=== PATIENT | female | born 1975 | race Caucasian/White ===

== ENCOUNTER → 2016-10-19 | Outpatient (CLI) | payer OTHER ==
[2016-10-19 13:25] LABS: MEAN CORPUSCULAR HEMOGLOBIN 27.8 pg (27.0-33.0); MEAN CORPUSCULAR HGB CONC 33.4 g/dl (32.0-36.5); MEAN CORPUSCULAR VOLUME 83.2 fl (80.0-96.0); RED CELL DISTRIBUTION WIDTH 13.1 % (11.5-14.5); WHITE BLOOD COUNT 11.4 K/mm3 (4.0-10.0)
[2016-10-19 13:45] LABS: ALBUMIN 3.3 GM/DL (3.2-5.2); ALBUMIN/GLOBULIN RATIO 0.92 (1.00-1.93); ALKALINE PHOSPHATASE 106 U/L (45-117); ALT/SGPT 47 U/L (12-78); ANION GAP 10 MEQ/L (8-16); AST/SGOT 29 U/L (15-37); BILIRUBIN,TOTAL 0.6 MG/DL (0.2-1.0); BLOOD UREA NITROGEN 12 MG/DL (7-18); CALCIUM LEVEL 8.7 MG/DL (8.5-10.1); CARBON DIOXIDE LEVEL 28 MEQ/L (21-32); CHLORIDE LEVEL 109 MEQ/L (98-107); CHOLESTEROL LEVEL 146 MG/DL (<200); CREATININE FOR GFR 0.81 MG/DL (0.55-1.02); GLOMERULAR FILTRATION RATE > 60.0 (>60); GLUCOSE, FASTING 88 MG/DL (70-105); POTASSIUM SERUM 3.1 MEQ/L (3.5-5.1); SODIUM LEVEL 147 MEQ/L (136-145); THYROXINE (T4) 12.5 UG/DL (4.5-12.0); TOTAL IRON BINDING CAPACITY 295 UG/DL (250-450); TOTAL PROTEIN 6.9 GM/DL (6.4-8.2); TRIGLYCERIDES LEVEL 83 MG/DL (<150)
== END ==
LOC: M WUC 11:11
PROVIDERS: ATTEND Family Medicine
DX: E11.9 Type 2 diabetes mellitus without complications (principal); E03.9 Hypothyroidism, unspecified

== ENCOUNTER 2017-01-10 08:18 | Day surgery (SDC) | payer OTHER ==
[~2017-01-10] VITALS: Ht 172.7 cm; Wt 102.0 kg
[2017-01-10] MEDS ORDERED: XANA1TAB2 PO (08:39)
[2017-01-10] MEDS ORDERED: KETOROLAC 30 MG/ML VIAL (J1885) IV ONE (10:00)
[2017-01-10] MEDS ORDERED: ONDANSETRON 4MG/2ML VIAL (J2405) IV ONE (10:00)
[2017-01-10] MEDS ORDERED: NS 1,000 ML IV ONE (10:00)
--- NOTE | 2017-01-10 11:02 | REP ---
An increase in the [facility] CT abdomen pelvis without IV or bowel contrast for left flank pain. Comparisons 09/13/2015. There is a 7 mm calculus in the distal left ureter at the mid sacrum level. It just inferior to this is an 8 mm left ureteral calculus. Interposed between these two calculi and is a 4 mm calculus in the distal left ureter. There is marked left hydronephrosis and hydroureter and left perinephric stranding. All of these findings are changes from the 09/13/2015 study. On the prior study. There were multiple left renal calculi. There are no left renal calculi on the study today. There are no right renal calculi. There is no right hydronephrosis. This is unchanged. There are no bladder calculi. The visualized lung pelaez are unremarkable. The unenhanced hepatic parenchyma, pancreas and spleen are unremarkable. There are surgical clips in the gallbladder fossa. This is unchanged. The adrenals, abdominal aorta, bowel and mesentery are unremarkable and unchanged. Pelvis: The uterus and adnexa are unremarkable. There is no adenopathy or ascites. The bladder is unremarkable. The pelvic bowel loops are unremarkable. Impression: There are three calculi, one above the other, in the distal left ureter at the mid sacral level. There is marked left hydronephrosis and perinephric stranding. Signed by Jeremy Hull MD 01/10/2017 10:53 A
[2017-01-10] MEDS ORDERED: NS 1,000 ML IV SCH (11:30)
[2017-01-10] MEDS ORDERED: LevoFLOXacin IV 750 MG in APPROPRIATE DILUENT 1 EA IV ONE (11:30)
[2017-01-10] MEDS ORDERED: KLOR1CAP PO (11:51)
[2017-01-10] MEDS ORDERED: IBUP80TA PO (11:51)
[2017-01-10] MEDS ORDERED: MORPHINE 4 MG/ML 1ML SYRINGE IV ONE (16:45)
[2017-01-10] MEDS ORDERED: CONRAY-60 60% 50ML VIAL (Q9961) As Ordered ONE (17:46)
[2017-01-10] MEDS ORDERED: GENTAMICIN SULF INJ 80MG/2ML VIAL (J1580) As Ordered ONE (18:38)
[2017-01-10] MEDS ORDERED: fentaNYL 250 MCG/5 ML INJECTION (J3010) As Ordered ONE (18:54)
[2017-01-10] MEDS ORDERED: MIDAZOLAM INJ 2 MG/2 ML VIAL (J2250) As Ordered ONE (18:54)
[2017-01-10] MEDS ORDERED: ONDANSETRON 4MG/2ML VIAL (J2405) As Ordered ONE (18:54)
[2017-01-10] MEDS ORDERED: LIDOCAINE 2% INJ 100 MG/5 ML SDV (FOR ANES.) As Ordered ONE (18:54)
[2017-01-10] MEDS ORDERED: dexameTHASONE 4 MG/ML 1ML VIAL (J1100) As Ordered ONE (18:54)
[2017-01-10] MEDS ORDERED: LR 1,000 ML IV SCH (19:45)
[2017-01-10] MEDS ORDERED: fentaNYL 100 MCG/2 ML INJECTION (J3010) IV PRN (19:45)
[2017-01-10] MEDS ORDERED: ONDANSETRON 4MG/2ML VIAL (J2405) IV PRN ×2 (19:45)
[2017-01-10] MEDS ORDERED: MEPERIDINE INJ 25 MG/ML VIAL (J2175) IV PRN (19:45)
[2017-01-10] MEDS ORDERED: OXYCODONE/APAP 5MG/325MG(BULK FOR ED) 1 TABLET PO PRN (19:45)
[2017-01-10] MEDS ORDERED: METOCLOPRAMIDE INJ 10MG/2ML VIAL (J2765) IV PRN (19:45)
[2017-01-10] MEDS ORDERED: MORPHINE 4 MG/ML 1ML SYRINGE IV PRN (19:45)
[2017-01-10] MEDS ORDERED: PERCOCET 5MG/325MG TAB PO PRN ×2 (19:45→23:30)
[2017-01-10 20:17] VITALS: BP 132/62
[2017-01-10] MEDS: KCL 10MEQ IN D5/0.45NS 1000ML 1,000 ML IV SCH (20:38)
[2017-01-10 20:51] VITALS: BP 129/78
[2017-01-10] MEDS ORDERED: PANTOPRAZOLE 40MG INJ (PROTONIX) (C9113) IV SCH (21:00)
[2017-01-10 21:39] VITALS: BP 122/84
[2017-01-10 22:00] VITALS: BP 126/83
[2017-01-10 23:00] VITALS: BP 123/67
[2017-01-11] VITALS: BP 112/72
[2017-01-11 01:00] VITALS: BP 123/72
[2017-01-11] MEDS: KCL 10MEQ IN D5/0.45NS 1000ML 1,000 ML IV SCH (05:49)
--- NOTE | 2017-01-11 07:22 | RO ---
DATE OF PROCEDURE: 01/10/2017 PREOPERATIVE DIAGNOSES: Left hydronephrosis, plus left distal ureteral stones. POSTOPERATIVE DIAGNOSES: Left hydronephrosis, plus left distal ureteral stones. SURGERY: Cystoscopy, plus left retrograde pyelogram, plus left double J stent placement 6-[place]ian [place] Cook. SURGEON: Marko Brown MD SUBGRADE TESTER: Paresh Carpio, PGY-3 resident. ANESTHESIA: General. COMPLICATIONS: None. ESTIMATED BLOOD LOSS: N/A. HISTORY OF PRESENT ILLNESS: This is a 41-year-old female patient with severe nausea and vomiting and left flank pain. She had a CT scan of the pelvis that shows severe left hydronephrosis with stranding. She has three stones in the distal ureter about a centimeter each. For this reason, she has consented for a cystoscopy, plus left retrograde pyelogram, plus left double J stent placement. PROCEDURE DESCRIPTION: With the patient under general anesthesia in supine modified low lithotomy position after prepping and draping the area of concern, which included the entire genitalia and abdomen, we started by introducing a cystoscope #21-Burundian in diameter with a 30 degree lens. We then proceeded to actively introduce the cystoscope. The urethra and bladder neck were normal. The bladder had no tumors, no stones, no foreign objects. Both ureteral orifices were seen. The left ureteral orifice was not excreting clear urine. The right ureteral orifice was excreting clear urine. We then proceeded to pass a 5-Burundian Pollack catheter into the distal left ureter and did a retrograde pyelogram. We could see left hydronephrosis and obstructing stones in the distal ureter. For this reason, we passed a guidewire up to the kidney and then passed the Pollack catheter. We took the guidewire out. We could actually collect purulent urine from the left kidney. We sent if for urine culture from the left kidney. We then proceeded to pass the guidewire and take the Pollack catheter out. Following the guidewire, we actively placed a 6-[place]ian [place] Cook stent up to the kidney, then took out guidewire out. We could see the curl in the kidney and the curl in the bladder. We then emptied the bladder and took the cystoscope out. PLAN: The patient will stay in the hospital for IV fluids and IV antibiotics. Once she is tolerating a regular diet and she is stable, she will be discharged home with antibiotic and pain medication, and at that moment in time, we will address her stones on the left kidney in elective fashion. We cannot address this at this moment and time because she has purulent material coming out from the left kidney, which is purulent urine. We will address when she is completely treated with specific antibiotics sensitive for the urine culture. There were no complications of surgery. JOCY
[2017-01-11 08:00] VITALS: BP 118/69
--- NOTE | 2017-01-11 09:13 | REP ---
Retrograde pyelogram during left ureteral stent placement: There are three views. The final views demonstrate the proximal and distal pigtails of the left ureteral stent to be in satisfactory locations. Fluoroscopic exposure time is 39 seconds. Intraoperative fluoroscopic views are performed with last image hold technology. These images require no additional radiation. Signed by Jeremy Hull MD 01/11/2017 09:05 A
[2017-01-11] MEDS ORDERED: PERCOCET PO (10:59)
[2017-01-11] MEDS ORDERED: LEVA500T PO (10:59)
[2017-01-11] MEDS ORDERED: LevoFLOXacin IV 500 MG in APPROPRIATE DILUENT 1 EA IV SCH (12:00)
--- NOTE | 2017-01-11 12:23 | DSES ---
DATE OF ADMISSION: 01/10/2017 DATE OF DISCHARGE: ADMISSION DIAGNOSIS: Left hydronephrosis plus left distal ureteral stones. DISCHARGE DIAGNOSIS: Left hydronephrosis plus left distal ureteral stones. SURGERY PERFORMED: Cystoscopy plus left retrograde pyelogram plus left JJ-stent placement #6 Filipino [place] Cook. SURGEON: Dr. Marko Brown ANTHROPOLOGIST: Paresh Carpio, PGY-3 HISTORY OF PRESENT ILLNESS: This is a 41-year-old female patient with severe nausea, vomiting and left flank pain. She had a CT scan of the pelvis that shows severe left hydronephrosis and stranding. She had three stones in the distal ureter about 1 cm each. For this reason, she has consented for cystoscopy plus left retrograde pyelogram plus left JJ-stent placement. This procedure was performed on 01/10/2017. After this she was admitted. HOSPITAL COURSE: The patient did very well. By postoperative day #1, she was tolerating a regular diet and ambulating very well. Her pain was controlled with by mouth pain medications. She was voiding well. She was hemodynamically stable. No fever. No chills. No nausea. No vomiting. For this reason, she requested to go home and we agreed upon this. The patient will go home with the following indications. Levaquin 500 mg one tablet by mouth daily for ten day and Percocet for pain. She may return back to work tomorrow. She will followup at [facility] between 7 and 10 days. She will need to have a urine culture three days after the last dose of antibiotics. After this, if the urine culture is negative, we will schedule her for a definite treatment for her stone via cystoscopy, left ureteroscopy, possible laser stone lithotripsy, possible basket extraction of stones, possible left JJ-stent exchange.
== END 2017-01-11 11:40 | disposition home or self-care (01) ==
LOC: M ED 09:37 → M SDC 15:30 → M PED 20:11 → M SDC 01-11 11:40
PROVIDERS: ATTEND Urology
DX: N13.2 Hydronephrosis with renal and ureteral calculous obstruction (principal); J45.909 Unspecified asthma, uncomplicated; F41.0 Panic disorder [episodic paroxysmal anxiety]
CPT/HCPCS: 36415; 52332; 74176; 74420; 80048; 81001; 81025; 85025; 85027; 87040; 87086; 96375; 99285; C1726; C2617; C9113; J1100; J1580; J1885; J1956; J2250; J2405; J3010; Q9961

== ENCOUNTER → 2017-02-02 | Outpatient (CLI) | payer OTHER ==
[~2017-02-02] MED LIST: IBUP80TA PO; KLOR1CAP PO; LEVA500T PO; PERCOCET PO; XANA1TAB2 PO
[2017-02-02 14:29] LABS: CONTROL LINE HCG INT CTR LINE PRESENT
[2017-02-02 14:35] LABS: ANION GAP 7 MEQ/L (8-16); BLOOD UREA NITROGEN 16 MG/DL (7-18); CALCIUM LEVEL 8.6 MG/DL (8.5-10.1); CARBON DIOXIDE LEVEL 28 MEQ/L (21-32); CHLORIDE LEVEL 106 MEQ/L (98-107); CREATININE FOR GFR 1.02 MG/DL (0.55-1.02); GLOMERULAR FILTRATION RATE > 60.0 (>60); GLUCOSE, FASTING 83 MG/DL (70-105); POTASSIUM SERUM 4.1 MEQ/L (3.5-5.1); SODIUM LEVEL 141 MEQ/L (136-145)
[2017-02-02 14:40] LABS: MEAN CORPUSCULAR HEMOGLOBIN 27.3 pg (27.0-33.0); MEAN CORPUSCULAR HGB CONC 32.1 g/dl (32.0-36.5); RED CELL DISTRIBUTION WIDTH 14.9 % (11.5-14.5); WHITE BLOOD COUNT 8.4 K/mm3 (4.0-10.0)
[2017-02-02 14:44] LABS: INR 1.03
== END ==
LOC: M WUC 12:32
PROVIDERS: ATTEND Nurse Practitioner Women's Health
DX: N13.2 Hydronephrosis with renal and ureteral calculous obstruction (principal); Z01.818 Encounter for other preprocedural examination

== ENCOUNTER → 2017-03-09 | Day surgery (SDC) | payer OTHER ==
[~2017-03-09] VITALS: Ht 167.6 cm; Wt 102.1 kg
[~2017-03-09] MED LIST changes: +ALLE1TAB23 PO; +CIPR500T3 PO; +CIPROFLOXACIN 400 MG in APPROPRIATE DILUENT 1 EA IV ONE; +CIPROFLOXACIN 500 MG TAB PO SCH; +CLAR1TAB2 PO; +CONRAY-60 60% 50ML VIAL (Q9961) As Ordered ONE; +CVS20TAB PO; +GLYCOPYRROLATE INJ 0.2 MG/ML 2 ML VIAL As Ordered ONE; +KETOROLAC 60 MG/2 ML VIAL (J1885) As Ordered ONE; +LIDOCAINE 2% INJ 100 MG/5 ML SDV (FOR ANES.) As Ordered ONE; +LR 1,000 ML IV ONE; +LR 1,000 ML IV SCH; +MEDR1VL IM; +MIDAZOLAM INJ 2 MG/2 ML VIAL (J2250) As Ordered ONE; +ONDANSETRON 4MG/2ML VIAL (J2405) As Ordered ONE; +ONDANSETRON 4MG/2ML VIAL (J2405) IV PRN; +PERCOCET 5MG/325MG TAB PO SCH; +PROPOFOL 200 MG/20 ML VIAL As Ordered ONE; +dexameTHASONE 4 MG/ML 1ML VIAL (J1100) As Ordered ONE; +fentaNYL 100 MCG/2 ML INJECTION (J3010) As Ordered ONE; +fentaNYL 100 MCG/2 ML INJECTION (J3010) IV PRN
[2017-03-09 07:26] LABS: CONTROL LINE UCG INT CTR LINE PRESENT
--- NOTE | 2017-03-09 11:21 | REP ---
C-ARM VIEWS ABDOMEN: C-arm views of the abdomen are performed. There is a left ureteral stent. The proximal end is coiled in the region of the left renal pelvis and the distal end is coiled in the region of the urinary bladder. 8 seconds fluoroscopy time utilized. Signed by Jeremy Flores MD 03/10/2017 07:03 P
[2017-03-09 12:35] VITALS: BP 146/93
--- NOTE | 2017-03-10 08:23 | RO ---
DATE OF PROCEDURE: 03/09/2017 PREPROCEDURE DIAGNOSIS: Left ureteral stones. POSTPROCEDURE DIAGNOSIS: Left ureteral stones. PROCEDURE: Cystoscopy plus left retrograde pyelogram plus left ureteroscopy plus left laser stone lithotripsy plus left basket extraction of stones, plus left double J stent exchange 6.0 [place] Cook. SURGEON: Dr. Marko Brown PRODUCT SUPPORT CONSULTANT: None. ANESTHESIA: General. COMPLICATIONS: None. ESTIMATED BLOOD LOSS: N/A. HISTORY OF PRESENT ILLNESS: This is a 41-year-old female patient with a left double J stent due to three distal ureteral stones about 8 mm in diameter. For this reason, she has consented for cystoscopy plus left retrograde pyelogram plus left ureteroscopy plus left laser stone lithotripsy plus left basket extraction of stones, plus left double J stent exchange. FINDINGS: 8 mm left atrial stones times three. DESCRIPTION OF PROCEDURE: The patient under general anesthesia in the supine modified low lithotomy position after prepping and draping the area of concern, which included the entire genitalia and abdomen. We started by introducing a cystoscope #21-Qatari in diameter with a 30-degree lens under videoscopic guidance. The urethra and bladder neck were totally normal. The bladder had no tumors. No stones. No foreign objects. There was a left double J stent in good position. With endoscopic forceps, we grabbed the double J stent and took it out of the body of the patient. We then proceeded to pass a #5-Qatari Dewey catheter and did a retrograde pyelogram and then loaded a guidewire up to the kidney. We then took the Dewey catheter out. We then proceeded to load a semirigid #7-Qatari ureteroscope following the guidewire up to the ureter. Then in the distal ureter, we found an 8 mm stone. We passed an 200 micron probe holmium laser and laser lithotripsy the stone into small fragments at a power of 0.6 and a rate of 10. We then passed a #1.9-Qatari basket and grabbed the pieces of stones and took it out of the body of the patient. We then proceeded to actually load again the semirigid ureteroscope and netted in the second stone in the distal ureter. With the holmium laser 200 micron probe, we laser lithotripsied the stone into multiple fragments also and the grabbed the stones with the basket also and took it out of the body of the patient. Once the ureter was completely cleared, we took the ureteroscope out and passed the cystoscope and loaded a left double J stent #6-Qatari [place] Cook following the guidewire. Once the stent was in good position, we took the guidewire out and we could see the curl in the kidney and the curl in the bladder. We then emptied the bladder and took the cystoscope out. PLAN: The patient will pass to the recovery room and then go home. She will have antibiotics and pain medication. Followup at [facility] in about 1 to 2 weeks for removal of the left double J stent.
== END | disposition home or self-care (01) ==
LOC: M SDC 06:36
PROVIDERS: ATTEND Urology
DX: N20.1 Calculus of ureter (principal); J45.909 Unspecified asthma, uncomplicated; Z88.0 Allergy status to penicillin; Z79.899 Other long term (current) drug therapy
CPT/HCPCS: 52356; 74420; 82360; 84703; 88300; C1726; C2617; J0744; J1100; J1885; J2250; J2405; J3010; Q9961

== ENCOUNTER → 2017-04-25 | Outpatient (REF) | payer OTHER ==
[~2017-04-25] MED LIST changes: -CIPROFLOXACIN 400 MG in APPROPRIATE DILUENT 1 EA IV ONE; -CIPROFLOXACIN 500 MG TAB PO SCH; -CONRAY-60 60% 50ML VIAL (Q9961) As Ordered ONE; -GLYCOPYRROLATE INJ 0.2 MG/ML 2 ML VIAL As Ordered ONE; -KETOROLAC 60 MG/2 ML VIAL (J1885) As Ordered ONE; +LEVA1TAB2 PO; -LEVA500T PO; -LIDOCAINE 2% INJ 100 MG/5 ML SDV (FOR ANES.) As Ordered ONE; -LR 1,000 ML IV ONE; -LR 1,000 ML IV SCH; -MIDAZOLAM INJ 2 MG/2 ML VIAL (J2250) As Ordered ONE; -ONDANSETRON 4MG/2ML VIAL (J2405) As Ordered ONE; -ONDANSETRON 4MG/2ML VIAL (J2405) IV PRN; -PERCOCET 5MG/325MG TAB PO SCH; -PROPOFOL 200 MG/20 ML VIAL As Ordered ONE; -dexameTHASONE 4 MG/ML 1ML VIAL (J1100) As Ordered ONE; -fentaNYL 100 MCG/2 ML INJECTION (J3010) As Ordered ONE; -fentaNYL 100 MCG/2 ML INJECTION (J3010) IV PRN
== END ==
LOC: M SMT 17:50
PROVIDERS: ATTEND Urology
DX: N13.2 Hydronephrosis with renal and ureteral calculous obstruction (principal)

== ENCOUNTER → 2017-06-20 | Outpatient (REF) | payer OTHER ==
[2017-06-25 00:08] LABS: ALDOSTERONE 3.7 ng/dL (0.0-30.0)
== END ==
LOC: M LAB REF 17:00
PROVIDERS: ATTEND Internal Medicine Nephrology
DX: N20.9 Urinary calculus, unspecified (principal); E87.6 Hypokalemia; I10 Essential (primary) hypertension

== ENCOUNTER 2018-02-07 12:01 | Emergency (ER) | payer OTHER ==
[2018-02-07] MEDS: DERMABOND TOPICAL SKIN ADHESIVE TOP (15:20)
== END 2018-02-07 15:33 | disposition home or self-care (01) ==
LOC: M ED 12:01
DX: S61.213A Laceration without foreign body of left middle finger without damage to nail, initial encounter (principal); W26.0XXA Contact with knife, initial encounter; Y92.89 Other specified places as the place of occurrence of the external cause; J45.909 Unspecified asthma, uncomplicated; K21.9 Gastro-esophageal reflux disease without esophagitis; F41.9 Anxiety disorder, unspecified; Z87.442 Personal history of urinary calculi; Z88.0 Allergy status to penicillin; Z79.899 Other long term (current) drug therapy
CPT/HCPCS: 12001

== ENCOUNTER → 2018-02-16 | Outpatient (CLI) | payer OTHER ==
[2018-02-16 12:15] LABS: BASO # 0.1 10^3/uL (0.0-0.2); BASO % 0.7 % (0.0-1.0); EOS # 0.2 10^3/uL (0.0-0.50); HEMATOCRIT 41.4 % (36.0-47.0); HEMOGLOBIN 13.4 g/dl (12.0-15.5); IMMATURE GRANULOCYTE % 0.4 % (0-3.0); LYMPH # 1.8 10^3/uL (1.5-4.5); LYMPH % 22.1 % (24.0-44.0); MEAN CORPUSCULAR HEMOGLOBIN 27.3 pg (27.0-33.0); MEAN CORPUSCULAR HGB CONC 32.4 g/dl (32.0-36.5); MEAN CORPUSCULAR VOLUME 84.5 fl (80.0-96.0); MONO # 0.7 10^3/uL (0.0-0.8); MONO % 8.6 % (0.0-5.0); NEUTROPHILS # 5.4 10^3/uL (1.8-7.7); NEUTROPHILS % 66.2 % (36.0-66.0); PLATELET COUNT, AUTOMATED 206 10^3/uL (150-450); RED CELL DISTRIBUTION WIDTH 13.4 % (11.5-14.5); WHITE BLOOD COUNT 8.2 10^3/uL (4.0-10.0)
[2018-02-16 12:52] LABS: ALBUMIN 3.7 GM/DL (3.2-5.2); ALBUMIN/GLOBULIN RATIO 1.12 (1.00-1.93); ALKALINE PHOSPHATASE 110 U/L (45-117); ALT/SGPT 61 U/L (12-78); ANION GAP 8 MEQ/L (8-16); AST/SGOT 35 U/L (7-37); BILIRUBIN,TOTAL 0.6 MG/DL (0.2-1.0); BLOOD UREA NITROGEN 10 MG/DL (7-18); CALCIUM LEVEL 8.7 MG/DL (8.5-10.1); CARBON DIOXIDE LEVEL 24 MEQ/L (21-32); CHLORIDE LEVEL 111 MEQ/L (98-107); CHOLESTEROL LEVEL 113 MG/DL (<200); CHOLESTEROL RISK RATIO 3.054 (<5); CREATININE FOR GFR 0.87 MG/DL (0.55-1.30); GLOMERULAR FILTRATION RATE > 60.0 (>58); GLUCOSE, FASTING 79 MG/DL (70-100); HDL CHOLESTEROL 37 MG/DL (>40); LDL CHOLESTEROL 67.4 MG/DL (<100); MAGNESIUM LEVEL 2.1 MG/DL (1.8-2.4); NON-HDL-C 76 MG/DL; POTASSIUM SERUM 4.5 MEQ/L (3.5-5.1); SODIUM LEVEL 143 MEQ/L (136-145); TRIGLYCERIDES LEVEL 43 MG/DL (<150)
== END ==
LOC: M WUC 08:39
DX: Z00.00 Encounter for general adult medical examination without abnormal findings (principal)

== ENCOUNTER 2018-06-25 18:57 | Emergency (ER) | payer OTHER ==
[2018-06-25] MEDS: METHOCARBAMOL 500 MG TAB PO (20:09)
[2018-06-25] MEDS: IBUPROFEN 600 MG TAB PO (20:09)
[2018-06-25 20:11] LABS: KETONE, URINE AUTO RFX NEGATIVE (NEGATIVE); LEUKOCYTE ESTERASE UR AUTO RFX NEGATIVE (NEGATIVE); NITRITE, URINE AUTO RFX NEGATIVE (NEGATIVE); RBC, URINE AUTO RFX 0 /HPF (0-3); SPECIFIC GRAVITY UR AUTO RFX 1.011 (1.002-1.035); SQUAM EPITHELIAL CELL UR AURFX 0 /HPF (0-6); WBC, URINE AUTO RFX 0 /HPF (0-3)
== END 2018-06-25 20:11 | disposition home or self-care (01) ==
LOC: M ED 18:57
DX: M54.41 Lumbago with sciatica, right side (principal); Z87.442 Personal history of urinary calculi; Z79.899 Other long term (current) drug therapy; Z88.0 Allergy status to penicillin
CPT/HCPCS: 81001

== ENCOUNTER → 2018-07-19 | Outpatient (CLI) | payer OTHER ==
[2018-07-19 11:20] LABS: ANION GAP 7 MEQ/L (8-16); BLOOD UREA NITROGEN 15 MG/DL (7-18); CALCIUM LEVEL 8.2 MG/DL (8.5-10.1); CARBON DIOXIDE LEVEL 27 MEQ/L (21-32); CHLORIDE LEVEL 107 MEQ/L (98-107); CREATININE FOR GFR 0.82 MG/DL (0.55-1.30); GLOMERULAR FILTRATION RATE > 60.0 (>58); GLUCOSE, FASTING 73 MG/DL (70-100); POTASSIUM SERUM 4.1 MEQ/L (3.5-5.1); SODIUM LEVEL 141 MEQ/L (136-145)
== END ==
LOC: M LAB 10:09
DX: M54.41 Lumbago with sciatica, right side (principal)
CPT/HCPCS: 80048

== ENCOUNTER → 2018-07-19 | Outpatient (CLI) | payer OTHER | LOC: M RAD 09:34 | DX: Z12.31 Encounter for screening mammogram for malignant neoplasm of breast (principal) ==

== ENCOUNTER 2019-01-30 00:48 | Emergency (ER) | payer OTHER, SELFPAY ==
[~2019-01-30] VITALS: Ht 165.1 cm; Wt 104.5 kg
[~2019-01-30 00:48] MED LIST changes: -CVS20TAB PO; +IBUP-1022 PO; +OMEP20TA9 PO; +ROBA500T PO
[2019-01-30] MEDS ORDERED: FLUO10CA8 PO (00:53)
[2019-01-30 01:22] LABS: BASO # 0.1 10^3/uL (0.0-0.2); BASO % 0.7 % (0.0-1.0); EOS # 0.3 10^3/uL (0.0-0.50); EOS % 2.3 % (0.0-3.0); HEMATOCRIT 41.7 % (36.0-47.0); HEMOGLOBIN 13.6 g/dl (12.0-15.5); LYMPH # 2.8 10^3/uL (1.5-4.5); LYMPH % 25.9 % (24.0-44.0); MEAN CORPUSCULAR HEMOGLOBIN 27.4 pg (27.0-33.0); MEAN CORPUSCULAR HGB CONC 32.6 g/dl (32.0-36.5); MEAN CORPUSCULAR VOLUME 83.9 fl (80.0-96.0); MONO # 1.1 10^3/uL (0.0-0.8); MONO % 10.4 % (0.0-5.0); NEUTROPHILS # 6.6 10^3/uL (1.8-7.7); NEUTROPHILS % 60.3 % (36.0-66.0); PLATELET COUNT, AUTOMATED 239 10^3/uL (150-450); RED BLOOD COUNT 4.97 10^6/uL (4.00-5.40); WHITE BLOOD COUNT 10.9 10^3/uL (4.0-10.0)
[2019-01-30 01:45] LABS: ALBUMIN 3.4 GM/DL (3.2-5.2); ALT/SGPT 64 U/L (12-78); BILIRUBIN,DIRECT < 0.1 MG/DL (0.0-0.2); BILIRUBIN,TOTAL 0.3 MG/DL (0.2-1.0); BLOOD UREA NITROGEN 21 MG/DL (7-18); CALCIUM LEVEL 8.2 MG/DL (8.5-10.1); CARBON DIOXIDE LEVEL 25 MEQ/L (21-32); CHLORIDE LEVEL 107 MEQ/L (98-107); CREATININE FOR GFR 0.84 MG/DL (0.55-1.30); GLOMERULAR FILTRATION RATE > 60.0 (>58); GLUCOSE, FASTING 90 MG/DL (70-100); LIPASE 135 U/L (73-393); POTASSIUM SERUM 4.1 MEQ/L (3.5-5.1); SODIUM LEVEL 140 MEQ/L (136-145); TOTAL PROTEIN 7.1 GM/DL (6.4-8.2)
[2019-01-30] MEDS ORDERED: KETOROLAC 60 MG/2 ML VIAL (J1885) IM ONE (05:30)
[2019-01-30] MEDS ORDERED: IBUP-1022 PO (06:34)
[2019-01-30 06:58] VITALS: BP 112/56
--- NOTE | 2019-01-30 08:07 | REP ---
Right rib series: Five views including PA chest. History: Low anterior rib pain without trauma. Comparison chest x-ray: February 25, 2014. Findings: PA chest radiograph is normal. There is no evidence of pneumothorax or hydrothorax. Mediastinum is not widened. Heart size is normal. Pulmonary vasculature is not increased. Multiple views of the right ribcage show clips in the right upper quadrant of the abdomen consistent with a previous cholecystectomy. No rib fracture or bony destructive lesion is appreciated. Impression: Negative right rib radiographs. No active disease. Electronically Signed by Cade Pyle MD 01/30/2019 08:00 A
== END 2019-01-30 06:58 | disposition home or self-care (01) ==
LOC: M ED 00:48
DX: R07.81 Pleurodynia (principal); M54.5 Low back pain; E66.8 Other obesity; Z87.442 Personal history of urinary calculi; Z79.899 Other long term (current) drug therapy; Z88.0 Allergy status to penicillin
CPT/HCPCS: 36415; 71101; 80048; 80076; 81001; 83690; 85025; 96372; 99283; J1885

== ENCOUNTER 2019-02-19 16:56 | Emergency (ER) | payer SELFPAY ==
[~2019-02-19] VITALS: Ht 175.3 cm; Wt 100.0 kg
[~2019-02-19 16:56] MED LIST changes: +FLUO10CA8 PO
[2019-02-19] MEDS ORDERED: FLUO20CA19 PO (17:06)
[2019-02-19] MEDS ORDERED: HYDR50TA70 (17:06)
[2019-02-19] MEDS ORDERED: NORG1TAB (17:06)
[2019-02-19] MEDS ORDERED: PROAAER10 (17:06)
--- NOTE | 2019-02-19 18:21 | REPVR ---
EXAM: CT Cervical Spine Without Contrast EXAM DATE/TIME: 02/19/2019 6:04 PM CLINICAL HISTORY: 43 years old, female; Other: Left shoulder/neck pain; Additional info: Left cervical radiculopathy TECHNIQUE: Imaging protocol: Axial computed tomography images of the cervical spine without contrast. Coronal and sagittal reformatted images were created and reviewed. Radiation optimization: All CT scans at this facility use at least one of these dose optimization techniques: automated exposure control; mA and/or kV adjustment per patient size (includes targeted exams where dose is matched to clinical indication); or iterative reconstruction. COMPARISON: No relevant prior studies available. FINDINGS: Vertebrae: Reversal of normal cervical lordotic curvature. Discs/Spinal canal/Neural foramina: Mild bilateral foraminal stenosis at C6 secondary to uncinate joint hypertrophic changes. Soft tissues: Unremarkable. Lungs: Lung apices are normal. IMPRESSION: No acute findings. Mild degenerative spondylosis. Electronically signed by: Lamin Louis On 02/19/2019 18:20:58 PM
[2019-02-19] MEDS ORDERED: SKEL800T97 PO (18:28)
[2019-02-19 18:30] VITALS: BP 124/82
--- NOTE | 2019-02-20 07:21 | ECGEPIP ---
Stationary ECG Study [facility] - ED Test Date: 2019-02-19 Pat Name: JUNE KLEIN Department: Room: - Gender: F Supervisor Inspecting: : 1975 Requested By: Ortiz Stiles Order Number: [id number] Reading MD: Silva Mittal Measurements Intervals [place] Rate: 75 P: -15 CO: 142 QRS: 3 QRSD: 70 T: 11 QT: 356 QTc: 399 Interpretive Statements SINUS RHYTHM LOW QRS VOLTAGE IN PRECORDIAL LEADS PRWP NO PRIOR FOR COMPARISON Electronically Signed On 02-20-2019 7:20:32 EDT by Silva Mittal
--- NOTE | 2019-02-20 20:50 | ED PDOC ---
Post-Departure Follow-Up ayde gardiner faxed formal report of ct c spine for fu Fanta Reinoso MD February 20, 2019 20:50
== END 2019-02-19 18:42 | disposition home or self-care (01) ==
LOC: M ED 16:56
DX: M54.12 Radiculopathy, cervical region (principal); R20.2 Paresthesia of skin; E66.8 Other obesity; Z87.442 Personal history of urinary calculi; Z79.899 Other long term (current) drug therapy; Z79.3 Long term (current) use of hormonal contraceptives; Z88.0 Allergy status to penicillin

== ENCOUNTER 2019-10-13 16:37 | Emergency (ER) | payer OTHER ==
[~2019-10-13] VITALS: Ht 167.6 cm; Wt 122.7 kg
[~2019-10-13 16:37] MED LIST changes: +FLUO10CA15 PO; -FLUO10CA8 PO; +FLUO20CA19 PO; +HYDR50TA70; +NORG1TAB4; +PROAAER10; +SKEL800T97 PO
[2019-10-13 17:43] LABS: BASO # 0.1 10^3/uL (0.0-0.2); BASO % 0.6 % (0.0-1.0); EOS # 0.1 10^3/uL (0.0-0.5); EOS % 1.2 % (0.0-3.0); HEMATOCRIT 45.5 % (36.0-47.0); LYMPH # 1.9 10^3/uL (1.5-5.0); MEAN CORPUSCULAR HEMOGLOBIN 26.1 pg (27.0-33.0); MEAN CORPUSCULAR HGB CONC 30.8 g/dl (32.0-36.5); MEAN CORPUSCULAR VOLUME 84.7 fl (80.0-96.0); MONO % 8.6 % (0.0-5.0); NEUTROPHILS # 8.2 10^3/uL (1.5-8.5); NEUTROPHILS % 72.4 % (36.0-66.0); PLATELET COUNT, AUTOMATED 242 10^3/uL (150-450); RED BLOOD COUNT 5.37 10^6/uL (4.00-5.40); WHITE BLOOD COUNT 11.3 10^3/uL (4.0-10.0)
[2019-10-13 17:59] LABS: ALBUMIN 3.6 GM/DL (3.2-5.2); BILIRUBIN,DIRECT 0.2 MG/DL (0.0-0.2); BILIRUBIN,TOTAL 0.6 MG/DL (0.2-1.0)
[2019-10-13] MEDS ORDERED: LACT10SO29 PO (18:16)
[2019-10-13] MEDS ORDERED: COLA100C5 PO (18:16)
[2019-10-13] MEDS ORDERED: MAGNESIUM CITRATE 300 ML BTL PO ONE (18:30)
[2019-10-13] MEDS ORDERED: LACTULOSE 20 GM/30 ML SYRUP UD PO ONE (18:30)
[2019-10-13 18:31] VITALS: BP 136/81
--- NOTE | 2019-10-13 19:16 | REP ---
Acute abdominal series: Three views. History: Constipation times 1 week. Comparison chest x-ray: January 30, 2019. Findings: Upright chest radiograph is normal. There is no evidence of infiltrate or free subdiaphragmatic air. Heart is not enlarged. Supine and erect views of the abdomen demonstrate clips in right upper quadrant consistent with previous cholecystectomy. Psoas margins and flank stripes are intact. No mass, organomegaly, or pathologic calcification is seen. Bowel gas pattern is normal. Impression: Unremarkable acute abdominal series. Electronically Signed by Cade Pyle MD 10/13/2019 07:07 P
== END 2019-10-13 18:37 | disposition home or self-care (01) ==
LOC: M ED 16:37
DX: K59.00 Constipation, unspecified (principal); Z87.442 Personal history of urinary calculi; K21.9 Gastro-esophageal reflux disease without esophagitis; Z87.448 Personal history of other diseases of urinary system; J45.909 Unspecified asthma, uncomplicated; N92.6 Irregular menstruation, unspecified; Z79.3 Long term (current) use of hormonal contraceptives; Z79.899 Other long term (current) drug therapy; Z88.0 Allergy status to penicillin

== ENCOUNTER 2019-12-09 16:35 | Emergency (ER) | payer OTHER ==
[~2019-12-09] VITALS: Ht 160 cm; Wt 131.8 kg
[~2019-12-09 16:35] MED LIST changes: +COLA100C5 PO; -FLUO20CA19 PO; +FLUO20CA22 PO; +LACT10SO29 PO
[2019-12-09 17:59] VITALS: BP 137/89
--- NOTE | 2019-12-09 18:21 | REPVR ---
PROCEDURE INFORMATION: Exam: US Duplex Right Lower Extremity Veins, Limited Exam date and time: 12/09/2019 5:10 PM Age: 44 years old Clinical indication: Pain; Leg, lower; Right; Additional info: Right lower leg swelling/pain; R/O dvt TECHNIQUE: Imaging protocol: Real-time Duplex ultrasound of the Right Lower Extremity with 2-D suarez scale, color Doppler flow and spectral waveform analysis with image documentation. Limited exam was focused on the right lower extremity veins. COMPARISON: No relevant prior studies available. FINDINGS: Right deep veins: Unremarkable. The common femoral, femoral, proximal profunda femoral and popliteal veins are patent without thrombus. Normal Doppler waveforms. Normal compressibility and/or augmentation response. Right superficial veins: Unremarkable. Saphenofemoral junction is patent without thrombus. Soft tissues: Unremarkable. IMPRESSION: No acute findings. No evidence of deep vein thrombosis. Electronically signed by: She Friend On 12/09/2019 18:20:47 PM
== END 2019-12-09 18:02 | disposition home or self-care (01) ==
LOC: M ED 16:35
DX: S86.911A Strain of unspecified muscle(s) and tendon(s) at lower leg level, right leg, initial encounter (principal); X58.XXXA Exposure to other specified factors, initial encounter; Y92.9 Unspecified place or not applicable; Y93.9 Activity, unspecified; Y99.9 Unspecified external cause status; K21.9 Gastro-esophageal reflux disease without esophagitis; F41.9 Anxiety disorder, unspecified; Z87.442 Personal history of urinary calculi; Z96.0 Presence of urogenital implants; Z88.0 Allergy status to penicillin

== ENCOUNTER → 2020-01-22 | Outpatient (REF) | payer OTHER ==
[2020-01-22 13:00] LABS: BASO # 0.1 10^3/uL (0.0-0.2); EOS # 0.3 10^3/uL (0.0-0.5); EOS % 3.1 % (0.0-3.0); HEMOGLOBIN 14.2 g/dl (12.0-15.5); LYMPH # 2.1 10^3/uL (1.5-5.0); LYMPH % 24.7 % (24.0-44.0); MEAN CORPUSCULAR HEMOGLOBIN 26.7 pg (27.0-33.0); MEAN CORPUSCULAR HGB CONC 31.6 g/dl (32.0-36.5); MEAN CORPUSCULAR VOLUME 84.7 fl (80.0-96.0); MONO # 0.8 10^3/uL (0.0-0.8); NEUTROPHILS # 5.3 10^3/uL (1.5-8.5); NEUTROPHILS % 61.9 % (36.0-66.0); PLATELET COUNT, AUTOMATED 225 10^3/uL (150-450); RED BLOOD COUNT 5.31 10^6/uL (4.00-5.40); WHITE BLOOD COUNT 8.6 10^3/uL (4.0-10.0)
[2020-01-22 13:12] LABS: ALBUMIN 3.6 GM/DL (3.2-5.2); ALT/SGPT 52 U/L (12-78); BILIRUBIN,TOTAL 0.5 MG/DL (0.2-1.0); BLOOD UREA NITROGEN 16 MG/DL (7-18); CALCIUM LEVEL 8.8 MG/DL (8.5-10.1); CARBON DIOXIDE LEVEL 29 MEQ/L (21-32); CHLORIDE LEVEL 104 MEQ/L (98-107); CHOLESTEROL LEVEL 185 MG/DL (<200); CHOLESTEROL RISK RATIO 4.512 (<5); CREATININE FOR GFR 0.93 MG/DL (0.55-1.30); FREE T4 0.99 NG/DL (0.76-1.46); GLOMERULAR FILTRATION RATE > 60.0 (>58); GLUCOSE, FASTING 81 MG/DL (70-100); HDL CHOLESTEROL 41 MG/DL (>40); LDL CHOLESTEROL 125 MG/DL (<100); NON-HDL-C 144 MG/DL; SODIUM LEVEL 137 MEQ/L (136-145); TOTAL PROTEIN 7.3 GM/DL (6.4-8.2); TRIGLYCERIDES LEVEL 93 MG/DL (<150)
[2020-01-22 13:13] LABS: TOTAL 25(OH) VITAMIN D 19.5 NG/ML (30.0-100.0)
[2020-01-22 13:47] LABS: HEMOGLOBIN A1c 5.2 %
== END ==
LOC: M LAB REF 12:02
PROVIDERS: ATTEND Physician Assistant
DX: Z00.01 Encounter for general adult medical examination with abnormal findings (principal); Z68.43 Body mass index [BMI] 50.0-59.9, adult; E66.01 Morbid (severe) obesity due to excess calories; J45.21 Mild intermittent asthma with (acute) exacerbation; F41.8 Other specified anxiety disorders

== ENCOUNTER → 2020-03-12 | Outpatient (REF) | payer OTHER ==
[~2020-03-12] MED LIST changes: -LACT10SO29 PO; +LACT20EL PO
== END ==
LOC: M LAB REF 10:18
PROVIDERS: ATTEND Physician Assistant
DX: R30.0 Dysuria (principal)

== ENCOUNTER → 2020-07-17 | Outpatient (REF) | payer OTHER ==
[~2020-07-17] MED LIST changes: -FLUO10CA15 PO; +FLUO10CA16 PO
== END ==
LOC: M LAB REF 15:06
PROVIDERS: ATTEND Physician Assistant
DX: M54.5 Low back pain (principal); Z87.442 Personal history of urinary calculi

== ENCOUNTER → 2020-10-28 | Outpatient (CLI) | payer SELFPAY | LOC: M LABSMTC 13:15 | PROVIDERS: ATTEND Pediatrics | DX: Z20.822 Contact with and (suspected) exposure to COVID-19 (principal) ==

== ENCOUNTER → 2020-12-19 | Outpatient (REF) | payer OTHER ==
[2020-12-19 12:32] LABS: BASO # 0.1 10^3/uL (0.0-0.2); EOS # 0.2 10^3/uL (0.0-0.5); EOS % 2.2 % (0.0-3.0); HEMATOCRIT 45.6 % (36.0-47.0); HEMOGLOBIN 14.6 g/dl (12.0-15.5); LYMPH # 1.8 10^3/uL (1.5-5.0); LYMPH % 18.6 % (24.0-44.0); MEAN CORPUSCULAR VOLUME 84.3 fl (80.0-96.0); MONO # 0.7 10^3/uL (0.0-0.8); MONO % 7.6 % (2.0-8.0); NEUTROPHILS # 6.8 10^3/uL (1.5-8.5); NEUTROPHILS % 70.3 % (36.0-66.0); PLATELET COUNT, AUTOMATED 261 10^3/uL (150-450); RED BLOOD COUNT 5.41 10^6/uL (4.00-5.40); WHITE BLOOD COUNT 9.7 10^3/uL (4.0-10.0)
[2020-12-19 13:12] LABS: ALT/SGPT 53 U/L (12-78); BILIRUBIN,TOTAL 0.4 MG/DL (0.2-1.0); BLOOD UREA NITROGEN 19 MG/DL (7-18); CALCIUM LEVEL 8.8 MG/DL (8.5-10.1); CARBON DIOXIDE LEVEL 28 MEQ/L (21-32); CHLORIDE LEVEL 106 MEQ/L (98-107); CREATININE FOR GFR 0.88 MG/DL (0.55-1.30); FREE T4 1.11 NG/DL (0.76-1.46); GLOMERULAR FILTRATION RATE > 60.0 (>58); GLUCOSE, FASTING 85 MG/DL (70-100); POTASSIUM SERUM 4.2 MEQ/L (3.5-5.1); SODIUM LEVEL 138 MEQ/L (136-145); TOTAL PROTEIN 7.3 GM/DL (6.4-8.2)
[2020-12-19 13:36] LABS: HEMOGLOBIN A1c 4.9 %
== END ==
LOC: M LAB REF 11:52
PROVIDERS: ATTEND Physician Assistant
DX: E66.01 Morbid (severe) obesity due to excess calories (principal)

== ENCOUNTER → 2021-01-23 | Outpatient (REF) | payer OTHER ==
[2021-01-23 16:26] LABS: CHOLESTEROL RISK RATIO 4.571 (<5)
[2021-01-28 01:07] LABS: Alkaline Phosphatase Iso-Bone 38 % (14-68); Alkaline Phosphatase Iso-Intes 5 % (0-18); Alkaline Phosphatase Iso-Liver 57 % (18-85); TOTAL ALK PHOS 110 IU/L (39-117)
== END ==
LOC: M LAB REF 15:33
PROVIDERS: ATTEND Physician Assistant
DX: R74.8 Abnormal levels of other serum enzymes (principal); E78.00 Pure hypercholesterolemia, unspecified

== ENCOUNTER 2021-01-29 09:27 | Emergency (ER) | payer OTHER ==
[~2021-01-29] VITALS: Ht 162.6 cm; Wt 139.3 kg
[~2021-01-29 09:27] MED LIST changes: +OMEP20TA2 PO; -OMEP20TA9 PO
[2021-01-29] MEDS ORDERED: NAPR220C14 PO (09:34)
[2021-01-29] MEDS ORDERED: ZOLO100T (09:34)
[2021-01-29] MEDS ORDERED: ACETAMINOPHEN 325 MG TAB PO ONE (11:20)
[2021-01-29 11:53] LABS: BASO # 0.1 10^3/uL (0.0-0.2); BASO % 0.8 % (0.0-1.0); EOS # 0.2 10^3/uL (0.0-0.5); HEMATOCRIT 45.6 % (36.0-47.0); HEMOGLOBIN 14.2 g/dl (12.0-15.5); LYMPH # 1.8 10^3/uL (1.5-5.0); LYMPH % 17.5 % (24.0-44.0); MEAN CORPUSCULAR HEMOGLOBIN 26.5 pg (27.0-33.0); MEAN CORPUSCULAR HGB CONC 31.1 g/dl (32.0-36.5); MEAN CORPUSCULAR VOLUME 85.1 fl (80.0-96.0); MONO # 0.8 10^3/uL (0.0-0.8); NEUTROPHILS # 7.4 10^3/uL (1.5-8.5); NEUTROPHILS % 71.4 % (36.0-66.0); PLATELET COUNT, AUTOMATED 260 10^3/uL (150-450); RED BLOOD COUNT 5.36 10^6/uL (4.00-5.40); WHITE BLOOD COUNT 10.3 10^3/uL (4.0-10.0)
[2021-01-29 12:00] VITALS: BP 153/75
[2021-01-29 12:05] LABS: INR 0.98; PROTHROMBIN TIME 13.2 SECONDS (12.5-14.3)
[2021-01-29 12:06] LABS: PARTIAL THROMBOPLASTIN TIME 27.2 SECONDS (24.2-38.5)
[2021-01-29 12:17] LABS: ALT/SGPT 47 U/L (12-78); BILIRUBIN,DIRECT 0.1 MG/DL (0.0-0.2); BILIRUBIN,TOTAL 0.5 MG/DL (0.2-1.0); CK-MB VALUE MASS < 1.0 NG/ML (<3.6); CPK CREATINE PHOSPHOKINASE 59 U/L (26-192); MB/CK RELATIVE INDEX 1.69 (< OR =4); TOTAL PROTEIN 7.6 GM/DL (6.4-8.2); TROPONIN I < 0.02 NG/ML (< 0.10)
--- NOTE | 2021-01-29 12:20 | REP ---
INDICATION: l arm numbness, tingling. COMPARISON: None. TECHNIQUE: Axial CT images with multiplanar reformations. FINDINGS: No acute bleed or acute large vessel territorial infarct. Ventricles, cisterns and sulci are within normal limits. No mass effect or midline shift. No abnormal fluid collections. Paranasal sinuses and mastoid air cells are clear. IMPRESSION: No acute findings. <Electronically signed by Herman Doe > 01/29/21 [id number]
--- NOTE | 2021-01-29 12:20 | REP ---
INDICATION: l arm numbness, tingling. COMPARISON: None. TECHNIQUE: Axial CT images with multiplanar reformations. FINDINGS: No fracture or malalignment. Prevertebral soft tissues within normal limits. On the review of axial images, At C2-3 through C5-6 no significant canal or foraminal narrowing. At C6-7 disc-osteophyte ridging with at least moderate canal stenosis and moderate bilateral foraminal narrowing. At C7-T1 no significant canal or foraminal narrowing. IMPRESSION: No acute findings. Degenerative changes. At C6-7 disc-osteophyte ridging with at least moderate canal stenosis and moderate bilateral foraminal narrowing. If clinical symptoms persist, MRI recommended for further evaluation. <Electronically signed by Herman Doe > 01/29/21 [id number]
--- NOTE | 2021-01-29 12:21 | REP ---
INDICATION: chest pain into back COMPARISON: 10/13/2019 TECHNIQUE: PA and lateral. FINDINGS: The mediastinum and cardiac silhouette are normal. The lung pelaez are clear and without acute consolidation, effusion, or pneumothorax. The skeletal structures are intact and normal. IMPRESSION: No acute cardiopulmonary process. <Electronically signed by Juan Miguel Barnett > 01/29/21 [id number]
--- NOTE | 2021-01-29 18:17 | ECGEPIP ---
[facility] - ED Test Date: 2021-01-29 Pat Name: JUNE KLEIN Department: Room: - Gender: Female Windows Administrator: MAURICE : 1975 Requested By: KB Stiles PA-C Order Number: [id number] Reading MD: Silva Mittal Measurements Intervals [place] Rate: 72 P: -20 [place]: 152 QRS: 6 QRSD: 62 T: -3 QT: 398 QTc: 435 Interpretive Statements Normal sinus rhythm NSTTW abnormalities prwp similar 02/19/19 Electronically Signed on 01-29-2021 18:16:54 EDT by Silva Mittal
--- NOTE | 2021-01-31 09:58 | ED PDOC ---
Post-Departure Follow-Up radiology report faxed to fiorella Crawford Sarah MD Jan 31, 2021 09:58
== END 2021-01-29 12:41 | disposition home or self-care (01) ==
LOC: M ED 09:27
DX: M54.12 Radiculopathy, cervical region (principal); R07.89 Other chest pain; M79.602 Pain in left arm; M25.78 Osteophyte, vertebrae; F41.9 Anxiety disorder, unspecified; J45.909 Unspecified asthma, uncomplicated; K21.9 Gastro-esophageal reflux disease without esophagitis; Z88.0 Allergy status to penicillin

== ENCOUNTER → 2021-04-29 | Outpatient (CLI) | payer SELFPAY ==
[~2021-04-29] MED LIST changes: +NAPR220C14 PO; +ZOLO100T
--- NOTE | 2021-04-29 15:25 | REP ---
INDICATION: EPIGASTRIC HERNIA. COMPARISON: None. TECHNIQUE: Real-time sonographic evaluation of the anterior abdominal wall is performed in the midline of the upper abdomen in the region of pain to latter hernia. FINDINGS: The anterior abdominal wall of the upper abdomen is intact with no sonographic evidence of hernia. No cystic or solid nodule is seen. No fluid collection is seen. IMPRESSION: No sonographic evidence of anterior abdominal hernia of the upper abdomen. <Electronically signed by Jeremy Flores > 04/29/21 [id number]
== END ==
LOC: M RAD 14:26
PROVIDERS: ATTEND Physician Assistant
DX: K43.9 Ventral hernia without obstruction or gangrene (principal)

== ENCOUNTER → 2021-07-08 | Outpatient (CLI) | payer SELFPAY ==
--- NOTE | 2021-07-08 09:16 | REP ---
INDICATION: PAIN IN RIGHT HIP COMPARISON: None. TECHNIQUE: AP and frog-lateral views of the right hip FINDINGS: Mildly increased sclerosis along the acetabular roof with minimal joint space narrowing and marginal spurring noted. IMPRESSION: Mild degenerative changes to the right hip. <Electronically signed by Juan Miguel Barnett > 07/08/21 [id number]
== END ==
LOC: M RAD 08:48
PROVIDERS: ATTEND Physician Assistant
DX: M25.551 Pain in right hip (principal); M16.11 Unilateral primary osteoarthritis, right hip

== ENCOUNTER 2021-08-27 08:03 | Emergency (ER) | payer OTHER, SELFPAY ==
[~2021-08-27] VITALS: Ht 167.6 cm; Wt 136.4 kg
--- OUTSIDE RECORDS SUMMARY | 2021-08-27 08:09 | CCD ---
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 Name Role Phone Antonio Crawford Unavailable Unavailable Allergies Code Code System Name Reaction Severity Status Onset Penicillin Active 0 Medications Name Status Start Date Stop Date alprazolam 0.25 mg tablet TAKE ONE TABLET BY MOUTH ONCE A DAY NEEDED MAXIMUM DAILY DOSE 1 TABLET Active Not available bupropion HCl SR 150 mg tablet,12 hr ruby tained-release TAKE ONE TABLET BY MOUTH TWO TIMES A DAY Active Not available cefdinir 300 mg capsule TAKE ONE CAPSULE BY MOUTH TWO TIMES A DAY Completed 12/26/2020 fluticasone propionate 50 mcg/actuation nasal spray,suspension INSTILL 1 2 SPRAYS IN EACH NOSTRIL ONCE DAILY START WITH 2 SPRAYS IN EACH NOSTRIL ONCE DAILY FOR 1 WEEK Active Not availa ble hydroxyzine HCl 25 mg tablet TAKE ONE TABLET BY MOUTH THREE TIMES A DAY Active Not available hydroxyzine HCl 50 mg tablet TAKE ONE TABLET BY MOUTH EVERY DAY AT BEDTIME Completed 12/26/2020 ibuprofen 200 mg tablet Take 3 tablets every 8 hours by oral route. Completed 02/06/2021 lactulose 10 gram/15 mL oral solution TAKE 30ML BY MOUTH TWO TIMES A DAY FOR CONSTIPATION Completed 12/26/2020 loratadine 10 mg capsule Take by oral route. Active Not available methylprednisolone 4 mg tablets in a dose pack Completed 04/28/2021 oseltamivir 75 mg capsule TAKE ONE CAPSULE BY MOUTH TWICE A DAY FOR 5 DAYS Completed 12/26/2020 sertraline 100 mg tablet TAKE 1 1/2 TABLETS BY MOUTH ONCE DAILY Completed 07/31/2021 sertraline 50 mg tablet TAKE ONE TABLET BY MOUTH EVERY DAY FOR THE FIRST WEEK CAN INCREASE TO TWO TABLETS DAILY IF TOLERATED Unknown Not available tizanidine 2 mg tablet Completed Tylenol 325 mg capsule Take 3 capsules every 6 hours by oral route. Active Not available Problems Name Status Onset Date Source Body Mass Index 30+ - Obesity Active 12/07/2019 Hi story Severe Obesity Active 12/07/2019 History Exacerbation of Intermittent Asthma Unknown 12/07/2019 History Emotional State Finding Active 12/07/2019 History Procedure by Method Unknown 12/07/2019 History Elevated Blood-pressure Reading without Diagnosis of Hyperte nsion Active 12/21/2019 History Moderate Recurrent Major Depression Active 12/30/[address] Concept Active 12/30/2019 History Vitamin D Deficiency Active 01/30/2020 History Beni Type IIa Hyperlipoproteinemia Active 2019 History Tingling of Skin Active 01/30/2020 History Restless Legs Active 05/08/2020 History Drowsy Active 05/08/2020 History Snoring Active 05/08/2020 History Eustachian Tube Disorder Active 07/17/2020 History Low Back Pain Active 07/17/2020 History Influenza Vaccine Needed Active 07/17/2020 History Patient Asked to Attend Active 07/17/2020 History Mild Intermittent Asthma Active 06/18/2021 Procedures Date Name Performed by 06/29/2002 Gallbladder Surgery Information not avai lable 06/10/2002 Removal of Gallbladder Information not a vailable Appendectomy Information not avai lable Ear Tube Information not avai lable 04/28/2021 US, Abdomen, Limited [facility] [address] [place] [address] (Work Place) 07/07/2021 XR, Hip, Unilateral [facility] [address] [place] [address] (Work Place) Notes: Appendectomy, gallbladder, stents -kidneys, tubes-bilateral Results Lab Results Date Name Specimen Result Interpretation Description Value Range Status Address 01/29/2021 Istat Chem8+ Panel Normal Istat HCT 46.0 % 38. 0-51.0 % [facility]: [address] [facility] Normal Istat Glucose 84 mg/dL 70-105 mg/dL Final [facility]: [address] [facility] Normal Istat Sodium 138 mEq/L 136-145 mEq/L [facility]: [address] [facility] Normal Istat Potassium 4.2 mEq/L 3.5-5.1 mE q/L [facility]: [address] [facility] Normal Istat Ca++ 4.7 mg/dL 4.5-5.3 mg/dL [facility]: [address] [facility] Normal Istat Chloride 102 mEq/L 98-109 mEq/ L [facility]: [address] [facility] High Istat CO2 30.0 mm/L 23.0-27.0 mm/L [facility]: [address] [facility] Normal Istat BUN 17 mg/dL 8-26 mg/dL [facility]: [address] [facility] Normal Istat Creatinine 1.0 mg/dL 0.6-1.3 m g/dL [facility]: [address] [facility] 01/29/2021 Istat B-HCG Normal Istat B-HCG < 5.0 F [facility]: [address] [facility] 01/23/2021 Lipid Panel, Serum Blood venous No observation recorded. [facility]: [address] [facility] [address], [place] 01/23/2021 Alkaline Phosphatase Isoenzymes, Serum or Plasma Blood ve nous No observation recorded. [facility] Medic l: [address] [facility] [address], [place] 12/26/2020 SARS CoV 2 RdRp Gene, QL Probe, Respiratory Spec imen Nasopharyngeal Normal Sars-cov-2 negative negative Final [facility]: [address] [facility] [address], [place] 12/19/2020 CBC W/ Auto Diff Blood venous Normal White Blood C ount 9.7 10 4.0-10.0 10 [facility]: [address] [facility] Blood venous High Red Blood Count 5.41 10 4.00- 5.40 10 [facility]: [address] [facility] Blood venous Normal Hemoglobin 14.6 g/dL 12.0-15. 5 g/dL [facility]: [address] [facility] Blood venous Normal Hematocrit 45.6 % 36.0-47.0 % [facility]: [address] [place] [address] Blood venous Normal Mean Corpuscular Volume 84.3 fL 80.0-96.0 fL [facility]: [address] [place] [address] Blood venous Normal Mean Corpuscular Hemoglob in 27.0 pg 27.0-33.0 pg [facility]: [address] [place] [address] Blood venous Normal Mean Corpuscular HGB Conc 32.0 g/dL 32.0-36.5 g/dL [facility]: [address] [place] [address] Blood venous High Red Cell Distribution Width 1 4.6 % 11.5-14.5 % [facility]: [address] [place] [address] Blood venous Normal Platelet Count, Automated 261 10 150-450 10 [facility]: [address] [place] [address] Blood venous High Neutrophils % 70.3 % 36.0-66. 0 % [facility]: [address] [place] [address] Blood venous Low Lymph % 18.6 % 24.0-44.0 % [facility]: [address] [place] [address] Blood venous Normal [place] % 7.6 % 2.0-8.0 % [facility]: [address] [place] [address] Blood venous Normal Eos % 2.2 % 0.0-3.0 % [facility]: [address] [place] [address] Blood venous Normal Baso % 1.0 % 0.0-1.0 % [facility]: [address] [place] [address] Blood venous Normal Immature Granulocyte % 0.3 % 0-3.0 % [facility]: [address] [place] [address] Blood venous Normal Nucleated Red Blood Cell % 0. 0 % 0-0 % [facility]: [address] [place] [address] Blood venous Normal Neutrophils # 6.8 10 1.5-8.5 10 [facility]: [address] [place] [address] Blood venous Normal Lymph # 1.8 10 1.5-5.0 10 [facility]: [address] [place] [address] Blood venous Normal [place] # 0.7 10 0.0-0.8 10 [facility]: [address] [place] [address] Blood venous Normal Eos # 0.2 10 0.0-0.5 10 [facility]: [address] [place] [address] Blood venous Normal Baso # 0.1 10 0.0-0.2 10 [facility]: [address] [place] [address] 12/19/2020 HbA1C (Hemoglobin a1C), Blood Blood venous Normal Hemoglobin a1C 4.9 % [facility]: [address] [place] [address] Blood venous Normal Estimated Average Glucose 94 mg/dL 60-110 mg/dL [facility]: [address] [place] [address] 12/19/2020 CMP, Serum or Plasma Blood venous Normal Glu cose, Fasting 85 mg/dL 70-100 mg/dL [facility] nter: [address] [place] [address] Blood venous High Blood Urea Nitrogen 19 mg/dL 7-18 mg/dL [facility]: [address] [place] [address] Blood venous Normal Creatinine for GFR 0.88 mg/dL 0.55-1.30 mg/dL [facility]: [address] [place] [address] Blood venous Normal Glomerular Filtration Rate > 60.0 >58 [facility]: [address] [place] [address] Blood venous Normal Sodium Level 138 mEq/L 136-14 5 mEq/L [facility]: [address] [place] [address] Blood venous Normal Potassium Serum 4.2 mEq/L 3.5 -5.1 mEq/L [facility]: [address] [place] [address] Blood venous Normal Chloride Level 106 mEq/L 98-1 07 mEq/L [facility]: [address] [place] [address] Blood venous Normal Carbon Dioxide Level 28 mEq/L 21-32 mEq/L [facility]: [address] [place] [address] Blood venous Low Anion Gap 4 mEq/L 8-16 mEq/L [facility]: [address] [place] [address] Blood venous Normal Calcium Level 8.8 mg/dL 8.5-1 0.1 mg/dL [facility]: [address] [facility] Blood venous Normal AST/SGOT 31 U/L 7-37 U/L Beba l [facility]: [address] [facility] Blood venous Normal ALT/SGPT 53 U/L 12-78 U/L Fin al [facility]: [address] [facility] Blood venous High Alkaline Phosphatase 129 U/L 45-117 U/L Final [facility]: [address] [place] [address] Blood venous Normal Bilirubin,total 0.4 mg/dL 0.2 -1.0 mg/dL Final [facility]: [address] [place] [address] Blood venous Normal Total Protein 7.3 gm/dL 6.4-8 .2 gm/dL [facility]: [address] [place] [address] Blood venous Normal Albumin 4.0 gm/dL 3.2-5.2 gm/ dL [facility]: [address] [place] [address] Blood venous Normal Albumin/globulin Ratio 1.2 1.2-2.2 [facility]: [address] [place] [address] 12/19/2020 TSH + Free T4, Serum Blood venous Normal Thyroid Stimulating Hormone 1.830 uIU/mL 0.358-3.740 uIU/mL [facility] ical Center: [address] [place] [address] Blood venous Normal Free T4 1.11 NG/dL 0.76-1.46 NG/dL [facility]: [address] [place] [address] 12/19/2020 Vitamin D, 25-Hydroxy, Total, Serum Blood venous Low Total 25(Oh) Vitamin D 20.0 NG/mL 30.0-100.0 NG/mL Final [facility]: [address] [place] [address] 08/25/2020 SARS CoV 2 RNA (COVID-19), QL, 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 07/31/2021 Moderate Recurrent Major Depression Antonio Crawford, RPA-C: [address], [facility] [address], [place] [address], Ph. 07/07/2021 Pain in Right Hip Joint Antonio Crawford, RPA-C: [address] [facility] [address], [place] [address], Ph. 06/03/2021 Adult Health Examination; Moderate Recurrent Major Depression; Elevated Blood- pressure Reading without Diagnosis of Hypertension; Beni Type IIa Hyperlipoproteinemia; Mild Intermittent Asthma; Severe Obesity; Vitamin D Deficiency; Trochanteric Bursitis of Left Hip Antonio Crawford, RPA-C: [address] [facility] [address], [place] [address], Ph. 04/28/2021 Epigastric Hernia; Counseling Antonio Crawford, RPA-C: [address] , [facility] [address], [place] [address], Ph. 02/06/2021 Cervical Radiculopathy; Neck Pain; Spinal Stenosis in Cervical Region Josie Mckinney RPA-C: [address] [facility] [address], [place] [address], Ph. 01/30/2021 Beni Type IIa Hyperlipoproteinemia; Alkaline Phosphatase Raised; Dysfunction of Eustachian Tube; Generalized Anxiety Disorder; Urinary Incontinence Josie Mckinney RPA-C: [address], [facility] [address], [place] [address], Ph. 01/23/2021 Alkaline Phosphatase Raised; Beni Type IIa Hyperlipoproteinemia Josie Mckinney RPA-C: [address] , [facility] [address], [place] [address], Ph. 12/26/2020 Upper Respiratory Infection; Eustachian Tube Disorder; Beni Type IIa Hyperlipoproteinemia; Severe Obesity; Vitamin D Deficiency; Abdominal Pain; Generalized Anxiety Disorder; Alkaline Phosphatase Raised; Exposure to SARS-CoV-2 Josie MckinneyVICTORINOJulietaC: [address] [facility], [facility] [address], [place] [address], Ph. 12/19/2020 Severe Obesity Josie RojasAKIL garridoC: [address] [facility], [facility] [address], [place] [address], Ph. 08/25/2020 Exposure to SARS-CoV-2 Dank Villa MD: [address] [place] [address], Ph. Social History Tobacco Smoking Status Never Smoker Vaccine List Vaccine Type COVID-19 vaccine, vector-nr, [id number], PF , 0.5 mL 01/07/2021 influenza, injectable, quadrivalent, pre servative free 07/17/20200.5 mL Tdap 04/16/2016 Plan of Care Patient Instructions WE WILL SEE YOU BACK IN ONE WEEK FOR A R ECHECK. PLEASE DISCONTINUE YOUR IBUPROFEN. GO DIRECTLY TO THE ER FOR ANY WEAKNESS OR NUMBNESS OF EXTREMITIES, LOSS OF BALANCE, LOSS OF CONTROL OF BOWEL OR BLADDER, UNABLE TO URINATE, DIZZINESS, FAINTNESS, OR ANY OTHER WORSENING SYMPTOMS. WE DISCUSSED, IT IS TIME TO CONSIDER STARTING YOU ON MEDICATION FOR YOUR CHOLESTEROL. WE WILL DISCUSS AT YOUR NEXT VISIT. WE WILL SEE YOU BACK NEXT WEEK IN PERSON FOR YOUR ARM AND BACK PAIN. IF YOU DEVELOP NUMBNESS, WEAKNESS, LOSS OF BALANCE, LOSS OF CONTROL OF BOWEL OR BLADDER GO DIRECTLY TO THE ER. WE DISCUSSED, YOU SHOULD RESTART YOUR VIT D. WE WILL REFER YOU TO ENT FOR YOUR EARS, YOUR COLD SYMPTOMS ARE LIKELY VIRAL. SUPPORTIVE CARE, CONTINUE WITH OTC MEDS AND NASAL SPRAY AND F/U IN 10 DAYS IF NOT IMPROVING OR SOONER FOR FEVER, SHAKING CHILLS, SHORTNESS OF BREATH. TO ER FOR FAINTNESS, CHEST PAIN, SHORTNESS OF BREATH, LETHARGY OR OTHER WORSENING SYMPTOMS. Reminders Provider Appointments None recorded. Lab None recorded. Referral None recorded. Procedures None recorded. Surgeries None recorded. Imaging None recorded. Vitals 07/31/2021 04:10PM TELEHEALTH 20 Height 62.5 in 07/07/2021 12:00PM SAME DAY 20 Height Weight BMI Blood Pressure 62.5 in (1) 138/100 mm[ Hg] (2) 130/76 mm[Hg] 06/03/2021 03:30PM ANNUAL EXAM Height Weight BMI Blood Pressure 62.5 in 303 lbs 16 oz 54.7 kg/m2 123/84 mm[Hg] 04/28/2021 03:50PM ESTABLISHED [id number] Height Weight BMI Blood Pressure 62.5 in 308 lbs 55.4 kg/m2 126/83 mm[Hg] 02/06/2021 10:30AM ESTABLISHED [id number] Height Weight BMI Blood Pressure 62.5 in 305 lbs 12.8 oz 55 kg/m2 128/80 mm[H g] 01/30/2021 09:30AM TELEHEALTH 20 Height 62.5 in 12/26/2020 09:30AM ESTABLISHED [id number] Height Weight BMI Blood Pressure 62.5 in 303 lbs 6.4 oz 54.6 kg/m2 137/78 mm[Hg ] 07/17/2020 Height Weight BMI Blood Pressure 62.5 in 300 lbs 3.2 oz 54.23 kg/m2 122/85 mm[Hg ] 05/08/2020 Height Weight BMI Blood Pressure 62.5 in 305 lbs 6.08 oz 55.16 kg/m2 139/94 mm[H g] 03/12/2020 Height Weight BMI Blood Pressure 62.5 in 305 lbs 55.09 kg/m2 142/85 mm[Hg] 12/21/2019 Height Weight BMI Blood Pressure 62.5 in 299 lbs 2.08 oz 54.03 kg/m2 147/99 mm[H g] 12/07/2019 Height Weight BMI Blood Pressure 62.5 in 299 lbs 54.01 kg/m2 131/87 mm[Hg]
--- OUTSIDE RECORDS SUMMARY | 2021-08-27 08:09 | CCD ---
Author Organization Unknown Address [address] [place] [address] Phone [phone] Care Team Providers Care Chief Psychology Name Role Phone Antonio Crawford Unavailable Unavailable [...] 1 1/2 TABLETS BY MOUTH ONCE DAILY Active Not available sertraline 50 mg tablet TAKE ONE TABLET [...] Active 06/18/2021 Procedures Date Name Performed by 06/10/2002 Removal of Gallbladder Information not a vailable 04/28/2021 US, Abdomen, Limited [facility] enter Radiology [address] [place] [address] (Work Place) 07/07/2021 XR, Hip, Unilateral [facility] [address] [place] [address] (Work Place) Notes: Appendectomy, gallbladder, stents -kidneys, tubes-bilateral Results Lab Results Date Name Specimen Result Interpretation Description Value Range Status Address 01/29/2021 Istat Chem8+ Panel Normal Istat HCT 46.0 % 38. 0-51.0 % [facility]: [address] [facility] Normal Istat Glucose 84 mg/dL 70-105 mg/dL Final [facility]: [address] [facility] Normal Istat Sodium 138 mEq/L 136-145 mEq/L Final [facility]: [address] [facility] Normal Istat Potassium 4.2 mEq/L 3.5-5.1 mE q/L [facility]: [address] [facility] Normal Istat Ca++ 4.7 mg/dL 4.5-5.3 mg/dL [facility]: [address] [facility] Normal Istat Chloride 102 mEq/L 98-109 mEq/ L [facility]: [address] [facility] High Istat CO2 30.0 mm/L 23.0-27.0 mm/L [facility]: [address] [facility] Normal Istat BUN 17 mg/dL 8-26 mg/dL [facility]: [address] [facility] Normal Istat Creatinine 1.0 mg/dL 0.6-1.3 m g/dL [facility]: [address] [facility] 01/29/2021 Istat B-HCG Normal Istat B-HCG < 5.0 F [facility]: [address] [facility] 01/23/2021 Lipid Panel, Serum Blood venous No observation recorded. [facility]: [address] [facility] [address], [place] 01/23/2021 Alkaline Phosphatase Isoenzymes, Serum or Plasma Blood ve nous No observation recorded. [facility]: [address] [facility] [address], [place] 12/26/2020 SARS CoV 2 RdRp Gene, QL Probe, Respiratory Spec imen Nasopharyngeal Normal Sars-cov-2 negative negative Final [facility]: [address] [facility] [address], [place] 12/19/2020 CBC W/ Auto Diff Blood venous Normal White Blood C ount 9.7 10 4.0-10.0 10 [facility]: [address] [facility] Blood venous High Red Blood Count 5.41 10 4.00- 5.40 10 [facility]: [address] [facility] Blood venous Normal Hemoglobin 14.6 g/dL 12.0-15. 5 g/dL [facility]: [address] [facility] Blood venous Normal Hematocrit 45.6 % 36.0-47.0 % [facility]: [address] [facility] Blood venous Normal Mean Corpuscular Volume 84.3 fL 80.0-96.0 fL [facility]: [address] [place] [address] Blood venous Normal Mean Corpuscular Hemoglob in 27.0 pg 27.0-33.0 pg [facility]: [address] [place] [address] Blood venous Normal Mean Corpuscular HGB Conc 32.0 g/dL 32.0-36.5 g/dL [facility]: [address] [place] [address] Blood venous High Red Cell Distribution Width 1 4.6 % 11.5-14.5 % [facility]: [address] [place] [address] Blood venous Normal Platelet Count, Automated 261 10 150-450 10 [facility]: [address] [place] [address] Blood venous High Neutrophils % 70.3 % 36.0-66. 0 % [facility]: [address] [place] [address] Blood venous Low Lymph % 18.6 % 24.0-44.0 % [facility]: [address] [place] [address] Blood venous Normal Blount % 7.6 % 2.0-8.0 % [facility]: [address] [place] [address] Blood venous Normal Eos % 2.2 % 0.0-3.0 % [facility]: [address] [place] [address] Blood venous Normal Baso % 1.0 % 0.0-1.0 % [facility]: [address] [place] [address] venous Normal Immature Granulocyte % 0.3 % 0-3.0 % [facility]: [address] [place] [address] Blood venous Normal Nucleated Red Blood Cell % 0. 0 % 0-0 % [facility]: [address] [place] [address] Blood venous Normal Neutrophils # 6.8 10 1.5-8.5 10 [facility]: [address] [place] [address] Blood venous Normal Lymph # 1.8 10 1.5-5.0 10 [facility]: [address] [place] [address] Blood venous Normal Blount # 0.7 10 0.0-0.8 10 [facility]: [address] [place] [address] Blood venous Normal Eos # 0.2 10 0.0-0.5 10 [facility]: [address] [place] [address] Blood venous Normal Baso # 0.1 10 0.0-0.2 10 [facility]: [address] [place] [address] 12/19/2020 HbA1C (Hemoglobin a1C), Blood Blood venous Normal Hemoglobin a1C 4.9 % [facility]: [address] [place] [address] Blood venous Normal Estimated Average Glucose 94 mg/dL 60-110 mg/dL [facility]: [address] [place] [address] 12/19/2020 CMP, Serum or Plasma Blood venous Normal Glu cose, Fasting 85 mg/dL 70-100 mg/dL [facility] nter: [address] [place] [address] Blood venous High Blood Urea Nitrogen 19 mg/dL 7-18 mg/dL [facility]: [address] [place] [address] Blood venous Normal Creatinine for GFR 0.88 mg/dL 0.55-1.30 mg/dL [facility]: [address] [place] [address] Blood venous Normal Glomerular Filtration Rate > 60.0 >58 [facility]: [address] [place] [address] Blood venous Normal Sodium Level 138 mEq/L 136-14 5 mEq/L [facility]: [address] [place] [address] Blood venous Normal Potassium Serum 4.2 mEq/L 3.5 -5.1 mEq/L [facility]: [address] [place] [address] Blood venous Normal Chloride Level 106 mEq/L 98-1 07 mEq/L [facility]: [address] [place] [address] Blood venous Normal Carbon Dioxide Level 28 mEq/L 21-32 mEq/L [facility]: [address] [place] [address] Blood venous Low Anion Gap 4 mEq/L 8-16 mEq/L [facility]: [address] [place] [address] Blood venous Normal Calcium Level 8.8 mg/dL 8.5-1 0.1 mg/dL [facility]: [address] [place] [address] Blood venous Normal AST/SGOT 31 U/L 7-37 U/L [facility]: [address] [facility] Blood venous Normal ALT/SGPT 53 U/L 12-78 U/L [facility]: [address] [facility] Blood venous High Alkaline Phosphatase 129 U/L 45-117 U/L [facility] Center: [address] [place] [address] Blood venous Normal Bilirubin,total 0.4 mg/dL 0.2 -1.0 mg/dL Final [facility]: [address] [place] [address] Blood venous Normal Total Protein 7.3 gm/dL 6.4-8 .2 gm/dL [facility]: [address] [place] [address] Blood venous Normal Albumin 4.0 gm/dL 3.2-5.2 gm/ dL [facility]: [address] [place] [address] Blood venous Normal Albumin/globulin Ratio 1.2 1.2-2.2 [facility]: [address] [place] [address] 12/19/2020 TSH + Free T4, Serum Blood venous Normal Thyroid Stimulating Hormone 1.830 uIU/mL 0.358-3.740 uIU/mL [facility] ical Center: [address] [place] [address] Blood venous Normal Free T4 1.11 NG/dL 0.76-1.46 NG/dL [facility]: [address] [place] [address] 12/19/2020 Vitamin D, 25-Hydroxy, Total, Serum Blood venous Low Total 25(Oh) Vitamin D 20.0 NG/mL 30.0-100.0 NG/mL Final [facility]: [address] [place] [address] 08/25/2020 SARS CoV 2 RNA (COVID-19), QL, 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 07/31/2021 Moderate Recurrent Major Depression Antonio Crawford, RPA-C: [address] , [facility] [address], [place] [address], Ph. 07/07/2021 Pain in Right Hip Joint Antonio Crawford, RPA-C: [address] , [facility] [address], [place] [address], Ph. 06/03/2021 Adult Health Examination; Moderate Recurrent Major Depression; Elevated Blood- pressure Reading without Diagnosis of Hypertension; Beni Type IIa Hyperlipoproteinemia; Mild Intermittent Asthma; Severe Obesity; Vitamin D Deficiency; Trochanteric Bursitis of Left Hip Antonio Crawford, RPA-C: [address] , [facility] [address], [place] [address], Ph. 04/28/2021 Epigastric Hernia; Counseling Antonio Crawford, RPA-C: [address] , [facility] [address], [place] [address], Ph. 02/06/2021 Cervical Radiculopathy; Neck Pain; Spinal Stenosis in Cervical Region Josie Mckinney RPA-C: [address] , [facility] [address], [place] [address], Ph. 01/30/2021 Beni Type IIa Hyperlipoproteinemia; Alkaline Phosphatase Raised; Dysfunction of Eustachian Tube; Generalized Anxiety Disorder; Urinary Incontinence AKIL SilvaC: [address] , [facility] [address], [place] [address], Ph. 01/23/2021 Alkaline Phosphatase Raised; Beni Type IIa Hyperlipoproteinemia AKIL SilvaC: [address] , [facility] [address], [place] [address], Ph. 12/26/2020 Upper Respiratory Infection; Eustachian Tube Disorder; Beni Type IIa Hyperlipoproteinemia; Severe Obesity; Vitamin D Deficiency; Abdominal Pain; Generalized Anxiety Disorder; Alkaline Phosphatase Raised; Exposure to SARS-CoV-2 Josie Mckinney RPA-C: [address] [facility], [place] [address], Ph. 12/19/2020 Severe Obesity Josie Mckinney RPA-C: [address], [place] [address], Ph. 08/25/2020 Exposure to SARS-CoV-2 Dank Villa MD: [address] [place] [address], Ph. Social History Tobacco Smoking Status Never [...] 54.7 kg/m2 123/84 mm[Hg] 04/28/2021 03:50PM ESTABLISHED [id number] Height Weight BMI Blood Pressure 62.5 in 308 lbs 55.4 kg/m2 126/83 mm[Hg] 02/06/2021 10:30AM ESTABLISHED [id number] Height Weight BMI Blood Pressure 62.5 in 305 lbs 12.8 oz 55 kg/m2 128/80 mm[H g] 01/30/2021 09:[facility] Height 62.5 in 12/26/2020 09:30AM ESTABLISHED [id number] Height Weight BMI Blood Pressure 62.5 in [...]
--- OUTSIDE RECORDS SUMMARY | 2021-08-27 08:09 | CCD ---
Author Organization Unknown Address [address] [place] [address] Phone [phone] Care Team Providers Care Transportation Department Supervisor Name Role Phone Antonio Crawford Unavailable Unavailable Allergies Code Code System Name Reaction Severity Status Onset Penicillin Active 12/07/2019 Medications Name Status Start Date Stop Date [...] not avai lable 04/28/2021 US, Abdomen, Limited [facility] enter Radiology [address] [place] [address] (Work Place) 07/07/2021 XR, Hip, Unilateral [facility] Rad[facility] [address] [place] [address] (Work Place) Notes: Appendectomy, gallbladder, stents -kidneys, tubes-bilateral Results Lab Results Date Name Specimen Result Interpretation Description Value Range Status Address 08/20/2021 SARS CoV 2 RdRp Gene, QL Probe, Respiratory Spec imen Nasopharyngeal Normal Sars-cov-2 negative negative Final [facility]: [address] [facility] 08/04/2021 Lipid Panel, Serum Blood venous Normal Olinda sterol, Total 175 mg/dL <200 mg/dL Final [facility]: [address] , [place] Blood venous Low HDL Cholesterol 39 mg/dL > or = 50 mg/dL Final [facility]: [address], [place] Blood venous Normal Triglycerides 70 mg/dL <150 m g/dL Final [facility]: [address] [facility] Blood venous High LDL-cholesterol 120 mg/dL (ca lc) Final [facility]: [address] [facility] Blood venous Normal Chol/hdlc Ratio 4.5 (calc) <5 .0 (calc) Final [facility]: [address] [facility] Blood venous High Non HDL Cholesterol 136 mg/dL (calc) <130 mg/dL (calc) Final [facility]: [address] [facility] 08/04/2021 HIV 1/2 Antigen/antibody, 4TH Gen W/rfl,screenin g Blood venous Normal HIV Ag/Ab, 4TH Gen non-reactive non-reactive Final [facility]: [address] [facility] 08/04/2021 CMP, Serum or Plasma Blood venous Normal Glucose 86 mg/dL 65-99 mg/dL Final [facility]: [address] [facility] Blood venous Normal Urea Nitrogen (BUN) 12 mg/dL 7-25 mg/dL [facility]: [address] [facility] Blood venous Normal Creatinine 0.77 mg/dL 0.50-1. 10 mg/dL [facility]: [address] [facility] Blood venous Normal eGFR Non-afr. Iranian 9 5 mL/min/1.73m2 > or = 60 mL/min/1.73m2 Final [facility]: [address] [facility] Blood venous Normal eGFR 11 0 mL/min/1.73m2 > or = 60 mL/min/1.73m2 Final [facility]: [address] [facility] Blood venous BUN/creatinine Ratio not applicable (calc) 6-22 (calc) [facility]: [address] [facility] Blood venous Normal Sodium 139 mmol/L 135-146 mmo l/L [facility]: [address] [facility] Blood venous Normal Potassium 4.2 mmol/L 3.5-5.3 mmol/L [facility]: [address] [facility] Blood venous Normal Chloride 107 mmol/L 98-110 mm ol/L [facility]: [address] [facility] Blood venous Normal Carbon Dioxide 25 mmol/L 20-3 2 mmol/L [facility]: [address] [facility] Blood venous Normal Calcium 8.9 mg/dL 8.6-10.2 mg /dL [facility]: [address] [facility] Blood venous Normal Protein, Total 6.7 g/dL 6.1-8 .1 g/dL [facility]: [address] [facility] Blood venous Normal Albumin 4.1 g/dL 3.6-5.1 g/dL [facility]: [address] [facility] Blood venous Normal Globulin 2.6 g/dL (calc) 1.9- 3.7 g/dL (calc) [facility]: [address] [facility] Blood venous Normal Albumin/globulin Ratio 1 .6 (calc) 1.0-2.5 (calc) [facility]: [address] [facility] Blood venous Normal Bilirubin, Total 0.5 mg/dL 0. 2-1.2 mg/dL [facility]: [address] [facility] Blood venous Normal Alkaline Phosphatase 100 U/L 31-125 U/L [facility]: [address] [facility] Blood venous Normal Ast 25 U/L 10-30 U/L [facility]: [address] [facility] Blood venous Normal Alt 28 U/L 6-29 U/L [facility]: [address] [facility] 08/04/2021 Cbc Blood venous Normal White Blood Cell Count 9.1 thousand/uL 3.8-10.8 thousand/uL [facility] gh: [address] [facility] Blood venous Normal Red Blood Cell Count 5.0 5 million/uL 3.80-5.10 million/uL [facility] gh: [address] [facility] Blood venous Normal Hemoglobin 13.6 g/dL 11.7-15. 5 g/dL [facility]: [address] [facility] Blood venous Normal Hematocrit 41.2 % 35.0-45.0 % [facility]: [address] [facility] Blood venous Normal Mcv 81.6 fL 80.0-100.0 fL Fi [facility]: [address] [facility] Blood venous Low Mch 26.9 pg 27.0-33.0 pg Fin al [facility]: [address] [facility] Blood venous Normal Mchc 33.0 g/dL 32.0-36.0 g/dL Final [facility]: [address] [facility] Blood venous Normal Rdw 13.3 % 11.0-15.0 % Final [facility]: [address] [facility] Blood venous Normal Platelet Count 240 thous and/uL 140-400 thousand/uL Final [facility]: [address] [facility] Blood venous Normal Mpv 12.2 fL 7.5-12.5 fL Beba l [facility]: [address] [facility] 08/04/2021 Hepatitis C Virus Ab, Serum Blood venous Normal Hepatitis C Antibody non-reactive non-reactive Final [facility] [place]: [address] [facility] Blood venous Normal Index 0.02 <1.00 Final est [facility]: [address] [facility] 08/04/2021 Vitamin D, 25-Hydroxy, Total, Serum Blood venous Low Vitamin D,25-Oh,total,ia 19 NG/mL 30-100 NG/mL Final [facility] [address] [facility] 01/29/2021 Istat Chem8+ Panel Normal Istat HCT 46.0 % 38. 0-51.0 % [facility]: [address] [facility] Normal Istat Glucose 84 mg/dL 70-105 mg/dL [facility]: [address] [facility] Normal Istat Sodium 138 mEq/L 136-145 mEq/L [facility]: [address] [facility] Normal Istat Potassium 4.2 mEq/L 3.5-5.1 mE q/L [facility]: [address] [facility] Normal Istat Ca++ 4.7 mg/dL 4.5-5.3 mg/dL F inal [facility]: [address] [facility] Normal Istat Chloride 102 mEq/L 98-109 mEq/ L Final [facility]: [address] [facility] High Istat CO2 30.0 mm/L 23.0-27.0 mm/L F [facility]: [address] [facility] Normal Istat BUN 17 mg/dL 8-26 mg/dL [facility]: [address] [facility] Normal Istat Creatinine 1.0 mg/dL 0.6-1.3 m g/dL [facility]: [address] [facility] 01/29/2021 Istat B-HCG Normal Istat B-HCG < 5.0 F [facility]: [address] [facility] 01/23/2021 Lipid Panel, Serum Blood venous No observation recorded. [facility] Medical: [address] [facility] [address], [place] 01/23/2021 Alkaline Phosphatase Isoenzymes, Serum or Plasma Blood ve nous No observation recorded. [facility] Medic l: [address] [facility] [address], [place] 12/26/2020 SARS CoV 2 RdRp Gene, QL Probe, Respiratory Spec imen Nasopharyngeal Normal Sars-cov-2 negative negative Final [facility] Medical: [address] [facility] [address], [place] 12/19/2020 CBC W/ Auto Diff Blood venous Normal White Blood C ount 9.7 10 4.0-10.[address] [facility]: 83 0 [facility] Blood venous High Red Blood Count 5.41 10 4.00- 5.[address] [facility]: [address] [facility] Blood venous Normal Hemoglobin 14.6 g/dL 12.0-15. 5 g/dL [facility]: [address] [facility] Blood venous Normal Hematocrit 45.6 % 36.0-47.0 % [facility]: [address] [facility] Blood venous Normal Mean Corpuscular Volume 84.3 fL 80.0-96.[address] [facility]: [address] [facility] Blood venous Normal Mean Corpuscular Hemoglob in 27.0 pg 27.0-33.[address] [facility]: [address] [facility] Blood venous Normal Mean Corpuscular HGB Conc 32.0 g/dL 32.0-36.5 g/dL [facility]: [address] [place] [address] Blood venous High Red Cell Distribution Width 1 4.6 % 11.5-14.5 % [facility]: [address] [place] [address] Blood venous Normal Platelet Count, Automated 261 10 150-[address] [facility]: [address] [place] [address] Blood venous High Neutrophils % 70.3 % 36.0-66. 0 % [facility]: [address] [place] [address] Blood venous Low Lymph % 18.6 % 24.0-44.0 % [facility]: [address] [place] [address] Blood venous Normal Rowan % 7.6 % 2.0-8.0 % [facility]: [address] [place] [address] venous Normal Eos % 2.2 % 0.0-3.0 % [facility]: [address] [place] [address] Blood venous Normal Baso % 1.0 % 0.0-1.0 % [facility]: [address] [place] [address] Blood venous Normal Immature Granulocyte % 0.3 % 0-3.0 % [facility]: [address] [place] [address] Blood venous Normal Nucleated Red Blood Cell % 0. 0 % 0-0 % [facility]: [address] [place] [address] Blood venous Normal Neutrophils # 6.8 10 1.5-8.[address] [facility]: [address] [place] [address] Blood venous Normal Lymph # 1.8 10 1.5-5.0 10 [facility]: [address] [place] [address] Blood venous Normal Rowan # 0.7 10 0.0-0.8 10 [facility]: [address] [place] [address] Blood venous Normal Eos # 0.2 10 0.0-0.[address] [facility]: [address] [place] [address] Blood venous Normal Baso # 0.1 10 0.0-0.2 10 [facility]: [address] [place] [address] 12/19/2020 HbA1C (Hemoglobin a1C), Blood Blood venous Normal Hemoglobin a1C 4.9 % [facility]: [address] [place] [address] Blood venous Normal Estimated Average Glucose 94 mg/dL 60-110 mg/dL [facility]: [address] [place] [address] 12/19/2020 CMP, Serum or Plasma Blood venous Normal Glu cose, Fasting 85 mg/dL 70-100 mg/dL [facility] nter: [address] [place] [address] Blood venous High Blood Urea Nitrogen 19 mg/dL 7-18 mg/dL [facility]: [address] [place] [address] Blood venous Normal Creatinine for GFR 0.88 mg/dL 0.55-1.30 mg/dL [facility]: [address] [place] [address] Blood venous Normal Glomerular Filtration Rate > 60.[address] >58 [facility]: [address] [place] [address] Blood venous Normal Sodium Level 138 mEq/L 136-14 5 mEq/L [facility]: [address] [place] [address] Blood venous Normal Potassium Serum 4.2 mEq/L 3.5 -5.1 mEq/L [facility]: [address] [place] [address] Blood venous Normal Chloride Level 106 mEq/L 98-1 07 mEq/L [facility]: [address] [place] [address] Blood venous Normal Carbon Dioxide Level 28 mEq/L 21-32 mEq/L [facility]: [address] [place] [address] Blood venous Low Anion Gap 4 mEq/L 8-16 mEq/L [facility]: [address] [place] [address] Blood venous Normal Calcium Level 8.8 mg/dL 8.5-1 0.1 mg/dL [facility]: [address] [place] [address] Blood venous Normal AST/SGOT 31 U/L 7-37 U/L [facility] hannah [facility]: [address] [place] [address] Blood venous Normal ALT/SGPT 53 U/L 12-78 U/L [facility]: [address] [place] [address] Blood venous High Alkaline Phosphatase 129 U/L 45-117 U/L Final [facility]: [address] [facility] Blood venous Normal Bilirubin,total 0.4 mg/dL 0.2 -1.0 mg/dL Final [facility]: [address] [facility] Blood venous Normal Total Protein 7.3 gm/dL 6.4-8 .2 gm/dL Final [facility]: [address] [place] [address] Blood venous Normal Albumin 4.0 gm/dL 3.2-5.2 gm/ dL [facility]: [address] [place] [address] Blood venous Normal Albumin/globulin Ratio 1.2 1.2-2.2 [facility]: [address] [place] [address] 12/19/2020 TSH + Free T4, Serum Blood venous Normal Thyroid Stimulating Hormone 1.830 uIU/mL 0.358-3.740 uIU/mL [facility] ical Center: [address] [place] [address] Blood venous Normal Free T4 1.11 NG/dL 0.76-1.46 NG/dL [facility]: [address] [place] [address] 12/19/2020 Vitamin D, 25-Hydroxy, Total, Serum Blood venous Low Total 25(Oh) Vitamin D 20.0 NG/mL 30.0-100.0 NG/mL [facility]: [address] [place] [address] 08/25/2020 SARS CoV 2 RNA (COVID-19), QL, safety clothing and equipment developer-PCR, Respirat ory Specimen Normal Sars Cov 2 RNA not detected not detected Final Past Encounters 08/20/2021 Exposure to SARS-CoV-2 Dank Villa MD: [address] [place] [address], Ph. 08/04/2021 HIV Screening; Hepatitis C Screening; Elevated Blood-pressure Reading without Diagnosis of Hypertension; Vitamin D Deficiency; Beni Type IIa Hyperlipoproteinemia Antonio Crawford RPA-C: [address] [facility], [facility] [address] [address], Ph. 07/31/2021 Moderate Recurrent Major Depression Antonio D Crawford, RPA-C: [address], [facility] [address], [place] [address], Ph. 07/07/2021 Pain in Right Hip Joint Antonio Crawford, RPA-C: [address], [facility] [address], [place] [address], Ph. 06/03/2021 Adult Health Examination; Moderate Recurrent Major Depression; Elevated Blood- pressure Reading without Diagnosis of Hypertension; Beni Type IIa Hyperlipoproteinemia; Mild Intermittent Asthma; Severe Obesity; Vitamin D Deficiency; Trochanteric Bursitis of Left Hip Antonio Crawford, RPA-C: [address], [facility] [address], [place] [address], Ph. 04/28/2021 Epigastric Hernia; Counseling Antonio Crawford, RPA-C: [address] [facility] [address], [place] [address], Ph. 02/06/2021 Cervical Radiculopathy; Neck Pain; Spinal Stenosis in Cervical Region Josie Mckinney RPA-C: [address] , [facility] [address], [place] [address], Ph. 01/30/2021 Beni Type IIa Hyperlipoproteinemia; Alkaline Phosphatase Raised; Dysfunction of Eustachian Tube; Generalized Anxiety Disorder; Urinary Incontinence Josie Mckinney RPA-C: [address] , [facility] [address], [place] [address], Ph. 01/23/2021 Alkaline Phosphatase Raised; Beni Type IIa Hyperlipoproteinemia Josie Mckinney RPA-C: [address] , [facility] [address], [place] [address], Ph. 12/26/2020 Upper Respiratory Infection; Eustachian Tube Disorder; Beni Type IIa Hyperlipoproteinemia; Severe Obesity; Vitamin D Deficiency; Abdominal Pain; Generalized Anxiety Disorder; Alkaline Phosphatase Raised; Exposure to SARS-CoV-2 Josie Mckinney, RPA-C: [address] [facility], [address], [place] [address], Ph. 12/19/2020 Severe Obesity Josie Mckinney, RPA-C: [address] [facility], [address], [place] [address], Ph. 08/25/2020 Exposure to SARS-CoV-2 Dank Villa MD: [address] [place] [address], Ph. Social History Tobacco Smoking Status Never Smoker Vaccine List Vaccine Type COVID-19 vaccine, vector-nr, [id number], PF , 0.5 mL ([employer]) 01/07/2021 influenza, injectable, quadrivalent, pre servative free [...] 54.7 kg/m2 123/84 mm[Hg] 04/28/2021 03:50PM ESTABLISHED [id number] Height Weight BMI Blood Pressure 62.5 in 308 lbs 55.4 kg/m2 126/83 mm[Hg] 02/06/2021 10:30AM ESTABLISHED [id number] Height Weight BMI Blood Pressure 62.5 in 305 lbs 12.8 oz 55 kg/m2 128/80 mm[H g] 01/30[facility] Height 62.5 in 12/26/2020 09:30AM ESTABLISHED [id number] Height Weight BMI Blood Pressure 62.5 in [...]
--- OUTSIDE RECORDS SUMMARY | 2021-08-27 08:10 | CCD ---
Author Organization Unknown Address [address] [place] [address] Phone [phone] Care Team Providers Care Superintendent Pier Name Role Phone Antonio Crawford Unavailable Unavailable Allergies Code Code System Name Reaction Severity Status Onset Penicillin Active 0 Medications Name Status Start Date Stop Date alprazolam 0.25 mg tablet TAKE ONE TABLET BY MOUTH TWICE A DAY NEEDED MAXIMUM DAILY DOSE TWO TABLETS Completed 02/06/2021 cefdinir 300 mg capsule TAKE ONE CAPSULE BY MOUTH TWO TIMES A DAY Completed 12/26/2020 fluticasone propionate 50 mcg/actuation nasal spray,suspension INSTILL 1 2 SPRAYS IN EACH NOSTRIL ONCE DAILY START WITH 2 SPRAYS IN EACH NOSTRIL ONCE DAILY FOR 1 WEEK Active Not availa ble hydroxyzine HCl 50 mg tablet TAKE ONE [...] Information not a vailable 04/28/2021 US, Abdomen, [facility] enter Radiology [address] [place] [id number] (Work Place) Notes: Appendectomy, gallbladder, stents -kidneys, tubes-bilateral Results Lab Results Date Name Specimen Result Interpretation Description Value Range Status Address 01/29/2021 Istat Chem8+ Panel Normal Istat HCT 46.0 % 38. 0-51.0 % [facility]: 0 [facility] Normal Istat Glucose 84 mg/dL 70-105 mg/dL [facility]: 0 [facility] Normal Istat Sodium 138 mEq/L 136-145 mEq/L [facility]: 0 [facility] Normal Istat Potassium 4.2 mEq/L 3.5-5.1 mE q/L [facility]: 8[address] [facility] Normal Istat Ca++ 4.7 mg/dL 4.5-5.3 mg/dL [facility]: 830 [facility] Normal Istat Chloride 102 mEq/L 98-109 mEq/ L [facility]: 0 [facility] High Istat CO2 30.0 mm/L 23.0-27.0 mm/L [facility]: 8[address] [facility] Normal Istat BUN 17 mg/dL 8-26 mg/dL [facility]: 830 [facility] Normal Istat Creatinine 1.0 mg/dL 0.6-1.3 m g/dL [facility]: 830 [facility] 01/29/2021 Istat B-HCG Normal Istat B-HCG < 5.0 [facility]: 830 [facility] 01/23/2021 Lipid Panel, Serum Blood venous No observation recorded. [facility]: [address] [facility] [address], [place] 01/23/2021 Alkaline Phosphatase Isoenzymes, Serum or Plasma Blood ve nous No observation recorded. [facility] Medic l: [address] [facility] [address], [place] 12/26/2020 SARS CoV 2 RdRp Gene, QL Probe, Respiratory Spec imen Nasopharyngeal Normal Sars-cov-2 negative negative Final [facility] Medical: [address] [facility] [address], [place] 12/19/2020 CBC W/ Auto Diff Blood venous Normal White Blood C ount 9.7 10 4.0-10.0 10 [facility]: 83 0 [facility] Blood venous High Red Blood Count 5.41 10 4.00- 5.40 10 [facility]: 830 [facility] Blood venous Normal Hemoglobin 14.6 g/dL 12.0-15. 5 g/dL [facility]: 8[address] [facility] Blood venous Normal Hematocrit 45.6 % 36.0-47.0 % [facility]: 8[address] [facility] Blood venous Normal Mean Corpuscular Volume 84.3 fL 80.0-96.0 fL [facility]: 8[address] [facility] Blood venous Normal Mean Corpuscular Hemoglob in 27.0 pg 27.0-33.0 pg [facility]: 830 [facility] Blood venous Normal Mean Corpuscular HGB Conc 32.0 g/dL 32.0-36.5 g/dL [facility]: [address] [place] [address] Blood venous High Red Cell Distribution Width 1 4.6 % 11.5-14.5 % [facility]: [address] [place] [address] Blood venous Normal Platelet Count, Automated 261 10 150-450 10 [facility]: [address] [place] [address] Blood venous High Neutrophils % 70.3 % 36.0-66. 0 % [facility]: [address] [place] [address] Blood venous Low Lymph % 18.6 % 24.0-44.0 % [facility]: [address] [place] [address] Blood venous Normal [place] % 7.6 % 2.0-8.0 % [facility]: [address] [place] [address] Blood venous Normal Eos % 2.2 % 0.0-3.0 % [facility]: [address] [place] [address] Blood venous Normal Baso % 1.0 % 0.0-1.0 % [facility]: [address] [place] [address] Blood venous Normal Immature Granulocyte % 0.3 % 0-3.0 % [facility]: [address] [place] [address] Blood venous Normal Nucleated Red Blood Cell % 0. 0 % 0-0 % [facility]: [address] [place] [address] Blood venous Normal Neutrophils # 6.8 10 1.5-8.5 10 [facility]: [address] [place] [address] Blood venous Normal Lymph # 1.8 10 1.5-5.0 10 [facility]: [address] [place] [address] Blood venous Normal [place] # 0.7 10 0.0-0.8 10 [facility]: [address] [place] [address] Blood venous Normal Eos # 0.2 10 0.0-0.5 10 [facility]: [address] [place] [address] Blood venous Normal Baso # 0.1 10 0.0-0.2 10 [facility]: [address] [place] [address] 12/19/2020 HbA1C (Hemoglobin a1C), Blood Blood venous Normal Hemoglobin a1C 4.9 % [facility]: [address] [place] [address] Blood venous Normal Estimated Average Glucose 94 mg/dL 60-110 mg/dL [facility]: [address] [place] [address] 12/19/2020 CMP, Serum or Plasma Blood venous Normal Glu cose, Fasting 85 mg/dL 70-100 mg/dL [facility] nter: [address] [place] [address] Blood venous High Blood Urea Nitrogen 19 mg/dL 7-18 mg/dL [facility]: [address] [place] [address] Blood venous Normal Creatinine for GFR 0.88 mg/dL 0.55-1.30 mg/dL [facility]: [address] [place] [address] Blood venous Normal Glomerular Filtration Rate > 60.0 >58 [facility]: [address] [place] [address] Blood venous Normal Sodium Level 138 mEq/L 136-14 5 mEq/L [facility]: [address] [place] [address] Blood venous Normal Potassium Serum 4.2 mEq/L 3.5 -5.1 mEq/L [facility]: [address] [place] [address] Blood venous Normal Chloride Level 106 mEq/L 98-1 07 mEq/L [facility]: [address] [place] [address] Blood venous Normal Carbon Dioxide Level 28 mEq/L 21-32 mEq/L [facility]: [address] [place] [address] Blood venous Low Anion Gap 4 mEq/L 8-16 mEq/L [facility]: [address] [place] [address] Blood venous Normal Calcium Level 8.8 mg/dL 8.5-1 0.1 mg/dL [facility]: 0 [facility] Blood venous Normal AST/SGOT 31 U/L 7-37 U/L [facility]: [address] [place] [address] Blood venous Normal ALT/SGPT 53 U/L 12-78 U/L [facility]: [address] [place] [address] Blood venous High Alkaline Phosphatase 129 U/L 45-117 U/L [facility]: [address] [place] [address] Blood venous Normal Bilirubin,total 0.4 mg/dL 0.2 -1.0 mg/dL Final [facility]: [address] [place] [address] Blood venous Normal Total Protein 7.3 gm/dL 6.4-8 .2 gm/dL Final [facility]: [address] [place] [address] Blood venous Normal Albumin 4.0 gm/dL 3.2-5.2 gm/ dL [facility]: [address] [place] [address] Blood venous Normal Albumin/globulin Ratio 1.2 1.2-2.2 [facility]: [address] [place] [address] 12/19/2020 TSH + Free T4, Serum Blood venous Normal Thyroid Stimulating Hormone 1.830 uIU/mL 0.358-3.740 uIU/mL [facility] ical Center: [address] [place] [address] Blood venous Normal Free T4 1.11 NG/dL 0.76-1.46 NG/dL [facility]: [address] [place] [address] 12/19/2020 Vitamin D, 25-Hydroxy, Total, Serum Blood venous Low Total 25(Oh) Vitamin D 20.0 NG/mL 30.0-100.0 NG/mL [facility]: [address] [place] [address] 08/25/2020 SARS CoV 2 RNA (COVID-19), QL, pivot maker-PCR, Respirat ory Specimen Normal Sars Cov 2 RNA not detected not detected Final Past Encounters 06/03/2021 Adult Health Examination; Moderate Recurrent Major Depression; Elevated Blood- pressure Reading without Diagnosis of Hypertension; Beni Type IIa Hyperlipoproteinemia; Mild Intermittent Asthma; Severe Obesity; Vitamin D Deficiency; Trochanteric Bursitis of Left Hip Antonio Crawford, RPA-C: [address] [facility] [address] [address], Ph. 04/28/2021 Epigastric Hernia; Counseling Antonio Crawford RPA-C: [address] [facility], [facility] [address], [place] [address], Ph. 02/06/2021 Cervical Radiculopathy; Neck Pain; Spinal Stenosis in Cervical Region Josie Mckinney [facility] [address] [facility], [facility] [address], [place] [address], Ph. 01/30/2021 Beni Type IIa Hyperlipoproteinemia; Alkaline Phosphatase Raised; Dysfunction of Eustachian Tube; Generalized Anxiety Disorder; Urinary Incontinence Josie Mckinney [facility]: [address] [facility], [facility] [address], [place] [address], Ph. 01/23/2021 Alkaline Phosphatase Raised; Beni Type IIa Hyperlipoproteinemia Josie Mckinney [facility]: [address] [facility], [facility] [address], [place] [address], Ph. 12/26/2020 Upper Respiratory Infection; Eustachian Tube Disorder; Beni Type IIa Hyperlipoproteinemia; Severe Obesity; Vitamin D Deficiency; Abdominal Pain; Generalized Anxiety Disorder; Alkaline Phosphatase Raised; Exposure to SARS-CoV-2 Josie Mckinney [facility] [address] [facility], [facility] [address], [place] [address], Ph. 12/19/2020 Severe Obesity Josie Mckinney [facility]: [address] [facility], [facility] [address], [place] [address], Ph. 08/25/2020 Exposure to SARS-CoV-2 Dank Villa MD: [address] [place] [address], Ph. Social History Tobacco Smoking Status Never [...] Surgeries None recorded. Imaging None recorded. Vitals 06/03/2021 03:30PM ANNUAL EXAM Height Weight BMI Blood Pressure 62.5 in 303 lbs 16 oz 54.7 kg/m2 123/84 mm[Hg] 04/28/2021 03:50PM ESTABLISHED [id number] Height Weight BMI Blood Pressure 62.5 in 308 lbs 55.4 kg/m2 126/83 mm[Hg] 02/06/2021 10:30AM ESTABLISHED [id number] Height Weight BMI Blood Pressure 62.5 in 305 lbs 12.8 oz 55 kg/m2 128/80 mm[H g] 01/30/2021 09:30AM TELEHEALTH 20 Height 62.5 in 12/26/2020 09:30AM ESTABLISHED [id number] Height Weight BMI Blood Pressure 62.5 in [...]
--- OUTSIDE RECORDS SUMMARY | 2021-08-27 08:10 | CCD ---
Author Organization Unknown Address [address] [place] [address] Phone [phone] Care Team Providers Care Manager Of Sustainability Name Role Phone Antonio Crawford Unavailable Unavailable [...] not a vailable 04/28/2021 US, Abdomen, Limited [facility] enter Radiology [address] [place] [phone] (Work [address]) 07/07/2021 XR, Hip, Unilateral [facility]iology [address] [place] [address] (Work Place) Notes: Appendectomy, gallbladder, stents -kidneys, tubes-bilateral Results Lab Results Date Name Specimen Result Interpretation Description Value Range Status Address 01/29/2021 Istat Chem8+ Panel Normal Istat HCT 46.0 % 38. 0-51.0 % [facility]: [address] [facility] Normal Istat Glucose 84 mg/dL 70-105 mg/dL [facility]: [address] [facility] Normal Istat Sodium 138 mEq/L 136-145 mEq/L [facility]: [address] [facility] Normal Istat Potassium 4.2 mEq/L 3.5-5.1 mE q/L [facility]: [address] [facility] Normal Istat Ca++ 4.7 mg/dL 4.5-5.3 mg/dL F inal [facility]: [address] [facility] Normal Istat Chloride 102 mEq/L 98-109 mEq/ L [facility]: [address] [facility] High Istat CO2 30.0 mm/L 23.0-27.0 mm/L F [facility]: [address] [facility] Normal Istat BUN 17 mg/dL 8-26 mg/dL [facility]: [address] [facility] Normal Istat Creatinine 1.0 mg/dL 0.6-1.3 m g/dL [facility]: [address] [facility] 01/29/2021 Istat B-HCG Normal Istat B-HCG < 5.0 F [facility]: [address] [facility] 01/23/2021 Lipid Panel, Serum Blood venous No observation recorded. [facility]: [address] [facility] [address], [place] 01/23/2021 Alkaline Phosphatase Isoenzymes, Serum or Plasma Blood ve nous No observation recorded. [facility] Medic l: [address] [facility] [address], [place] 12/26/2020 SARS CoV 2 RdRp Gene, QL Probe, Respiratory Spec imen Nasopharyngeal Normal Sars-cov-2 negative negative Final [facility]: [address] [facility] [address], [place] 12/19/2020 CBC W/ Auto Diff Blood venous Normal White Blood C ount 9.7 10 4.0-10.0 10 [facility]: [address] 0 [facility] Blood venous High Red Blood Count 5.41 10 4.00- 5.40 10 [facility]: [address] [facility] Blood venous Normal Hemoglobin 14.6 g/dL 12.0-15. 5 g/dL [facility]: [address] [facility] Blood venous Normal Hematocrit 45.6 % 36.0-47.0 % [facility]: [address] [facility] Blood venous Normal Mean Corpuscular Volume 84.3 fL 80.0-96.0 fL [facility]: [address] [facility] Blood venous Normal Mean Corpuscular Hemoglob in 27.0 pg 27.0-33.0 pg [facility]: [address] [place] [address] Blood venous Normal Mean Corpuscular HGB Conc 32.0 g/dL 32.0-36.5 g/dL [facility]: [address] [place] [address] Blood venous High Red Cell Distribution Width 1 4.6 % 11.5-14.5 % [facility]: [address] [place] [address] Blood venous Normal Platelet Count, Automated 261 10 150-450 10 [facility]: [address] [place] [address] Blood venous High Neutrophils % 70.3 % 36.0-66. 0 % [facility]: [address] [place] [address] Blood venous Low Lymph % 18.6 % 24.0-44.0 % [facility]: [address] [place] [address] Blood venous Normal Mcminn % 7.6 % 2.0-8.0 % [facility]: [address] [place] [address] venous Normal Eos % 2.2 % 0.0-3.0 % [facility]: [address] [place] [address] venous Normal Baso % 1.0 % 0.0-1.0 % [facility]: [address] [place] [address] venous Normal Immature Granulocyte % 0.3 % 0-3.0 % [facility]: [address] [place] [address] Blood venous Normal Nucleated Red Blood Cell % 0. 0 % 0-0 % [facility]: [address] [place] [address] Blood venous Normal Neutrophils # 6.8 10 1.5-8.5 10 [facility]: [address] [place] [address] Blood venous Normal Lymph # 1.8 10 1.5-5.0 10 [facility]: [address] [place] [address] Blood venous Normal Mcminn # 0.7 10 0.0-0.8 10 [facility]: [address] [place] [address] Blood venous Normal Eos # 0.2 10 0.0-0.5 10 [facility]: [address] [place] [address] Blood venous Normal Baso # 0.1 10 0.0-0.2 10 [facility]: [address] [place] [address] 12/19/2020 HbA1C (Hemoglobin a1C), Blood Blood venous Normal Hemoglobin a1C 4.9 % [facility]: [address] [place] [address] Blood venous Normal Estimated Average Glucose 94 mg/dL 60-110 mg/dL [facility]: [address] [place] [address] 12/19/2020 CMP, Serum or Plasma Blood venous Normal Glu cose, Fasting 85 mg/dL 70-100 mg/dL [facility] nter: [address] [place] [address] Blood venous High Blood Urea Nitrogen 19 mg/dL 7-18 mg/dL [facility]: [address] [place] [address] Blood venous Normal Creatinine for GFR 0.88 mg/dL 0.55-1.30 mg/dL [facility]: [address] [place] [address] Blood venous Normal Glomerular Filtration Rate > 60.0 >58 [facility]: [address] [place] [address] Blood venous Normal Sodium Level 138 mEq/L 136-14 5 mEq/L [facility]: [address] [place] [address] Blood venous Normal Potassium Serum 4.2 mEq/L 3.5 -5.1 mEq/L [facility]: [address] [place] [address] Blood venous Normal Chloride Level 106 mEq/L 98-1 07 mEq/L [facility]: [address] [place] [address] Blood venous Normal Carbon Dioxide Level 28 mEq/L 21-32 mEq/L [facility]: [address] [place] [address] Blood venous Low Anion Gap 4 mEq/L 8-16 mEq/L [facility]: [address] [place] [address] Blood venous Normal Calcium Level 8.8 mg/dL 8.5-1 0.1 mg/dL [facility]: [address] [place] [address] Blood venous Normal AST/SGOT 31 U/L 7-37 U/L [facility]: [address] [place] [address] Blood venous Normal ALT/SGPT 53 U/L 12-78 U/L [facility]: [address] [place] [address] Blood venous High Alkaline Phosphatase 129 U/L 45-117 U/L [facility]: [address] [place] [address] Blood venous Normal Bilirubin,total 0.4 mg/dL 0.2 -1.0 mg/dL Final [facility]: [address] [place] [address] Blood venous Normal Total Protein 7.3 gm/dL 6.4-8 .2 gm/dL [facility]: [address] [place] [address] Blood venous Normal Albumin 4.0 gm/dL 3.2-5.2 gm/ dL [facility]: [address] [place] [address] Blood venous Normal Albumin/globulin Ratio 1.2 1.2-2.2 [facility]: [address] [place] [address] 12/19/2020 TSH + Free T4, Serum Blood venous Normal Thyroid Stimulating Hormone 1.830 uIU/mL 0.358-3.740 uIU/mL [facility] ical Center: [address] [place] [address] Blood venous Normal Free T4 1.11 NG/dL 0.76-1.46 NG/dL [facility]: [address] [place] [address] 12/19/2020 Vitamin D, 25-Hydroxy, Total, Serum Blood venous Low Total 25(Oh) Vitamin D 20.0 NG/mL 30.0-100.0 NG/mL [facility]: [address] [place] [address] 08/25/2020 SARS CoV 2 RNA (COVID-19), QL, plasterer rough-PCR, Respirat ory Specimen Normal Sars Cov 2 RNA not detected not detected Final Past Encounters 07/07/2021 Pain in Right Hip Joint Antonio Crawford, RPA-C: [address] [facility] [address] [address], Ph. 06/03/2021 Adult Health Examination; Moderate Recurrent Major Depression; Elevated Blood- pressure Reading without Diagnosis of Hypertension; Beni Type IIa Hyperlipoproteinemia; Mild Intermittent Asthma; Severe Obesity; Vitamin D Deficiency; Trochanteric Bursitis of Left Hip Antonio Crawford, RPA-C: [address] [facility] [address], [place] [address], Ph. 04/28/2021 Epigastric Hernia; Counseling Antonio Crawford RPA-C: [address] [facility], [facility] [address], [place] [address], Ph. 02/06/2021 Cervical Radiculopathy; Neck Pain; Spinal Stenosis in Cervical Region Josie Mckinney [facility]: [address] [facility], [facility] [address], [place] [address], Ph. 01/30/2021 Beni Type IIa Hyperlipoproteinemia; Alkaline Phosphatase Raised; Dysfunction of Eustachian Tube; Generalized Anxiety Disorder; Urinary Incontinence Josie Mckinney [facility]: [address] [facility], [facility] [address], [place] [address], Ph. 01/23/2021 Alkaline Phosphatase Raised; Beni Type IIa Hyperlipoproteinemia Josie Mckinney [facility]: [address] [facility], [facility] [address] [address], Ph. 12/26/2020 Upper Respiratory Infection; Eustachian Tube Disorder; Beni Type IIa Hyperlipoproteinemia; Severe Obesity; Vitamin D Deficiency; Abdominal Pain; Generalized Anxiety Disorder; Alkaline Phosphatase Raised; Exposure to SARS-CoV-2 Josie RojasAKIL garridoC: [address] [facility], [facility] [address], [place] [address], Ph. 12/19/2020 Severe Obesity Josie Mckinney [facility]: [address] [facility], [facility] [address], [place] [address], Ph. 08/25/2020 Exposure to SARS-CoV-2 Dank Villa MD: [address] [place] [address], Ph. Social History Tobacco Smoking Status Never Smoker Vaccine List Vaccine Type COVID-19 vaccine, vector-nr, [id number], PF , 0.5 mL 01/07/2021 influenza, injectable, quadrivalent, pre servative free .5 mL Tdap 04/16/2016 Plan of Care Patient [...] Surgeries None recorded. Imaging None recorded. Vitals 07/07/2021 12:00PM SAME DAY 20 Height Weight BMI Blood Pressure 62.5 in (1) 138/100 mm[ Hg] (2) 130/76 mm[Hg] 06/03/2021 03:30PM ANNUAL EXAM Height Weight BMI Blood Pressure 62.5 in 303 lbs 16 oz 54.7 kg/m2 123/84 mm[Hg] 04/28/2021 03:50PM ESTABLISHED [id number] Height Weight BMI Blood Pressure 62.5 in 308 lbs 55.4 kg/m2 126/83 mm[Hg] 02/06/2021 10:30AM ESTABLISHED [id number] Height Weight BMI Blood Pressure 62.5 in 305 lbs 12.8 oz 55 kg/m2 128/80 mm[H g] 01/30/2021 09:30AM TELEHEALTH 20 Height 62.5 in 12/26/2020 09:30AM ESTABLISHED [id number] Height Weight BMI Blood Pressure 62.5 in [...]
--- OUTSIDE RECORDS SUMMARY | 2021-08-27 08:11 | CCD ---
Author Author [facility] Organization [facility] Address Unknown Phone Unavailable Care Team Providers Care Reliner Name Role Phone Abrahan Villa MD Unavailable Unavailable Abrahan Villa MD Unavailable Unavailable Abrahan Villa MD Unavailable Unavailable Abrahan Villa MD Unavailable Unavailable Abrahan Vlila MD Unavailable Unavailable Abrahan Villa MD Unavailable Unavailable Abrahan Villa MD Unavailable Unavailable Abrahan Villa MD Unavailable Unavailable Abrahan Villa MD Unavailable Unavailable Abrahan Villa MD Unavailable Unavailable Abrahan Villa MD Unavailable Unavailable Abrahan Villa MD Unavailable Unavailable Abrahan Villa MD Unavailable Unavailable Abrahan Villa MD Unavailable Unavailable Abrahan Villa MD Unavailable Unavailable Abrahan Villa MD Unavailable Unavailable Abrahan Villa MD Unavailable Unavailable Abrahan Villa MD Unavailable Unavailable Abrahan Villa MD Unavailable Unavailable Abrahan Villa MD Unavailable Unavailable Abrahan Villa MD Unavailable Unavailable Abrahan Villa MD Unavailable Unavailable Abrahan Villa MD Unavailable Unavailable Abrahan Villa MD Unavailable Unavailable Abrahan Villa MD Unavailable Unavailable Abrahan Villa MD Unavailable Unavailable Abrahan Villa MD Unavailable Unavailable Abrahan Villa MD Unavailable Unavailable Abrahan Villa MD Unavailable Unavailable Abrahan Villa MD Unavailable Unavailable Abrahan Villa MD Unavailable Unavailable Abrahan Villa MD Unavailable Unavailable Abrahan Villa MD Unavailable Unavailable Abrahan Villa MD Unavailable Unavailable Abrahan Villa MD Unavailable Unavailable Abrahan Villa MD Unavailable Unavailable Abrahan Villa MD Unavailable Unavailable Abrahan Villa MD Unavailable Unavailable Abrahan Villa MD Unavailable Unavailable Abrahan Villa MD Unavailable Unavailable Abrahan Villa MD Unavailable Unavailable Abrahan Villa MD Unavailable Unavailable Abrahan Villa MD Unavailable Unavailable bArahan Villa MD Unavailable Unavailable Abrahan Villa MD Unavailable Unavailable Abrahan Villa MD Unavailable Unavailable Abrahan Villa MD Unavailable Unavailable Abrahan Villa MD Unavailable Unavailable Abrahan Villa MD Unavailable Unavailable Abrahan Villa MD Unavailable Unavailable Abrahan Villa MD Unavailable Unavailable Abrahan Villa MD Unavailable Unavailable Abrahan Villa MD Unavailable Unavailable Abrahan Villa MD Unavailable Unavailable Abrahan Villa MD Unavailable Unavailable Abrahan Villa MD Unavailable Unavailable Abrahan Villa MD Unavailable Unavailable Abrahan Villa MD Unavailable Unavailable Abrahan Villa MD Unavailable Unavailable Abrahan Villa MD Unavailable Unavailable Abrahan Villa MD Unavailable Unavailable Abrahan Villa MD Unavailable Unavailable Abrahan Villa MD Unavailable Unavailable Abrahan Villa MD Unavailable Unavailable Abrahan Villa MD Unavailable Unavailable Abrahan Villa MD Unavailable Unavailable Abrahan Villa MD Unavailable Unavailable Abrahan Villa MD Unavailable Unavailable Abrahan Villa MD Unavailable Unavailable Abrahan Villa MD Unavailable Unavailable Abrahan Villa MD Unavailable Unavailable Abrahan Villa MD Unavailable Unavailable Abrahan Villa MD Unavailable Unavailable Abrahan Villa MD Unavailable Unavailable Abrahan Villa MD Unavailable Unavailable Abrahan Villa MD Unavailable Unavailable Abrahan Villa MD Unavailable Unavailable Abrahan Villa MD Unavailable Unavailable Abrahan Villa MD Unavailable Unavailable Abrahan Villa MD Unavailable Unavailable Abrahan Villa MD Unavailable Unavailable Abrahan Villa MD Unavailable Unavailable Abrahan Villa MD Unavailable Unavailable Abrahan Villa MD Unavailable Unavailable Abrahan Villa MD Unavailable Unavailable Abrahan Villa MD Unavailable Unavailable Abrahan Villa MD Unavailable Unavailable Abrahan Villa MD Unavailable Unavailable Abrahan Villa MD Unavailable Unavailable Abrahan Villa MD Unavailable Unavailable Abraahn Villa MD Unavailable Unavailable Abrahan Villa MD Unavailable Unavailable Abrahan Villa MD Unavailable Unavailable AFSHIN CRAWFORD RPA-C Unavailable Unavailable CRAWFORD, AFSHIN ANTONIO RPA-C Unavailable Unavailable CRAWFORD, AFSHIN ANTONIO RPA-C Unavailable Unavailable CRAWFORD, AFSHIN ANTONIO RPA-C Unavailable Unavailable CRAWFORD, AFSHIN ANTONIO RPA-C Unavailable Unavailable CRAWFORD, AFSHIN ANTONIO RPA-C Unavailable Unavailable CRAWFORD, AFSHIN ANTONIO RPA-C Unavailable Unavailable CRAWFORD, AFSHIN ANTONIO RPA-C Unavailable Unavailable CRAWFORD, AFSHIN ANTONIO RPA-C Unavailable Unavailable CRAWFORD, AFSHIN ANTONIO RPA-C Unavailable Unavailable CRAWFORD, AFSHIN ANTONIO RPA-C Unavailable Unavailable CRAWFORD, AFSHIN ANTONIO RPA-C Unavailable Unavailable CRAWFORD, AFSHIN ANTONIO RPA-C Unavailable Unavailable CRAWFORD, AFSHIN ANTONIO RPA-C Unavailable Unavailable CRAWFORD, AFSHIN ANTONIO RPA-C Unavailable Unavailable CRAWFORD, AFSHIN ANTONIO RPA-C Unavailable Unavailable CRAWFORD, AFSHIN ANTONIO RPA-C Unavailable Unavailable CRAWFORD, AFSHIN ANTONIO RPA-C Unavailable Unavailable CRAWFORD, AFSHIN ANTONIO RPA-C Unavailable Unavailable CRAWFORD, AFSHIN ANTONIO RPA-C Unavailable Unavailable CRAWFORD, AFSHIN ANTONIO RPA-C Unavailable Unavailable CRAWFORD, AFSHIN ANTONIO RPA-C Unavailable Unavailable CRAWFORD, AFSHIN ANTONIO RPA-C Unavailable Unavailable CRAWFORD, AFSHIN ANTONIO RPA-C Unavailable Unavailable CRAWFORD, AFSHIN ANTONIO RPA-C Unavailable Unavailable CRAWFORD, AFSHIN ANTONIO RPA-C Unavailable Unavailable CRAWFORD, AFSHIN ANTONIO RPA-C Unavailable Unavailable CRAWFORD, AFSHIN ANTONIO RPA-C Unavailable Unavailable CRAWFORD, AFSHIN ANTONIO RPA-C Unavailable Unavailable CRAWFORD, AFSHIN ANTONIO RPA-C Unavailable Unavailable CRAWFORD, AFSHIN ANTONIO RPA-C Unavailable Unavailable CRAWFORD, AFSHIN ANTONIO RPA-C Unavailable Unavailable CRAWFORD, AFSHIN ANTONIO RPA-C Unavailable Unavailable CRAWFORD, AFSHIN ANTONIO RPA-C Unavailable Unavailable CRAWFORD, AFSHIN ANTONIO RPA-C Unavailable Unavailable CRAWFORD, AFSHIN ANTONIO RPA-C Unavailable Unavailable CRAWFORD, AFSHIN ANTONIO RPA-C Unavailable Unavailable CRAWFORD, AFSHIN ANTONIO RPA-C Unavailable Unavailable CRAWFORD, AFSHIN ANTONIO RPA-C Unavailable Unavailable CRAWFORD, AFSHIN ANTONIO RPA-C Unavailable Unavailable CRAWFORD, AFSHIN ANTONIO RPA-C Unavailable Unavailable CRAWFORD, AFSHIN ANTONIO RPA-C Unavailable Unavailable CRAWFORD, AFSHIN ANTONIO RPA-C Unavailable Unavailable CRAWFORD, AFSHIN ANTONIO RPA-C Unavailable Unavailable CRAWFORD, AFSHIN ANTONIO RPA-C Unavailable Unavailable CRAWFORD, AFSHIN ANTONIO RPA-C Unavailable Unavailable CRAWFORD, AFSHIN ANTONIO RPA-C Unavailable Unavailable CRAWFORD, AFSHIN ANTONIO RPA-C Unavailable Unavailable CRAWFORD, AFSHIN ANTONIO RPA-C Unavailable Unavailable CRAWFORD, AFSHIN ANTONIO RPA-C Unavailable Unavailable CRAWFORD, AFSHIN ANTONIO RPA-C Unavailable Unavailable CRAWFORD, AFSHIN ANTONIO RPA-C Unavailable Unavailable CRAWFORD, AFSHIN ANTONIO RPA-C Unavailable Unavailable CRAWFORD, AFSHIN ANTONIO RPA-C Unavailable Unavailable CRAWFORD, AFSHIN ANTONIO RPA-C Unavailable Unavailable CRAWFORD, AFSHIN ANTONIO RPA-C Unavailable Unavailable CRAWFORD, AFSHIN ANTONIO RPA-C Unavailable Unavailable CRAWFORD, AFSHIN ANTONIO RPA-C Unavailable Unavailable CRAWFORD, AFSHIN ANTONIO RPA-C Unavailable Unavailable CRAWFORD, AFSHIN ANTONIO RPA-C Unavailable Unavailable CRAWFORD, AFSHIN ANTONIO RPA-C Unavailable Unavailable CRAWFORD, AFSHIN ANTONIO RPA-C Unavailable Unavailable CRAWFORD, AFSHIN ANTONIO RPA-C Unavailable Unavailable CRAWFORD, AFSHIN ANTONIO RPA-C Unavailable Unavailable CRAWFORD, AFSHIN ANTONIO RPA-C Unavailable Unavailable CRAWFORD, AFSHIN ANTONIO RPA-C Unavailable Unavailable CRAWFORD, AFSHIN ANTONIO RPA-C Unavailable Unavailable CRAWFORD, AFSHIN ANTONIO RPA-C Unavailable Unavailable CRAWFORD, AFSHIN ANTONIO RPA-C Unavailable Unavailable CRAWFORD, AFSHIN ANTONIO RPA-C Unavailable Unavailable CRAWFORD, AFSHIN ANTONIO RPA-C Unavailable Unavailable CRAWFORD, AFSHIN ANTONIO RPA-C Unavailable Unavailable CRAWFORD, AFSHIN ANTONIO RPA-C Unavailable Unavailable CRAWFORD, AFSHIN ANTONIO RPA-C Unavailable Unavailable CRAWFORD, AFSHIN ANTONIO RPA-C Unavailable Unavailable CRAWFORD, AFSHIN ANTONIO RPA-C Unavailable Unavailable CRAWFORD, AFSHIN ANTONIO RPA-C Unavailable Unavailable CRAWFORD, AFSHIN ANTONIO RPA-C Unavailable Unavailable CRAWFORD, AFSHIN ANTONOI RPA-C Unavailable Unavailable CRAWFORD, AFSHIN ANTONIO RPA-C Unavailable Unavailable CRAWFORD, AFSHIN ANTONIO RPA-C Unavailable Unavailable CRAWFORD, AFSHIN ANTONIO RPA-C Unavailable Unavailable CRAWFORD, AFSHIN ANTONIO RPA-C Unavailable Unavailable CRAWFORD, AFSHIN ANTONIO RPA-C Unavailable Unavailable CRAWFORD, AFSHIN ANTONIO RPA-C Unavailable Unavailable CRAWFORD, AFSHIN ANTONIO RPA-C Unavailable Unavailable BARUNRULYUGACathy MD Unavailable Unavailable BARAYUGA, Cathy WISE MD Unavailable Unavailable BARAYUGA, Cathy WISE MD Unavailable Unavailable BARAYUGA, Cathy WISE MD Unavailable Unavailable BARAYUGA, Cathy WISE MD Unavailable Unavailable BARAYUGA, Cathy WISE MD Unavailable Unavailable BARAYUGA, Cathy WISE MD Unavailable Unavailable BARAYUGA, Cathy WISE MD Unavailable Unavailable BARAYUGA, Cathy WISE MD Unavailable Unavailable BARAYUGA, Cathy WISE MD Unavailable Unavailable BARAYUGA, Cathy WISE MD Unavailable Unavailable BARAYUGA, Cathy WISE MD Unavailable Unavailable BARAYUGA, Cathy WISE MD Unavailable Unavailable BARAYUGA, Cathy WISE MD Unavailable Unavailable BARAYUGA, Cathy WISE MD Unavailable Unavailable BARAYUGA, Cathy WISE MD Unavailable Unavailable BARAYUGACathy MD Unavailable Unavailable BARAYUGA, Cathy WISE MD Unavailable Unavailable BARAYUGA, Cathy WISE MD Unavailable Unavailable BARAYUGA, Cathy WISE MD Unavailable Unavailable BARAYUGACathy MD Unavailable Unavailable BARAYUGACathy MD Unavailable Unavailable BARAYUGACathy MD Unavailable Unavailable BARAYUGACathy MD Unavailable Unavailable BARAYUGACathy MD Unavailable Unavailable BARAYUGACathy MD Unavailable Unavailable BARAYUGACathy MD Unavailable Unavailable BARAYUGACathy MD Unavailable Unavailable BARAYUGACathy MD Unavailable Unavailable BARAYUGACathy MD Unavailable Unavailable BARAYUGACathy MD Unavailable Unavailable BARAYUGACathy MD Unavailable Unavailable BARAYUGACathy MD Unavailable Unavailable BARAYUGACathy MD Unavailable Unavailable BARUNRULYUGACathy MD Unavailable Unavailable Jose D Cortés MD Unavailable Unavailable Jose D Cortés MD Unavailable Unavailable Jose D Cortés MD Unavailable Unavailable Jose D Cortés MD Unavailable Unavailable Jose D Cortés MD Unavailable Unavailable Jose D Cortés MD Unavailable Unavailable Jose D Cortés MD Unavailable Unavailable Jose D Cortés MD Unavailable Unavailable Jose D Cortés MD Unavailable Unavailable Jose D Cortés MD Unavailable Unavailable Jose D Cortés MD Unavailable Unavailable Jose D Cortés MD Unavailable Unavailable Cortés, L Eliseo Unavailable Unavailable Cortés, L Eliseo Unavailable Unavailable Cortés, L Eliseo Unavailable Unavailable Cortés, L Eliseo Unavailable Unavailable Cortés, L Eliseo FARAH Unavailable Unavailable Cortés, L Eliseo Unavailable Unavailable Cortés, L Eliseo FARAH Unavailable Unavailable Cortés, L Eliseo FARAH Unavailable Unavailable Cortés, L Eliseo FARAH Unavailable Unavailable Cortés, L Eliseo FARAH Unavailable Unavailable Cortés, L Eliseo FARAH Unavailable Unavailable Cortés, L Eliseo FARAH Unavailable Unavailable Cortés, L Eliseo FARAH Unavailable Unavailable Cortés, L Eliseo FARAH Unavailable Unavailable Cortés, L Eliseo FARAH Unavailable Unavailable Cortés, L Eliseo FARAH Unavailable Unavailable Cortés, L Eliseo FARAH Unavailable Unavailable Cortés, L Eliseo FARAH Unavailable Unavailable Cortés, L Eliseo FARAH Unavailable Unavailable Cortés, L Eliseo FARAH Unavailable Unavailable Cortés, L Eliseo FARAH Unavailable Unavailable Cortés, L Eliseo FARAH Unavailable Unavailable Cortés, L Eliseo FARAH Unavailable Unavailable Cortés, L Eliseo FARAH Unavailable Unavailable Cortés, L Eliseo FARAH Unavailable Unavailable Cortés, L Eliseo FARAH Unavailable Unavailable Cortés, L Eliseo FARAH Unavailable Unavailable Cortés, L Eliseo FARAH Unavailable Unavailable Cortés, L Eliseo FARAH Unavailable Unavailable Cortés, L Eliseo FARAH Unavailable Unavailable Cortés, L Eliseo FARAH Unavailable Unavailable Cortés, L Eliseo FARAH Unavailable Unavailable Cortés, L Eliseo FARAH Unavailable Unavailable Cortés, L Eliseo FARAH Unavailable Unavailable Cortés, L Eliseo FARAH Unavailable Unavailable Cortés, L Eliseo FARAH Unavailable Unavailable Cortés, L Eliseo FARAH Unavailable Unavailable Cortés, L Eliseo FARAH Unavailable Unavailable BARAJAS, LINK Unavailable Unavailable BARAJAS, LINK Unavailable Unavailable BARAJAS, LINK Unavailable Unavailable BARAJAS, LINK Unavailable Unavailable BARAJAS, LINK Unavailable Unavailable BARAJAS, LINK Unavailable Unavailable BARAJAS, LINK Unavailable Unavailable BARAJAS, LINK Unavailable Unavailable BARAJAS, LINK Unavailable Unavailable BARAJAS, LINK Unavailable Unavailable BARAJAS, LINK Unavailable Unavailable BARAJAS, LINK Unavailable Unavailable BARAJAS, LINK Unavailable Unavailable ABRAJAS, LINK Unavailable Unavailable BARAJAS, LINK Unavailable Unavailable BARAJAS, LINK Unavailable Unavailable BARAJAS, LINK Unavailable Unavailable BARAJAS, LINK Unavailable Unavailable BARAJAS, LINK Unavailable Unavailable BARAJAS, LINK Unavailable Unavailable BARAJAS, LINK Unavailable Unavailable BARAJAS, LINK Unavailable Unavailable BARAJAS, LINK Unavailable Unavailable BARAJAS, LINK Unavailable Unavailable BARAJAS, LINK Unavailable Unavailable BARAJAS, LINK Unavailable Unavailable BARAJAS, LINK Unavailable Unavailable Re-disclosure Warning The records that you are about to access may contain information from federally-assisted alcohol or drug abuse programs. If such information is present, then the following federally mandated warning applies: This information has been disclosed to you from records protected by federal confidentiality rules (42 CFR part 2). The federal rules prohibit you from making any further disclosure of this information unless further disclosure is expressly permitted by the written consent of the person to whom it pertains or as otherwise permitted by 42 CFR part 2. A general authorization for the release of medical or other information is NOT sufficient for this purpose. The Federal rules restrict any use of the information to criminally investigate or prosecute any alcohol or drug abuse patient.The records that you are about to access may contain highly sensitive health information, the redisclosure of which is protected by Article 27-F of the [facility] Public Health law. If you continue you may have access to information: Regarding HIV / AIDS; Provided by facilities licensed or operated by the [facility] Office of Mental Health; or Provided by the [facility] Office for People With Developmental Disabilities. If such information is present, then the following [facility] mandated warning applies: This information has been disclosed to you from confidential records which are protected by state law. State law prohibits you from making any further disclosure of this information without the specific written consent of the person to whom it pertains, or as otherwise permitted by law. Any unauthorized further disclosure in violation of state law may result in a fine or care home sentence or both. A general authorization for the release of medical or other information is NOT sufficient authorization for further disc losure. Family History Family Member Name Family Member Gender Family Member Status Date o f Status Description Data Source(s) Unknown Male Problem [facility] ([facility] Unknown Unknown Problem [facility] ([facility], [facility]) father Unknown Unknown Problem [facility] ([facility], [facility]) Encounters Encounter Providers Location Date Indications Data Source(s ) Dank Villa MD: [address] [place] [address], Ph. Attender: Dank Villa MD [facility] 08/20/2021 12:00:00 AM EST [place] ([facility]) Antonio Crawford RPA-C: [address], [place] [address], Ph. Attender: ANTONIO CRAWFORD RPA-C [facility] 08/04/2021 12:00:00 AM EDT [place] ([facility]) Antonio Crawford RPA-C: [address], [place] [address], Ph. Attender: ANTONIO CRAWFORD RPA-C [facility] 08/04/2021 12:00:00 AM EDT [place] ([facility]) Antonio Crawford RPA-C: [address], [place] [address], Ph. Attender: ANTONIO CRAWFORD RPA-C [facility] 08/04/2021 12:00:00 AM EDT [place] ([facility]) Antonio Crawford RPA-C: [address], [place] [address], Ph. Attender: ANTONIO CRAWFORD RPA-C [facility] 07/31/2021 12:00:00 AM EDT [place] ([facility]) Antonio Crawford RPA-C: [address], [place] [address], Ph. Attender: ANTONIO CRAWFORD RPA-C [facility] 07/31/2021 12:00:00 AM EDT [place] ([facility]) Antonio D Crawford, RPA-C: [address], [place] [address], Ph. Attender: ANTONIO CRAWFORD RPA-C [facility] 07/31/2021 12:00:00 AM EDT [place] ([facility]) Antonio Crawford, RPA-C: [address], [place] [address], Ph. Attender: ANTONIO CRAWFORD RPA-C [facility] 07/07/2021 12:00:00 AM EDT [place] ([facility]) Antonio Crawford, RPA-C: [address], [place] [address], Ph. Attender: ANTONIO CRAWFORD RPA-C [facility] 07/07/2021 12:00:00 AM EDT [place] ([facility]) Antonio Crawford, RPA-C: [address], [place] [address], Ph. Attender: ANTONIO CRAWFORD RPA-C [facility] 07/07/2021 12:00:00 AM EDT [place] ([facility]) Antonio Crawford RPA-C: [address], [place] [address], Ph. Attender: ANTONIO CRAWFORD RPA-C [facility] 07/07/2021 12:00:00 AM EDT [place] ([facility]) Antonio Crawford, RPA-C: [address], [place] [address], Ph. Attender: ANTONIO CRAWFORD RPA-C [facility] 06/03/2021 12:00:00 AM EDT [place] ([facility]) Antonio Crawford RPA-C: [address], [place] [address], Ph. Attender: ANTONIO CRAWFORD RPA-C [facility] 06/03/2021 12:00:00 AM EDT [place] ([facility]) Antonio Crawford RPA-C: [address], [place] [address], Ph. Attender: ANTONIO CRAWFORD RPA-C [facility] 06/03/2021 12:00:00 AM EDT [place] ([facility]) Antonio Crawford RPA-C: [address], [place] [address], Ph. Attender: ANTONIO CRAWFORD RPA-C [facility] 06/03/2021 12:00:00 AM EDT [place] ([facility]) Antonio Crawford RPA-C: [address], [place] [address], Ph. Attender: ANTONIO CRAWFORD RPA-C [facility] 06/03/2021 12:00:00 AM EDT [place] ([facility]) Outpatient Attender: FRANDY Mcpherson/Matt/Lisandro/ Leah 05/14/2021 10:30:00 AM EDT [place] ([facility] ) Antonio Crawford RPA-C: [address], [place] [address], Ph. Attender: ANTONIO CRAWFORD RPA-C [facility] 04/28/2021 12:00:00 AM EDT [place] ([facility]) Antonio Crawford RPA-C: [address], [place] [address], Ph. Attender: ANTONIO CRAWFORD RPA-C [facility] 04/28/2021 12:00:00 AM EDT [place] ([facility]) Antonio Crawford RPA-C: [address], [place] [address], Ph. Attender: ANTONIO CRAWFORD RPA-Zack [facility] 04/28/2021 12:00:00 AM EDT [place] ([facility]) Antonio Crawford RPA-C: [address], [place] [address], Ph. Attender: ANTONIO CRAWFORD RPA-C [facility] 04/28/2021 12:00:00 AM EDT [place] ([facility]) Antonio Crawford RPA-C: [address], [place] [address], Ph. Attender: ANTONIO BARNARDC [facility] 04/28/2021 12:00:00 AM EDT [place] ([facility]) Antonio Crawford RPA-C: [address], [place] [address], Ph. Attender: ANTONIO CRAWFORD RPA-C [facility] 04/28/2021 12:00:00 AM EDT [place] ([facility]) Outpatient Attender: Eliseo Cortés MD Physical Therapy 02/19/2021 0 8:30:00 AM EDT [place] ([facility] ) Link Barajas RPA-C: [address], [place] [address], Ph. Attender: LINK BARAJAS [facility] 02/06/2021 12:00:00 AM EDT [place] ([facility]) Link Barajas RPA-C: [address], [place] [address], Ph. Attender: LINK BARAJAS [facility] 02/06/2021 12:00:00 AM EDT [place] ([facility]) Link Barajas RPA-C: [address], [address], [place] [address], Ph. Attender: LINK BRAAJAS [facility] 02/06/2021 12:00:00 AM EDT [place] ([facility]) Link Barajas RPA-C: [address], [address], [place] [address], Ph. Attender: LINK BARAJAS [facility] 02/06/2021 12:00:00 AM EDT [place] ([facility]) Link Barajas RPA-C: [address], [address], [place] [address], Ph. Attender: LINK BARAJAS [facility] 02/06/2021 12:00:00 AM EDT [place] ([facility]) Link Barajas RPA-C: [address], [address], [place] [address], Ph. Attender: LINK BARAJAS [facility] 02/06/2021 12:00:00 AM EDT [place] ([facility]) Link Barajas RPA-C: [address], [place] [address], Ph. Attender: LINK BARAJAS [facility] 02/06/2021 12:00:00 AM EDT [place] ([facility]) Link Barajas RPA-C: [address], [address], [place] [address], Ph. Attender: LINK BARAJAS [facility] 01/30/2021 12:00:00 AM EDT [place] ([facility]) Link Barajas RPA-C: [address], [address], [place] [address], Ph. Attender: LINK BARAJAS [facility] 01/30/2021 12:00:00 AM EDT [place] ([facility]) Link Barajas RPA-C: [address], [address], [place] [address], Ph. Attender: LINK BARAJAS [facility] 01/30/2021 12:00:00 AM EDT [place] ([facility]) Link Barajas RPA-C: [address], [address], [place] [address], Ph. Attender: LINK BARAJAS [facility] 01/30/2021 12:00:00 AM EDT [place] ([facility]) Link Barajas RPA-C: [address], [address], [place] [address], Ph. Attender: LINK BARAJAS [facility] 01/30/2021 12:00:00 AM EDT [place] ([facility]) Link Barajas RPA-C: [address], [address], [place] [address], Ph. Attender: LINK BARAJAS [facility] 01/30/2021 12:00:00 AM EDT [place] ([facility]) Link Barajas RPA-C: [address], [address], [place] [address], Ph. Attender: LINK BARAJAS [facility] 01/30/2021 12:00:00 AM EDT [place] [facility] [facility] AKIL SilvaC: [address], [address], [place] [address], Ph. Attender: LINK BARAJAS [facility] 01/30/2021 12:00:00 AM EDT [place] ([facility]) Link Barajas RPA-C: [address], [address], [place] [address], Ph. Attender: LINK BARAJAS [facility] 01/23/2021 12:00:00 AM EDT [place] ([facility]) Link Barajas RPA-C: [address], [address], [place] [address], Ph. Attender: LINK BARAJAS [facility] Medical 01/23/2021 12:00:00 AM EDT [place] ([facility]) Link Barajas RPA-C: [address], [address], [place] [address], Ph. Attender: LINK BARAJAS [facility] 01/23/2021 12:00:00 AM EDT [place] ([facility]) Link Barajas RPA-C: [address], [address], [place] [address], Ph. Attender: LINK BARAJAS [facility] 01/23/2021 12:00:00 AM EDT [place] ([facility]) Link Barajas RPA-C: [address], [address], [place] [address], Ph. Attender: LINK BARAJAS [facility] 01/23/2021 12:00:00 AM EDT [place] ([facility]) Link Barajas RPA-C: [address], [address], [place] [address], Ph. Attender: LINK BARAJAS [facility] 01/23/2021 12:00:00 AM EDT [place] ([facility]) Link Barajas RPA-C: [address], [address], [place] [address], Ph. Attender: LINK BARAJAS [facility] 01/23/2021 12:00:00 AM EDT [place] ([facility]) Link Barajas RPA-C: [address], [address], [place] [address], Ph. Attender: LINK BARAJAS [facility] 01/23/2021 12:00:00 AM EDT [place] ([facility]) Link Barajas RPA-C: [address], [address], [place] [address], Ph. Attender: LINK BARAJAS [facility] 01/23/2021 12:00:00 AM EDT [place] ([facility]) Link Barajas RPA-C: [address], [address], [place] [address], Ph. Attender: LINK BARAJAS [facility] 12/26/2020 12:00:00 AM EDT [place] ([facility]) Link Barajas RPA-C: [address], [address], [place] [address], Ph. Attender: LINK BARAJAS [facility] 12/26/2020 12:00:00 AM EDT [place] ([facility]) Link Barajas RPA-C: [address], [address], [place] [address], Ph. Attender: LINK BARAJAS [facility] 12/26/2020 12:00:00 AM EDT [place] ([facility]) Link Barajas RPA-C: [address], [address], [place] [address], Ph. Attender: LINK BARAJAS [facility] 12/26/2020 12:00:00 AM EDT [place] ([facility]) Link Barajas RPA-C: [address], [address], [place] [address], Ph. Attender: LINK BARAJAS [facility] Medical 12/26/2020 12:00:00 AM EDT [place] ([facility]) Link Barajas RPA-C: [address], [address], [place] [address], Ph. Attender: LINK BARAJAS [facility] Medical 12/26/2020 12:00:00 AM EDT [place] ([facility]) Link Barajas RPA-C: [address], [address], [place] [address], Ph. Attender: LINK BARAJAS [facility] 12/26/2020 12:00:00 AM EDT [place] ([facility]) Link Barajas RPA-C: [address], [address], [place] [address], Ph. Attender: LINK BARAJAS [facility] 12/26/2020 12:00:00 AM EDT [place] ([facility]) Link Barajas RPA-C: [address], [address], [place] [address], Ph. Attender: LINK BARAJAS [facility] 12/26/2020 12:00:00 AM EDT [place] ([facility]) Link Barajas RPA-C: [address], [address], [place] [address], Ph. Attender: LINK BARAJAS [facility] 12/26/2020 12:00:00 AM EDT [place] ([facility]) Link Barajas RPA-C: [address], [address], [place] [address], Ph. Attender: LINK BARAJAS [facility] Medical 12/19/2020 12:00:00 AM EST [place] ([facility]) Link Barajas RPA-C: [address], [address], [place] [address], Ph. Attender: LNIK BARAJAS [facility] Medical 12/19/2020 12:00:00 AM EST [place] ([facility]) Link Barajas RPA-C: [address], [address], [place] [address], Ph. Attender: LIKN BARAJAS [facility] Medical 12/19/2020 12:00:00 AM EST [place] ([facility]) AKIL SilvaC: [address], [address], [place] [address], Ph. Attender: LINK BARAJAS [facility] Medical 12/19/2020 12:00:00 AM EST [place] ([facility]) Link Barajas RPA-C: [address], [address], [place] [address], Ph. Attender: LINK BARAJAS [facility] Medical 12/19/2020 12:00:00 AM EST [place] ([facility]) iLnk Barajas RPA-C: [address], [address], [place] [address], Ph. Attender: LINK BARAJAS [facility] Medical 12/19/2020 12:00:00 AM EST [place] ([facility]) Link Barajas RPA-C: [address], [address], [place] [address], Ph. Attender: LINK WILDERBINS [facility] Medical 12/19/2020 12:00:00 AM EST [place] ([facility]) Link Faye RPA-C: [address], [address], [place] [address], Ph. Attender: LINK WILDERBINS [facility] Medical 12/19/2020 12:00:00 AM EST [place] ([facility]) Linksarah Barajas RPA-C: [address], [address], [place] [address], Ph. Attender: LINKSARAH BARAJAS [facility] Medical 12/19/2020 12:00:00 AM EST [place] ([facility]) Linksarah Barajas RPA-C: [address], [address], [place] [address], Ph. Attender: LINKSARAH BARAJAS [facility] Medical 12/19/2020 12:00:00 AM EST [place] ([facility]) Link Faye RPA-C: [address], [address], [place] [address], Ph. Attender: LINKSARAH BARAJAS [facility] Medical 12/19/2020 12:00:00 AM EST [place] ([facility]) Dank Villa MD: [address] [place] [address], Ph. Attender: Dank Villa MD [facility] Medical 08/25/2020 12:00:00 AM EST [place] ([facility]) Dank Villa MD: [address] [place] [address], Ph. Attender: Dank Villa MD [facility] Medical 08/25/2020 12:00:00 AM EST [place] ([facility]) Dank Villa MD: [address] [place] [address], Ph. Attender: Dank Villa MD [facility] Medical 08/25/2020 12:00:00 AM EST [place] ([facility]) Dank Villa MD: [address] [place] [address], Ph. Attender: Dank Villa MD [facility] Medical 08/25/2020 12:00:00 AM EST [place] ([facility]) Dank Villa MD: [address] [place] [address], Ph. Attender: Dank Villa MD [facility] Medical 08/25/2020 12:00:00 AM EST [place] ([facility]) Dank Villa MD: [address] [place] [address], Ph. Attender: Dank Villa MD [facility] Medical 08/25/2020 12:00:00 AM EST [place] ([facility]) Dank Villa MD: [address] [place] [address], Ph. Attender: Dank Villa MD [facility] Medical 08/25/2020 12:00:00 AM EST [place] ([facility]) Dank Villa MD: [address] [place] [address], Ph. Attender: Dank Villa MD [facility] Medical 08/25/2020 12:00:00 AM EST [place] ([facility]) Dank Villa MD: [address] [place] [address], Ph. Attender: Dank Villa MD [facility] Medical 08/25/2020 12:00:00 AM EST [place] ([facility]) Dank Villa MD: [address] [place] [address], Ph. Attender: Dank Villa MD [facility] Medical 08/25/2020 12:00:00 AM EST [place] ([facility]) Dank Villa MD: [address] [place] [address], Ph. Attender: Dank Villa MD [facility] Medical 08/25/2020 12:00:00 AM EST [place] ([facility]) Dank Villa MD: [address] [place] [address], Ph. Attender: Dank Villa MD [facility] Medical 08/25/2020 12:00:00 AM EST [place] ([facility]) Outpatient Attender: ANTONIO CRAWFORD RPA-C [facility] 08/05/2020 03:03:01 PM EDT [facility] Outpatient Attender: ANTONIO CRAWFORD RPA-C [facility] 08/05/2020 03:03:01 PM EDT [facility]patient Attender: ANTONIO CRAWFORD RPA-C [facility] 07/24/2020 01:35:02 PM EDT [facility]patient Attender: ANTONIO CRAWFORD RPA-C [facility] 07/24/2020 01:35:01 PM EDT [facility]patient Attender: ANTONIO CRAWFORD RPA-C [facility] 07/17/2020 10:16:02 AM EDT [facility] Attender: ANTONIO CRAWFORD RPA-C [facility] 07/17/2020 10:02:01 AM EDT [facility]patient Attender: ANTONIO CRAWFORD RPA-C [facility] 07/17/2020 10:02:00 AM EDT [facility] Attender: ANTONIO CRAWFORD RPA-C [facility] 07/11/2020 08:45:01 AM EDT [facility] Immunizations Vaccine Date Status Description Data Source(s) COVID-19 vaccine, vector-nr, rS-Ad26, PF, 0.5 mL ([place]) 01/07/2021 12:00:00 AM EDT completed 01/07/2021 [place] ([facility]) COVID-19 vaccine, vector-nr, rS-Ad26, PF, 0.5 mL 01/07/2021 12:00:00 AM EDT completed 01/07/2021 [place] ([facility]) COVID-19 vaccine, vector-nr, rS-Ad26, PF, 0.5 mL 01/07/2021 12:00:00 AM EDT completed 01/07/2021 [place] ([facility]) COVID-19 vaccine, vector-nr, rS-Ad26, PF, 0.5 mL 01/07/2021 12:00:00 AM EDT completed 01/07/2021 [place] ([facility]) COVID-19 vaccine, vector-nr, rS-Ad26, PF, 0.5 mL 01/07/2021 12:00:00 AM EDT completed 01/07/2021 [place] ([facility]) COVID-19 vaccine, vector-nr, rS-Ad26, PF, 0.5 mL 01/07/2021 12:00:00 AM EDT completed 01/07/2021 [place] ([facility]) COVID-19 VACCINE [place] 01/07/2021 12:00:00 AM EDT completed [employer] Vaccine Series Complete: YESThis Data wa s Submitted to [facility] Via [employer]. New in 2011. IIV4 07/17/2020 12:00:00 AM EDT completed 0.5 mL [place] ([facility]) New in 2011. IIV4 07/17/2020 12:00:00 AM EDT completed 0.5 mL [place] ([facility]) New in 2011. IIV4 07/17/2020 12:00:00 AM EDT completed 0.5 mL [place] ([facility]) New in 2011. IIV4 07/17/2020 12:00:00 AM EDT completed 0.5 mL [place] ([facility]) New in 2011. IIV4 07/17/2020 12:00:00 AM EDT completed 0.5 mL [place] ([facility]) New in 2011. IIV4 07/17/2020 12:00:00 AM EDT completed 0.5 mL [place] ([facility]) New in 2011. IIV4 07/17/2020 12:00:00 AM EDT completed 0.5 mL [place] ([facility]) New in 2011. IIV4 07/17/2020 12:00:00 AM EDT completed 0.5 mL [place] ([facility]) New in 2011. IIV4 07/17/2020 12:00:00 AM EDT completed 0.5 mL [place] ([facility]) New in 2011. IIV4 07/17/2020 12:00:00 AM EDT completed 0.5 mL [place] ([facility]) New in 2011. IIV4 07/17/2020 12:00:00 AM EDT completed .5 mL [place] ([facility]) Medications Medication Brand Name Start Date Product Form Dose Route Admi nistrative Instructions Pharmacy Instructions Status Indications Reaction Description Data Source(s) Oseltamivir 75 MG Oral Capsule oseltamiv ir 75 mg capsule TAKE ONE CAPSULE BY MOUTH TWICE A DAY FOR 5 DAYS oseltamivir 75 mg capsule TAKE ONE CAPSU LE BY MOUTH TWICE A DAY FOR 5 DAYS completed oseltamivir 75 MG Oral Capsule [place] ([facility]) tizanidine 2 MG Oral Tablet tizanidine 2 mg tablet tizanidine 2 mg ta blet completed tizanidine 2 MG Oral Tablet [place] ([facility]) Oseltamivir 75 MG Oral Capsule oseltamiv ir 75 mg capsule TAKE ONE CAPSULE BY MOUTH TWICE A DAY FOR 5 DAYS oseltamivir 75 mg capsule TAKE ONE CAPSU LE BY MOUTH TWICE A DAY FOR 5 DAYS completed oseltamivir 75 MG Oral Capsule [place] ([facility]) Oseltamivir 75 MG Oral Capsule oseltamiv ir 75 mg capsule TAKE ONE CAPSULE BY MOUTH TWICE A DAY FOR 5 DAYS oseltamivir 75 mg capsule TAKE ONE CAPSU LE BY MOUTH TWICE A DAY FOR 5 DAYS completed oseltamivir 75 MG Oral Capsule [place] ([facility]) Ibuprofen 200 MG Oral Tablet ibuprofen 2 00 mg tablet Take 3 tablets every 8 hours by oral route. ibuprofen 200 mg tablet Take 3 tablets e very 8 hours by oral route. 3 completed ibuprofen 200 MG Oral Tablet [place] ([facility]) Ibuprofen 200 MG Oral Tablet ibuprofen 2 00 mg tablet Take 3 tablets every 8 hours by oral route. ibuprofen 200 mg tablet Take 3 tablets e very 8 hours by oral route. 3 completed ibuprofen 200 MG Oral Tablet [place] ([facility]) cefdinir 300 MG Oral Capsule cefdinir 30 0 mg capsule TAKE ONE CAPSULE BY MOUTH TWO TIMES A DAY cefdinir 300 mg capsule TAKE ONE CAPSULE BY MOUTH TWO TIMES A DAY completed cefdinir 300 MG Oral Capsule [facility]) Oseltamivir 75 MG Oral Capsule oseltamiv ir 75 mg capsule TAKE ONE CAPSULE BY MOUTH TWICE A DAY FOR 5 DAYS oseltamivir 75 mg capsule TAKE ONE CAPSU LE BY MOUTH TWICE A DAY FOR 5 DAYS completed oseltamivir 75 MG Oral Capsule [place] ([facility]) Hydroxyzine Hydrochloride 50 MG Oral Tab let hydroxyzine HCl 50 mg tablet TAKE ONE TABLET BY MOUTH EVERY DAY AT BEDTIME hydroxyzine HCl 50 mg tablet TAKE ONE TABLET BY MOUTH EVERY DAY AT BEDTIME c ompleted hydroxyzine hydrochloride 50 MG Oral Tablet [facility] er) Lactulose 667 MG/ML Oral Solution lactul ose 10 gram/15 mL oral solution TAKE 30ML BY MOUTH TWO TIMES A DAY FOR CONSTIPATION lactulose 10 gram/15 mL oral solution TAKE 30ML BY MOUTH TWO TIMES A DAY FOR CONSTIPATION completed lactulose 667 MG/ML Oral Solutio n [facility]) cefdinir 300 MG Oral Capsule cefdinir 30 0 mg capsule TAKE ONE CAPSULE BY MOUTH TWO TIMES A DAY cefdinir 300 mg capsule TAKE ONE CAPSULE BY MOUTH TWO TIMES A DAY completed cefdinir 300 MG Oral Capsule [facility]) Oseltamivir 75 MG Oral Capsule oseltamiv ir 75 mg capsule TAKE ONE CAPSULE BY MOUTH TWICE A DAY FOR 5 DAYS oseltamivir 75 mg capsule TAKE ONE CAPSU LE BY MOUTH TWICE A DAY FOR 5 DAYS completed oseltamivir 75 MG Oral Capsule [place] ([facility]) Sertraline 100 MG Oral Tablet sertraline 100 mg tablet TAKE 1 1/2 TABLETS BY MOUTH ONCE DAILY sertraline 100 mg tablet TAKE 1 1/2 TA BLETS BY MOUTH ONCE DAILY completed sertraline 100 M G Oral Tablet [place] ([facility]) cefdinir 300 MG Oral Capsule cefdinir 30 0 mg capsule TAKE ONE CAPSULE BY MOUTH TWO TIMES A DAY cefdinir 300 mg capsule TAKE ONE CAPSULE BY MOUTH TWO TIMES A DAY completed cefdinir 300 MG Oral Capsule [place] ([facility]) Alprazolam 0.25 MG Oral Tablet alprazola m 0.25 mg tablet TAKE ONE TABLET BY MOUTH TWICE A DAY NEEDED MAXIMUM DAILY DOSE TWO TABLETS alprazolam 0.25 mg tablet TAKE ONE TABLET BY MOUTH TWICE A DAY NEEDED MAXIMUM DAILY DOSE TWO TABLETS completed alprazolam 0.2 5 MG Oral Tablet [place] ([facility]) Alprazolam 0.25 MG Oral Tablet alprazola m 0.25 mg tablet TAKE ONE TABLET BY MOUTH TWICE A DAY NEEDED MAXIMUM DAILY DOSE TWO TABLETS alprazolam 0.25 mg tablet TAKE ONE TABLET BY MOUTH TWICE A DAY NEEDED MAXIMUM DAILY DOSE TWO TABLETS completed alprazolam 0.2 5 MG Oral Tablet [place] ([facility]) Lactulose 667 MG/ML Oral Solution lactul ose 10 gram/15 mL oral solution TAKE 30ML BY MOUTH TWO TIMES A DAY FOR CONSTIPATION lactulose 10 gram/15 mL oral solution TAKE 30ML BY MOUTH TWO TIMES A DAY FOR CONSTIPATION completed lactulose 667 MG/ML Oral Solutio n [place] ([facility]) Lactulose 667 MG/ML Oral Solution lactul ose 10 gram/15 mL oral solution TAKE 30ML BY MOUTH TWO TIMES A DAY FOR CONSTIPATION lactulose 10 gram/15 mL oral solution TAKE 30ML BY MOUTH TWO TIMES A DAY FOR CONSTIPATION completed lactulose 667 MG/ML Oral Solutio n [place] ([facility]) tizanidine 2 MG Oral Tablet tizanidine 2 mg tablet tizanidine 2 mg ta blet completed tizanidine 2 MG Oral Tablet [place] ([facility]) Hydroxyzine Hydrochloride 50 MG Oral Tab let hydroxyzine HCl 50 mg tablet TAKE ONE TABLET BY MOUTH EVERY DAY AT BEDTIME hydroxyzine HCl 50 mg tablet TAKE ONE TABLET BY MOUTH EVERY DAY AT BEDTIME c ompleted hydroxyzine hydrochloride 50 MG Oral Tablet [place] ([facility]) Oseltamivir 75 MG Oral Capsule oseltamiv ir 75 mg capsule TAKE ONE CAPSULE BY MOUTH TWICE A DAY FOR 5 DAYS oseltamivir 75 mg capsule TAKE ONE CAPSU LE BY MOUTH TWICE A DAY FOR 5 DAYS completed oseltamivir 75 MG Oral Capsule [place] ([facility]) Hydroxyzine Hydrochloride 50 MG Oral Tab let hydroxyzine HCl 50 mg tablet TAKE ONE TABLET BY MOUTH EVERY DAY AT BEDTIME hydroxyzine HCl 50 mg tablet TAKE ONE TABLET BY MOUTH EVERY DAY AT BEDTIME c ompleted hydroxyzine hydrochloride 50 MG Oral Tablet [place] ([facility]) cefdinir 300 MG Oral Capsule cefdinir 30 0 mg capsule TAKE ONE CAPSULE BY MOUTH TWO TIMES A DAY cefdinir 300 mg capsule TAKE ONE CAPSULE BY MOUTH TWO TIMES A DAY completed cefdinir 300 MG Oral Capsule [place] ([facility]) cefdinir 300 MG Oral Capsule cefdinir 30 0 mg capsule TAKE ONE CAPSULE BY MOUTH TWO TIMES A DAY cefdinir 300 mg capsule TAKE ONE CAPSULE BY MOUTH TWO TIMES A DAY completed cefdinir 300 MG Oral Capsule [facility]) Ibuprofen 200 MG Oral Tablet ibuprofen 2 00 mg tablet Take 3 tablets every 8 hours by oral route. ibuprofen 200 mg tablet Take 3 tablets e very 8 hours by oral route. 3 completed ibuprofen 200 MG Oral Tablet [facility]) cefdinir 300 MG Oral Capsule cefdinir 30 0 mg capsule TAKE ONE CAPSULE BY MOUTH TWO TIMES A DAY cefdinir 300 mg capsule TAKE ONE CAPSULE BY MOUTH TWO TIMES A DAY completed cefdinir 300 MG Oral Capsule [facility]) methylprednisolone 4 mg tablets in a dose pack [id number] completed methylprednisolone 4 mg tablets in a dose pack [facility]) cefdinir 300 MG Oral Capsule cefdinir 30 0 mg capsule TAKE ONE CAPSULE BY MOUTH TWO TIMES A DAY cefdinir 300 mg capsule TAKE ONE CAPSULE BY MOUTH TWO TIMES A DAY completed cefdinir 300 MG Oral Capsule [facility]) Hydroxyzine Hydrochloride 50 MG Oral Tab let hydroxyzine HCl 50 mg tablet TAKE ONE TABLET BY MOUTH EVERY DAY AT BEDTIME hydroxyzine HCl 50 mg tablet TAKE ONE TABLET BY MOUTH EVERY DAY AT BEDTIME c ompleted hydroxyzine hydrochloride 50 MG Oral Tablet [place] ([facility]) methylprednisolone 4 mg tablets in a dose pack [id number] completed methylprednisolone 4 mg tablets in a dose pack [place] ([facility]) Hydroxyzine Hydrochloride 50 MG Oral Tab let hydroxyzine HCl 50 mg tablet TAKE ONE TABLET BY MOUTH EVERY DAY AT BEDTIME hydroxyzine HCl 50 mg tablet TAKE ONE TABLET BY MOUTH EVERY DAY AT BEDTIME c ompleted hydroxyzine hydrochloride 50 MG Oral Tablet [place] ([facility]) methylprednisolone 4 mg tablets in a dose pack [id number] completed methylprednisolone 4 mg tablets in a dose pack [place] ([facility]) Lactulose 667 MG/ML Oral Solution lactul ose 10 gram/15 mL oral solution TAKE 30ML BY MOUTH TWO TIMES A DAY FOR CONSTIPATION lactulose 10 gram/15 mL oral solution TAKE 30ML BY MOUTH TWO TIMES A DAY FOR CONSTIPATION completed lactulose 667 MG/ML Oral Solutio n [place] ([facility]) Hydroxyzine Hydrochloride 50 MG Oral Tab let hydroxyzine HCl 50 mg tablet TAKE ONE TABLET BY MOUTH EVERY DAY AT BEDTIME hydroxyzine HCl 50 mg tablet TAKE ONE TABLET BY MOUTH EVERY DAY AT BEDTIME c ompleted hydroxyzine hydrochloride 50 MG Oral Tablet [place] ([facility]) Alprazolam 0.25 MG Oral Tablet alprazola m 0.25 mg tablet TAKE ONE TABLET BY MOUTH TWICE A DAY NEEDED MAXIMUM DAILY DOSE TWO TABLETS alprazolam 0.25 mg tablet TAKE ONE TABLET BY MOUTH TWICE A DAY NEEDED MAXIMUM DAILY DOSE TWO TABLETS completed alprazolam 0.2 5 MG Oral Tablet [place] ([facility]) tizanidine 2 MG Oral Tablet tizanidine 2 mg tablet tizanidine 2 mg ta blet completed tizanidine 2 MG Oral Tablet [place] ([facility]) Ibuprofen 200 MG Oral Tablet ibuprofen 2 00 mg tablet Take 3 tablets every 8 hours by oral route. ibuprofen 200 mg tablet Take 3 tablets e very 8 hours by oral route. 3 completed ibuprofen 200 MG Oral Tablet [place] ([facility]) methylprednisolone 4 mg tablets in a dose pack [id number] completed methylprednisolone 4 mg tablets in a dose pack [place] ([facility]) Oseltamivir 75 MG Oral Capsule oseltamiv ir 75 mg capsule TAKE ONE CAPSULE BY MOUTH TWICE A DAY FOR 5 DAYS oseltamivir 75 mg capsule TAKE ONE CAPSU LE BY MOUTH TWICE A DAY FOR 5 DAYS completed oseltamivir 75 MG Oral Capsule [place] ([facility]) tizanidine 2 MG Oral Tablet tizanidine 2 mg tablet tizanidine 2 mg ta blet completed tizanidine 2 MG Oral Tablet [place] ([facility]) Ibuprofen 200 MG Oral Tablet ibuprofen 2 00 mg tablet Take 3 tablets every 8 hours by oral route. ibuprofen 200 mg tablet Take 3 tablets e very 8 hours by oral route. 3 completed ibuprofen 200 MG Oral Tablet [place] ([facility]) Lactulose 667 MG/ML Oral Solution lactul ose 10 gram/15 mL oral solution TAKE 30ML BY MOUTH TWO TIMES A DAY FOR CONSTIPATION lactulose 10 gram/15 mL oral solution TAKE 30ML BY MOUTH TWO TIMES A DAY FOR CONSTIPATION completed lactulose 667 MG/ML Oral Solutio n [place] ([facility]) cefdinir 300 MG Oral Capsule cefdinir 30 0 mg capsule TAKE ONE CAPSULE BY MOUTH TWO TIMES A DAY cefdinir 300 mg capsule TAKE ONE CAPSULE BY MOUTH TWO TIMES A DAY completed cefdinir 300 MG Oral Capsule [facility]) Oseltamivir 75 MG Oral Capsule oseltamiv ir 75 mg capsule TAKE ONE CAPSULE BY MOUTH TWICE A DAY FOR 5 DAYS oseltamivir 75 mg capsule TAKE ONE CAPSU LE BY MOUTH TWICE A DAY FOR 5 DAYS completed oseltamivir 75 MG Oral Capsule [place] ([facility]) Lactulose 667 MG/ML Oral Solution lactul ose 10 gram/15 mL oral solution TAKE 30ML BY MOUTH TWO TIMES A DAY FOR CONSTIPATION lactulose 10 gram/15 mL oral solution TAKE 30ML BY MOUTH TWO TIMES A DAY FOR CONSTIPATION completed lactulose 667 MG/ML Oral Solutio n [place] ([facility]) Alprazolam 0.25 MG Oral Tablet alprazola m 0.25 mg tablet TAKE ONE TABLET BY MOUTH TWICE A DAY NEEDED MAXIMUM DAILY DOSE TWO TABLETS alprazolam 0.25 mg tablet TAKE ONE TABLET BY MOUTH TWICE A DAY NEEDED MAXIMUM DAILY DOSE TWO TABLETS completed alprazolam 0.2 5 MG Oral Tablet [place] ([facility]) cefdinir 300 MG Oral Capsule cefdinir 30 0 mg capsule TAKE ONE CAPSULE BY MOUTH TWO TIMES A DAY cefdinir 300 mg capsule TAKE ONE CAPSULE BY MOUTH TWO TIMES A DAY completed cefdinir 300 MG Oral Capsule [place] ([facility]) Hydroxyzine Hydrochloride 50 MG Oral Tab let hydroxyzine HCl 50 mg tablet TAKE ONE TABLET BY MOUTH EVERY DAY AT BEDTIME hydroxyzine HCl 50 mg tablet TAKE ONE TABLET BY MOUTH EVERY DAY AT BEDTIME c ompleted hydroxyzine hydrochloride 50 MG Oral Tablet [place] ([facility]) Lactulose 667 MG/ML Oral Solution lactul ose 10 gram/15 mL oral solution TAKE 30ML BY MOUTH TWO TIMES A DAY FOR CONSTIPATION lactulose 10 gram/15 mL oral solution TAKE 30ML BY MOUTH TWO TIMES A DAY FOR CONSTIPATION completed lactulose 667 MG/ML Oral Solutio n [place]) Oseltamivir 75 MG Oral Capsule oseltamiv ir 75 mg capsule TAKE ONE CAPSULE BY MOUTH TWICE A DAY FOR 5 DAYS oseltamivir 75 mg capsule TAKE ONE CAPSU LE BY MOUTH TWICE A DAY FOR 5 DAYS completed oseltamivir 75 MG Oral Capsule [place] ([facility]) Oseltamivir 75 MG Oral Capsule oseltamiv ir 75 mg capsule TAKE ONE CAPSULE BY MOUTH TWICE A DAY FOR 5 DAYS oseltamivir 75 mg capsule TAKE ONE CAPSU LE BY MOUTH TWICE A DAY FOR 5 DAYS completed oseltamivir 75 MG Oral Capsule [place] ([facility]) methylprednisolone 4 mg tablets in a dose pack [id number] completed methylprednisolone 4 mg tablets in a dose pack [facility]) methylprednisolone 4 mg tablets in a dose pack [id number] completed methylprednisolone 4 mg tablets in a dose pack [place] ([facility]) cefdinir 300 MG Oral Capsule cefdinir 30 0 mg capsule TAKE ONE CAPSULE BY MOUTH TWO TIMES A DAY cefdinir 300 mg capsule TAKE ONE CAPSULE BY MOUTH TWO TIMES A DAY completed cefdinir 300 MG Oral Capsule [place] ([facility]) Hydroxyzine Hydrochloride 50 MG Oral Tab let hydroxyzine HCl 50 mg tablet TAKE ONE TABLET BY MOUTH EVERY DAY AT BEDTIME hydroxyzine HCl 50 mg tablet TAKE ONE TABLET BY MOUTH EVERY DAY AT BEDTIME c ompleted hydroxyzine hydrochloride 50 MG Oral Tablet [place] ([facility]) Hydroxyzine Hydrochloride 50 MG Oral Tab let hydroxyzine HCl 50 mg tablet TAKE ONE TABLET BY MOUTH EVERY DAY AT BEDTIME hydroxyzine HCl 50 mg tablet TAKE ONE TABLET BY MOUTH EVERY DAY AT BEDTIME c ompleted hydroxyzine hydrochloride 50 MG Oral Tablet [place] ([facility]) Ibuprofen 200 MG Oral Tablet ibuprofen 2 00 mg tablet Take 3 tablets every 8 hours by oral route. ibuprofen 200 mg tablet Take 3 tablets e very 8 hours by oral route. 3 completed ibuprofen 200 MG Oral Tablet [place] ([facility]) tizanidine 2 MG Oral Tablet tizanidine 2 mg tablet tizanidine 2 mg ta blet completed tizanidine 2 MG Oral Tablet [place] ([facility]) tizanidine 2 MG Oral Tablet tizanidine 2 mg tablet tizanidine 2 mg ta blet completed tizanidine 2 MG Oral Tablet [place] ([facility]) Ibuprofen 200 MG Oral Tablet ibuprofen 2 00 mg tablet Take 3 tablets every 8 hours by oral route. ibuprofen 200 mg tablet Take 3 tablets e very 8 hours by oral route. 3 completed ibuprofen 200 MG Oral Tablet [place] ([facility]) Lactulose 667 MG/ML Oral Solution lactul ose 10 gram/15 mL oral solution TAKE 30ML BY MOUTH TWO TIMES A DAY FOR CONSTIPATION lactulose 10 gram/15 mL oral solution TAKE 30ML BY MOUTH TWO TIMES A DAY FOR CONSTIPATION completed lactulose 667 MG/ML Oral Solutio n [place] ([facility]) Lactulose 667 MG/ML Oral Solution lactul ose 10 gram/15 mL oral solution TAKE 30ML BY MOUTH TWO TIMES A DAY FOR CONSTIPATION lactulose 10 gram/15 mL oral solution TAKE 30ML BY MOUTH TWO TIMES A DAY FOR CONSTIPATION completed lactulose 667 MG/ML Oral Solutio n [place] ([facility]) Lactulose 667 MG/ML Oral Solution lactul ose 10 gram/15 mL oral solution TAKE 30ML BY MOUTH TWO TIMES A DAY FOR CONSTIPATION lactulose 10 gram/15 mL oral solution TAKE 30ML BY MOUTH TWO TIMES A DAY FOR CONSTIPATION completed lactulose 667 MG/ML Oral Solutio n [place] ([facility]) Sertraline 100 MG Oral Tablet sertraline 100 mg tablet TAKE 1 1/2 TABLETS BY MOUTH ONCE DAILY sertraline 100 mg tablet TAKE 1 1/2 TA BLETS BY MOUTH ONCE DAILY completed sertraline 100 M G Oral Tablet [place] ([facility]) Hydroxyzine Hydrochloride 50 MG Oral Tab let hydroxyzine HCl 50 mg tablet TAKE ONE TABLET BY MOUTH EVERY DAY AT BEDTIME hydroxyzine HCl 50 mg tablet TAKE ONE TABLET BY MOUTH EVERY DAY AT BEDTIME c ompleted hydroxyzine hydrochloride 50 MG Oral Tablet [place] ([facility]) Insurance Providers Payer name Policy type / Coverage type Policy ID Covered constitution party ID Covered constitution party's relationship to james Policy James Plan Information [facility] [id number] SP [id number] [facility] [id number] SP [id number] [place] [employer] Compensation [id number] Self [id number] [place] [employer] Workers Compensation [id number] Self [id number] [place] [employer] Compensation [id number] Self [id number] [place] [employer] Workers Compensation [id number] Self [id number] [place] [employer] Compensation [id number] Self [id number] [place] [employer] Compensation [id number] Self [id number] [place] [employer] Compensation [id number] Self [id number] [place] [employer] Workers Compensation [id number] Self [id number] [facility] P [id number] S [id number] [facility] Health Care Commercial [id number] Self [id number] [facility] Health Care Commercial [id number] Self [id number] [facility] Health Care Commercial [id number] Self [id number] [facility] Care Commercial [id number] Self [id number] [facility] [id number] SP [id number] [facility] Health Care Commercial [id number] Self [id number] [facility] [id number] [employer] [employer] [facility] Health Care Commercial [id number] Self [id number] [facility] Health Care Commercial [id number] Self [id number] Workers Compensation Workers Compensation [id number] Self [id number] [facility] Health Care Commercial [id number] Self [id number] [employer] [id number] SP [id number] [facility] [id number] SP [id number] [facility] Health Care Commercial [id number] Self [id number] [facility] Commercial [id number] Self [id number] [facility] Health Maintenance Organization (HMO) [id number] Self [id number] [facility] [id number] SP [id number] [employer] O [id number] O [id number] [facility] Health Maintenance Organization (HMO) [id number] Self [id number] [facility] Health Maintenance Organization (HMO) [id number] Self [facility] [id number] SP [id number] SELF PAY ONLY [id number] SP [id number] [facility] [id number] SP [id number] [facility] HEALTH CARE [id number] SP [id number] [facility] [id number] SP [id number] [facility] [id number] SP [id number] SELF PAY ONLY [id number] SP [id number] [facility] [id number] SP [id number] [facility] HEALTH CARE O [id number] S [id number] [facility] P [id number] S [id number] Self Pay P UNAVAILABLE S UNAVAILA BLE [facility] Care Commercial [id number] Self [id number] [facility] Care Commercial [id number] Self [id number] Problems, Conditions, and Diagnoses Code Display Name Description Problem Type Effective Dates Data Source(s) 966170346 Mild intermittent asthma Mild Intermittent Asthma Prob jeanette 06/18/2021 12:00:00 AM EDT [place] ([facility]) 693920555 Mild intermittent asthma Mild Intermittent Asthma Prob jeanette 06/18/2021 12:00:00 AM EDT [place] ([facility]) 272949396 Mild intermittent asthma Mild Intermittent Asthma Prob jeanette 06/18/2021 12:00:00 AM EDT [place] ([facility]) 362610461 Mild intermittent asthma Mild Intermittent Asthma Prob jeanette 06/18/2021 12:00:00 AM EDT [place] ([facility]) 022505721 Mild intermittent asthma Mild Intermittent Asthma Prob jeanette 06/18/2021 12:00:00 AM EDT [place] ([facility]) 367217357 Pure hypercholesterolemia Pure hypercholesterolemia Pr oblem 02/20/2021 12:00:00 AM EDT [place] ([facility]) 724.2 Acute low back pain Acute low back pain 020 10:15:52 AM EDT [facility] V13.01 Personal history of urinary calculi Personal his tory of urinary calculi 07/17/2020 10:15:52 AM EDT [facility] V05.9 Encounter for immunization Encounter for immunization 07/17/2020 10:15:52 AM EDT [facility] V65.8 Person consulting for explanation of exa mination or test findings Person consulting for explanation of examination or test findings 07/17/2020 10:15:52 AM EDT [facility] H69.93 Unspecified Eustachian tube disorder, bi lateral Unspecified Eustachian tube disorder, bilateral 07/17/2020 10:15:52 AM EDT [facility] [id number] Patient asked to attend Patient Asked to Attend Proble 07/17/2020 12:00:00 AM EDT [place] ([facility]) [id number] Influenza vaccine needed Influenza Vaccine Needed Pro blem 07/17/2020 12:00:00 AM EDT [place] ([facility]) 207543222 Low back pain Low Back Pain Problem 07/17/2020 12:00:00 AM EDT [place] ([facility]) 80854199 Eustachian tube disorder Eustachian Tube Disorder Prob jeanette 07/17/2020 12:00:00 AM EDT [place] ([facility]) [id number] Patient asked to attend Patient Asked to Attend Proble 07/17/2020 12:00:00 AM EDT [place] ([facility]) [id number] Influenza vaccine needed Influenza Vaccine Needed Pro blem 07/17/2020 12:00:00 AM EDT [place] ([facility]) 079897827 Low back pain Low Back Pain Problem 07/17/2020 12:00:00 AM EDT [place] ([facility]) 93001700 Eustachian tube disorder Eustachian Tube Disorder Prob jeanette 07/17/2020 12:00:00 AM EDT [place] ([facility]) 791298334 Patient asked to attend Patient Asked to Attend Proble 07/17/2020 12:00:00 AM EDT [place] ([facility]) [id number] Influenza vaccine needed Influenza Vaccine Needed Pro blem 07/17/2020 12:00:00 AM EDT [place] ([facility]) 311520239 Low back pain Low Back Pain Problem 07/17/2020 12:00:00 AM EDT [place] ([facility]) 49380381 Eustachian tube disorder Eustachian Tube Disorder Prob jeanette 07/17/2020 12:00:00 AM EDT [place] ([facility]) 092402747 Patient asked to attend Patient Asked to Attend Proble 07/17/2020 12:00:00 AM EDT [place] ([facility]) [id number] Influenza vaccine needed Influenza Vaccine Needed Pro blem 07/17/2020 12:00:00 AM EDT [place] ([facility]) 652649256 Low back pain Low Back Pain Problem 07/17/2020 12:00:00 AM EDT [place] ([facility]) 02963971 Eustachian tube disorder Eustachian Tube Disorder Prob jeanette 07/17/2020 12:00:00 AM EDT [place] ([facility]) [id number] Patient asked to attend Patient Asked to Attend Proble 07/17/2020 12:00:00 AM EDT [place] ([facility]) [id number] Influenza vaccine needed Influenza Vaccine Needed Pro blem 07/17/2020 12:00:00 AM EDT [place] ([facility]) 005515080 Low back pain Low Back Pain Problem 07/17/2020 12:00:00 AM EDT [place] ([facility]) 36051425 Eustachian tube disorder Eustachian Tube Disorder Prob jeanette 07/17/2020 12:00:00 AM EDT [place] ([facility]) 100238519 Patient asked to attend Patient Asked to Attend Proble 07/17/2020 12:00:00 AM EDT [place] ([facility]) [id number] Influenza vaccine needed Influenza Vaccine Needed Pro blem 07/17/2020 12:00:00 AM EDT [place] ([facility]) 795982115 Low back pain Low Back Pain Problem 07/17/2020 12:00:00 AM EDT [place] ([facility]) 26540691 Eustachian tube disorder Eustachian Tube Disorder Prob jeanette 07/17/2020 12:00:00 AM EDT [place] ([facility]) 121419837 Patient asked to attend Patient Asked to Attend Proble 07/17/2020 12:00:00 AM EDT [place] ([facility]) [id number] Influenza vaccine needed Influenza Vaccine Needed Pro blem 07/17/2020 12:00:00 AM EDT [place] ([facility]) 792484583 Low back pain Low Back Pain Problem 07/17/2020 12:00:00 AM EDT [place] ([facility]) 83360783 Eustachian tube disorder Eustachian Tube Disorder Prob jeanette 07/17/2020 12:00:00 AM EDT [place] ([facility]) 059801835 Patient asked to attend Patient Asked to Attend Proble 07/17/2020 12:00:00 AM EDT [place] ([facility]) [id number] Influenza vaccine needed Influenza Vaccine Needed Pro blem 07/17/2020 12:00:00 AM EDT [place] ([facility]) 136176358 Low back pain Low Back Pain Problem 07/17/2020 12:00:00 AM EDT [place] ([facility]) 29103649 Eustachian tube disorder Eustachian Tube Disorder Prob jeanette 07/17/2020 12:00:00 AM EDT [place] ([facility]) 729824832 Patient asked to attend Patient Asked to Attend Proble 07/17/2020 12:00:00 AM EDT [place] ([facility]) [id number] Influenza vaccine needed Influenza Vaccine Needed Pro blem 07/17/2020 12:00:00 AM EDT [place] ([facility]) 149282025 Low back pain Low Back Pain Problem 07/17/2020 12:00:00 AM EDT [place] ([facility]) 19831657 Eustachian tube disorder Eustachian Tube Disorder Prob jeanette 07/17/2020 12:00:00 AM EDT [place] ([facility]) 839481194 Patient asked to attend Patient Asked to Attend Proble 07/17/2020 12:00:00 AM EDT [place] ([facility]) [id number] Influenza vaccine needed Influenza Vaccine Needed Pro blem 07/17/2020 12:00:00 AM EDT [place] ([facility]) 453163518 Low back pain Low Back Pain Problem 07/17/2020 12:00:00 AM EDT [place] ([facility]) 54321536 Eustachian tube disorder Eustachian Tube Disorder Prob jeanette 07/17/2020 12:00:00 AM EDT [place] ([facility]) 402345517 Patient asked to attend Patient Asked to Attend Proble 07/17/2020 12:00:00 AM EDT [place] ([facility]) [id number] Influenza vaccine needed Influenza Vaccine Needed Pro blem 07/17/2020 12:00:00 AM EDT [place] ([facility]) 916330520 Low back pain Low Back Pain Problem 07/17/2020 12:00:00 AM EDT [place] ([facility]) 28232812 Eustachian tube disorder Eustachian Tube Disorder Prob jeanette 07/17/2020 12:00:00 AM EDT [place] ([facility]) 305718724 Procedure by method Procedure by Method Problem 0 12/07/2019 12:00:00 AM EST - 06/18/2021 12:00:00 AM EDT [place] ([facility]) 547694942 Exacerbation of intermittent asthma Exac erbation of Intermittent Asthma Problem 12/07/2019 12:00:00 AM EST - 06/18/2021 12:00:00 AM EDT [place] ([facility]) 932614704 Procedure by method Procedure by Method Problem 0 12/07/2019 12:00:00 AM EST - 06/18/2021 12:00:00 AM EDT [place] ([facility]) 443202894 Exacerbation of intermittent asthma Exac erbation of Intermittent Asthma Problem 12/07/2019 12:00:00 AM EST - 06/18/2021 12:00:00 AM EDT [place] ([facility]) 274483989 Procedure by method Procedure by Method Problem 0 12/07/2019 12:00:00 AM EST - 06/18/2021 12:00:00 AM EDT [place] ([facility]) 287548140 Procedure by method Procedure by Method Problem 0 12/07/2019 12:00:00 AM EST - 06/18/2021 12:00:00 AM EDT [place] ([facility]) 510858923 Exacerbation of intermittent asthma Exac erbation of Intermittent Asthma Problem 12/07/2019 12:00:00 AM EST - 06/18/2021 12:00:00 AM EDT [place] ([facility]) 591185668 Procedure by method Procedure by Method Problem 0 12/07/2019 12:00:00 AM EST - 06/18/2021 12:00:00 AM EDT [place] ([facility]) 853718059 Exacerbation of intermittent asthma Exac erbation of Intermittent Asthma Problem 12/07/2019 12:00:00 AM EST - 06/18/2021 12:00:00 AM EDT [place] ([facility]) 472041446 Exacerbation of intermittent asthma Exac erbation of Intermittent Asthma Problem 12/07/2019 12:00:00 AM EST - 06/18/2021 12:00:00 AM EDT [place] ([facility]) Surgeries/Procedures Procedure Description Date Indications Data Source(s) OFFICE OUTPATIENT NEW 30 MINUTES 05/14/2021 12:00:00 A M EDT [place] ([facility] ) RADEX SPINE CRV COMPL W/OBLQ&FLEX&/XTN STDS 02/19/2021 12:00:00 AM EDT [place] ([facility] ) Results ID Date Data Source [id number] 08/20/2021 03:15:00 PM EST [facility] Name Value Range Interpretation Code Description Data Sakshi rce(s) Supporting Document(s) SARS coronavirus 2 RdRp gene [Presence] in Respiratory specimen by ETHEL with probe detection Not detected [facility] This lab was ordered by [facility] and reported by [facility]. ID Date Data Source [id number] 08/20/2021 02:18:00 PM EST [place] ([facility]) Name Value Range Interpretation Code Description Data Sakshi rce(s) Supporting Document(s) sars-cov-2 negative negative Sars-cov-2 [facility]) ID Date Data Source [id number] 08/04/2021 09:34:00 AM EDT [place] ([facility]) Name Value Range Interpretation Code Description Data Sakshi rce(s) Supporting Document(s) Calcidiol [Mass/volume] in Serum or Plasma 19 NG/mL 30-100 Below low normal Vitamin D,25-Oh,total,ia [place] ([facility]) ID Date Data Source [id number] 08/04/2021 09:34:00 AM EDT [facility]) Name Value Range Interpretation Code Description Data Sakshi rce(s) Supporting Document(s) Hepatitis C virus Ab Signal/Cutoff in Serum or Plasma by Immunoassa y <1.00 Index [place] ([facility]) Hepatitis C virus Ab [Presence] in Serum or Plasma by Immuno assay non-reactive non-reactive Hepatitis C Antibody [place] ([facility]) ID Date Data Source [id number] 08/04/2021 09:34:00 AM EDT [place] ([facility]) Name Value Range Interpretation Code Description Data Sakshi rce(s) Supporting Document(s) Leukocytes [#/volume] in Blood by Automated count 9.1 thousand/uL 3 .8-10.8 White Blood Cell Count [place] ([facility]) Erythrocytes [#/volume] in Blood by Automated count 5.05 million/uL 3.80-5.10 Red Blood Cell Count [place] ([facility]) Hemoglobin [Mass/volume] in Blood 13.6 g/dL 11.7-15.5 He moglobin [place] ([facility]) Erythrocyte mean corpuscular volume [Entitic volume] by Auto mated count 81.6 fL 80.0-100.0 Mcv [place] ([facility]) Hematocrit [Volume Fraction] of Blood by Automated count 41.2 % 35.0-45.0 Hematocrit [place] ([facility]) Erythrocyte mean corpuscular hemoglobin [Entitic mass] by Automated count 26.9 pg 27.0-33.0 Below low normal Mch [place] ([facility]) Erythrocyte mean corpuscular hemoglobin concentration [Mass/volume] by Automated count 33.0 g/dL 32.0-36.0 Mchc [place] ([facility]) Erythrocyte distribution width [Ratio] by Automated count 13.3 % 11.0-15.0 Rdw [place] ([facility]) Platelets [#/volume] in Blood by Automated count 240 thousand/uL 14 0-400 Platelet Count [place] ([facility]) Platelet mean volume [Entitic volume] in Blood by Geovani 12.2 f L 7.5-12.5 Mpv [place] ([facility]) ID Date Data Source [id number] 08/04/2021 09:34:00 AM EDT [place] ([facility]) Name Value Range Interpretation Code Description Data Sakshi rce(s) Supporting Document(s) Glucose [Mass/volume] in Serum or Plasma 86 mg/dL 65-99 Glucose [place] ([facility]) Creatinine [Mass/volume] in Serum or Plasma 0.77 mg/dL 0.50-1.10 Creatinine [place] ([facility]) Urea nitrogen [Mass/volume] in Serum or Plasma 12 mg/dL 7-25 Urea Nitrogen (BUN) [place] ([facility]) Glomerular filtration rate/1.73 sq M.pre dicted among non-blacks [Volume Rate/Area] in Serum, Plasma or Blood by Creatinine-based formula (CKD-EPI) 95 mL/min/1.73m2 > or = 60 eGFR Non-afr. [place] ([facility]) Glomerular filtration rate/1.73 sq M.pre dicted among blacks [Volume Rate/Area] in Serum, Plasma or Blood by Creatinine-based formula (CKD-EPI) 110 mL/min/1.73m2 > or = 60 eGFR [place] ([facility]) Potassium [Moles/volume] in Serum or Plasma 4.2 mmol/L 3.5-5.3 Potassium [place] ([facility]) Sodium [Moles/volume] in Serum or Plasma 139 mmol/L 135-146 Sodium [place] ([facility]) Urea nitrogen/Creatinine [Mass Ratio] in Serum or Plasma not applic able 6-22 BUN/creatinine Ratio [place] ([facility]) Carbon dioxide, total [Moles/volume] in Serum or Plasma 25 mmol/L 20-32 Carbon Dioxide [place] ([facility]) Chloride [Moles/volume] in Serum or Plasma 107 mmol/L 98-110 Chloride [place] ([facility]) Protein [Mass/volume] in Serum or Plasma 6.7 g/dL 6.1-8.1 Protein, Total [place] ([facility]) Albumin [Mass/volume] in Serum or Plasma 4.1 g/dL 3.6-5.1 Albumin [place] ([facility]) Calcium [Mass/volume] in Serum or Plasma 8.9 mg/dL 8.6-10.2 Calcium [place] ([facility]) Globulin [Mass/volume] in Serum by calculation 2.6 g/dL_(calc) 1.9- 3.7 Globulin [place] ([facility]) Bilirubin.total [Mass/volume] in Serum or Plasma 0.5 mg/dL 0.2-1 .2 Bilirubin, Total [place] ([facility]) Albumin/Globulin [Mass Ratio] in Serum or Plasma 1.6 (calc) 1.0-2 .5 Albumin/globulin Ratio [place] ([facility]) Aspartate aminotransferase [Enzymatic activity/volume] in Serum or Plasma 25 U/L 10-30 Ast [place] ([facility]) Alkaline phosphatase [Enzymatic activity/volume] in Serum or Plasma 100 U/L 31-125 Alkaline Phosphatase [place] ([facility]) Alanine aminotransferase [Enzymatic activity/volume] in Seru m or Plasma 28 U/L 6-29 Alt [place] ([facility]) ID Date Data Source [id number] 08/04/2021 09:34:00 AM EDT [facility]) Name Value Range Interpretation Code Description Data Sakshi rce(s) Supporting Document(s) HIV 1+2 Ab+HIV1 p24 Ag [Presence] in Serum or Plasma b y Immunoassay non-reactive non-reactive HIV Ag/Ab, 4TH Gen [place] ([facility]) ID Date Data Source [id number] 08/04/2021 09:34:00 AM EDT [facility]) Name Value Range Interpretation Code Description Data Sakshi rce(s) Supporting Document(s) Cholesterol [Mass/volume] in Serum or Plasma 175 mg/dL <200 Cholesterol, Total [place] ([facility]) Cholesterol in HDL [Mass/volume] in Serum or Plasma 39 mg/dL > or = 50 Below low normal HDL Cholesterol [place] ([facility]) Triglyceride [Mass/volume] in Serum or Plasma 70 mg/dL <150 Triglycerides [place] ([facility]) Cholesterol non HDL [Mass/volume] in Serum or Plasma 136 mg/dL_( calc) <130 Above high normal Non HDL Cholesterol [place] ([facility]) Cholesterol.total/Cholesterol in HDL [Mass Ratio] in Serum o r Plasma 4.5 (calc) <5.0 Chol/hdlc Ratio [place] ([facility]) Cholesterol in LDL [Mass/volume] in Serum or Plasma by calculation 120 mg/dL_(calc) Above high normal LDL-cholesterol [place] ([facility]) ID Date Data Source [id number] 01/29/2021 11:46:00 AM EDT [place] ([facility]) Name Value Range Interpretation Code Description Data Sakshi rce(s) Supporting Document(s) istat B-HCG < 5.0 Istat B-HCG [place] ([facility]) ID Date Data Source [id number] 01/29/2021 11:46:00 AM EDT [place] ([facility]) Name Value Range Interpretation Code Description Data Sakshi rce(s) Supporting Document(s) istat B-HCG < 5.0 Istat B-HCG [place] ([facility]) ID Date Data Source [id number] 01/29/2021 11:46:00 AM EDT [facility]) Name Value Range Interpretation Code Description Data Sakshi rce(s) Supporting Document(s) istat B-HCG < 5.0 Istat B-HCG [place] ([facility]) ID Date Data Source [id number] 01/29/2021 11:46:00 AM EDT [facility]) Name Value Range Interpretation Code Description Data Sakshi rce(s) Supporting Document(s) istat B-HCG < 5.0 Istat B-HCG [place] ([facility]) ID Date Data Source [id number] 01/29/2021 11:46:00 AM EDT [place] ([facility]) Name Value Range Interpretation Code Description Data Sakshi rce(s) Supporting Document(s) istat B-HCG < 5.0 Istat B-HCG [place] ([facility]) ID Date Data Source [id number] 01/29/2021 11:46:00 AM EDT [place] ([facility]) Name Value Range Interpretation Code Description Data Sakshi rce(s) Supporting Document(s) istat B-HCG < 5.0 Istat B-HCG [place] ([facility]) ID Date Data Source [id number] 01/29/2021 11:45:00 AM EDT [place] ([facility]) Name Value Range Interpretation Code Description Data Sakshi rce(s) Supporting Document(s) istat HCT 46.0 % 38.0-51.0 Istat HCT [place] ([facility]) istat potassium 4.2 mEq/L 3.5-5.1 Istat Potassium [place] ([facility]) istat sodium 138 mEq/L 136-145 Istat Sodium [place] ([facility]) istat glucose 84 mg/dL 70-105 Istat Glucose [place] ( [facility]) istat Ca++ 4.7 mg/dL 4.5-5.3 Istat Ca++ [place] ([facility]) istat CO2 30.0 mm/L 23.0-27.0 Above high normal Istat CO2 [place] ([facility]) istat chloride 102 mEq/L 98-109 Istat Chloride [place] ([facility]) istat BUN 17 mg/dL 8-26 Istat BUN [place] ([facility]) istat creatinine 1.0 mg/dL 0.6-1.3 Istat Creatinine AT [facility]) ID Date Data Source [id number] 01/29/2021 11:45:00 AM EDT [place] ([facility]) Name Value Range Interpretation Code Description Data Sakshi rce(s) Supporting Document(s) istat HCT 46.0 % 38.0-51.0 Istat HCT [place] ([facility]) istat glucose 84 mg/dL 70-105 Istat Glucose [place] ( [facility]) istat Ca++ 4.7 mg/dL 4.5-5.3 Istat Ca++ [place] ([facility]) istat potassium 4.2 mEq/L 3.5-5.1 Istat Potassium AT[place] NA ([facility]) istat sodium 138 mEq/L 136-145 Istat Sodium [place] ([facility]) istat chloride 102 mEq/L 98-109 Istat Chloride [place] ([facility]) istat CO2 30.0 mm/L 23.0-27.0 Above high normal Istat CO2 [place] ([facility]) istat BUN 17 mg/dL 8-26 Istat BUN [place] ([facility]) istat creatinine 1.0 mg/dL 0.6-1.3 Istat Creatinine AT [facility] ([facility]) ID Date Data Source [id number] 01/29/2021 11:45:00 AM EDT [place] ([facility]) Name Value Range Interpretation Code Description Data Sakshi rce(s) Supporting Document(s) istat glucose 84 mg/dL 70-105 Istat Glucose [place] ( [facility]) istat HCT 46.0 % 38.0-51.0 Istat HCT [place] ([facility]) istat potassium 4.2 mEq/L 3.5-5.1 Istat Potassium [place] ([facility]) istat sodium 138 mEq/L 136-145 Istat Sodium [place] ([facility]) istat Ca++ 4.7 mg/dL 4.5-5.3 Istat Ca++ [place] ([facility]) istat chloride 102 mEq/L 98-109 Istat Chloride [place] ([facility]) istat BUN 17 mg/dL 8-26 Istat BUN [place] ([facility]) istat creatinine 1.0 mg/dL 0.6-1.3 Istat Creatinine AT [facility] ([facility]) istat CO2 30.0 mm/L 23.0-27.0 Above high normal Istat CO2 [place] ([facility]) ID Date Data Source [id number] 01/29/2021 11:45:00 AM EDT [facility]) Name Value Range Interpretation Code Description Data Sakshi rce(s) Supporting Document(s) istat HCT 46.0 % 38.0-51.0 Istat HCT [place] ([facility]) istat sodium 138 mEq/L 136-145 Istat Sodium [place] ([facility]) istat glucose 84 mg/dL 70-105 Istat Glucose [place] ( [facility]) istat potassium 4.2 mEq/L 3.5-5.1 Istat Potassium [place] ([facility]) istat CO2 30.0 mm/L 23.0-27.0 Above high normal Istat CO2 [place] ([facility]) istat chloride 102 mEq/L 98-109 Istat Chloride [place] ([facility]) istat Ca++ 4.7 mg/dL 4.5-5.3 Istat Ca++ [place] ([facility]) istat BUN 17 mg/dL 8-26 Istat BUN [place] ([facility]) istat creatinine 1.0 mg/dL 0.6-1.3 Istat Creatinine AT [facility]) ID Date Data Source [id number] 01/29/2021 11:45:00 [facility] Name Value Range Interpretation Code Description Data Sakshi rce(s) Supporting Document(s) istat HCT 46.0 % 38.0-51.0 Istat HCT [place] ([facility]) istat glucose 84 mg/dL 70-105 Istat Glucose [place] ( [facility]) istat sodium 138 mEq/L 136-145 Istat Sodium [place] ([facility]) istat Ca++ 4.7 mg/dL 4.5-5.3 Istat Ca++ [place] ([facility]) istat potassium 4.2 mEq/L 3.5-5.1 Istat Potassium AT[place] NA ([facility]) istat chloride 102 mEq/L 98-109 Istat Chloride [place] ([facility]) istat CO2 30.0 mm/L 23.0-27.0 Above high normal Istat CO2 [place] ([facility]) istat creatinine 1.0 mg/dL 0.6-1.3 Istat Creatinine AT [facility] ([facility]) istat BUN 17 mg/dL 8-26 Istat BUN [place] ([facility]) ID Date Data Source [id number] 01/29/2021 11:45:00 AM EDT [place] ([facility]) Name Value Range Interpretation Code Description Data Sakshi rce(s) Supporting Document(s) istat HCT 46.0 % 38.0-51.0 Istat HCT [place] ([facility]) istat sodium 138 mEq/L 136-145 Istat Sodium [place] ([facility]) istat glucose 84 mg/dL 70-105 Istat Glucose [place] ( [facility]) istat potassium 4.2 mEq/L 3.5-5.1 Istat Potassium [place] NA ([facility]) istat Ca++ 4.7 mg/dL 4.5-5.3 Istat Ca++ [place] ([facility]) istat chloride 102 mEq/L 98-109 Istat Chloride [place] ([facility]) istat CO2 30.0 mm/L 23.0-27.0 Above high normal Istat CO2 [place] ([facility]) istat BUN 17 mg/dL 8-26 Istat BUN [place] ([facility]) istat creatinine 1.0 mg/dL 0.6-1.3 Istat Creatinine AT [facility] ([facility]) ID Date Data Source [id number] 01/23/2021 08:35:00 AM EDT [facility]) Name Value Range Interpretation Code Description Data Sakshi rce(s) Supporting Document(s) ID Date Data Source [id number] 01/23/2021 08:35:00 AM EDT [facility]) Name Value Range Interpretation Code Description Data Skashi rce(s) Supporting Document(s) ID Date Data Source [id number] 01/23/2021 08:35:00 AM EDT [facility]) Name Value Range Interpretation Code Description Data Sakshi rce(s) Supporting Document(s) ID Date Data Source [id number] 01/23/2021 08:35:00 AM EDT [facility]) Name Value Range Interpretation Code Description Data Sakshi rce(s) Supporting Document(s) ID Date Data Source [id number] 01/23/2021 08:35:00 AM EDT [facility]) Name Value Range Interpretation Code Description Data Sakshi rce(s) Supporting Document(s) ID Date Data Source [id number] 01/23/2021 08:35:00 AM EDT [facility]) Name Value Range Interpretation Code Description Data Sakshi rce(s) Supporting Document(s) ID Date Data Source [id number] 01/23/2021 08:35:00 AM EDT [facility]) Name Value Range Interpretation Code Description Data Sakshi rce(s) Supporting Document(s) ID Date Data Source [id number] 01/23/2021 08:35[facility]00 [facility] Name Value Range Interpretation Code Description Data Sakshi rce(s) Supporting Document(s) ID Date Data Source [id number] 01/23/2021 08:35:00 AM EDT [facility]) Name Value Range Interpretation Code Description Data Sakshi rce(s) Supporting Document(s) ID Date Data Source [id number] 01/23/2021 08:35:00 AM EDT [facility]) Name Value Range Interpretation Code Description Data Sakshi rce(s) Supporting Document(s) ID Date Data Source [id number] 01/23/2021 08:35:00 AM EDT [facility]) Name Value Range Interpretation Code Description Data Sakshi rce(s) Supporting Document(s) ID Date Data Source [id number] 01/23/2021 08:35:00 AM EDT [facility]) Name Value Range Interpretation Code Description Data Sakshi rce(s) Supporting Document(s) ID Date Data Source [id number] 01/23/2021 08:35:00 AM EDT [facility]) Name Value Range Interpretation Code Description Data Sakshi rce(s) Supporting Document(s) ID Date Data Source [id number] 01/23/2021 08:35:00 AM EDT [facility]) Name Value Range Interpretation Code Description Data Sakshi rce(s) Supporting Document(s) ID Date Data Source [id number] 01/23/2021 08:35:00 AM EDT [facility]) Name Value Range Interpretation Code Description Data Sakshi rce(s) Supporting Document(s) ID Date Data Source [id number] 01/23/2021 08:35:00 AM EDT [facility]) Name Value Range Interpretation Code Description Data Sakshi rce(s) Supporting Document(s) ID Date Data Source [id number] 12/26/2020 10:28:00 AM EDT [facility]) Name Value Range Interpretation Code Description Data Sakshi rce(s) Supporting Document(s) sars-cov-2 negative negative Sars-cov-2 [facility]) ID Date Data Source [id number] 12/26/2020 10:28:00 AM EDT [facility]) Name Value Range Interpretation Code Description Data Sakshi rce(s) Supporting Document(s) sars-cov-2 negative negative Sars-cov-2 [facility]) ID Date Data Source [id number] 12/26/2020 10:28:00 AM EDT [facility]) Name Value Range Interpretation Code Description Data Sakshi rce(s) Supporting Document(s) sars-cov-2 negative negative Sars-cov-2 [facility]) ID Date Data Source [id number] 12/26/2020 10:28:00 AM EDT [facility]) Name Value Range Interpretation Code Description Data Sakshi rce(s) Supporting Document(s) sars-cov-2 negative negative Sars-cov-2 [place] ([facility]) ID Date Data Source [id number] 12/26/2020 10:28:00 AM EDT [facility]) Name Value Range Interpretation Code Description Data Sakshi rce(s) Supporting Document(s) sars-cov-2 negative negative Sars-cov-2 [place] ([facility]) ID Date Data Source [id number] 12/26/2020 10:28:00 AM EDT [facility]) Name Value Range Interpretation Code Description Data Sakshi rce(s) Supporting Document(s) sars-cov-2 negative negative Sars-cov-2 [facility]) ID Date Data Source [id number] 12/26/2020 10:28:00 AM EDT [facility]) Name Value Range Interpretation Code Description Data Sakshi rce(s) Supporting Document(s) sars-cov-2 negative negative Sars-cov-2 [place] ([facility]) ID Date Data Source [id number] 12/26/2020 10:28:00 AM EDT [facility]) Name Value Range Interpretation Code Description Data Sakshi rce(s) Supporting Document(s) sars-cov-2 negative negative Sars-cov-2 [facility]) ID Date Data Source [id number] 12/26/2020 10:28:00 AM EDT [facility]) Name Value Range Interpretation Code Description Data Sakshi rce(s) Supporting Document(s) sars-cov-2 negative negative Sars-cov-2 [facility]) ID Date Data Source [id number] 12/26/2020 09:24:00 AM EDT [facility] Name Value Range Interpretation Code Description Data Sakshi rce(s) Supporting Document(s) SARS coronavirus 2 RdRp gene [Presence] in Respiratory specimen by ETHEL with probe detection Not detected [facility] This lab was ordered by [facility] and reported by [facility]. ID Date Data Source [id number] 12/19/2020 09:01:00 AM EST [place] ([facility]) Name Value Range Interpretation Code Description Data Sakshi rce(s) Supporting Document(s) total 25(oh) vitamin D 20.0 NG/mL 30.0-100.0 Below low normal T otal 25(Oh) Vitamin D [place] ([facility]) ID Date Data Source [id number] 12/19/2020 09:01:00 AM EST [place] ([facility]) Name Value Range Interpretation Code Description Data Sakshi rce(s) Supporting Document(s) free T4 1.11 NG/dL 0.76-1.46 Free T4 [place] ([facility]) thyroid stimulating hormone 1.830 uIU/mL 0.358-3.740 Thyroid Stimulating Hormone [place] ([facility]) ID Date Data Source [id number] 12/19/2020 09:01:00 AM EST [place] ([facility]) Name Value Range Interpretation Code Description Data Sakshi rce(s) Supporting Document(s) glucose, fasting 85 mg/dL 70-100 Glucose, Fasting AT [facility] ([facility]) creatinine for GFR 0.88 mg/dL 0.55-1.30 Creatinine for GF R [place] ([facility]) glomerular filtration rate > 60.0 >58 Glomerula r Filtration Rate [place] ([facility]) blood urea nitrogen 19 mg/dL 7-18 Above high normal Blood Ure a Nitrogen [place] ([facility]) sodium level 138 mEq/L 136-145 Sodium Level [place] ([facility]) carbon dioxide level 28 mEq/L 21-32 Carbon Dioxide Level [place] ([facility]) chloride level 106 mEq/L 98-107 Chloride Level [place] ([facility]) potassium serum 4.2 mEq/L 3.5-5.1 Potassium Serum ATHE NA ([facility]) anion gap 4 mEq/L 8-16 Below low normal Anion Gap [place] ( [facility]) AST/SGOT 31 U/L 7-37 AST/SGOT [place] ([facility]) calcium level 8.8 mg/dL 8.5-10.1 Calcium Level [place] ( [facility]) ALT/SGPT 53 U/L 12-78 ALT/SGPT [place] ([facility]) alkaline phosphatase 129 U/L 45-117 Above high normal Alkaline Phosphatase [place] ([facility]) albumin 4.0 gm/dL 3.2-5.2 Albumin [place] ([facility]) bilirubin,total 0.4 mg/dL 0.2-1.0 Bilirubin,total AT[facility] ([facility]) total protein 7.3 gm/dL 6.4-8.2 Total Protein [place] ( [facility]) albumin/globulin ratio 1.2-2.2 Albumin/globu lizzie Ratio [place] ([facility]) ID Date Data Source [id number] 12/19/2020 09:01:00 AM EST [place] ([facility]) Name Value Range Interpretation Code Description Data Sakshi rce(s) Supporting Document(s) Hemoglobin A1c/Hemoglobin.total in Blood 4.9 % Hemoglobin a1C [place] ([facility]) estimated average glucose 94 mg/dL 60-110 Estimated Average Glucose [place] ([facility]) ID Date Data Source [id number] 12/19/2020 09:01:00 AM EST [place] ([facility]) Name Value Range Interpretation Code Description Data Sakshi rce(s) Supporting Document(s) white blood count 9.7 10 4.0-10.0 White Blood Count [place] ([facility]) hemoglobin 14.6 g/dL 12.0-15.5 Hemoglobin [place] ([facility]) red blood count 5.41 10 4.00-5.40 Above high normal Red Blood Cou nt [place] ([facility]) hematocrit 45.6 % 36.0-47.0 Hematocrit [place] ([facility]) mean corpuscular hemoglobin 27.0 pg 27.0-33.0 Mean Cor puscular Hemoglobin [place] ([facility]) mean corpuscular volume 84.3 fL 80.0-96.0 Mean Corpusc ular Volume [place] ([facility]) red cell distribution width 14.6 % 11.5-14.5 Above high no rmal Red Cell Distribution Width [place] ([facility]) platelet count, automated 261 10 150-450 Platelet C ount, Automated [place] ([facility]) mean corpuscular HGB conc 32.0 g/dL 32.0-36.5 Mean Corpu scular HGB Conc [place] ([facility]) mono % 7.6 % 2.0-8.0 [place] % [place] ([facility]) lymph % 18.6 % 24.0-44.0 Below low normal Lymph % [place] ( [facility]) neutrophils % 70.3 % 36.0-66.0 Above high normal Neutrophils % A [place] ([facility]) immature granulocyte % 0.3 % 0-3.0 Immature Gran ulocyte % [place] ([facility]) eos % 2.2 % 0.0-3.0 Eos % [place] ([facility]) baso % 1.0 % 0.0-1.0 Baso % [place] ([facility]) lymph # 1.8 10 1.5-5.0 Lymph # [place] ([facility]) neutrophils # 6.8 10 1.5-8.5 Neutrophils # [place] ( [facility]) nucleated red blood cell % 0.0 % 0-0 Nucleated Red Blood Cell % [place] ([facility]) eos # 0.2 10 0.0-0.5 Eos # [place] ([facility]) baso # 0.1 10 0.0-0.2 Baso # [place] ([facility]) mono # 0.7 10 0.0-0.8 [place] # [place] ([facility]) ID Date Data Source [id number] 12/19/2020 09:01:00 AM EST [place] ([facility]) Name Value Range Interpretation Code Description Data Sakshi rce(s) Supporting Document(s) total 25(oh) vitamin D 20.0 NG/mL 30.0-100.0 Below low normal T otal 25(Oh) Vitamin D [place] ([facility]) ID Date Data Source [id number] 12/19/2020 09:01:00 AM EST [place] ([facility]) Name Value Range Interpretation Code Description Data Sakshi rce(s) Supporting Document(s) thyroid stimulating hormone 1.830 uIU/mL 0.358-3.740 Thyroid Stimulating Hormone [place] ([facility]) free T4 1.11 NG/dL 0.76-1.46 Free T4 [place] ([facility]) ID Date Data Source [id number] 12/19/2020 09:01:00 AM EST [place] ([facility]) Name Value Range Interpretation Code Description Data Sakshi rce(s) Supporting Document(s) blood urea nitrogen 19 mg/dL 7-18 Above high normal Blood Ure a Nitrogen [place] ([facility]) glucose, fasting 85 mg/dL 70-100 Glucose, Fasting AT [facility] ([facility]) creatinine for GFR 0.88 mg/dL 0.55-1.30 Creatinine for GF R [place] ([facility]) glomerular filtration rate > 60.0 >58 Glomerula r Filtration Rate [place] ([facility]) sodium level 138 mEq/L 136-145 Sodium Level [place] ([facility]) potassium serum 4.2 mEq/L 3.5-5.1 Potassium Serum A[facility] NA ([facility]) anion gap 4 mEq/L 8-16 Below low normal Anion Gap [place] ( [facility]) carbon dioxide level 28 mEq/L 21-32 Carbon Dioxide Level [place] ([facility]) calcium level 8.8 mg/dL 8.5-10.1 Calcium Level [place] ( [facility]) chloride level 106 mEq/L 98-107 Chloride Level [place] ([facility]) alkaline phosphatase 129 U/L 45-117 Above high normal Alkaline Phosphatase [place] ([facility]) bilirubin,total 0.4 mg/dL 0.2-1.0 Bilirubin,total ATHE NA ([facility]) AST/SGOT 31 U/L 7-37 AST/SGOT [place] ([facility]) ALT/SGPT 53 U/L 12-78 ALT/SGPT [place] ([facility]) albumin/globulin ratio 1.2-2.2 Albumin/globu lizzie Ratio [place] ([facility]) total protein 7.3 gm/dL 6.4-8.2 Total Protein [place] ( [facility]) albumin 4.0 gm/dL 3.2-5.2 Albumin [place] ([facility]) ID Date Data Source [id number] 12/19/2020 09:01:00 AM EST [place] ([facility]) Name Value Range Interpretation Code Description Data Sakshi rce(s) Supporting Document(s) estimated average glucose 94 mg/dL 60-110 [facility] Hemoglobin A1c/Hemoglobin.total in Blood 4.9 % Hemoglobin a1C [place] ([facility]) ID Date Data Source [id number] 12/19/2020 09:01:00 AM EST [place] ([facility]) Name Value Range Interpretation Code Description Data Sakshi rce(s) Supporting Document(s) white blood count 9.7 10 4.0-10.0 White Blood Count [place] ([facility]) red blood count 5.41 10 4.00-5.40 Above high normal Red Blood Cou nt [place] ([facility]) hemoglobin 14.6 g/dL 12.0-15.5 Hemoglobin [place] ([facility]) mean corpuscular hemoglobin 27.0 pg 27.0-33.0 Mean Cor puscular Hemoglobin [place] ([facility]) mean corpuscular volume 84.3 fL 80.0-96.0 Mean Corpusc ular Volume [place] ([facility]) hematocrit 45.6 % 36.0-47.0 Hematocrit [place] ([facility]) red cell distribution width 14.6 % 11.5-14.5 Above high no rmal Red Cell Distribution Width [place] ([facility]) mean corpuscular HGB conc 32.0 g/dL 32.0-36.5 Mean Corpu scular HGB Conc [place] ([facility]) neutrophils % 70.3 % 36.0-66.0 Above high normal Neutrophils % A [facility] ([facility]) mono % 7.6 % 2.0-8.0 [place] % [place] ([facility]) lymph % 18.6 % 24.0-44.0 Below low normal Lymph % [place] ( [facility]) platelet count, automated 261 10 150-450 Platelet C ount, Automated [place] ([facility]) eos % 2.2 % 0.0-3.0 Eos % [place] ([facility]) baso % 1.0 % 0.0-1.0 Baso % [place] ([facility]) nucleated red blood cell % 0.0 % 0-0 Nucleated Red Blood Cell % [place] ([facility]) immature granulocyte % 0.3 % 0-3.0 Immature Gran ulocyte % [place] ([facility]) neutrophils # 6.8 10 1.5-8.5 Neutrophils # [place] ( [facility]) lymph # 1.8 10 1.5-5.0 Lymph # [place] ([facility]) mono # 0.7 10 0.0-0.8 [place] # [place] ([facility]) baso # 0.1 10 0.0-0.2 Baso # [place] ([facility]) eos # 0.2 10 0.0-0.5 Eos # [place] ([facility]) ID Date Data Source [id number] 12/19/2020 09:01:00 AM EST [place] ([facility]) Name Value Range Interpretation Code Description Data Sakshi rce(s) Supporting Document(s) total 25(oh) vitamin D 20.0 NG/mL 30.0-100.0 Below low normal T otal 25(Oh) Vitamin D [place] ([facility]) ID Date Data Source [id number] 12/19/2020 09:01:00 AM EST [place] ([facility]) Name Value Range Interpretation Code Description Data Sakshi rce(s) Supporting Document(s) thyroid stimulating hormone 1.830 uIU/mL 0.358-3.740 Thyroid Stimulating Hormone [place] ([facility]) free T4 1.11 NG/dL 0.76-1.46 Free T4 [place] ([facility]) ID Date Data Source [id number] 12/19/2020 09:01:00 AM EST [place] ([facility]) Name Value Range Interpretation Code Description Data Sakshi rce(s) Supporting Document(s) glucose, fasting 85 mg/dL 70-100 Glucose, Fasting AT [facility]) blood urea nitrogen 19 mg/dL 7-18 Above high normal Blood Ure a Nitrogen [place] ([facility]) creatinine for GFR 0.88 mg/dL 0.55-1.30 Creatinine for GF R [place] ([facility]) glomerular filtration rate > 60.0 >58 Glomerula r Filtration Rate [place] ([facility]) potassium serum 4.2 mEq/L 3.5-5.1 Potassium Serum ATHE NA ([facility]) sodium level 138 mEq/L 136-145 Sodium Level [place] ([facility]) carbon dioxide level 28 mEq/L 21-32 Carbon Dioxide Level [place] ([facility]) chloride level 106 mEq/L 98-107 Chloride Level [place] ([facility]) calcium level 8.8 mg/dL 8.5-10.1 Calcium Level [place] ( [facility]) anion gap 4 mEq/L 8-16 Below low normal Anion Gap [place] ( [facility]) alkaline phosphatase 129 U/L 45-117 Above high normal Alkaline Phosphatase [place] ([facility]) AST/SGOT 31 U/L 7-37 AST/SGOT [place] ([facility]) ALT/SGPT 53 U/L 12-78 ALT/SGPT [place] ([facility]) albumin 4.0 gm/dL 3.2-5.2 Albumin [place] ([facility]) total protein 7.3 gm/dL 6.4-8.2 Total Protein [place] ( [facility]) bilirubin,total 0.4 mg/dL 0.2-1.0 Bilirubin,total ATHE ([facility]) albumin/globulin ratio 1.2-2.2 Albumin/globu lizzie Ratio [place] ([facility]) ID Date Data Source [id number] 12/19/2020 09:01:00 AM EST [place] ([facility]) Name Value Range Interpretation Code Description Data Sakshi rce(s) Supporting Document(s) estimated average glucose 94 mg/dL 60-110 Estimated Average Glucose [place] ([facility]) Hemoglobin A1c/Hemoglobin.total in Blood 4.9 % Hemoglobin a1C [place] ([facility]) ID Date Data Source [id number] 12/19/2020 09:01:00 AM EST [place] ([facility]) Name Value Range Interpretation Code Description Data Sakshi rce(s) Supporting Document(s) hemoglobin 14.6 g/dL 12.0-15.5 Hemoglobin [place] ([facility]) white blood count 9.7 10 4.0-10.0 White Blood Count [place] ([facility]) red blood count 5.41 10 4.00-5.40 Above high normal Red Blood Cou nt [place] ([facility]) mean corpuscular hemoglobin 27.0 pg 27.0-33.0 Mean Cor puscular Hemoglobin [place] ([facility]) mean corpuscular volume 84.3 fL 80.0-96.0 Mean Corpusc ular Volume [place] ([facility]) hematocrit 45.6 % 36.0-47.0 Hematocrit [place] ([facility]) mean corpuscular HGB conc 32.0 g/dL 32.0-36.5 Mean Corpu scular HGB Conc [place] ([facility]) red cell distribution width 14.6 % 11.5-14.5 Above high no rmal Red Cell Distribution Width [place] ([facility]) neutrophils % 70.3 % 36.0-66.0 Above high normal Neutrophils % A [place] ([facility]) platelet count, automated 261 10 150-450 Platelet C ount, Automated [place] ([facility]) lymph % 18.6 % 24.0-44.0 Below low normal Lymph % [place] ( [facility]) mono % 7.6 % 2.0-8.0 [place] % [place] ([facility]) eos % 2.2 % 0.0-3.0 Eos % [place] ([facility]) baso % 1.0 % 0.0-1.0 Baso % [place] ([facility]) neutrophils # 6.8 10 1.5-8.5 Neutrophils # [place] ( [facility]) nucleated red blood cell % 0.0 % 0-0 Nucleated Red Blood Cell % [place] ([facility]) lymph # 1.8 10 1.5-5.0 Lymph # [place] ([facility]) immature granulocyte % 0.3 % 0-3.0 Immature Gran ulocyte % [place] ([facility]) baso # 0.1 10 0.0-0.2 Baso # [place] ([facility]) mono # 0.7 10 0.0-0.8 [place] # [place] ([facility]) eos # 0.2 10 0.0-0.5 Eos # [place] ([facility]) ID Date Data Source [id number] 12/19/2020 09:01:00 AM EST [place] ([facility]) Name Value Range Interpretation Code Description Data Sakshi rce(s) Supporting Document(s) total 25(oh) vitamin D 20.0 NG/mL 30.0-100.0 Below low normal T otal 25(Oh) Vitamin D [facility]) ID Date Data Source [id number] 12/19/2020 09:01:00 AM EST [place] ([facility]) Name Value Range Interpretation Code Description Data Sakshi rce(s) Supporting Document(s) thyroid stimulating hormone 1.830 uIU/mL 0.358-3.740 Thyroid Stimulating Hormone [place] ([facility]) free T4 1.11 NG/dL 0.76-1.46 Free T4 [facility]) ID Date Data Source [id number] 12/19/2020 09:01:00 AM EST [place] ([facility]) Name Value Range Interpretation Code Description Data Sakshi rce(s) Supporting Document(s) blood urea nitrogen 19 mg/dL 7-18 Above high normal Blood Ure a Nitrogen [place] ([facility]) glomerular filtration rate > 60.0 >58 Glomerula r Filtration Rate [facility]) creatinine for GFR 0.88 mg/dL 0.55-1.30 Creatinine for GF R [place] ([facility]) glucose, fasting 85 mg/dL 70-100 Glucose, Fasting AT [facility]) chloride level 106 mEq/L 98-107 Chloride Level [place] ([facility]) sodium level 138 mEq/L 136-145 Sodium Level [place] ([facility]) potassium serum 4.2 mEq/L 3.5-5.1 Potassium Serum ATH NA [facility]) carbon dioxide level 28 mEq/L 21-32 Carbon Dioxide Level [place] ([facility]) anion gap 4 mEq/L 8-16 Below low normal Anion Gap [place] ( [facility]) AST/SGOT 31 U/L 7-37 AST/SGOT [place] ([facility]) ALT/SGPT 53 U/L 12-78 ALT/SGPT [place] ([facility]) alkaline phosphatase 129 U/L 45-117 Above high normal Alkaline Phosphatase [place] ([facility]) calcium level 8.8 mg/dL 8.5-10.1 Calcium Level [place] ( [facility]) total protein 7.3 gm/dL 6.4-8.2 Total Protein [place] ( [facility]) albumin/globulin ratio 1.2-2.2 Albumin/globu lizzie Ratio [place] ([facility]) albumin 4.0 gm/dL 3.2-5.2 Albumin [place] ([facility]) bilirubin,total 0.4 mg/dL 0.2-1.0 Bilirubin,total AT[place] ([facility]) ID Date Data Source [id number] 12/19/2020 09:01:00 AM EST [place] ([facility]) Name Value Range Interpretation Code Description Data Sakshi rce(s) Supporting Document(s) estimated average glucose 94 mg/dL 60-110 Estimated Average Glucose [place] ([facility]) Hemoglobin A1c/Hemoglobin.total in Blood 4.9 % Hemoglobin a1C [place] ([facility]) ID Date Data Source [id number] 12/19/2020 09:01:00 AM EST [place] ([facility]) Name Value Range Interpretation Code Description Data Sakshi rce(s) Supporting Document(s) red blood count 5.41 10 4.00-5.40 Above high normal Red Blood Cou nt [place] ([facility]) white blood count 9.7 10 4.0-10.0 White Blood Count [place] ([facility]) hemoglobin 14.6 g/dL 12.0-15.5 Hemoglobin [place] ([facility]) mean corpuscular hemoglobin 27.0 pg 27.0-33.0 Mean Cor puscular Hemoglobin [place] ([facility]) hematocrit 45.6 % 36.0-47.0 Hematocrit [place] ([facility]) mean corpuscular volume 84.3 fL 80.0-96.0 Mean Corpusc ular Volume [place] ([facility]) red cell distribution width 14.6 % 11.5-14.5 Above high no rmal Red Cell Distribution Width [place] ([facility]) platelet count, automated 261 10 150-450 Platelet C ount, Automated [place] ([facility]) mean corpuscular HGB conc 32.0 g/dL 32.0-36.5 Mean Corpu scular HGB Conc [place] ([facility]) eos % 2.2 % 0.0-3.0 Eos % [place] ([facility]) lymph % 18.6 % 24.0-44.0 Below low normal Lymph % [place] ( [facility]) neutrophils % 70.3 % 36.0-66.0 Above high normal Neutrophils % A [place] ([facility]) mono % 7.6 % 2.0-8.0 [place] % [place] ([facility]) neutrophils # 6.8 10 1.5-8.5 Neutrophils # [place] ( [facility]) baso % 1.0 % 0.0-1.0 Baso % [place] ([facility]) nucleated red blood cell % 0.0 % 0-0 Nucleated Red Blood Cell % [place] ([facility]) immature granulocyte % 0.3 % 0-3.0 Immature Gran ulocyte % [place] ([facility]) lymph # 1.8 10 1.5-5.0 Lymph # [place] ([facility]) mono # 0.7 10 0.0-0.8 [place] # [place] ([facility]) eos # 0.2 10 0.0-0.5 Eos # [place] ([facility]) baso # 0.1 10 0.0-0.2 Baso # [place] ([facility]) ID Date Data Source [id number] 12/19/2020 09:01:00 AM EST [place] ([facility]) Name Value Range Interpretation Code Description Data Sakshi rce(s) Supporting Document(s) total 25(oh) vitamin D 20.0 NG/mL 30.0-100.0 Below low normal T otal 25(Oh) Vitamin D [facility]) ID Date Data Source [id number] 12/19/2020 09:01:00 AM EST [facility]) Name Value Range Interpretation Code Description Data Sakshi rce(s) Supporting Document(s) thyroid stimulating hormone 1.830 uIU/mL 0.358-3.740 Thyroid Stimulating Hormone [place] ([facility]) free T4 1.11 NG/dL 0.76-1.46 Free T4 [place] ([facility]) ID Date Data Source [id number] 12/19/2020 09:01:00 AM EST [place] ([facility]) Name Value Range Interpretation Code Description Data Sakshi rce(s) Supporting Document(s) glucose, fasting 85 mg/dL 70-100 Glucose, Fasting AT [facility]) blood urea nitrogen 19 mg/dL 7-18 Above high normal Blood Ure a Nitrogen [place] ([facility]) creatinine for GFR 0.88 mg/dL 0.55-1.30 Creatinine for GF R [place] ([facility]) sodium level 138 mEq/L 136-145 Sodium Level [place] ([facility]) potassium serum 4.2 mEq/L 3.5-5.1 Potassium Serum ATHE NA ([facility]) glomerular filtration rate > 60.0 >58 Glomerula r Filtration Rate [place] ([facility]) carbon dioxide level 28 mEq/L 21-32 Carbon Dioxide Level [place] ([facility]) chloride level 106 mEq/L 98-107 Chloride Level [place] ([facility]) anion gap 4 mEq/L 8-16 Below low normal Anion Gap [place] ( [facility]) AST/SGOT 31 U/L 7-37 AST/SGOT [place] ([facility]) calcium level 8.8 mg/dL 8.5-10.1 [facility]PT 53 U/L 12-78 ALT/SGPT [place] ([facility]) bilirubin,total 0.4 mg/dL 0.2-1.0 Bilirubin,total ATHE NA ([facility]) alkaline phosphatase 129 U/L 45-117 Above high normal Alkaline Phosphatase [place] ([facility]) albumin/globulin ratio 1.2-2.2 Albumin/globu lizzie Ratio [place] ([facility]) total protein 7.3 gm/dL 6.4-8.2 Total Protein [place] ( [facility]) albumin 4.0 gm/dL 3.2-5.2 Albumin [place] ([facility]) ID Date Data Source [id number] 12/19/2020 09:01:00 AM EST [place] ([facility]) Name Value Range Interpretation Code Description Data Sakshi rce(s) Supporting Document(s) Hemoglobin A1c/Hemoglobin.total in Blood 4.9 % Hemoglobin a1C [place] ([facility]) estimated average glucose 94 mg/dL 60-110 Estimated Average Glucose [place] ([facility]) ID Date Data Source [id number] 12/19/2020 09:01:00 AM EST [place] ([facility]) Name Value Range Interpretation Code Description Data Sakshi rce(s) Supporting Document(s) white blood count 9.7 10 4.0-10.0 White Blood Count [place] ([facility]) hematocrit 45.6 % 36.0-47.0 Hematocrit [place] ([facility]) red blood count 5.41 10 4.00-5.40 Above high normal Red Blood Cou nt [place] ([facility]) hemoglobin 14.6 g/dL 12.0-15.5 Hemoglobin [place] ([facility]) mean corpuscular HGB conc 32.0 g/dL 32.0-36.5 Mean Corpu scular HGB Conc [place] ([facility]) mean corpuscular hemoglobin 27.0 pg 27.0-33.0 Mean Cor puscular Hemoglobin [place] ([facility]) mean corpuscular volume 84.3 fL 80.0-96.0 Mean Corpusc ular Volume [place] ([facility]) red cell distribution width 14.6 % 11.5-14.5 Above high no rmal Red Cell Distribution Width [place] ([facility]) platelet count, automated 261 10 150-450 Platelet C ount, Automated [place] ([facility]) mono % 7.6 % 2.0-8.0 [place] % [place] ([facility]) neutrophils % 70.3 % 36.0-66.0 Above high normal Neutrophils % A [place] ([facility]) lymph % 18.6 % 24.0-44.0 Below low normal Lymph % [place] ( [facility]) eos % 2.2 % 0.0-3.0 Eos % [place] ([facility]) immature granulocyte % 0.3 % 0-3.0 Immature Gran ulocyte % [place] ([facility]) baso % 1.0 % 0.0-1.0 Baso % [place] ([facility]) lymph # 1.8 10 1.5-5.0 Lymph # [place] ([facility]) neutrophils # 6.8 10 1.5-8.5 Neutrophils # [place] ( [facility]) nucleated red blood cell % 0.0 % 0-0 Nucleated Red Blood Cell % [place] ([facility]) baso # 0.1 10 0.0-0.2 Baso # [place] ([facility]) eos # 0.2 10 0.0-0.5 Eos # [place] ([facility]) mono # 0.7 10 0.0-0.8 [place] # [place] ([facility]) ID Date Data Source [id number] 12/19/2020 09:01:00 AM EST [place] ([facility]) Name Value Range Interpretation Code Description Data Sakshi rce(s) Supporting Document(s) total 25(oh) vitamin D 20.0 NG/mL 30.0-100.0 Below low normal T otal 25(Oh) Vitamin D [place] ([facility]) ID Date Data Source [id number] 12/19/2020 09:01:00 AM EST [place] ([facility]) Name Value Range Interpretation Code Description Data Sakshi rce(s) Supporting Document(s) thyroid stimulating hormone 1.830 uIU/mL 0.358-3.740 Thyroid Stimulating Hormone [place] ([facility]) free T4 1.11 NG/dL 0.76-1.46 Free T4 [place] ([facility]) ID Date Data Source [id number] 12/19/2020 09:01:00 AM EST [place] ([facility]) Name Value Range Interpretation Code Description Data Sakshi rce(s) Supporting Document(s) glucose, fasting 85 mg/dL 70-100 Glucose, Fasting AT [facility]) blood urea nitrogen 19 mg/dL 7-18 Above high normal Blood Ure a Nitrogen [place] ([facility]) glomerular filtration rate > 60.0 >58 Glomerula r Filtration Rate [place] ([facility]) creatinine for GFR 0.88 mg/dL 0.55-1.30 Creatinine for GF R [place] ([facility]) sodium level 138 mEq/L 136-145 Sodium Level [place] ([facility]) potassium serum 4.2 mEq/L 3.5-5.1 Potassium Serum ATH NA ([facility]) chloride level 106 mEq/L 98-107 Chloride Level [place] ([facility]) anion gap 4 mEq/L 8-16 Below low normal Anion Gap [place] ( [facility]) carbon dioxide level 28 mEq/L 21-32 Carbon Dioxide Level [place] ([facility]) AST/SGOT 31 U/L 7-37 AST/SGOT [place] ([facility]) calcium level 8.8 mg/dL 8.5-10.1 Calcium Level [place] ( [facility]) ALT/SGPT 53 U/L 12-78 ALT/SGPT [place] ([facility]) alkaline phosphatase 129 U/L 45-117 Above high normal Alkaline Phosphatase [place] ([facility]) bilirubin,total 0.4 mg/dL 0.2-1.0 Bilirubin,total ATHE NA ([facility]) total protein 7.3 gm/dL 6.4-8.2 Total Protein [place] ( [facility]) albumin/globulin ratio 1.2-2.2 Albumin/globu lizzie Ratio [place] ([facility]) albumin 4.0 gm/dL 3.2-5.2 Albumin [place] ([facility]) ID Date Data Source [id number] 12/19/2020 09:01:00 AM EST [place] ([facility]) Name Value Range Interpretation Code Description Data Sakshi rce(s) Supporting Document(s) Hemoglobin A1c/Hemoglobin.total in Blood 4.9 % Hemoglobin a1C [place] ([facility]) estimated average glucose 94 mg/dL 60-110 Estimated Average Glucose [place] ([facility]) ID Date Data Source [id number] 12/19/2020 09:01:00 AM EST [place] ([facility]) Name Value Range Interpretation Code Description Data Sakshi rce(s) Supporting Document(s) white blood count 9.7 10 4.0-10.0 White Blood Count [place] ([facility]) red blood count 5.41 10 4.00-5.40 Above high normal Red Blood Cou nt [place] ([facility]) hemoglobin 14.6 g/dL 12.0-15.5 Hemoglobin [place] ([facility]) mean corpuscular hemoglobin 27.0 pg 27.0-33.0 Mean Cor puscular Hemoglobin [place] ([facility]) mean corpuscular volume 84.3 fL 80.0-96.0 Mean Corpusc ular Volume [place] ([facility]) hematocrit 45.6 % 36.0-47.0 Hematocrit [place] ([facility]) mean corpuscular HGB conc 32.0 g/dL 32.0-36.5 Mean Corpu scular HGB Conc [place] ([facility]) red cell distribution width 14.6 % 11.5-14.5 Above high no rmal Red Cell Distribution Width [place] ([facility]) neutrophils % 70.3 % 36.0-66.0 Above high normal Neutrophils % A [place] ([facility]) platelet count, automated 261 10 150-450 Platelet C ount, Automated [place] ([facility]) lymph % 18.6 % 24.0-44.0 Below low normal Lymph % [place] ( [facility]) mono % 7.6 % 2.0-8.0 [place] % [place] ([facility]) eos % 2.2 % 0.0-3.0 Eos % [place] ([facility]) nucleated red blood cell % 0.0 % 0-0 Nucleated Red Blood Cell % [place] ([facility]) immature granulocyte % 0.3 % 0-3.0 Immature Gran ulocyte % [place] ([facility]) baso % 1.0 % 0.0-1.0 Baso % [place] ([facility]) lymph # 1.8 10 1.5-5.0 Lymph # [place] ([facility]) neutrophils # 6.8 10 1.5-8.5 Neutrophils # [place] ( [facility]) mono # 0.7 10 0.0-0.8 [place] # [place] ([facility]) eos # 0.2 10 0.0-0.5 Eos # [place] ([facility]) baso # 0.1 10 0.0-0.2 Baso # [place] ([facility]) ID Date Data Source [id number] 12/19/2020 09:01:00 AM EST [place] ([facility]) Name Value Range Interpretation Code Description Data Sakshi rce(s) Supporting Document(s) total 25(oh) vitamin D 20.0 NG/mL 30.0-100.0 Below low normal T otal 25(Oh) Vitamin D [place] ([facility]) ID Date Data Source [id number] 12/19/2020 09:01:00 AM EST [place] ([facility]) Name Value Range Interpretation Code Description Data Sakshi rce(s) Supporting Document(s) thyroid stimulating hormone 1.830 uIU/mL 0.358-3.740 Thyroid Stimulating Hormone [place] ([facility]) free T4 1.11 NG/dL 0.76-1.46 Free T4 [place] ([facility]) ID Date Data Source [id number] 12/19/2020 09:01:00 AM EST [place] ([facility]) Name Value Range Interpretation Code Description Data Sakshi rce(s) Supporting Document(s) glucose, fasting 85 mg/dL 70-100 Glucose, Fasting AT [facility]) blood urea nitrogen 19 mg/dL 7-18 Above high normal Blood Ure a Nitrogen [place] ([facility]) creatinine for GFR 0.88 mg/dL 0.55-1.30 Creatinine for GF R [place] ([facility]) sodium level 138 mEq/L 136-145 Sodium Level [place] ([facility]) glomerular filtration rate > 60.0 >58 Glomerula r Filtration Rate [place] ([facility]) potassium serum 4.2 mEq/L 3.5-5.1 Potassium Serum ATHE ([facility]) chloride level 106 mEq/L 98-107 Chloride Level [place] ([facility]) AST/SGOT 31 U/L 7-37 AST/SGOT [place] ([facility]) carbon dioxide level 28 mEq/L 21-32 Carbon Dioxide Level [place] ([facility]) calcium level 8.8 mg/dL 8.5-10.1 Calcium Level [place] ( [facility]) anion gap 4 mEq/L 8-16 Below low normal Anion Gap [place] ( [facility]) ALT/SGPT 53 U/L 12-78 ALT/SGPT [place] ([facility]) alkaline phosphatase 129 U/L 45-117 Above high normal Alkaline Phosphatase [place] ([facility]) bilirubin,total 0.4 mg/dL 0.2-1.0 Bilirubin,total ATHE ([facility]) total protein 7.3 gm/dL 6.4-8.2 Total Protein [place] ( [facility]) albumin 4.0 gm/dL 3.2-5.2 Albumin [place] ([facility]) albumin/globulin ratio 1.2-2.2 Albumin/globu lizzie Ratio [place] ([facility]) ID Date Data Source [id number] 12/19/2020 09:01:00 AM EST [place] ([facility]) Name Value Range Interpretation Code Description Data Sakshi rce(s) Supporting Document(s) Hemoglobin A1c/Hemoglobin.total in Blood 4.9 % Hemoglobin a1C [place] ([facility]) estimated average glucose 94 mg/dL 60-110 Estimated Average Glucose [place] ([facility]) ID Date Data Source [id number] 12/19/2020 09:01:00 AM EST [place] ([facility]) Name Value Range Interpretation Code Description Data Sakshi rce(s) Supporting Document(s) red blood count 5.41 10 4.00-5.40 Above high normal Red Blood Cou nt [place] ([facility]) hemoglobin 14.6 g/dL 12.0-15.5 Hemoglobin [place] ([facility]) white blood count 9.7 10 4.0-10.0 White Blood Count [place] ([facility]) mean corpuscular volume 84.3 fL 80.0-96.0 Mean Corpusc ular Volume [place] ([facility]) hematocrit 45.6 % 36.0-47.0 Hematocrit [place] ([facility]) mean corpuscular HGB conc 32.0 g/dL 32.0-36.5 Mean Corpu scular HGB Conc [place] ([facility]) mean corpuscular hemoglobin 27.0 pg 27.0-33.0 Mean Cor puscular Hemoglobin [place] ([facility]) red cell distribution width 14.6 % 11.5-14.5 Above high no rmal Red Cell Distribution Width [place] ([facility]) lymph % 18.6 % 24.0-44.0 Below low normal Lymph % [place] ( [facility]) neutrophils % 70.3 % 36.0-66.0 Above high normal Neutrophils % A [place] ([facility]) platelet count, automated 261 10 150-450 Platelet C ount, Automated [place] ([facility]) eos % 2.2 % 0.0-3.0 Eos % [place] ([facility]) baso % 1.0 % 0.0-1.0 Baso % [place] ([facility]) immature granulocyte % 0.3 % 0-3.0 Immature Gran ulocyte % [place] ([facility]) mono % 7.6 % 2.0-8.0 [place] % [place] ([facility]) neutrophils # 6.8 10 1.5-8.5 Neutrophils # [place] ( [facility]) nucleated red blood cell % 0.0 % 0-0 Nucleated Red Blood Cell % [place] ([facility]) lymph # 1.8 10 1.5-5.0 Lymph # [place] ([facility]) mono # 0.7 10 0.0-0.8 [place] # [place] ([facility]) eos # 0.2 10 0.0-0.5 Eos # [place] ([facility]) baso # 0.1 10 0.0-0.2 Baso # [place] [facility] [facility]) ID Date Data Source [id number] 12/19/2020 09:01:00 AM EST [place] ([facility]) Name Value Range Interpretation Code Description Data Sakshi rce(s) Supporting Document(s) total 25(oh) vitamin D 20.0 NG/mL 30.0-100.0 Below low normal T otal 25(Oh) Vitamin D [place] ([facility]) ID Date Data Source [id number] 12/19/2020 09:01:00 AM EST [place] ([facility]) Name Value Range Interpretation Code Description Data Sakshi rce(s) Supporting Document(s) thyroid stimulating hormone 1.830 uIU/mL 0.358-3.740 Thyroid Stimulating Hormone [place] ([facility]) free T4 1.11 NG/dL 0.76-1.46 Free T4 [place] ([facility]) ID Date Data Source [id number] 12/19/2020 09:01:00 AM EST [place] ([facility]) Name Value Range Interpretation Code Description Data Sakshi rce(s) Supporting Document(s) creatinine for GFR 0.88 mg/dL 0.55-1.30 Creatinine for GF R [place] ([facility]) glucose, fasting 85 mg/dL 70-100 Glucose, Fasting AT [facility]) blood urea nitrogen 19 mg/dL 7-18 Above high normal Blood Ure a Nitrogen [place] ([facility]) potassium serum 4.2 mEq/L 3.5-5.1 [facility]assium [facility] chloride level 106 mEq/L 98-107 Chloride Level [place] ([facility]) glomerular filtration rate > 60.0 >58 Glomerula r Filtration Rate [place] ([facility]) sodium level 138 mEq/L 136-145 Sodium Level [place] ([facility]) anion gap 4 mEq/L 8-16 Below low normal Anion Gap [place] ( [facility]) carbon dioxide level 28 mEq/L 21-32 Carbon Dioxide Level [place] ([facility]) calcium level 8.8 mg/dL 8.5-10.1 Calcium Level [place] ( [facility]) alkaline phosphatase 129 U/L 45-117 Above high normal Alkaline Phosphatase [place] ([facility]) ALT/SGPT 53 U/L 12-78 ALT/SGPT [place] ([facility]) AST/SGOT 31 U/L 7-37 AST/SGOT [place] ([facility]) albumin/globulin ratio 1.2-2.2 Albumin/globu lizzie Ratio [place] ([facility]) bilirubin,total 0.4 mg/dL 0.2-1.0 Bilirubin,total ATHE [facility]) albumin 4.0 gm/dL 3.2-5.2 Albumin [place] ([facility]) total protein 7.3 gm/dL 6.4-8.2 Total Protein [place] ( [facility]) ID Date Data Source [id number] 12/19/2020 09:01:00 AM EST [place] ([facility]) Name Value Range Interpretation Code Description Data Sakshi rce(s) Supporting Document(s) Hemoglobin A1c/Hemoglobin.total in Blood 4.9 % Hemoglobin a1C [place] ([facility]) estimated average glucose 94 mg/dL 60-110 Estimated Average Glucose [place] ([facility]) ID Date Data Source [id number] 12/19/2020 09:01:00 AM EST [place] ([facility]) Name Value Range Interpretation Code Description Data Sakshi rce(s) Supporting Document(s) white blood count 9.7 10 4.0-10.0 White Blood Count [place] ([facility]) red blood count 5.41 10 4.00-5.40 Above high normal Red Blood Cou nt [place] ([facility]) hematocrit 45.6 % 36.0-47.0 Hematocrit [place] ([facility]) hemoglobin 14.6 g/dL 12.0-15.5 Hemoglobin [place] ([facility]) mean corpuscular volume 84.3 fL 80.0-96.0 Mean Corpusc ular Volume [place] ([facility]) mean corpuscular hemoglobin 27.0 pg 27.0-33.0 Mean Cor puscular Hemoglobin [place] ([facility]) mean corpuscular HGB conc 32.0 g/dL 32.0-36.5 Mean Corpu scular HGB Conc [place] ([facility]) red cell distribution width 14.6 % 11.5-14.5 Above high no rmal Red Cell Distribution Width [place] ([facility]) neutrophils % 70.3 % 36.0-66.0 Above high normal Neutrophils % A [place] ([facility]) platelet count, automated 261 10 150-450 Platelet C ount, Automated [facility]) eos % 2.2 % 0.0-3.0 Eos % [place] ([facility]) lymph % 18.6 % 24.0-44.0 Below low normal Lymph % [place] ( [facility]) mono % 7.6 % 2.0-8.0 [place] % [place] ([facility]) immature granulocyte % 0.3 % 0-3.0 Immature Gran ulocyte % [place] ([facility]) baso % 1.0 % 0.0-1.0 Baso % [place] ([facility]) nucleated red blood cell % 0.0 % 0-0 Nucleated Red Blood Cell % [place] ([facility]) lymph # 1.8 10 1.5-5.0 Lymph # [place] ([facility]) mono # 0.7 10 0.0-0.8 [place] # [place] ([facility]) neutrophils # 6.8 10 1.5-8.5 Neutrophils # [place] ( [facility]) baso # 0.1 10 0.0-0.2 Baso # [place] ([facility]) eos # 0.2 10 0.0-0.5 Eos # [place] ([facility]) ID Date Data Source [id number] 12/19/2020 09:01:00 AM EST [place] ([facility]) Name Value Range Interpretation Code Description Data Sakshi rce(s) Supporting Document(s) total 25(oh) vitamin D 20.0 NG/mL 30.0-100.0 Below low normal T otal 25(Oh) Vitamin D [place] ([facility]) ID Date Data Source [id number] 12/19/2020 09:01:00 AM EST [place] ([facility]) Name Value Range Interpretation Code Description Data Sakshi rce(s) Supporting Document(s) thyroid stimulating hormone 1.830 uIU/mL 0.358-3.740 Thyroid Stimulating Hormone [place] ([facility]) free T4 1.11 NG/dL 0.76-1.46 Free T4 [place] ([facility]) ID Date Data Source [id number] 12/19/2020 09:01:00 AM EST [place] ([facility]) Name Value Range Interpretation Code Description Data Sakshi rce(s) Supporting Document(s) glucose, fasting 85 mg/dL 70-100 Glucose, Fasting AT [facility] ([facility]) blood urea nitrogen 19 mg/dL 7-18 Above high normal Blood Ure a Nitrogen [place] ([facility]) potassium serum 4.2 mEq/L 3.5-5.1 Potassium Serum ATHE [place] ([facility]) sodium level 138 mEq/L 136-145 Sodium Level [place] ([facility]) glomerular filtration rate > 60.0 >58 Glomerula r Filtration Rate [place] ([facility]) creatinine for GFR 0.88 mg/dL 0.55-1.30 Creatinine for GF R [place] ([facility]) chloride level 106 mEq/L 98-107 Chloride Level [place] ([facility]) carbon dioxide level 28 mEq/L 21-32 Carbon Dioxide Level [place] ([facility]) anion gap 4 mEq/L 8-16 Below low normal Anion Gap [place] ( [facility]) ALT/SGPT 53 U/L 12-78 ALT/SGPT [place] ([facility]) alkaline phosphatase 129 U/L 45-117 Above high normal Alkaline Phosphatase [place] ([facility]) AST/SGOT 31 U/L 7-37 AST/SGOT [place] ([facility]) calcium level 8.8 mg/dL 8.5-10.1 Calcium Level [place] ( [facility]) bilirubin,total 0.4 mg/dL 0.2-1.0 Bilirubin,total AT[place] ([facility]) total protein 7.3 gm/dL 6.4-8.2 Total Protein [place] ( [facility]) albumin 4.0 gm/dL 3.2-5.2 Albumin [place] ([facility]) albumin/globulin ratio 1.2-2.2 Albumin/globu lizzie Ratio [place] ([facility]) ID Date Data Source [id number] 12/19/2020 09:01:00 AM EST [place] ([facility]) Name Value Range Interpretation Code Description Data Sakshi rce(s) Supporting Document(s) estimated average glucose 94 mg/dL 60-110 Estimated Average Glucose [facility]) Hemoglobin A1c/Hemoglobin.total in Blood 4.9 % Hemoglobin a1C [place] ([facility]) ID Date Data Source [id number] 12/19/2020 09:01:00 AM EST [place] ([facility]) Name Value Range Interpretation Code Description Data Sakshi rce(s) Supporting Document(s) white blood count 9.7 10 4.0-10.0 White Blood Count [place] ([facility]) hemoglobin 14.6 g/dL 12.0-15.5 Hemoglobin [place] ([facility]) red blood count 5.41 10 4.00-5.40 Above high normal Red Blood Cou nt [place] ([facility]) mean corpuscular hemoglobin 27.0 pg 27.0-33.0 Mean Cor puscular Hemoglobin [place] ([facility]) mean corpuscular volume 84.3 fL 80.0-96.0 Mean Corpusc ular Volume [place] ([facility]) hematocrit 45.6 % 36.0-47.0 Hematocrit [place] ([facility]) red cell distribution width 14.6 % 11.5-14.5 Above high no rmal Red Cell Distribution Width [place] ([facility]) mean corpuscular HGB conc 32.0 g/dL 32.0-36.5 Mean Corpu scular HGB Conc [place] ([facility]) platelet count, automated 261 10 150-450 [facility] neutrophils % 70.3 % 36.0-66.0 Above high normal Neutrophils % A [place] ([facility]) lymph % 18.6 % 24.0-44.0 Below low normal Lymph % [place] ( [facility]) eos % 2.2 % 0.0-3.0 Eos % [place] ([facility]) mono % 7.6 % 2.0-8.0 [place] % [place] ([facility]) immature granulocyte % 0.3 % 0-3.0 Immature Gran ulocyte % [place] ([facility]) baso % 1.0 % 0.0-1.0 Baso % [place] ([facility]) mono # 0.7 10 0.0-0.8 [place] # [place] ([facility]) nucleated red blood cell % 0.0 % 0-0 Nucleated Red Blood Cell % [place] ([facility]) lymph # 1.8 10 1.5-5.0 Lymph # [place] ([facility]) neutrophils # 6.8 10 1.5-8.5 Neutrophils # [place] ( [facility]) eos # 0.2 10 0.0-0.5 Eos # [place] ([facility]) baso # 0.1 10 0.0-0.2 Baso # [place] ([facility]) ID Date Data Source [id number] 12/19/2020 09:01:00 AM EST [place] ([facility]) Name Value Range Interpretation Code Description Data Sakshi rce(s) Supporting Document(s) total 25(oh) vitamin D 20.0 NG/mL 30.0-100.0 Below low normal T otal 25(Oh) Vitamin D [place] ([facility]) ID Date Data Source [id number] 12/19/2020 09:01:00 AM EST [place] ([facility]) Name Value Range Interpretation Code Description Data Sakshi rce(s) Supporting Document(s) free T4 1.11 NG/dL 0.76-1.46 Free T4 [place] ([facility]) thyroid stimulating hormone 1.830 uIU/mL 0.358-3.740 Thyroid Stimulating Hormone [place] ([facility]) ID Date Data Source [id number] 12/19/2020 09:01:00 AM EST [place] ([facility]) Name Value Range Interpretation Code Description Data Sakshi rce(s) Supporting Document(s) glucose, fasting 85 mg/dL 70-100 Glucose, Fasting AT [place] ([facility]) sodium level 138 mEq/L 136-145 Sodium Level [place] ([facility]) blood urea nitrogen 19 mg/dL 7-18 Above high normal Blood Ure a Nitrogen [place] ([facility]) glomerular filtration rate > 60.0 >58 Glomerula r Filtration Rate [place] ([facility]) creatinine for GFR 0.88 mg/dL 0.55-1.30 Creatinine for GF R [place] ([facility]) chloride level 106 mEq/L 98-107 Chloride Level [place] ([facility]) potassium serum 4.2 mEq/L 3.5-5.1 Potassium Serum [place] ([facility]) anion gap 4 mEq/L 8-16 Below low normal Anion Gap [place] ( [facility]) carbon dioxide level 28 mEq/L 21-32 Carbon Dioxide Level [place] ([facility]) ALT/SGPT 53 U/L 12-78 ALT/SGPT [place] ([facility]) alkaline phosphatase 129 U/L 45-117 Above high normal Alkaline Phosphatase [place] ([facility]) AST/SGOT 31 U/L 7-37 AST/SGOT [place] ([facility]) calcium level 8.8 mg/dL 8.5-10.1 Calcium Level [place] ( [facility]) total protein 7.3 gm/dL 6.4-8.2 Total Protein [place] ( [facility]) bilirubin,total 0.4 mg/dL 0.2-1.0 Bilirubin,total [place] ([facility]) albumin 4.0 gm/dL 3.2-5.2 Albumin [place] ([facility]) albumin/globulin ratio 1.2-2.2 Albumin/globu lizzie Ratio [place] ([facility]) ID Date Data Source [id number] 12/19/2020 09:01:00 AM EST [place] ([facility]) Name Value Range Interpretation Code Description Data Sakshi rce(s) Supporting Document(s) Hemoglobin A1c/Hemoglobin.total in Blood 4.9 % Hemoglobin a1C [place] ([facility]) estimated average glucose 94 mg/dL 60-110 Estimated Average Glucose [facility]) ID Date Data Source [id number] 12/19/2020 09:01:00 AM EST [place] ([facility]) Name Value Range Interpretation Code Description Data Sakshi rce(s) Supporting Document(s) white blood count 9.7 10 4.0-10.0 White Blood Count [place] ([facility]) red blood count 5.41 10 4.00-5.40 Above high normal Red Blood Cou nt [place] ([facility]) hematocrit 45.6 % 36.0-47.0 Hematocrit [place] ([facility]) hemoglobin 14.6 g/dL 12.0-15.5 Hemoglobin [place] ([facility]) mean corpuscular hemoglobin 27.0 pg 27.0-33.0 Mean Cor puscular Hemoglobin [place] ([facility]) red cell distribution width 14.6 % 11.5-14.5 Above high no rmal Red Cell Distribution Width [place] ([facility]) mean corpuscular HGB conc 32.0 g/dL 32.0-36.5 Mean Corpu scular HGB Conc [place] ([facility]) mean corpuscular volume 84.3 fL 80.0-96.0 Mean Corpusc ular Volume [place] ([facility]) platelet count, automated 261 10 150-450 Platelet C ount, Automated [facility]) lymph % 18.6 % 24.0-44.0 Below low normal Lymph % [place] ( [facility]) mono % 7.6 % 2.0-8.0 [place] % [place] ([facility]) neutrophils % 70.3 % 36.0-66.0 Above high normal Neutrophils % Kathy [facility]) eos % 2.2 % 0.0-3.0 Eos % [place] ([facility]) nucleated red blood cell % 0.0 % 0-0 Nucleated Red Blood Cell % [place] ([facility]) baso % 1.0 % 0.0-1.0 Baso % [place] ([facility]) immature granulocyte % 0.3 % 0-3.0 Immature Gran ulocyte % [place] ([facility]) neutrophils # 6.8 10 1.5-8.5 Neutrophils # [place] ( [facility]) eos # 0.2 10 0.0-0.5 Eos # [place] ([facility]) lymph # 1.8 10 1.5-5.0 Lymph # [place] ([facility]) mono # 0.7 10 0.0-0.8 [place] # [place] ([facility]) baso # 0.1 10 0.0-0.2 Baso # [place] ([facility]) ID Date Data Source [id number] 08/25/2020 12:00:00 AM EST [place] ([facility]) Name Value Range Interpretation Code Description Data Sakshi rce(s) Supporting Document(s) SARS-CoV-2 (COVID-19) RNA [Presence] in Respiratory specimen by ETHEL with probe detection not detected not detected Sars Cov 2 RNA [facility]) ID Date Data Source [id number] 08/25/2020 12:00:00 AM EST [place] ([facility]) Name Value Range Interpretation Code Description Data Sakshi rce(s) Supporting Document(s) SARS-CoV-2 (COVID-19) RNA [Presence] in Respiratory specimen by ETHEL with probe detection not detected not detected Sars Cov 2 RNA [place] ([facility]) ID Date Data Source [id number] 08/25/2020 12:00:00 AM EST [facility]) Name Value Range Interpretation Code Description Data Sakshi rce(s) Supporting Document(s) SARS-CoV-2 (COVID-19) RNA [Presence] in Respiratory specimen by ETHEL with probe detection not detected not detected Sars Cov 2 RNA [place] ([facility]) ID Date Data Source [id number] 08/25/2020 12:00:00 AM EST [facility]) Name Value Range Interpretation Code Description Data Sakshi rce(s) Supporting Document(s) SARS-CoV-2 (COVID-19) RNA [Presence] in Respiratory specimen by ETHEL with probe detection not detected not detected Sars Cov 2 RNA [facility]) ID Date Data Source [id number] 08/25/2020 12:00:00 AM EST [facility]) Name Value Range Interpretation Code Description Data Sakshi rce(s) Supporting Document(s) SARS-CoV-2 (COVID-19) RNA [Presence] in Respiratory specimen by ETHEL with probe detection not detected not detected Sars Cov 2 RNA [facility]) ID Date Data Source [id number] 08/25/2020 12:00:00 AM EST [facility]) Name Value Range Interpretation Code Description Data Sakshi rce(s) Supporting Document(s) SARS-CoV-2 (COVID-19) RNA [Presence] in Respiratory specimen by ETHEL with probe detection not detected not detected Sars Cov 2 RNA [facility]) ID Date Data Source [id number] 08/25/2020 12:00:00 AM EST [facility]) Name Value Range Interpretation Code Description Data Sakshi rce(s) Supporting Document(s) SARS-CoV-2 (COVID-19) RNA [Presence] in Respiratory specimen by ETHEL with probe detection not detected not detected Sars Cov 2 RNA [facility]) ID Date Data Source [id number] 08/25/2020 12:00:00 AM EST [facility]) Name Value Range Interpretation Code Description Data Sakshi rce(s) Supporting Document(s) SARS-CoV-2 (COVID-19) RNA [Presence] in Respiratory specimen by ETHEL with probe detection not detected not detected Sars Cov 2 RNA [facility]) ID Date Data Source [id number] 08/25/2020 12:00:00 AM EST [facility]) Name Value Range Interpretation Code Description Data Sakshi rce(s) Supporting Document(s) SARS-CoV-2 (COVID-19) RNA [Presence] in Respiratory specimen by ETHEL with probe detection not detected not detected Sars Cov 2 RNA [facility]) ID Date Data Source [id number] 08/25/2020 12:00:00 AM EST [facility]) Name Value Range Interpretation Code Description Data Sakshi rce(s) Supporting Document(s) SARS-CoV-2 (COVID-19) RNA [Presence] in Respiratory specimen by ETHEL with probe detection not detected not detected Sars Cov 2 RNA [facility]) ID Date Data Source [id number] 08/[facility]2020 [facility] Name Value Range Interpretation Code Description Data Sakshi rce(s) Supporting Document(s) SARS-CoV-2 (COVID-19) RNA [Presence] in Respiratory specimen by ETHEL with probe detection not detected not detected Sars Cov 2 RNA [facility]) ID Date Data Source [id number] 08/25/2020 12:00:00 AM EST [facility]) Name Value Range Interpretation Code Description Data Sakshi rce(s) Supporting Document(s) SARS coronavirus 2 RNA [Presence] in Res piratory specimen by ETHEL with probe detection not detected not detected Sars Cov 2 RNA [facility]) ID Date Data Source [id number] 07/17/2020 10:00:00 AM EDT [facility] Name Value Range Interpretation Code Description Data Askshi rce(s) Supporting Document(s) URINECULTRTN SPECIMEN APPEARS CONTAMINATED N [facility] ID Date Data Source [id number] 07/17/2020 09:42:18 AM EDT [facility] Measurements & CalculationsHeight: 62.50 inches 158.75 cm 5 ft. 2.5 in.Weight: 300.2 pounds 136.45 kg Body Mass Index (BMI): 54.23BMI Interpretation: Morbidly ObeseBody Surface Area (BSA): 2.29Weight Management Education Done (Nutrition/Physical Activity)Vital SignsTemperature: 98.6F 37C tympanic Pulse Rate: 80 beats/minuteRespiratory Rate: 18 respirations/minuteBlood Pressure: 122/85 right arm sitting automaticO2 Saturation: 96% Vital Signs performed by: Shruti French LPN, July 17, 2020 9:42 AMLabs In-House Urine TestsDate/Time Collected: July 17, 2020 10:22 AMDate/Time Received: July 17, 2020 10:22 AMTest Result Reference Range Normal ValueRoutine Urinalysis Color: yellow Yellow Appearance: clear Clear Leukocytes: negative Negative Nitrite: negative Negative Urobilinogen: 17 Negative Protein: negative Negative pH: 6.0 5.0-6.5 Blood: negative Negative Specific [place]: 1.020 1.020> =1.030 Ketone: negative Negative Bilirubin: negative Negative Glucose: negative NegativeCokai French LPN, July 17, 2020 10:22 AMAdult Questionnaire1) Does the patient have a long-term health problem with heart disease, lung disease, asthma, kidney disease, metabolic disease (e.g., diabetes), anemia, or other blood disorder? No2) Does the patient have allergies to medications, food, a vaccine component, or latex? No3) Does the patient have cancer, leukemia, AIDS, or any other immune system problem? No4) Does the patient live with or expect to have close contact with a person whose immune system is severely compromised and who must be in protective isolation (e.g., an isolation room of a bone marrow transplant unit)? No5) Does the patient take cortisone, prednisone, other steroids, or anticancer drugs, or has the patient had radiation treatments? No6) During the past year, has the pa leandro received a transfusion of blood or blood products, or been given immune (gamma) globulin or an antiviral drug? No7) For women: Is the patient or is there a chance she could become during the next month? No8) Has the patient ever had a serious reaction to a vaccine in the past? No9) Has the patient had a seizure or a brain or other nervous system problem? No10) Has the patient received any vaccinations in the past 4 weeks? No11) Is the patient older than age 49 years? No12) Is the patient sick today? No13) Vaccine information given and explained to patient? YesVaccines Administered/Entered:Vaccination Group: InfluenzaSeries: 2Vaccination: Flulaval Quadrivalent Intramuscular Suspension Prefilled Syringe 0.5 MLMfr / Lot# / Exp.Date: [employer] / [id number] 1Amt. Given / Route / Site: 0.5 mL / IM / Right DeltoidNDC / CVX: [id number] / 150Administered Date: 07/17/2020 10:22VFC Eligibility: Not VFC EligibleVIS Date: 05/24/2019VIS Given / VIS Given On: Yes / 07/17/2020Comments: Administered by: Shruti French LPN Initial Intake Information From: patientRoom #: 2Infectious Disease / Travel ScreeningRecent travel for you or any close contacts? NoHave you had any close contact with anyone diagnosed with or under investigation for COVID-19 (coronavirus)? NoFever? NoRespiratory symptoms: cough, cold, congestion, shortness of breath, difficulty breathing? NoLoss of smell? NoLoss of taste? NoSmoking, Tobacco, Vaping or Smoke Exposure StatusSmoke Status: never smokerTobacco Use: NoDo you vape? NoPassive Smoke Exposure: NoMenstrual HistoryLast Menstrual Period (LMP): 07/03/2020LMP History: ApproximateAny possibility of ? NoHealthcare HistorySince your last office visit...Have you been admitted to the hospital? NoHave you been to an emergency room (ER) or urgent care clinic? NoHave you seen another healthcare provider? NoHave you seen a dentist? NoIntake performed by: Shruti French LPN, July 17, 2020 9:44 AMRate Your HealthIn general, would you say your health is? FairPain AssessmentAre you currently having any pain which... You would like your provider to address? Yes Affects your activity level? NoDepression Screening - PHQ-2Over the last two weeks, have you... Had little interest or pleasure in doing things? More than half the days Been feeling down, depressed, or hopeless? More than half the days PHQ-2 Score: 4Anxiety Screening - DAYANARA-2Over the last two weeks, have you been... Feeling nervous, anxious, or on edge? Several days Unable to stop or control worrying? Several days DAYANARA-2 Score: 2Food InsecurityWithin the past year...Did you worry whether your food would run out before you got money to buy more? Never trueWas there a time when the food you bought didn't last and you didn't have money to get more? Never trueGeneralized Anxiety Disorder 7-Item Screening (DAYANARA-7)Answer Guide:0 = Not at all1 = Several days2 = Over half the days3 = Nearly every dayOver the last 2 weeks, how often have you been bothered by the following problems?Feeling nervous, anxious, or on edge: 1Not being able to stop or control worryinWorrying too much about different things: 1Trouble relaxinBeing so restless that it's hard to sit still: 1Becoming easily annoyed or irritable: 1Feeling afraid as if something awful might happen: 1Answer Guide:0 = Not difficult at all1 = Somewhat difficult2 = Very difficult3 = Extremely difficultHow difficult have these made it for you to do your work, take care of things at home, or get along with other people? 1GAD-7 Screening Results DAYANARA-2 Score: 2GAD-7 Score: 7Functional Impairment: Somewhat difficultRecommendation: Mild anxietyPHQ-9 1. Over the last 2 weeks, patient reports the following frequency of symptoms: a. Little interest or pleasure in doing things - More than half the days b. Feeling down, depressed, or hopeless -More than half the days c. Trouble falling asleep, staying asleep, or sleeping too much -More than half the days d. Feeling tired or having little energy -More than half the days e. Poor appetite or overeating -More than half the days f. Feeling bad about yourself, feeling that you are a failure, or feeling that you have let yourself or your family down -More than half the days g. Trouble concentrating on things such as reading the newspaper or watching television -More than half the days h. Moving or speaking so slowly that other people could have noticed. Or being so fidgety or restless that you have been moving around a lot more than usual - More than half the days i. Thinking that you would be better off or that you want to hurt yourself in some way -Not at all2. If you checked off any problems, how difficult have these problems made it for you to do your work, take care of things at home, or get along with other people? -Very DifficultToday's PHQ-9 Results Score: 16 Severity: Moderately Severe Diagnosis Recommendation: Major Depression Functional Impairment: Very DifficultToday's Follow-Up Action Depression follow-up done. Follow-Up Action: Continue To Take Medications as PrescribedPain AssessmentLocation: both earsOther DescriptorsComments: when using headphones noticed an "extra buzzing noise"Screening, Brief Intervention, & Referral to Treatment (SBIRT)Pre- Screening Questions How many times have you have 4 or more drinks in a day? 0How many times have you used an illegal drug or used a prescription medication for a non-medical reason? 0Performed by: Shruti French LPN, July 17, 2020 9:45 AMPatient History Medical History:AsthmaDepressionSurgical History:Nysefbljncktomaednbarkvqacihd-ebgsapeocqby-rqbkirjbxJnkmzq History:Diabetes (Father)Hypertension (Mother, Father)Social/Personal History: Chief Complaintfollow-up visitHistory of Present Illness (HPI)44 yo female presents for cholesterol f/u. Pt states she believes she has a kidney stone, reports right sided back pain x 2 days and "prickly feeling" when she urinates. Denies blood in urine. Has hx of kidney stones, last was 3 years ago. Pt also states both ears feel strange, have been feeling "funny" for a few months. She reports using headphones and now feels she has something in both ears, but right more than left. Reports moods are stable. Problem ReviewProblem List was reviewed and/or updated during this visit.Medication Reconciliation & ReviewMedication List was reviewed and/or updated during this visit, including review of any cvpl-igy-qmtxfwg medications, herbal therapies, and/or supplements.Allergy ReviewAllergy List was reviewed and/or updated during this visit.Adult Preventive CareLabs/Meds/Other Counseling-Nutrition and Physical Activity:BMI Interpretation: Morbidly Obese (07/17/2020) Counseling: Done (07/17/2020) Physical Activity: Done (07/17/2020)Review of Systems General: Denies loss of appetite, chills, dizziness, fatigue, fever, headache. Ears/Nose/Throat: Complains of see HPI, earache. Denies ear discharge, decreased hearing, nasal congestion, sore throat, swollen glands. Car diovascular: Denies chest pain, palpitations, feeling faint. Respiratory: Denies cough, difficulty breathing, shortness of breath. Gastrointestinal: Denies nausea, vomiting, diarrhea, constipation. Genitourinary: Complains of see HPI. Denies burning with urination, incomplete emptying, blood in urine, pelvic pain. Musculoskeletal: Complains of see HPI, back pain. Denies recent injury. Skin: Denies rash, suspicious lesions. Neurologic: Denies weakness, numbness/tingling, feeling faint. Psychiatric: Denies see HPI, mental disturbance. Physical ExamGeneral Appearance: well nourished, well hydrated, no acute distressEyes, External: conjunctivae and lids normal, EOMIRespiratory, Auscultation: clear to auscultation bilaterally; no rales, rhonchi, or wheezesCardiovascular, Auscultation: S1, S2 audible; no murmur, rub, or gallop; RRRPeripheral Circulation: no clubbing, cyanosis, edema, or varicositiesAbdomen: soft, non-tender, no masses, bowel sounds normalGait & Station: normalSkin, Inspection: no rashes, lesions, or ulcerationsOrientation: oriented to time, place, and personMood & Affect: thought process logical and goal directedJudgment & Insight: intactRate Your HealthIn general, would you say your health is? FairAssessment & Plan Problems:Added: Person consulting for explanation of examination or test findings (ICD-V65.8) (GYX76-J16.2) Assessment: Instructions: Labs reviewed in detail today.Unspecified Eustachian tube disorder, bilateral (GAZ17-Z92.93) Assessment: Instructions: Start cetirizine/Zyrtec daily as needed for fluid in the ears, likely due to seasonal change.Encounter for immunization (ICD-V05.9) (ASF56-S41) Assessment: Instructions: Flu vaccine today.Acute low back pain (ICD- 724.2) (KNB67-G41.5) Assessment: Instructions: U/A in office essentially unremarkable. Urine was sent for culture today, we will call you if antibiotic needs to be started or changed based on culture. Stay well hydrated, empty bladder fully and frequently. Follow-up sooner for worsening symptoms, or ER for severe pain, back pain, fever, vomiting.Personal history of urinary calculi (ICD-V13.01) (CNG09-E66.442) Assessment: Instructions: Possible stone but urine not indicative. Increase hydration. ER for sudden severe change in symptoms. Consider ultrasound if pain persists.Assessed:Vitamin D deficiency, unspecified (ZQK93-Z47.9) Assessment: Instructions: Continue vitamin D3 2000 units daily, prescription sent.Pure hypercholesterolemia, unspecified (IAQ40-R69.00) Assessment: Instructions: Improving with healthy lifestyle. No choleterol medication at this time. Continue with low fat diet, portion sizes, emphasis on increasing exercise and healthy weight loss. Repeat again in 6 months.MORBID OBESITY (ICD-278.01) (LSN34-M15.01) Assessment: Instructions: Down 5lbs since last visit. Keep up the great work!BMI 50.0-59.9 (ICD-V85.43) (USH78-M46.43) Assessment: Instructions: As above.Mixed anxiety and depressive disorder (ICD-300.4) (BXO23-K62.8) Assessment: Instructions: Continue current medications. Call with any mood changes.Patient Instructions/Care Plan: Person consulting for explanation of examination or test findings: Labs reviewed in detail today.Vitamin D deficiency- unspecified: Continue vitamin D3 2000 units daily, prescription sent.Unspecified Eustachian tube disorder- bilateral: Start cetirizine/Zyrtec daily as needed for fluid in the ears, likely due to seasonal change.Pure hypercholesterolemia- unspecified: Improving with healthy lifestyle. No choleterol medication at this time. Continue with low fat diet, portion sizes, emphasis on increasing exercise and healthy weight loss. Repeat again in 6 months.MORBID OBESITY: Down 5lbs since last visit. Keep up the great work!BMI 50.0-59.9: As above.Mixed anxiety and depressive disorder: Continue current medications. Call with any mood changes.Encounter for immunization: Flu vaccine today.Acute low back pain: U/A in office essentially unremarkable. Urine was sent for culture today, we will call you if antibiotic needs to be started or changed based on culture. Stay well hydrated, empty bladder fully and frequently. Follow-up sooner for worsening symptoms, or ER for severe pain, back pain, fever, vomiting.Personal history of urinary calculi: Possible stone but urine not indicative. Increase hydration. ER for sudden severe change in symptoms. Consider ultrasound if pain persists. Plan developed in collaboration with patient and/or familyMedications:VITAMIN D3 50 MCG (1999 UT) ORAL CAPSULEHYDROXYZINE HCL 50 MG ORAL TABLETSERTRALINE HCL 100 MG ORAL TABLETMedication Changes:New Prescription:VITAMIN D3 50 MCG (1999 [place]) ORAL CAPSULE-take 1 capsule po daily Qty: 90[Capsule] Refills: 3 Method: ElectronicAllergies:PENICILLIN (Critical )Orders:Urinalysis-automated [CPT-52145] FluLaval Quadrivalent, preservative free [CPT-92226] Urine Culture & Sensitivity [CPT-96569] Adult - Ofc Vst, EST, Level III [CPT-55991] Follow-Up Return to clinic: in 6 months for follow upAdditional Follow-Up: after fasting labsClinical Visit Summary Declined Name Value Range Interpretation Code Description Data Sakshi rce(s) Supporting Document(s) ID Date Data Source [id number] 07/17/2020 09:42:18 AM EDT [facility] Name Value Range Interpretation Code Description Data Sakshi rce(s) Supporting Document(s) APPEARANCE U clear [facility] BILIRUBIN UR negative [facility] BLOOD UR DIP negative [facility] GLUCOSE, URN negative [facility] KETONES URN negative [facility] NITRITE URN negative [facility] PH URINE 6.0 [facility] PROTEIN, URN negative [facility] SPEC GR URIN 1.020 [facility] UA COLOR yellow [facility] UROBILINOGEN 17 [facility] W[facility]STK [facility] ID Date Data Source [id number] 07/10/2020 08:22:19 AM EDT [facility] Labs In-House Blood TestsDate/Time Colle cted: July 10, 2020 8:15 AMTest Result Reference Range Normal ValueComments: Labs drawn in office right AC. Tolerated wellTaylor Bigg ARROYO, July 10, 2020 8:23 AMAssessment & Plan Orders:[id number] Vst-Est Level I [CPT-58541] 87531 - Venipuncture [CPT-08773] Name Value Range Interpretation Code Description Data Sakshi rce(s) Supporting Document(s) ID Date Data Source [id number] 07/10/2020 08:15:00 AM EDT [facility] Name Value Range Interpretation Code Description Data Sakshi rce(s) Supporting Document(s) VIT D25 TOT 26.9 ng/mL 30.0-100.0 L [facility] BG FASTING 85 mg/dL 70-100 N [facility] Procedure Social History No Information Vital Signs ID Date Data Source UNK Name Value Range Interpretation Code Description Data Source(s) Body height 62.5 [in_i] 62.5 [in_i] SABINO ([facility]) Body height 62.5 [in_i] 62.5 [in_i] SABINO ([facility]) Body height 62.5 [in_i] 62.5 [in_i] SABINO ([facility]) Diastolic blood pressure 100 mm[Hg] 100 mm[Hg] SABINO ([facility]) Systolic blood pressure 130 mm[Hg] 130 mm[Hg] A [facility] ([facility]) Diastolic blood pressure 76 mm[Hg] 76 mm[Hg] SABINO ([facility]) Systolic blood pressure 138 mm[Hg] 138 mm[Hg] A [facility] ([facility]) Body height 62.5 [in_i] 62.5 [in_i] SABINO ([facility]) Diastolic blood pressure 76 mm[Hg] 76 mm[Hg] SABINO ([facility]) Diastolic blood pressure 100 mm[Hg] 100 mm[Hg] SABINO ([facility]) Systolic blood pressure 130 mm[Hg] 130 mm[Hg] A [facility] ([facility]) Systolic blood pressure 138 mm[Hg] 138 mm[Hg] A [facility] ([facility]) Body height 62.5 [in_i] 62.5 [in_i] SABINO ([facility]) Diastolic blood pressure 76 mm[Hg] 76 mm[Hg] SABINO ([facility]) Diastolic blood pressure 100 mm[Hg] 100 mm[Hg] SABINO ([facility]) Body height 62.5 [in_i] 62.5 [in_i] SABINO ([facility]) Systolic blood pressure 130 mm[Hg] 130 mm[Hg] A THENA ([facility]) Systolic blood pressure 138 mm[Hg] 138 mm[Hg] A THENA ([facility]) Diastolic blood pressure 76 mm[Hg] 76 mm[Hg] SABNIO ([facility]) Diastolic blood pressure 100 mm[Hg] 100 mm[Hg] SABINO ([facility]) Body height 62.5 [in_i] 62.5 [in_i] SABINO ([facility]) Systolic blood pressure 130 mm[Hg] 130 mm[Hg] A THENA ([facility]) Systolic blood pressure 138 mm[Hg] 138 mm[Hg] A THENA ([facility]) Diastolic blood pressure 84 mm[Hg] 84 mm[Hg] SABINO ([facility]) Body height 62.5 [in_i] 62.5 [in_i] SABINO ([facility]) Body mass index (BMI) [Ratio] 54.7 kg/m2 54.7 k g/m2 SABINO ([facility]) Systolic blood pressure 123 mm[Hg] 123 mm[Hg] A THENA ([facility]) Body weight 4864 [oz_av] 4864 [oz_av] SABINO ([facility]) Diastolic blood pressure 84 mm[Hg] 84 mm[Hg] SABINO ([facility]) Body height 62.5 [in_i] 62.5 [in_i] SABINO ([facility]) Body mass index (BMI) [Ratio] 54.7 kg/m2 54.7 k g/m2 SABINO ([facility]) Systolic blood pressure 123 mm[Hg] 123 mm[Hg] A THENA ([facility]) Body weight 4864 [oz_av] 4864 [oz_av] SABINO ([facility]) Diastolic blood pressure 84 mm[Hg] 84 mm[Hg] SABINO ([facility]) Body height 62.5 [in_i] 62.5 [in_i] SABINO ([facility]) Body mass index (BMI) [Ratio] 54.7 kg/m2 54.7 k g/m2 SABINO ([facility]) Systolic blood pressure 123 mm[Hg] 123 mm[Hg] A THENA ([facility]) Body weight 4864 [oz_av] 4864 [oz_av] SABINO ([facility]) Diastolic blood pressure 84 mm[Hg] 84 mm[Hg] SABINO ([facility]) Body height 62.5 [in_i] 62.5 [in_i] SABINO ([facility]) Body mass index (BMI) [Ratio] 54.7 kg/m2 54.7 k g/m2 SABINO ([facility]) Systolic blood pressure 123 mm[Hg] 123 mm[Hg] A THENA ([facility]) Body weight 4864 [oz_av] 4864 [oz_av] SABINO ([facility]) Diastolic blood pressure 84 mm[Hg] 84 mm[Hg] SABINO ([facility]) Body height 62.5 [in_i] 62.5 [in_i] SABINO ([facility]) Body mass index (BMI) [Ratio] 54.7 kg/m2 54.7 k g/m2 SABINO ([facility]) Systolic blood pressure 123 mm[Hg] 123 mm[Hg] A THENA ([facility]) Body weight 4864 [oz_av] 4864 [oz_av] SABINO ([facility]) Systolic blood pressure 166 mm[Hg] 166 mm[Hg] M EDENT ([facility], ) Diastolic blood pressure 96 mm[Hg] 96 mm[Hg] MEDENT ([facility], ) Body height 63 [in_i] 63 [in_i] MEDENT ([facility], ) 5'3" Body weight 307.00 [lb_av] 307.00 [lb_av] MEDEN T ([facility], ) Body mass index (BMI) [Ratio] 54.4 kg/m2 54.4 k g/m2 MEDENT ([facility], ) [place] body weight 115 [lb_av] 115 [lb_av] MEDEN T ([facility], ) Body weight 139.255 kg 139.255 kg MEDENT ([facility]) Body surface area Derived from formula 2.32 m2 2.32 m2 MEDENT ([facility]) Diastolic blood pressure 83 mm[Hg] 83 mm[Hg] SABINO ([facility]) Body height 62.5 [in_i] 62.5 [in_i] SABINO ([facility]) Body mass index (BMI) [Ratio] 55.4 kg/m2 55.4 k g/m2 SABINO ([facility]) Systolic blood pressure 126 mm[Hg] 126 mm[Hg] A [facility] ([facility]) Body weight 4928 [oz_av] 4928 [oz_av] SABINO ([facility]) Systolic blood pressure 126 mm[Hg] 126 mm[Hg] A [facility] ([facility]) Body mass index (BMI) [Ratio] 55.4 kg/m2 55.4 k g/m2 SABINO ([facility]) Diastolic blood pressure 83 mm[Hg] 83 mm[Hg] SABINO ([facility]) Body height 62.5 [in_i] 62.5 [in_i] SABINO ([facility]) Body weight 4928 [oz_av] 4928 [oz_av] SABINO ([facility]) Body weight 4928 [oz_av] 4928 [oz_av] SABINO ([facility]) Diastolic blood pressure 83 mm[Hg] 83 mm[Hg] SABINO ([facility]) Body height 62.5 [in_i] 62.5 [in_i] SABINO ([facility]) Body mass index (BMI) [Ratio] 55.4 kg/m2 55.4 k g/m2 SABINO ([facility]) Systolic blood pressure 126 mm[Hg] 126 [facility]Hg[facility] Diastolic blood pressure 83 mm[Hg] 83 mm[Hg] SABINO ([facility]) Body height 62.5 [in_i] 62.5 [in_i] ASBINO ([facility]) Body mass index (BMI) [Ratio] 55.4 kg/m2 55.4 k g/m2 SABINO ([facility]) Systolic blood pressure 126 mm[Hg] 126 mm[Hg] A THENA ([facility]) Body weight 4928 [oz_av] 4928 [oz_av] SABINO ([facility]) Diastolic blood pressure 83 mm[Hg] 83 mm[Hg] SABINO ([facility]) Body height 62.5 [in_i] 62.5 [in_i] SABINO ([facility]) Body mass index (BMI) [Ratio] 55.4 kg/m2 55.4 k g/m2 SABINO ([facility]) Systolic blood pressure 126 mm[Hg] 126 mm[Hg] A THENA ([facility]) Body weight 4928 [oz_av] 4928 [oz_av] SABINO ([facility]) Diastolic blood pressure 83 mm[Hg] 83 mm[Hg] SABINO ([facility]) Body height 62.5 [in_i] 62.5 [in_i] SABINO ([facility]) Body mass index (BMI) [Ratio] 55.4 kg/m2 55.4 k g/m2 SABINO ([facility]) Systolic blood pressure 126 mm[Hg] 126 mm[Hg] A THENA ([facility]) Body weight 4928 [oz_av] 4928 [oz_av] SABINO ([facility]) Body temperature 96.9 [degF] 96.9 [degF] MEDENT ([facility]) Body height 65 [in_i] 65 [in_i] MEDENT ([facility]) 5'5" Body weight 300.00 [lb_av] 300.00 [lb_av] MEDEN T ([facility]) Body mass index (BMI) [Ratio] 49.9 kg/m2 49.9 k g/m2 MEDENT ([facility]) Diastolic blood pressure 80 mm[Hg] 80 mm[Hg] SABINO ([facility]) Body height 62.5 [in_i] 62.5 [in_i] SABINO ([facility]) Body mass index (BMI) [Ratio] 55 kg/m2 55 kg/ m2 SABINO ([facility]) Systolic blood pressure 128 mm[Hg] 128 mm[Hg] A THENA ([facility]) Body weight 4892.8 [oz_av] 4892.8 [oz_av] ATHEN A ([facility]) Systolic blood pressure 128 mm[Hg] 128 mm[Hg] A THENA ([facility]) Body weight 4892.8 [oz_av] 4892.8 [oz_av] ATHEN A ([facility]) Diastolic blood pressure 80 mm[Hg] 80 mm[Hg] SABINO ([facility]) Body height 62.5 [in_i] 62.5 [in_i] SABINO ([facility]) Body mass index (BMI) [Ratio] 55 kg/m2 55 kg/ m2 SABINO ([facility]) Diastolic blood pressure 80 mm[Hg] 80 mm[Hg] SABINO ([facility]) Body height 62.5 [in_i] 62.5 [in_i] SABINO ([facility]) Body mass index (BMI) [Ratio] 55 kg/m2 55 kg/ m2 SABINO ([facility]) Systolic blood pressure 128 mm[Hg] 128 mm[facility]Hg] [facility] Body weight 4892.8 [oz_av] 4892.8 [oz_av] ATHEN A ([facility]) Diastolic blood pressure 80 mm[Hg] 80 mm[Hg] SABINO ([facility]) Body height 62.5 [in_i] 62.5 [in_i] SABINO ([facility]) Body mass index (BMI) [Ratio] 55 kg/m2 55 kg/ m2 SABINO ([facility]) Systolic blood pressure 128 mm[Hg] 128 mm[Hg] A THENA ([facility]) Body weight 4892.8 [oz_av] 4892.8 [oz_av] ATHEN A ([facility]) Diastolic blood pressure 80 mm[Hg] 80 mm[Hg] SABINO ([facility]) Body height 62.5 [in_i] 62.5 [in_i] SABINO ([facility]) Body mass index (BMI) [Ratio] 55 kg/m2 55 kg/ m2 SABINO ([facility]) Systolic blood pressure 128 mm[Hg] 128 mm[Hg] A THENA ([facility]) Body weight 4892.8 [oz_av] 4892.8 [oz_av] ATHEN A ([facility]) Diastolic blood pressure 80 mm[Hg] 80 mm[Hg] SABINO ([facility]) Body height 62.5 [in_i] 62.5 [in_i] SABINO ([facility]) Body mass index (BMI) [Ratio] 55 kg/m2 55 kg/ m2 SABINO ([facility]) Systolic blood pressure 128 mm[Hg] 128 mm[Hg] A THENA ([facility]) Body weight 4892.8 [oz_av] 4892.8 [oz_av] ATHEN A ([facility]) Diastolic blood pressure 80 mm[Hg] 80 mm[Hg] SABINO ([facility]) Body height 62.5 [in_i] 62.5 [in_i] SABINO ([facility]) Body mass index (BMI) [Ratio] 55 kg/m2 55 kg/ m2 SABINO ([facility]) Systolic blood pressure 128 mm[Hg] 128 mm[Hg] A THENA ([facility]) Body weight 4892.8 [oz_av] 4892.8 [oz_av] ATHEN A ([facility]) Body height 62.5 [in_i] 62.5 [in_i] SABINO ([facility]) Body height 62.5 [in_i] 62.5 [in_i] SABINO ([facility]) Body height 62.5 [in_i] 62.5 [in_i] SABINO ([facility]) Body height 62.5 [in_i] 62.5 [in_i] SABINO ([facility]) Body height 62.5 [in_i] 62.5 [in_i] SABINO ([facility]) Body height 62.5 [in_i] 62.5 [in_i] SABINO ([facility]) Body height 62.5 [in_i] 62.5 [in_i] SABINO ([facility]) Body height 62.5 [in_i] 62.5 [in_i] SABINO ([facility]) Diastolic blood pressure 78 mm[Hg] 78 mm[Hg] SABINO ([facility]) Body height 62.5 [in_i] 62.5 [in_i] SABINO ([facility]) Body mass index (BMI) [Ratio] 54.6 kg/m2 54.6 k g/m2 SABINO ([facility]) Systolic blood pressure 137 mm[Hg] 137 mm[Hg] A THENA ([facility]) Body weight 4854.4 [oz_av] 4854.4 [oz_av] ATHEN A ([facility]) Diastolic blood pressure 78 mm[Hg] 78 mm[Hg] SABINO ([facility]) Body height 62.5 [in_i] 62.5 [in_i] SABINO ([facility]) Body mass index (BMI) [Ratio] 54.6 kg/m2 54.6 k g/m2 SABINO ([facility]) Systolic blood pressure 137 mm[Hg] 137 mm[Hg] A THENA ([facility]) Body weight 4854.4 [oz_av] 4854.4 [oz_av] ATHEN A ([facility]) Diastolic blood pressure 78 mm[Hg] 78 mm[Hg] SABINO ([facility]) Body height 62.5 [in_i] 62.5 [in_i] SABINO ([facility]) Body mass index (BMI) [Ratio] 54.6 kg/m2 54.6 k g/m2 SABINO ([facility]) Systolic blood pressure 137 mm[Hg] 137 mm[Hg] A THENA ([facility]) Body weight 4854.4 [oz_av] 4854.4 [oz_av] ATHEN A ([facility]) Diastolic blood pressure 78 mm[Hg] 78 mm[Hg] SABINO ([facility]) Body height 62.5 [in_i] 62.5 [in_i] SABINO ([facility]) Body mass index (BMI) [Ratio] 54.6 kg/m2 54.6 k g/m2 SABINO ([facility]) Systolic blood pressure 137 mm[Hg] 137 mm[Hg] [facility] Body weight 4854.4 [oz_av] 4854.4 [oz_av] ATHEN A ([facility]) Diastolic blood pressure 78 mm[Hg] 78 mm[Hg] SABINO ([facility]) Body height 62.5 [in_i] 62.5 [in_i] SABINO ([facility]) Body mass index (BMI) [Ratio] 54.6 kg/m2 54.6 k g/m2 SABINO ([facility]) Systolic blood pressure 137 mm[Hg] 137 mm[Hg] [facility] Body weight 4854.4 [oz_av] 4854.4 [oz_av] ATHEN A ([facility]) Diastolic blood pressure 78 mm[Hg] 78 mm[Hg] SABINO ([facility]) Body height 62.5 [in_i] 62.5 [in_i] SABINO ([facility]) Body mass index (BMI) [Ratio] 54.6 kg/m2 54.6 k g/m2 SABINO ([facility]) Systolic blood pressure 137 mm[Hg] 137 mm[Hg] A THENA ([facility]) Body weight 4854.4 [oz_av] 4854.4 [oz_av] ATHEN A ([facility]) Diastolic blood pressure 78 mm[Hg] 78 mm[Hg] SABINO ([facility]) Body height 62.5 [in_i] 62.5 [in_i] SABINO ([facility]) Body mass index (BMI) [Ratio] 54.6 kg/m2 54.6 k g/m2 SABINO ([facility]) Systolic blood pressure 137 mm[Hg] 137 mm[Hg] [facility] Body weight 4854.4 [oz_av] 4854.4 [oz_av] ATHEN A ([facility]) Diastolic blood pressure 78 mm[Hg] 78 mm[Hg] SABINO ([facility]) Body height 62.5 [in_i] 62.5 [in_i] SABINO ([facility]) Body mass index (BMI) [Ratio] 54.6 kg/m2 54.6 k g/m2 SABINO ([facility]) Systolic blood pressure 137 mm[Hg] 137 mm[Hg] A THENA ([facility]) Body weight 4854.4 [oz_av] 4854.4 [oz_av] ATHEN A ([facility]) Diastolic blood pressure 78 mm[Hg] 78 mm[Hg] SABINO ([facility]) Body height 62.5 [in_i] 62.5 [in_i] SABINO ([facility]) Body mass index (BMI) [Ratio] 54.6 kg/m2 54.6 k g/m2 SABINO ([facility]) Systolic blood pressure 137 mm[Hg] 137 mm[Hg] A THENA ([facility]) Body weight 4854.4 [oz_av] 4854.4 [oz_av] ATHEN A ([facility]) Diastolic blood pressure 78 mm[Hg] 78 mm[Hg] SABINO ([facility]) Body height 62.5 [in_i] 62.5 [in_i] SABINO ([facility]) Body mass index (BMI) [Ratio] 54.6 kg/m2 54.6 k g/m2 SABINO ([facility]) Systolic blood pressure 137 mm[Hg] 137 mm[Hg] A THENA ([facility]) Body weight 4854.4 [oz_av] 4854.4 [oz_av] ATHEN A ([facility]) Diastolic blood pressure 85 mm[Hg] 85 mm[Hg] SABINO ([facility]) Body height 62.5 [in_i] 62.5 [in_i] SABINO ([facility]) Body mass index (BMI) [Ratio] 54.23 kg/m2 54.23 kg/m2 SABINO ([facility]) Systolic blood pressure 122 mm[Hg] 122 mm[Hg] A THENA ([facility]) Body weight 4803.2 [oz_av] 4803.2 [oz_av] ATHEN A ([facility]) Diastolic blood pressure 85 mm[Hg] 85 mm[Hg] SABINO ([facility]) Body height 62.5 [in_i] 62.5 [in_i] SABINO ([facility]) Body mass index (BMI) [Ratio] 54.23 kg/m2 54.23 kg/m2 SABINO ([facility]) Systolic blood pressure 122 mm[Hg] 122 mm[Hg] A THENA ([facility]) Body weight 4803.2 [oz_av] 4803.2 [oz_av] ATHEN A ([facility]) Body height 62.5 [in_i] 62.5 [in_i] SABINO ([facility]) Diastolic blood pressure 85 mm[Hg] 85 mm[Hg] SABINO ([facility]) Diastolic blood pressure 85 mm[Hg] 85 mm[Hg] SABINO ([facility]) Body height 62.5 [in_i] 62.5 [in_i] SABINO ([facility]) Body mass index (BMI) [Ratio] 54.23 kg/m2 54.23 kg/m2 SABINO ([facility]) Systolic blood pressure 122 mm[Hg] 122 mm[Hg] A THENA ([facility]) Body weight 4803.2 [oz_av] 4803.2 [oz_av] ATHEN A ([facility]) Diastolic blood pressure 85 mm[Hg] 85 mm[Hg] SABINO ([facility]) Body height 62.5 [in_i] 62.5 [in_i] SABINO ([facility]) Body mass index (BMI) [Ratio] 54.23 kg/m2 54.23 kg/m2 SABINO ([facility]) Systolic blood pressure 122 mm[Hg] 122 mm[Hg] A THENA ([facility]) Body weight 4803.2 [oz_av] 4803.2 [oz_av] ATHEN A ([facility]) Body mass index (BMI) [Ratio] 54.23 kg/m2 54.23 kg/m2 SABINO ([facility]) Systolic blood pressure 122 mm[Hg] 122 mm[Hg] A THENA ([facility]) Body weight 4803.2 [oz_av] 4803.2 [oz_av] ATHEN A ([facility]) Diastolic blood pressure 85 mm[Hg] 85 mm[Hg] SABINO ([facility]) Body height 62.5 [in_i] 62.5 [in_i] SABINO ([facility]) Body mass index (BMI) [Ratio] 54.23 kg/m2 54.23 kg/m2 SABINO ([facility]) Systolic blood pressure 122 mm[Hg] 122 mm[Hg] A THENA ([facility]) Body weight 4803.2 [oz_av] 4803.2 [oz_av] ATHEN A ([facility]) Diastolic blood pressure 85 mm[Hg] 85 mm[Hg] SABINO ([facility]) Body height 62.5 [in_i] 62.5 [in_i] SABINO ([facility]) Body mass index (BMI) [Ratio] 54.23 kg/m2 54.23 kg/m2 SABINO ([facility]) Systolic blood pressure 122 mm[Hg] 122 mm[Hg] A THENA ([facility]) Body weight 4803.2 [oz_av] 4803.2 [oz_av] ATHEN A ([facility]) Diastolic blood pressure 85 mm[Hg] 85 mm[Hg] SABINO ([facility]) Body height 62.5 [in_i] 62.5 [in_i] SABINO ([facility]) Body mass index (BMI) [Ratio] 54.23 kg/m2 54.23 kg/m2 SABINO ([facility]) Systolic blood pressure 122 mm[Hg] 122 mm[Hg] A THENA ([facility]) Body weight 4803.2 [oz_av] 4803.2 [oz_av] ATHEN A ([facility]) Diastolic blood pressure 85 mm[Hg] 85 mm[Hg] SABINO ([facility]) Body height 62.5 [in_i] 62.5 [in_i] SABINO ([facility]) Body mass index (BMI) [Ratio] 54.23 kg/m2 54.23 kg/m2 SABINO ([facility]) Systolic blood pressure 122 mm[Hg] 122 mm[Hg] A THENA ([facility]) Body weight 4803.2 [oz_av] 4803.2 [oz_av] ATHEN A ([facility]) Diastolic blood pressure 85 mm[Hg] 85 mm[Hg] SABINO ([facility]) Body height 62.5 [in_i] 62.5 [in_i] SABINO ([facility]) Body mass index (BMI) [Ratio] 54.23 kg/m2 54.23 kg/m2 SABINO ([facility]) Systolic blood pressure 122 mm[Hg] 122 mm[Hg] A JAGUARA ([facility]) Body weight 4803.2 [oz_av] 4803.2 [oz_av] ATHEN A ([facility]) Diastolic blood pressure 85 mm[Hg] 85 mm[Hg] SABINO ([facility]) Body height 62.5 [in_i] 62.5 [in_i] SABINO ([facility]) Body mass index (BMI) [Ratio] 54.23 kg/m2 54.23 kg/m2 SABINO ([facility]) Systolic blood pressure 122 mm[Hg] 122 mm[Hg] A JAGUARA ([facility]) Body weight 4803.2 [oz_av] 4803.2 [oz_av] ATHEN A ([facility]) Patient Treatment Plan of Care Planned Activity Planned Date Details Description Data Source (s) tizanidine 2 MG Oral Tablet SABINO ([facility]) Sertraline 100 MG Oral Tablet SABINO ([facility]) Oseltamivir 75 MG Oral Capsule SABINO ([facility]) methylprednisolone 4 mg tablets in a dose pack SABINO ([facility]) Lactulose 667 MG/ML Oral Solution SABINO ([facility]) Ibuprofen 200 MG Oral Tablet SABINO ([facility]) Hydroxyzine Hydrochloride 50 MG Oral Tablet SABINO ([facility]) cefdinir 300 MG Oral Capsule SABINO ([facility]) tizanidine 2 MG Oral Tablet SABINO ([facility]) Sertraline 100 MG Oral Tablet SABINO ([facility]) Oseltamivir 75 MG Oral Capsule SABINO ([facility]) methylprednisolone 4 mg tablets in a dose pack SABINO ([facility]) Lactulose 667 MG/ML Oral Solution SABINO ([facility]) Ibuprofen 200 MG Oral Tablet SABINO ([facility]) Hydroxyzine Hydrochloride 50 MG Oral Tablet SABINO ([facility]) cefdinir 300 MG Oral Capsule SABINO ([facility]) tizanidine 2 MG Oral Tablet SABINO ([facility]) Oseltamivir 75 MG Oral Capsule SABINO ([facility]) methylprednisolone 4 mg tablets in a dose pack SABINO ([facility]) Lactulose 667 MG/ML Oral Solution SABINO ([facility]) Ibuprofen 200 MG Oral Tablet SABINO ([facility]) Hydroxyzine Hydrochloride 50 MG Oral Tablet SABINO ([facility]) cefdinir 300 MG Oral Capsule SABINO ([facility]) tizanidine 2 MG Oral Tablet SABINO ([facility]) Oseltamivir 75 MG Oral Capsule SABINO ([facility]) methylprednisolone 4 mg tablets in a dose pack SABINO ([facility]) Lactulose 667 MG/ML Oral Solution SABINO ([facility]) Ibuprofen 200 MG Oral Tablet SABINO ([facility]) Hydroxyzine Hydrochloride 50 MG Oral Tablet SABINO ([facility]) cefdinir 300 MG Oral Capsule SABINO ([facility]) Alprazolam 0.25 MG Oral Tablet SABINO ([facility]) tizanidine 2 MG Oral Tablet SABINO ([facility]) Oseltamivir 75 MG Oral Capsule SABINO ([facility]) methylprednisolone 4 mg tablets in a dose pack SABINO ([facility]) Lactulose 667 MG/ML Oral Solution SABINO ([facility]) Ibuprofen 200 MG Oral Tablet SABINO ([facility]) Hydroxyzine Hydrochloride 50 MG Oral Tablet SABINO ([facility]) cefdinir 300 MG Oral Capsule SABINO ([facility]) Alprazolam 0.25 MG Oral Tablet SABINO ([facility]) tizanidine 2 MG Oral Tablet SABINO ([facility]) Oseltamivir 75 MG Oral Capsule SABINO ([facility]) methylprednisolone 4 mg tablets in a dose pack SABINO ([facility]) Lactulose 667 MG/ML Oral Solution SABINO ([facility]) Ibuprofen 200 MG Oral Tablet SABINO ([facility]) Hydroxyzine Hydrochloride 50 MG Oral Tablet SABINO ([facility]) cefdinir 300 MG Oral Capsule SABINO ([facility]) Alprazolam 0.25 MG Oral Tablet SABINO ([facility]) Oseltamivir 75 MG Oral Capsule SABINO ([facility]) Lactulose 667 MG/ML Oral Solution SABINO ([facility]) Ibuprofen 200 MG Oral Tablet SABINO ([facility]) Hydroxyzine Hydrochloride 50 MG Oral Tablet SABINO ([facility]) cefdinir 300 MG Oral Capsule SABINO ([facility]) Alprazolam 0.25 MG Oral Tablet SABINO ([facility]) Oseltamivir 75 MG Oral Capsule SABINO ([facility]) Lactulose 667 MG/ML Oral Solution SABINO ([facility]) Hydroxyzine Hydrochloride 50 MG Oral Tablet SABINO ([facility]) cefdinir 300 MG Oral Capsule SABINO ([facility]) Oseltamivir 75 MG Oral Capsule SABINO ([facility]) Lactulose 667 MG/ML Oral Solution SABINO ([facility]) Hydroxyzine Hydrochloride 50 MG Oral Tablet SABINO ([facility]) cefdinir 300 MG Oral Capsule SABINO ([facility]) Oseltamivir 75 MG Oral Capsule SABINO ([facility]) Lactulose 667 MG/ML Oral Solution SABINO ([facility]) Hydroxyzine Hydrochloride 50 MG Oral Tablet SABINO ([facility]) cefdinir 300 MG Oral Capsule SABINO ([facility])
[2021-08-27 08:16] VITALS: BP 128/76
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
[2021-08-27] MEDS ORDERED: ONDANSETRON 4 MG ORAL DISINTEGRATING TAB PO ONE (09:10)
[2021-08-27] MEDS ORDERED: ACETAMINOPHEN 500 MG TAB PO ONE (09:10)
--- OUTSIDE RECORDS SUMMARY | 2021-08-27 10:11 | CCD ---
Author Author [facility] Organization [facility] Address Unknown Phone Unavailable Care Team Providers Care Television Camera Operator Name Role Phone Abrahan Villa MD Unavailable Unavailable Abrahan Villa MD Unavailable Unavailable Abrahan Villa MD Unavailable Unavailable Abrahan Villa MD Unavailable Unavailable Abrahan Villa MD Unavailable Unavailable Abrahan Villa MD Unavailable Unavailable Abrahan Villa MD Unavailable Unavailable Abrahan Villa MD Unavailable Unavailable Abrahan Villa MD Unavailable Unavailable Abrahan Villa MD Unavailable Unavailable Abrahan Vilal MD Unavailable Unavailable Abrahan Villa MD Unavailable [...] CRAWFORD, AFSHIN ANTONIO RPA-C Unavailable Unavailable CRAWFORD, ASFHIN ANTONIO RPA-C Unavailable Unavailable CRAWFORD, AFSHIN ANTONIO [...] AFSHIN ANTONIO RPA-C Unavailable Unavailable CRAWFORD, AFSHIN ANTNOIO RPA-C Unavailable Unavailable CRAWFORD, AFSHIN ANTONIO RPA-C Unavailable Unavailable CRAWFORD, AFSHIN ANTONIO RPA-C Unavailable Unavailable CRAWFORD, AFSHIN ANTONIO RPA-C Unavailable Unavailable CRAWFORD, AFSHIN ANTONIO RPA-C Unavailable Unavailable CRAWFORD, AFSHIN ANTONIO RPA-C Unavailable Unavailable CRAWFORD, AFSHIN ANTONIO RPA-C Unavailable Unavailable CRAWFORD, AFSHIN ANTONIO RPA-C Unavailable Unavailable CRAWFORD, AFSHIN ANTONIO RPA-C Unavailable Unavailable CRAWFORD, AFSHIN ANTONIO RPA-C Unavailable Unavailable CRAWFODR, AFSHIN ANTONIO RPA-C Unavailable Unavailable CRAWFORD, AFSHIN [...] BARAYUGA, Cathy WISE MD Unavailable Unavailable BARAYUGA, Ctahy WISE MD Unavailable Unavailable BARAYUGA, Cathy WISE MD Unavailable Unavailable BARAYUGA, Cathy WISE MD Unavailable Unavailable BARAYUGA, Cathy WISE MD Unavailable Unavailable BARAYUGA, Cathy WISE MD Unavailable Unavailable BARAYUGA, Cathy WISE MD Unavailable Unavailable BARAYUGA, Cathy WISE MD Unavailable Unavailable BARAYUGACathy MD Unavailable Unavailable BARAYUGA, Cathy WISE MD Unavailable Unavailable BARAYUGA, Catyh WISE MD Unavailable Unavailable BARAYUGA, Cathy WISE [...] Unavailable Cortés, L Eliseo FARAH Unavailable Unavailable Ocrtés, L Eliseo FARAH Unavailable Unavailable Cortés, L [...] by Article 27-F of the [facility] Public Health law. If you continue you may have access to information: Regarding HIV / AIDS; Provided by facilities licensed or operated by the [facility] Office of Mental Health; or Provided by the [facility] Office for People With Developmental Disabilities. If such information is present, then the following [facility] mandated warning applies: This information has been [...] law may result in a fine or half-way sentence or both. A general authorization for the release of medical or other information is NOT sufficient authorization for further disc losure. Family History Family Member Name Family Member Gender Family Member Status Date o f Status Description Data Source(s) Unknown Male Problem MEDENT ([facility] Unknown Unknown Problem MEDENT ([facility]) father Unknown Unknown Problem MEDENT ([facility], [facility]) Encounters Encounter Providers Location Date Indications Data Source(s ) Dank Villa MD: [address] [place] [address], Ph. Attender: Dank Villa MD [facility] Medical 08/20/2021 12:00:00 AM EST [place] ([facility]) Antonio Crawford RPA-C: [address], [place] [address], Ph. Attender: ANTONIO CRAWFORD RPA-C [facility] Medical 08/04/2021 12:00:00 AM EDT [place] ([facility]) Antonio Crawford RPA-C: [address], [place] [address], Ph. Attender: ANTONIO CRAWFROD RPA-C [facility] Medical 08/04/2021 12:00:00 AM EDT [place] ([facility]) Antonio Crawford RPA-C: [address], [place] [address], Ph. Attender: ANTONIO CRAWFORD RPA-C [facility] Medical 08/04/2021 12:00:00 AM EDT [place] ([facility]) Antonio Crawford RPA-C: [address], [place] [address], Ph. Attender: ANTONIO CRAWFORD RPA-C [facility] Medical 07/31/2021 12:00:00 AM EDT [place] ([facility]) Antonio Crawford RPA-C: [address], [place] [address], Ph. Attender: ANTONIO CRAWFORD RPA-C [facility] Medical 07/31/2021 12:00:00 AM EDT [place] ([facility]) Antonio D Crawford, RPA-C: [address], [address], [place] [address], Ph. Attender: ANTONIO CRAWFORD RPA-C [facility] Medical 07/31/2021 12:00:00 AM EDT [place] ([facility]) Antonio Crawford, RPA-C: [address], [place] [address], Ph. Attender: ANTONIO CRAWFORD RPA-C [facility] Medical 07/07/2021 12:00:00 AM EDT [place] ([facility]) Antonio Crawford, RPA-C: [address], [place] [address], Ph. Attender: ANTONIO CRAWFORD RPA-C [facility] Medical 07/07/2021 12:00:00 AM EDT [place] ([facility]) Antonio Crawford, RPA-C: [address], [place] [address], Ph. Attender: ANTONIO CRAWFORD RPA-C [facility] Medical 07/07/2021 12:00:00 AM EDT [place] ([facility]) Antonio Crawford RPA-C: [address], [place] [address], Ph. Attender: ANTONIO CRAWFORD RPA-C [facility] Medical 07/07/2021 12:00:00 AM EDT [place] ([facility]) Antonio Crawford, RPA-C: [address], [address], [place] [address], Ph. Attender: ANTONIO CRAWFORD RPA-C [facility] Medical 06/03/2021 12:00:00 AM EDT [place] ([facility]) Antonio Crawford RPA-C: [address], [address], [place] [address], Ph. Attender: ANTONIO CRAWFORD RPA-C [facility] Medical 06/03/2021 12:00:00 AM EDT [place] ([facility]) Antonio Crawford RPA-C: [address], [place] [address], Ph. Attender: ANTONIO CRAWFORD RPA-C [facility] Medical 06/03/2021 12:00:00 AM EDT [place] ([facility]) Antonio Crawford RPA-C: [address], [place] [address], Ph. Attender: ANTONIO CRAWFORD RPA-C [facility] Medical 06/03/2021 12:00:00 AM EDT [place] ([facility]) Antonio Crawford RPA-C: [address], [place] [address], Ph. Attender: ANTONIO CRAWFORD RPA-C [facility] Medical 06/03/2021 12:00:00 AM EDT [place] ([facility]) Outpatient Attender: FRANDY Mcpherson/Matt/Lisandro/ Leah 05/14/2021 10:30:00 AM EDT [place] ([facility] Antonio Crawford RPA-C: [address], [address], [place] [address], Ph. Attender: ANTONIO CRAWFORD RPA-C [facility] Medical 04/28/2021 12:00:00 AM EDT [place] ([facility]) Antonio Crawford RPA-C: [address], [address], [place] [address], Ph. Attender: ANTONIO CRAWFORD RPA-C [facility] Medical 04/28/2021 12:00:00 AM EDT [place] ([facility]) Antonio Crawford RPA-C: [address], [place] [address], Ph. Attender: ANTONIO CRAWFORD RPA-Zack [facility] Medical 04/28/2021 12:00:00 AM EDT [place] ([facility]) Antonio Crawford RPA-C: [address], [place] [address], Ph. Attender: ANTONIO CRAWFORD RPA-C [facility] Medical 04/28/2021 12:00:00 AM EDT [place] ([facility]) Antonio Crawford RPA-C: [address], [place] [address], Ph. Attender: ANTONIO BARNARDC [facility] Medical 04/28/2021 12:00:00 AM EDT [place] ([facility]) Antonio Crawford RPA-C: [address], [address], [place] [address], Ph. Attender: ANTONIO CRAWFORD RPA-C [facility] Medical 04/28/2021 12:00:00 AM EDT [place] ([facility]) Outpatient Attender: Eliseo Cortés MD Physical Therapy 02/19/2021 0 8:30:00 AM EDT [place] ([facility] ) Link Barajas RPA-C: [address], [place] [address], Ph. Attender: LINK BARAJAS [facility] Medical 02/06/2021 12:00:00 AM EDT [place] ([facility]) Link Barajas RPA-C: [address], [address], [place] [address], Ph. Attender: LINK BARAJAS [facility] Medical 02/06/2021 12:00:00 AM EDT [place] ([facility]) Link Barajas RPA-C: [address], [address], [place] [address], Ph. Attender: LINK BARAJAS [facility] Medical 02/06/2021 12:00:00 AM EDT [place] ([facility]) Link Barajas RPA-C: [address], [address], [place] [address], Ph. Attender: LINK BARAJAS [facility] Medical 02/06/2021 12:00:00 AM EDT [place] ([facility]) Link Barajas RPA-C: [address], [address], [place] [address], Ph. Attender: LINK BARAJAS [facility] Medical 02/06/2021 12:00:00 AM EDT [place] ([facility]) Link Barajas RPA-C: [address], [address], [place] [address], Ph. Attender: LINK BARAJAS [facility] Medical 02/06/2021 12:00:00 AM EDT [place] ([facility]) Link Barajas RPA-C: [address], [address], [place] [address], Ph. Attender: LINK BARAJAS [facility] Medical 02/06/2021 12:00:00 AM EDT [place] ([facility]) Link Barajas RPA-C: [address], [address], [place] [address], Ph. Attender: LINK BARAJAS [facility] Medical 01/30/2021 12:00:00 AM EDT [place] ([facility]) Link Barajas RPA-C: [address], [address], [place] [address], Ph. Attender: LINK BARAJAS [facility] Medical 01/30/2021 12:00:00 AM EDT [place] ([facility]) Link Barajas RPA-C: [address], [address], [place] [address], Ph. Attender: LINK BARAJAS [facility] Medical 01/30/2021 12:00:00 AM EDT [place] ([facility]) Link Barajas RPA-C: [address], [address], [place] [address], Ph. Attender: LINK BARAJAS [facility] Medical 01/30/2021 12:00:00 AM EDT [place] ([facility]) Link Barajas RPA-C: [address], [address], [place] [address], Ph. Attender: LINK BARAJAS [facility] Medical 01/30/2021 12:00:00 AM EDT [place] ([facility]) Link Barajas RPA-C: [address], [address], [place] [address], Ph. Attender: LINK BARAJAS [facility] Medical 01/30/2021 12:00:00 AM EDT [place] ([facility]) Link Barajas RPA-C: [address], [address], [place] [address], Ph. Attender: LINK BARAJAS [facility] Medical 01/30/2021 12:00:00 AM EDT [place] ([facility]) AKIL SilvaC: [address], [address], [place] [address], Ph. Attender: LINK BARAJAS [facility] Medical 01/30/2021 12:00:00 AM EDT [place] ([facility]) Link Barajas RPA-C: [address], [address], [place] [address], Ph. Attender: LINK BARAJAS [facility] Medical 01/23/2021 12:00:00 AM EDT [place] ([facility]) Link Barajas RPA-C: [address], [address], [place] [address], Ph. Attender: LINK BARAJAS [facility] Medical 01/23/2021 12:00:00 AM EDT [place] ([facility]) Link Barajas RPA-C: [address], [address], [place] [address], Ph. Attender: LINK BARAJAS [facility] Medical 01/23/2021 12:00:00 AM EDT [place] ([facility]) Link Barajas RPA-C: [address], [address], [place] [address], Ph. Attender: LINK BARAJAS [facility] Medical 01/23/2021 12:00:00 AM EDT [place] ([facility]) Link Barajas RPA-C: [address], [address], [place] [address], Ph. Attender: LINK BARAJAS [facility] Medical 01/23/2021 12:00:00 AM EDT [place] ([facility]) Link Barajas RPA-C: [address], [address], [place] [address], Ph. Attender: LINK BARAJAS [facility] Medical 01/23/2021 12:00:00 AM EDT [place] ([facility]) Link Barajas RPA-C: [address], [address], [place] [address], Ph. Attender: LINK BARAJAS [facility] Medical 01/23/2021 12:00:00 AM EDT [place] ([facility]) Link Barajas RPA-C: [address], [address], [place] [address], Ph. Attender: LINK BARAJAS [facility] Medical 01/23/2021 12:00:00 AM EDT [place] ([facility]) Link Barajas RPA-C: [address], [address], [place] [address], Ph. Attender: ILNK BARAJAS [facility] Medical 01/23/2021 12:00:00 AM EDT [place] ([facility]) Link Barajas RPA-C: [address], [address], [place] [address], Ph. Attender: LINK BARAJAS [facility] Medical 12/26/2020 12:00:00 AM EDT [place] ([facility]) Link Barajas RPA-C: [address], [address], [place] [address], Ph. Attender: LINK BARAJAS [facility] Medical 12/26/2020 12:00:00 AM EDT [place] ([facility]) Link Barajas RPA-C: [address], [address], [place] [address], Ph. Attender: LINK BARAJAS [facility] Medical 12/26/2020 12:00:00 AM EDT [place] ([facility]) Link Barajas RPA-C: [address], [address], [place] [address], Ph. Attender: LINK BARAJAS [facility] Medical 12/26/2020 12:00:00 AM EDT [place] ([facility]) Link Barajas RPA-C: [address], [address], [place] [address], Ph. Attender: LINK BARAJAS [facility] Medical 12/26/2020 12:00:00 AM EDT [place] ([facility]) Link Barajas RPA-C: [address], [address], [place] [address], Ph. Attender: LINK BARAJAS [facility] Medical 12/26/2020 12:00:00 AM EDT [place] ([facility]) Link Barajas RPA-C: [address], [address], [place] [address], Ph. Attender: LINK BARAJAS [facility] Medical 12/26/2020 12:00:00 AM EDT [place] ([facility]) Link Barajas RPA-C: [address], [address], [place] [address], Ph. Attender: LINK BARAJAS [facility] Medical 12/26/2020 12:00:00 AM EDT [place] ([facility]) Link Barajas RPA-C: [address], [address], [place] [address], Ph. Attender: LINK BARAJAS [facility] Medical 12/26/2020 12:00:00 AM EDT [place] ([facility]) Link Barajas RPA-C: [address], [address], [place] [address], Ph. Attender: LINK BARAJAS [facility] Medical 12/26/2020 12:00:00 AM EDT [place] ([facility]) Link Barajas RPA-C: [address], [address], [place] [address], Ph. Attender: LINK BARAJAS [facility] Medical 12/19/2020 12:00:00 AM EST [place] ([facility]) Link Barajas RPA-C: [address], [address], [place] [address], Ph. Attender: LINK BARAJAS [facility] Medical 12/19/2020 12:00:00 AM EST [place] ([facility]) Link Barajas RPA-C: [address], [address], [place] [address], Ph. Attender: LINK BARAJAS [facility] Medical 12/19/2020 12:00:00 AM EST [place] ([facility]) AKIL SilvaC: [address], [address], [place] [address], Ph. Attender: LINK BARAJAS [facility] Medical 12/19/2020 12:00:00 AM EST [place] ([facility]) Link Barajas RPA-C: [address], [address], [place] [address], Ph. Attender: LINK BARAJAS [facility] Medical 12/19/2020 12:00:00 AM EST [place] ([facility]) Link Barajas RPA-C: [address], [address], [place] [address], Ph. Attender: LINK BARAJAS [facility] Medical 12/19/2020 12:00:00 AM EST [place] ([facility]) Link Barajas RPA-C: [address], [address], [place] [address], Ph. Attender: LINK WILDERBINS [facility] Medical 12/19/2020 12:00:00 AM EST [place] ([facility]) Link Faye RPA-C: [address], [address], [place] [address], Ph. Attender: LINK WILDERBINS [facility] Medical 12/19/2020 12:00:00 AM EST [place] ([facility]) Linksarah Barajas RPA-C: [address], [address], [place] [address], Ph. Attender: LINKSARAH BARAJAS [facility] Medical 12/19/2020 12:00:00 AM EST [place] ([facility]) Linksarah Barajas RPA-C: [address], [address], [place] [address], Ph. Attender: LINKSARAH BARAJAS [facility] Medical 12/19/2020 12:00:00 AM EST [place] ([facility]) Link Faye RPA-C: [address], [address], [place] [address], Ph. Attender: LINKSARAH BARAJAS [facility] Medical 12/19/2020 12:00:00 AM EST [place] ([facility]) Dank Villa MD: [address] [place] [address], Ph. Attender: Dank Villa MD [facility] Medical 08/25/2020 12:00:00 AM EST [place] ([facility]) Dank Villa MD: [address] [place] [address], Ph. Attender: Dank Villa MD [facility] Medical 08/25/2020 12:00:00 AM EST [place] ([facility]) Dank Villa MD: [address] [place] [address], Ph. Attender: Dank Villa MD [facility] Medical 08/25/2020 12:00:00 AM EST [place] ([facility]) Dank Villa MD: [address] [place] [address], Ph. Attender: Dank Villa MD [facility] Medical 08/25/2020 12:00:00 AM EST [place] ([facility]) Dank Villa MD: [address] [place] [address], Ph. Attender: Dank Villa MD [facility] Medical 08/25/2020 12:00:00 AM EST [place] ([facility]) Dank Villa MD: [address] [place] [address], Ph. Attender: Dank Villa MD [facility] Medical 08/25/2020 12:00:00 AM EST [place] ([facility]) Dank Villa MD: [address] [place] [address], Ph. Attender: Dank Villa MD [facility] Medical 08/25/2020 12:00:00 AM EST [place] ([facility]) Dank Villa MD: [address] [place] [address], Ph. Attender: Dank Villa MD [facility] Medical 08/25/2020 12:00:00 AM EST [place] ([facility]) Dank Villa MD: [address] [place] [address], Ph. Attender: Dank Villa MD [facility] Medical 08/25/2020 12:00:00 AM EST [place] ([facility]) Dank Villa MD: [address] [place] [address], Ph. Attender: Dank Villa MD [facility] Medical 08/25/2020 12:00:00 AM EST [place] ([facility]) Dank Villa MD: [address] [place] [address], Ph. Attender: Dank Villa MD [facility] Medical 08/25/2020 12:00:00 AM EST [place] ([facility]) Dank Villa MD: [address] [place] [address], Ph. Attender: Dank Villa MD [facility] Medical 08/25/2020 12:00:00 AM EST [place] ([facility]) Outpatient Attender: ANTONIO CRAWFORD RPA-C [facility] 08/05/2020 03:03:01 PM EDT [facility] Outpatient Attender: ANTONIO CRAWFORD RPA-C [facility] 08/05/2020 03:03:01 PM EDT [facility] Outpatient Attender: ANTONIO CRAWFORD RPA-C [facility] 07/24/2020 01:35:02 PM EDT [facility] Outpatient Attender: ANTONIO CRAWFORD RPA-C [facility] 07/24/2020 01:35:01 PM EDT [facility] Outpatient Attender: ANTONIO CRAWFORD RPA-C [facility] 07/17/2020 10:16:02 AM EDT [facility] Outpatient Attender: ANTONIO CRAWFORD RPA-C [facility] 07/17/2020 10:02:01 AM EDT [facility] Outpatient Attender: ANTONIO CRAWFORD RPA-C [facility] 07/17/2020 10:02:00 AM EDT [facility] Outpatient Attender: ANTONIO CRAWFORD RPA-C [facility] 07/11/2020 08:45:01 AM EDT [facility] Immunizations Vaccine Date Status Description Data Source(s) COVID-19 vaccine, vector-nr, rS-Ad26, PF, 0.5 mL ([place]) 01/07/2021 12:00:00 AM EDT completed 01/07/2021 [facility] ([facility]) COVID-19 vaccine, vector-nr, rS-Ad26, PF, 0.5 mL 01/07/2021 12:00:00 AM EDT completed 01/07/2021 [place] ([facility]) COVID-19 vaccine, vector-nr, rS-Ad26, PF, 0.5 mL 01/07/2021 12:00:00 AM EDT completed 01/07/2021 [facility] ([facility]) COVID-19 vaccine, vector-nr, rS-Ad26, PF, 0.5 mL 01/07/2021 12:00:00 AM EDT completed 01/07/2021 [facility] ([facility]) COVID-19 vaccine, vector-nr, rS-Ad26, PF, 0.5 mL 01/07/2021 12:00:00 AM EDT completed 01/07/2021 [facility] ([facility]) COVID-19 vaccine, vector-nr, rS-Ad26, PF, 0.5 mL 01/07/2021 12:00:00 AM EDT completed 01/07/2021 [facility] ([facility]) COVID-19 VACCINE Lorene 01/07/2021 12:00:00 AM EDT completed [employer] Vaccine Series Complete: YESThis Data wa s Submitted to [facility] Via [employer]. New in 2011. IIV4 07/17/2020 12:00:00 AM EDT completed 0.5 mL [facility] ([facility]) New in 2011. IIV4 07/17/2020 12:00:00 AM EDT completed 0.5 mL [facility]ABINO ([facility]) New in 2011. IIV4 07/17/2020 12:00:00 AM EDT completed 0.5 mL [facility]ABINO ([facility]) New in 2011. IIV4 07/17/2020 12:00:00 AM EDT completed 0.5 mL [facility]ABINO ([facility]) New in 2011. IIV4 07/17/2020 12:00:00 AM EDT completed 0.5 mL [facility]ABINO ([facility]) New in 2011. IIV4 07/17/2020 12:00:00 AM EDT completed 0.5 mL [facility]ABINO ([facility]) New in 2011. IIV4 07/17/2020 12:00:00 AM EDT completed 0.5 mL [facility]ABINO ([facility]) New in 2011. IIV4 07/17/2020 12:00:00 AM EDT completed 0.5 mL [facility]ABINO ([facility]) New in 2011. IIV4 07/17/2020 12:00:00 AM EDT completed 0.5 mL SABINO ([facility]) New in 2011. IIV4 07/17/2020 12:00:00 AM EDT completed 0.5 mL SABINO ([facility]) New in 2011. IIV4 07/17/2020 12:00:00 AM EDT completed .5 mL [facility]ABINO ([facility]) Medications Medication Brand Name Start Date [...] completed oseltamivir 75 MG Oral Capsule [facility] ([facility]) tizanidine 2 MG Oral Tablet tizanidine 2 mg tablet tizanidine 2 mg ta blet completed tizanidine 2 MG Oral Tablet [facility] ([facility]) Oseltamivir 75 MG Oral Capsule oseltamiv ir 75 mg capsule TAKE ONE CAPSULE BY MOUTH TWICE A DAY FOR 5 DAYS oseltamivir 75 mg capsule TAKE ONE CAPSU LE BY MOUTH TWICE A DAY FOR 5 DAYS completed oseltamivir 75 MG Oral Capsule [facility] ([facility]) Oseltamivir 75 MG Oral Capsule oseltamiv ir 75 mg capsule TAKE ONE CAPSULE BY MOUTH TWICE A DAY FOR 5 DAYS oseltamivir 75 mg capsule TAKE ONE CAPSU LE BY MOUTH TWICE A DAY FOR 5 DAYS completed oseltamivir 75 MG Oral Capsule [facility] ([facility]) Ibuprofen 200 MG Oral Tablet ibuprofen 2 00 mg tablet Take 3 tablets every 8 hours by oral route. ibuprofen 200 mg tablet Take 3 tablets e very 8 hours by oral route. 3 completed ibuprofen 200 MG Oral Tablet [facility] ([facility]) Ibuprofen 200 MG Oral Tablet ibuprofen 2 00 mg tablet Take 3 tablets every 8 hours by oral route. ibuprofen 200 mg tablet Take 3 tablets e very 8 hours by oral route. 3 completed ibuprofen 200 MG Oral Tablet [facility] ([facility]) cefdinir 300 MG Oral Capsule cefdinir 30 0 mg capsule TAKE ONE CAPSULE BY MOUTH TWO TIMES A DAY cefdinir 300 mg capsule TAKE ONE CAPSULE BY MOUTH TWO TIMES A DAY completed cefdinir 300 MG Oral Capsule [facility]) Oseltamivir 75 MG Oral Capsule oseltamiv ir 75 mg capsule TAKE ONE CAPSULE BY MOUTH TWICE A DAY FOR 5 DAYS oseltamivir 75 mg capsule TAKE ONE CAPSU LE BY MOUTH TWICE A DAY FOR 5 DAYS completed oseltamivir 75 MG Oral Capsule [facility] ([facility]) Hydroxyzine Hydrochloride 50 MG Oral Tab let hydroxyzine HCl 50 mg tablet TAKE ONE TABLET BY MOUTH EVERY DAY AT BEDTIME hydroxyzine HCl 50 mg tablet TAKE ONE TABLET BY MOUTH EVERY DAY AT BEDTIME c ompleted hydroxyzine hydrochloride 50 MG Oral Tablet [facility]) Lactulose 667 MG/ML Oral Solution lactul ose 10 gram/15 mL oral solution TAKE 30ML BY MOUTH TWO TIMES A DAY FOR CONSTIPATION lactulose 10 gram/15 mL oral solution TAKE 30ML BY MOUTH TWO TIMES A DAY FOR CONSTIPATION completed lactulose 667 MG/ML Oral Solutio n [facility]) cefdinir 300 MG Oral Capsule cefdinir 30 0 mg capsule TAKE ONE CAPSULE BY MOUTH TWO TIMES A DAY cefdinir 300 mg capsule TAKE ONE CAPSULE BY MOUTH TWO TIMES A DAY completed cefdinir 300 MG Oral Capsule [facility]) Oseltamivir 75 MG Oral Capsule oseltamiv ir 75 mg capsule TAKE ONE CAPSULE BY MOUTH TWICE A DAY FOR 5 DAYS oseltamivir 75 mg capsule TAKE ONE CAPSU LE BY MOUTH TWICE A DAY FOR 5 DAYS completed oseltamivir 75 MG Oral Capsule [facility] ([facility]) Sertraline 100 MG Oral Tablet sertraline 100 mg tablet TAKE 1 1/2 TABLETS BY MOUTH ONCE DAILY sertraline 100 mg tablet TAKE 1 1/2 TA BLETS BY MOUTH ONCE DAILY completed sertraline 100 M G Oral Tablet [facility] ([facility]) cefdinir 300 MG Oral Capsule cefdinir 30 0 mg capsule TAKE ONE CAPSULE BY MOUTH TWO TIMES A DAY cefdinir 300 mg capsule TAKE ONE CAPSULE BY MOUTH TWO TIMES A DAY completed cefdinir 300 MG Oral Capsule [facility] ([facility]) Alprazolam 0.25 MG Oral Tablet alprazola m 0.25 mg tablet TAKE ONE TABLET BY MOUTH TWICE A DAY NEEDED MAXIMUM DAILY DOSE TWO TABLETS alprazolam 0.25 mg tablet TAKE ONE TABLET BY MOUTH TWICE A DAY NEEDED MAXIMUM DAILY DOSE TWO TABLETS completed alprazolam 0.2 5 MG Oral Tablet [facility] ([facility]) Alprazolam 0.25 MG Oral Tablet alprazola m 0.25 mg tablet TAKE ONE TABLET BY MOUTH TWICE A DAY NEEDED MAXIMUM DAILY DOSE TWO TABLETS alprazolam 0.25 mg tablet TAKE ONE TABLET BY MOUTH TWICE A DAY NEEDED MAXIMUM DAILY DOSE TWO TABLETS completed alprazolam 0.2 5 MG Oral Tablet [facility] ([facility]) Lactulose 667 MG/ML Oral Solution lactul ose 10 gram/15 mL oral solution TAKE 30ML BY MOUTH TWO TIMES A DAY FOR CONSTIPATION lactulose 10 gram/15 mL oral solution TAKE 30ML BY MOUTH TWO TIMES A DAY FOR CONSTIPATION completed lactulose 667 MG/ML Oral Solutio n [facility] ([facility]) Lactulose 667 MG/ML Oral Solution lactul ose 10 gram/15 mL oral solution TAKE 30ML BY MOUTH TWO TIMES A DAY FOR CONSTIPATION lactulose 10 gram/15 mL oral solution TAKE 30ML BY MOUTH TWO TIMES A DAY FOR CONSTIPATION completed lactulose 667 MG/ML Oral Solutio n [facility] ([facility]) tizanidine 2 MG Oral Tablet tizanidine 2 mg tablet tizanidine 2 mg ta blet completed tizanidine 2 MG Oral Tablet [facility] ([facility]) Hydroxyzine Hydrochloride 50 MG Oral Tab let hydroxyzine HCl 50 mg tablet TAKE ONE TABLET BY MOUTH EVERY DAY AT BEDTIME hydroxyzine HCl 50 mg tablet TAKE ONE TABLET BY MOUTH EVERY DAY AT BEDTIME c ompleted hydroxyzine hydrochloride 50 MG Oral Tablet [facility] ([facility]) Oseltamivir 75 MG Oral Capsule oseltamiv ir 75 mg capsule TAKE ONE CAPSULE BY MOUTH TWICE A DAY FOR 5 DAYS oseltamivir 75 mg capsule TAKE ONE CAPSU LE BY MOUTH TWICE A DAY FOR 5 DAYS completed oseltamivir 75 MG Oral Capsule [facility] ([facility]) Hydroxyzine Hydrochloride 50 MG Oral Tab let hydroxyzine HCl 50 mg tablet TAKE ONE TABLET BY MOUTH EVERY DAY AT BEDTIME hydroxyzine HCl 50 mg tablet TAKE ONE TABLET BY MOUTH EVERY DAY AT BEDTIME c ompleted hydroxyzine hydrochloride 50 MG Oral Tablet [facility] ([facility]) cefdinir 300 MG Oral Capsule cefdinir 30 0 mg capsule TAKE ONE CAPSULE BY MOUTH TWO TIMES A DAY cefdinir 300 mg capsule TAKE ONE CAPSULE BY MOUTH TWO TIMES A DAY completed cefdinir 300 MG Oral Capsule [facility] ([facility]) cefdinir 300 MG Oral Capsule cefdinir 30 0 mg capsule TAKE ONE CAPSULE BY MOUTH TWO TIMES A DAY cefdinir 300 mg capsule TAKE ONE CAPSULE BY MOUTH TWO TIMES A DAY completed cefdinir 300 MG Oral Capsule [facility]) Ibuprofen 200 MG Oral Tablet ibuprofen 2 00 mg tablet Take 3 tablets every 8 hours by oral route. ibuprofen 200 mg tablet Take 3 tablets e very 8 hours by oral route. 3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 filtration rate/1.73 sq M.pre dicted among blacks [Volume Rate/Area] in Serum, Plasma or Blood by Creatinine-based formula (CKD-EPI) 110 mL/min/1.73m2 > or = 60 eGFR SABINO ([facility]) Potassium [Moles/volume] in Serum or Plasma 4.2 mmol/L 3.5-5.3 Potassium S[place] ([facility]) Sodium [Moles/volume] in Serum or Plasma 139 mmol/L 135-146 Sodium S[place] ([facility]) Urea nitrogen/Creatinine [Mass Ratio] in Serum or Plasma not applic able 6-22 BUN/creatinine Ratio SABINO ([facility]) Carbon dioxide, total [Moles/volume] in Serum or Plasma 25 mmol/L 20-32 Carbon Dioxide SABINO ([facility]) Chloride [Moles/volume] in Serum or Plasma 107 mmol/L 98-110 Chloride SABINO ([facility]) Protein [Mass/volume] in Serum or Plasma 6.7 g/dL 6.1-8.1 Protein, Total S[place]INO ([facility]) Albumin [Mass/volume] in Serum or Plasma 4.1 g/dL 3.6-5.1 Albumin SAB[place] ([facility]) Calcium [Mass/volume] in Serum or Plasma 8.9 mg/dL 8.6-10.2 Calcium S[place] ([facility]) Globulin [Mass/volume] in Serum by calculation 2.6 g/dL_(calc) 1.9- 3.7 Globulin S[place] ([facility]) Bilirubin.total [Mass/volume] in Serum or Plasma 0.5 mg/dL 0.2-1 .2 Bilirubin, Total SAB[place] ([facility]) Albumin/Globulin [Mass Ratio] in Serum or Plasma 1.6 (calc) 1.0-2 .5 Albumin/globulin Ratio SABINO ([facility]) Aspartate aminotransferase [Enzymatic activity/volume] in Serum or Plasma 25 U/L 10-30 Ast SABINO ([facility]) Alkaline phosphatase [Enzymatic activity/volume] in Serum or Plasma 100 U/L 31-125 Alkaline Phosphatase S[place] ([facility]) Alanine aminotransferase [Enzymatic activity/volume] in Seru m or Plasma 28 U/L 6-29 Alt S[place] ([facility]) ID Date Data Source [id number] 08/04/2021 09:34:00 AM EDT [facility]) Name Value Range Interpretation Code Description Data Sakshi rce(s) Supporting Document(s) HIV 1+2 Ab+HIV1 p24 Ag [Presence] in Serum or Plasma b y Immunoassay non-reactive non-reactive HIV Ag/Ab, 4TH Gen [facility]) ID Date Data Source [id number] 08/04/2021 09:34:00 AM EDT [facility]) Name Value Range Interpretation Code Description Data Sakshi rce(s) Supporting Document(s) Cholesterol [Mass/volume] in Serum or Plasma 175 mg/dL <200 Cholesterol, Total SABINO ([facility]) Cholesterol in HDL [Mass/volume] in Serum or Plasma 39 mg/dL > or = 50 Below low normal HDL Cholesterol SABINO ([facility]) Triglyceride [Mass/volume] in Serum or Plasma 70 mg/dL <150 Triglycerides SABINO ([facility]) Cholesterol non HDL [Mass/volume] in Serum or Plasma 136 mg/dL_( calc) <130 Above high normal Non HDL Cholesterol [facility] ([facility]) Cholesterol.total/Cholesterol in HDL [Mass Ratio] in Serum o r Plasma 4.5 (calc) <5.0 Chol/hdlc Ratio SABINO ([facility]) Cholesterol in LDL [Mass/volume] in Serum or Plasma by calculation 120 mg/dL_(calc) Above high normal LDL-cholesterol SABINO ([facility]) ID Date Data Source [id number] 01/29/2021 11:46:00 AM EDT TRILLA ([facility]) Name Value Range Interpretation Code Description Data Sakshi rce(s) Supporting Document(s) istat B-HCG < 5.0 Istat B-HCG S[place] ([facility]) ID Date Data Source [id number] 01/29/2021 11:46:00 AM EDT [facility]) Name Value Range Interpretation Code Description Data Sakshi rce(s) Supporting Document(s) istat B-HCG < 5.0 Istat B-HCG [place] ([facility]) ID Date Data Source [id number] 01/29/2021 11:46:00 AM EDT [facility]) Name Value Range Interpretation Code Description Data Sakshi rce(s) Supporting Document(s) istat B-HCG < 5.0 Istat B-HCG [place] ([facility]) ID Date Data Source [id number] 01/29/2021 11:46:00 AM EDT [facility]) Name Value Range Interpretation Code Description Data Sakshi rce(s) Supporting Document(s) istat B-HCG < 5.0 Istat B-HCG S[place] ([facility]) ID Date Data Source [id number] 01/29/2021 11:46:00 AM EDT SABINO ([facility]) Name Value Range Interpretation Code Description Data Sakshi rce(s) Supporting Document(s) istat B-HCG < 5.0 Istat B-HCG [place] ([facility]) ID Date Data Source [id number] 01/29/2021 11:46:00 AM EDT S[place]INO ([facility]) Name Value Range Interpretation Code Description Data Sakshi rce(s) Supporting Document(s) istat B-HCG < 5.0 Istat B-HCG [place] ([facility]) ID Date Data Source [id number] 01/29/2021 11:45:00 AM EDT S[place]INO ([facility]) Name Value Range Interpretation Code Description Data Sakshi rce(s) Supporting Document(s) istat HCT 46.0 % 38.0-51.0 Istat HCT [place] ([facility]) istat potassium 4.2 mEq/L 3.5-5.1 Istat Potassium ATHE NA ([facility]) istat sodium 138 mEq/L 136-145 Istat Sodium S[place] ([facility]) istat glucose 84 mg/dL 70-105 Istat Glucose S[place] ( [facility]) istat Ca++ 4.7 mg/dL 4.5-5.3 Istat Ca++ S[place] ([facility]) istat CO2 30.0 mm/L 23.0-27.0 Above high normal Istat CO2 S[place] ([facility]) istat chloride 102 mEq/L 98-109 Istat Chloride S[place] ([facility]) istat BUN 17 mg/dL 8-26 Istat BUN [place] ([facility]) istat creatinine 1.0 mg/dL 0.6-1.3 Istat Creatinine AT KERRI ([facility]) ID Date Data Source [id number] 01/29/2021 11:45:00 AM EDT [facility]) Name Value Range Interpretation Code Description Data Sakshi rce(s) Supporting Document(s) istat HCT 46.0 % 38.0-51.0 Istat HCT [place] ([facility]) istat glucose 84 mg/dL 70-105 Istat Glucose S[place] ( [facility]) istat Ca++ 4.7 mg/dL 4.5-5.3 Istat Ca++ [place] ([facility]) istat potassium 4.2 mEq/L 3.5-5.1 Istat Potassium ATHE NA ([facility]) istat sodium 138 mEq/L 136-145 Istat Sodium [place] ([facility]) istat chloride 102 mEq/L 98-109 Istat Chloride S[place] ([facility]) istat CO2 30.0 mm/L 23.0-27.0 Above high normal Istat CO2 S[place] ([facility]) istat BUN 17 mg/dL 8-26 Istat BUN [place] ([facility]) istat creatinine 1.0 mg/dL 0.6-1.3 Istat Creatinine AT [facility]) ID Date Data Source [id number] 01/29/2021 11:45:00 AM EDT S[place]INO ([facility]) Name Value Range Interpretation Code Description Data Saskhi rce(s) Supporting Document(s) istat glucose 84 mg/dL 70-105 Istat Glucose S[place] ( [facility]) istat HCT 46.0 % 38.0-51.0 Istat HCT [place] ([facility]) istat potassium 4.2 mEq/L 3.5-5.1 Istat Potassium ATHE NA ([facility]) istat sodium 138 mEq/L 136-145 Istat Sodium [place] ([facility]) istat Ca++ 4.7 mg/dL 4.5-5.3 Istat Ca++ S[place] ([facility]) istat chloride 102 mEq/L 98-109 Istat Chloride S[place] ([facility]) istat BUN 17 mg/dL 8-26 Istat BUN [place] ([facility]) istat creatinine 1.0 mg/dL 0.6-1.3 Istat Creatinine AT [facility] ([facility]) istat CO2 30.0 mm/L 23.0-27.0 Above high normal Istat CO2 S[place] ([facility]) ID Date Data Source [id number] 01/29/2021 11:45:00 AM EDT TRILLA ([facility]) Name Value Range Interpretation Code Description Data Sakshi rce(s) Supporting Document(s) istat HCT 46.0 % 38.0-51.0 Istat HCT S[place] ([facility]) istat sodium 138 mEq/L 136-145 Istat Sodium [place] ([facility]) istat glucose 84 mg/dL 70-105 Istat Glucose S[place] ( [facility]) istat potassium 4.2 mEq/L 3.5-5.1 Istat Potassium ATHE NA ([facility]) istat CO2 30.0 mm/L 23.0-27.0 Above high normal Istat CO2 S[place] ([facility]) istat chloride 102 mEq/L 98-109 Istat Chloride S[place] ([facility]) istat Ca++ 4.7 mg/dL 4.5-5.3 Istat Ca++ [place] ([facility]) istat BUN 17 mg/dL 8-26 Istat BUN [place] ([facility]) istat creatinine 1.0 mg/dL 0.6-1.3 Istat Creatinine AT [facility]) ID Date Data Source [id number] 01/29/2021 11:45:00 AM EDT S[place]INO ([facility]) Name Value Range Interpretation Code Description Data Sakshi rce(s) Supporting Document(s) istat HCT 46.0 % 38.0-51.0 Istat HCT [place] ([facility]) istat glucose 84 mg/dL 70-105 Istat Glucose S[place] ( [facility]) istat sodium 138 mEq/L 136-145 Istat Sodium [place] ([facility]) istat Ca++ 4.7 mg/dL 4.5-5.3 Istat Ca++ S[place] ([facility]) istat potassium 4.2 mEq/L 3.5-5.1 Istat Potassium ATHE NA ([facility]) istat chloride 102 mEq/L 98-109 Istat Chloride S[place] ([facility]) istat CO2 30.0 mm/L 23.0-27.0 Above high normal Istat CO2 S[place] ([facility]) istat creatinine 1.0 mg/dL 0.6-1.3 Istat Creatinine AT [facility] ([facility]) istat BUN 17 mg/dL 8-26 Istat BUN [place] ([facility]) ID Date Data Source [id number] 01/29/2021 11:45:00 AM EDT TRILLA ([facility]) Name Value Range Interpretation Code Description Data Sakshi rce(s) Supporting Document(s) istat HCT 46.0 % 38.0-51.0 Istat HCT [place] ([facility]) istat sodium 138 mEq/L 136-145 Istat Sodium [place] ([facility]) istat glucose 84 mg/dL 70-105 Istat Glucose S[place] ( [facility]) istat potassium 4.2 mEq/L 3.5-5.1 Istat Potassium ATHE NA ([facility]) istat Ca++ 4.7 mg/dL 4.5-5.3 Istat Ca++ [place] ([facility]) istat chloride 102 mEq/L 98-109 Istat Chloride S[place] ([facility]) istat CO2 30.0 mm/L 23.0-27.0 Above high normal Istat CO2 [place] ([facility]) istat BUN 17 mg/dL 8-26 Istat BUN [place] ([facility]) istat creatinine 1.0 mg/dL 0.6-1.3 Istat Creatinine AT KERRI ([facility]) ID Date Data Source [id number] 01/23/2021 08:35:00 AM EDT [facility]) Name Value Range Interpretation Code Description Data Sakshi rce(s) Supporting Document(s) ID Date Data Source [id number] 01/23/2021 08:35:00 [facility] Name Value Range Interpretation Code Description Data Sakshi rce(s) Supporting Document(s) ID Date Data Source [id number] 01/23/2021 08:35:00 AM EDT [facility]) Name Value Range Interpretation Code Description Data Sakshi rce(s) Supporting Document(s) ID Date Data Source [id number] 01/23/2021 08:35:00 AM EDT [facility] Name Value Range Interpretation Code Description Data Sakshi rce(s) Supporting Document(s) ID Date Data Source [id number] 01/23/2021 08:35:00 AM EDT [facility]) Name Value Range Interpretation Code Description Data Sakshi rce(s) Supporting Document(s) ID Date Data Source [id number] 01/23/2021 08:35:00 AM EDT [facility] Name Value Range Interpretation Code Description Data Sakshi rce(s) Supporting Document(s) ID Date Data Source [id number] 01/23/2021 08:35:00 AM EDT [facility]) Name Value Range Interpretation Code Description Data Sakshi rce(s) Supporting Document(s) ID Date Data Source [id number] 01/23/2021 08:35:00 AM EDT [facility] Name Value Range Interpretation Code Description Data Sakshi rce(s) Supporting Document(s) ID Date Data Source [id number] 01/23/2021 08:35:00 AM EDT [facility] Name Value Range Interpretation Code Description Data Sakshi rce(s) Supporting Document(s) ID Date Data Source [id number] 01/23/2021 08:35:00 AM EDT [facility] Name Value Range Interpretation Code Description Data Sakshi rce(s) Supporting Document(s) ID Date Data Source [id number] 01/23/2021 08:35:00 AM EDT [facility] Name Value Range Interpretation Code Description Data Sakshi rce(s) Supporting Document(s) ID Date Data Source [id number] 01/23/2021 08:35:00 AM EDT [facility] Name Value Range Interpretation Code Description Data Sakshi rce(s) Supporting Document(s) ID Date Data Source [id number] 01/23/2021 08:35:00 AM EDT [facility]) Name Value Range Interpretation Code Description Data Sakshi rce(s) Supporting Document(s) ID Date Data Source [id number] 01/23/2021 08:35:00 AM EDT [facility]) Name Value Range Interpretation Code Description Data Sakshi rce(s) Supporting Document(s) ID Date Data Source [id number] 01/23/2021 08:35:00 AM EDT [facility] Name Value Range Interpretation Code Description Data Sakshi rce(s) Supporting Document(s) ID Date Data Source [id number] 01/23/2021 08:35:00 AM EDT [facility]) Name Value Range Interpretation Code Description Data Sakshi rce(s) Supporting Document(s) ID Date Data Source [id number] 12/26/2020 10:28:00 AM EDT [facility]) Name Value Range Interpretation Code Description Data Sakshi rce(s) Supporting Document(s) sars-cov-2 negative negative Sars-cov-2 [facility]) ID Date Data Source [id number] 12/26/2020 10:28:00 AM EDT [facility]) Name Value Range Interpretation Code Description Data Sakshi rce(s) Supporting Document(s) sars-cov-2 negative negative Sars-cov-2 [facility]) ID Date Data Source [id number] 12/26/2020 10:28:00 AM EDT [facility]) Name Value Range Interpretation Code Description Data Sakshi rce(s) Supporting Document(s) sars-cov-2 negative negative Sars-cov-2 [facility]) ID Date Data Source [id number] 12/26/2020 10:28:00 AM EDT [facility]) Name Value Range Interpretation Code Description Data Sakshi rce(s) Supporting Document(s) sars-cov-2 negative negative Sars-cov-2 [facility] ([facility]) ID Date Data Source [id number] 12/26/2020 10:28:00 AM EDT [facility] ([facility]) Name Value Range Interpretation Code Description Data Sakshi rce(s) Supporting Document(s) sars-cov-2 negative negative Sars-cov-2 [facility] ([facility]) ID Date Data Source [id number] 12/26/2020 10:28:00 AM EDT [facility]) Name Value Range Interpretation Code Description Data Sakshi rce(s) Supporting Document(s) sars-cov-2 negative negative Sars-cov-2 [facility] ([facility]) ID Date Data Source [id number] 12/26/2020 10:28:00 AM EDT [facility]) Name Value Range Interpretation Code Description Data Sakshi rce(s) Supporting Document(s) sars-cov-2 negative negative Sars-cov-2 [facility] ([facility]) ID Date Data Source [id number] 12/26/2020 10:28:00 AM EDT [facility]) Name Value Range Interpretation Code Description Data Sakshi rce(s) Supporting Document(s) sars-cov-2 negative negative Sars-cov-2 [facility] ([facility]) ID Date Data Source [id number] 12/26/2020 10:28:00 AM EDT [facility]) Name Value Range Interpretation Code Description Data Sakshi rce(s) Supporting Document(s) sars-cov-2 negative negative Sars-cov-2 [facility]) ID Date Data Source [id number] 12/26/2020 09:24:00 AM EDT [facility] Name Value Range Interpretation Code Description Data Sakshi rce(s) Supporting Document(s) SARS coronavirus 2 RdRp gene [Presence] in Respiratory specimen by ETHEL with probe detection Not detected [facility] This lab was ordered by [facility] and reported by [facility]. ID Date Data Source [id number] 12/19/2020 09:01:00 AM EST [facility] ([facility]) Name Value Range Interpretation Code Description Data Sakshi rce(s) Supporting Document(s) total 25(oh) vitamin D 20.0 NG/mL 30.0-100.0 Below low normal T otal 25(Oh) Vitamin D [facility] ([facility]) ID Date Data Source [id number] 12/19/2020 09:01:00 AM EST [facility] ([facility]) Name Value Range Interpretation Code Description Data Sakshi rce(s) Supporting Document(s) free T4 1.11 NG/dL 0.76-1.46 Free T4 [facility] ([facility]) thyroid stimulating hormone 1.830 uIU/mL 0.358-3.740 Thyroid Stimulating Hormone [facility] ([facility]) ID Date Data Source [id number] 12/19/2020 09:01:00 AM EST [facility] ([facility]) Name Value Range Interpretation Code Description Data Sakshi rce(s) Supporting Document(s) glucose, fasting 85 mg/dL 70-100 Glucose, Fasting AT [facility] ([facility]) creatinine for GFR 0.88 mg/dL 0.55-1.30 Creatinine for GF R [facility] ([facility]) glomerular filtration rate > 60.0 >58 Glomerula r Filtration Rate [facility] ([facility]) blood urea nitrogen 19 mg/dL 7-18 Above high normal Blood Ure a Nitrogen [facility] ([facility]) sodium level 138 mEq/L 136-145 Sodium Level [facility] ([facility]) carbon dioxide level 28 mEq/L 21-32 Carbon Dioxide Level [facility] ([facility]) chloride level 106 mEq/L 98-107 Chloride Level [facility] ([facility]) potassium serum 4.2 mEq/L 3.5-5.1 Potassium Serum AT[facility] ([facility]) anion gap 4 mEq/L 8-16 Below low normal Anion Gap [facility] ( [facility]) AST/SGOT 31 U/L 7-37 AST/SGOT [facility] ([facility]) calcium level 8.8 mg/dL 8.5-10.1 Calcium Level [facility] ( [facility]) ALT/SGPT 53 U/L 12-78 ALT/SGPT [facility] ([facility]) alkaline phosphatase 129 U/L 45-117 Above high normal Alkaline Phosphatase [facility] ([facility]) albumin 4.0 gm/dL 3.2-5.2 Albumin [facility] ([facility]) bilirubin,total 0.4 mg/dL 0.2-1.0 Bilirubin,total AT[facility] ([facility]) total protein 7.3 gm/dL 6.4-8.2 Total Protein [facility] ( [facility]) albumin/globulin ratio 1.2-2.2 Albumin/globu lizzie Ratio [facility] ([facility]) ID Date Data Source [id number] 12/19/2020 09:01:00 AM EST [facility] ([facility]) Name Value Range Interpretation Code Description Data Sakshi rce(s) Supporting Document(s) Hemoglobin A1c/Hemoglobin.total in Blood 4.9 % Hemoglobin a1C [facility] ([facility]) estimated average glucose 94 mg/dL 60-110 Estimated Average Glucose [facility] ([facility]) ID Date Data Source [id number] 12/19/2020 09:01:00 AM EST [facility] ([facility]) Name Value Range Interpretation Code Description Data Sakshi rce(s) Supporting Document(s) white blood count 9.7 10 4.0-10.0 White Blood Count [facility] ([facility]) hemoglobin 14.6 g/dL 12.0-15.5 Hemoglobin [facility] ([facility]) red blood count 5.41 10 4.00-5.40 Above high normal Red Blood Cou nt [facility] ([facility]) hematocrit 45.6 % 36.0-47.0 Hematocrit [facility] ([facility]) mean corpuscular hemoglobin 27.0 pg 27.0-33.0 Mean Cor puscular Hemoglobin [facility] ([facility]) mean corpuscular volume 84.3 fL 80.0-96.0 Mean Corpusc ular Volume [facility] ([facility]) red cell distribution width 14.6 % 11.5-14.5 Above high no rmal Red Cell Distribution Width [facility] ([facility]) platelet count, automated 261 10 150-450 Platelet C ount, Automated [facility] ([facility]) mean corpuscular HGB conc 32.0 g/dL 32.0-36.5 Mean Corpu scular HGB Conc [facility] ([facility]) mono % 7.6 % 2.0-8.0 [place] % [facility] ([facility]) lymph % 18.6 % 24.0-44.0 Below low normal Lymph % [facility] ( [facility]) neutrophils % 70.3 % 36.0-66.0 Above high normal Neutrophils % A [facility] ([facility]) immature granulocyte % 0.3 % 0-3.0 Immature Gran ulocyte % [facility] ([facility]) eos % 2.2 % 0.0-3.0 Eos % [facility] ([facility]) baso % 1.0 % 0.0-1.0 Baso % [facility] ([facility]) lymph # 1.8 10 1.5-5.0 Lymph # [facility] ([facility]) neutrophils # 6.8 10 1.5-8.5 Neutrophils # [facility] ( [facility]) nucleated red blood cell % 0.0 % 0-0 Nucleated Red Blood Cell % [facility] ([facility]) eos # 0.2 10 0.0-0.5 Eos # [facility] ([facility]) baso # 0.1 10 0.0-0.2 Baso # [facility] ([facility]) mono # 0.7 10 0.0-0.8 [place] # [facility] ([facility]) ID Date Data Source [id number] 12/19/2020 09:01:00 AM EST [facility] ([facility]) Name Value Range Interpretation Code Description Data Sakshi rce(s) Supporting Document(s) total 25(oh) vitamin D 20.0 NG/mL 30.0-100.0 Below low normal T otal 25(Oh) Vitamin D [facility] ([facility]) ID Date Data Source [id number] 12/19/2020 09:01:00 AM EST [facility] ([facility]) Name Value Range Interpretation Code Description Data Sakshi rce(s) Supporting Document(s) thyroid stimulating hormone 1.830 uIU/mL 0.358-3.740 Thyroid Stimulating Hormone [facility] ([facility]) free T4 1.11 NG/dL 0.76-1.46 Free T4 [facility] ([facility]) ID Date Data Source [id number] 12/19/2020 09:01:00 AM EST [facility] ([facility]) Name Value Range Interpretation Code Description Data Sakshi rce(s) Supporting Document(s) blood urea nitrogen 19 mg/dL 7-18 Above high normal Blood Ure a Nitrogen [facility] ([facility]) glucose, fasting 85 mg/dL 70-100 Glucose, Fasting AT [facility] ([facility]) creatinine for GFR 0.88 mg/dL 0.55-1.30 Creatinine for GF R [facility] ([facility]) glomerular filtration rate > 60.0 >58 Glomerula r Filtration Rate [facility] ([facility]) sodium level 138 mEq/L 136-145 Sodium Level [facility] (No [facility]) potassium serum 4.2 mEq/L 3.5-5.1 Potassium Serum ATHE NA ([facility]) anion gap 4 mEq/L 8-16 Below low normal Anion Gap [facility] ( [facility]) carbon dioxide level 28 mEq/L 21-32 Carbon Dioxide Level [facility] ([facility]) calcium level 8.8 mg/dL 8.5-10.1 Calcium Level [facility] ( [facility]) chloride level 106 mEq/L 98-107 Chloride Level [facility] ([facility]) alkaline phosphatase 129 U/L 45-117 Above high normal Alkaline Phosphatase [facility] ([facility]) bilirubin,total 0.4 mg/dL 0.2-1.0 Bilirubin,total ATHE NA ([facility]) AST/SGOT 31 U/L 7-37 AST/SGOT [facility] ([facility]) ALT/SGPT 53 U/L 12-78 ALT/SGPT [facility] ([facility]) albumin/globulin ratio 1.2-2.2 Albumin/globu lizzie Ratio [facility] ([facility]) total protein 7.3 gm/dL 6.4-8.2 Total Protein [facility] ( [facility]) albumin 4.0 gm/dL 3.2-5.2 Albumin [facility] ([facility]) ID Date Data Source [id number] 12/19/2020 09:01:00 AM EST [facility] ([facility]) Name Value Range Interpretation Code Description Data Sakshi rce(s) Supporting Document(s) estimated average glucose 94 mg/dL 60-110 Estimated Average Glucose [facility] ([facility]) Hemoglobin A1c/Hemoglobin.total in Blood 4.9 % Hemoglobin a1C [facility] ([facility]) ID Date Data Source [id number] 12/19/2020 09:01:00 AM EST [facility] ([facility]) Name Value Range Interpretation Code Description Data Sakshi rce(s) Supporting Document(s) white blood count 9.7 10 4.0-10.0 White Blood Count [facility] ([facility]) red blood count 5.41 10 4.00-5.40 Above high normal Red Blood Cou nt [facility] ([facility]) hemoglobin 14.6 g/dL 12.0-15.5 Hemoglobin [facility] ([facility]) mean corpuscular hemoglobin 27.0 pg 27.0-33.0 Mean Cor puscular Hemoglobin [facility] ([facility]) mean corpuscular volume 84.3 fL 80.0-96.0 Mean Corpusc ular Volume [facility] ([facility]) hematocrit 45.6 % 36.0-47.0 Hematocrit [facility] ([facility]) red cell distribution width 14.6 % 11.5-14.5 Above high no rmal Red Cell Distribution Width [facility] ([facility]) mean corpuscular HGB conc 32.0 g/dL 32.0-36.5 Mean Corpu scular HGB Conc [facility] ([facility]) neutrophils % 70.3 % 36.0-66.0 Above high normal Neutrophils % A THENA ([facility]) mono % 7.6 % 2.0-8.0 [place] % [facility] ([facility]) lymph % 18.6 % 24.0-44.0 Below low normal Lymph % [facility] ( [facility]) platelet count, automated 261 10 150-450 Platelet C ount, Automated [facility] ([facility]) eos % 2.2 % 0.0-3.0 Eos % [facility] ([facility]) baso % 1.0 % 0.0-1.0 Baso % [facility] ([facility]) nucleated red blood cell % 0.0 % 0-0 Nucleated Red Blood Cell % [facility] ([facility]) immature granulocyte % 0.3 % 0-3.0 Immature Gran ulocyte % [facility] ([facility]) neutrophils # 6.8 10 1.5-8.5 Neutrophils # [facility] ( [facility]) lymph # 1.8 10 1.5-5.0 Lymph # [facility] ([facility]) mono # 0.7 10 0.0-0.8 [place] # [facility] ([facility]) baso # 0.1 10 0.0-0.2 Baso # [facility] ([facility]) eos # 0.2 10 0.0-0.5 Eos # [facility] ([facility]) ID Date Data Source [id number] 12/19/2020 09:01:00 AM EST [facility] ([facility]) Name Value Range Interpretation Code Description Data Sakshi rce(s) Supporting Document(s) total 25(oh) vitamin D 20.0 NG/mL 30.0-100.0 Below low normal T otal 25(Oh) Vitamin D [facility] ([facility]) ID Date Data Source [id number] 12/19/2020 09:01:00 AM EST [facility] ([facility]) Name Value Range Interpretation Code Description Data Sakshi rce(s) Supporting Document(s) thyroid stimulating hormone 1.830 uIU/mL 0.358-3.740 Thyroid Stimulating Hormone [facility] ([facility]) free T4 1.11 NG/dL 0.76-1.46 Free T4 [facility] ([facility]) ID Date Data Source [id number] 12/19/2020 09:01:00 AM EST [facility] ([facility]) Name Value Range Interpretation Code Description Data Sakshi rce(s) Supporting Document(s) glucose, fasting 85 mg/dL 70-100 Glucose, Fasting AT [facility]) blood urea nitrogen 19 mg/dL 7-18 Above high normal Blood Ure a Nitrogen [facility] ([facility]) creatinine for GFR 0.88 mg/dL 0.55-1.30 Creatinine for GF R [facility] ([facility]) glomerular filtration rate > 60.0 >58 Glomerula r Filtration Rate [facility] ([facility]) potassium serum 4.2 mEq/L 3.5-5.1 Potassium Serum ATHE NA ([facility]) sodium level 138 mEq/L 136-145 Sodium Level [facility] ([facility]) carbon dioxide level 28 mEq/L 21-32 Carbon Dioxide Level [facility] ([facility]) chloride level 106 mEq/L 98-107 Chloride Level [facility] ([facility]) calcium level 8.8 mg/dL 8.5-10.1 Calcium Level [facility] ( [facility]) anion gap 4 mEq/L 8-16 Below low normal Anion Gap [facility] ( [facility]) alkaline phosphatase 129 U/L 45-117 Above high normal Alkaline Phosphatase [facility] ([facility]) AST/SGOT 31 U/L 7-37 AST/SGOT [facility] ([facility]) ALT/SGPT 53 U/L 12-78 ALT/SGPT [facility] ([facility]) albumin 4.0 gm/dL 3.2-5.2 Albumin [facility] ([facility]) total protein 7.3 gm/dL 6.4-8.2 Total Protein [facility] ( [facility]) bilirubin,total 0.4 mg/dL 0.2-1.0 Bilirubin,total [facility] ([facility]) albumin/globulin ratio 1.2-2.2 Albumin/globu lizzie Ratio [facility] ([facility]) ID Date Data Source [id number] 12/19/2020 09:01:00 AM EST [facility] ([facility]) Name Value Range Interpretation Code Description Data Sakshi rce(s) Supporting Document(s) estimated average glucose 94 mg/dL 60-110 Estimated Average Glucose [facility] ([facility]) Hemoglobin A1c/Hemoglobin.total in Blood 4.9 % Hemoglobin a1C [facility] ([facility]) ID Date Data Source [id number] 12/19/2020 09:01:00 AM EST [facility] ([facility]) Name Value Range Interpretation Code Description Data Sakshi rce(s) Supporting Document(s) hemoglobin 14.6 g/dL 12.0-15.5 Hemoglobin [facility] ([facility]) white blood count 9.7 10 4.0-10.0 White Blood Count [facility] ([facility]) red blood count 5.41 10 4.00-5.40 Above high normal Red Blood Cou nt [facility] ([facility]) mean corpuscular hemoglobin 27.0 pg 27.0-33.0 Mean Cor puscular Hemoglobin [facility] ([facility]) mean corpuscular volume 84.3 fL 80.0-96.0 Mean Corpusc ular Volume [facility] ([facility]) hematocrit 45.6 % 36.0-47.0 Hematocrit [facility] ([facility]) mean corpuscular HGB conc 32.0 g/dL 32.0-36.5 Mean Corpu scular HGB Conc [facility] ([facility]) red cell distribution width 14.6 % 11.5-14.5 Above high no rmal Red Cell Distribution Width [facility] ([facility]) neutrophils % 70.3 % 36.0-66.0 Above high normal Neutrophils % A THENA ([facility]) platelet count, automated 261 10 150-450 Platelet C ount, Automated [facility] ([facility]) lymph % 18.6 % 24.0-44.0 Below low normal Lymph % [facility] ( [facility]) mono % 7.6 % 2.0-8.0 [place] % [facility] ([facility]) eos % 2.2 % 0.0-3.0 Eos % [facility] ([facility]) baso % 1.0 % 0.0-1.0 Baso % [facility] ([facility]) neutrophils # 6.8 10 1.5-8.5 Neutrophils # [facility] ( [facility]) nucleated red blood cell % 0.0 % 0-0 Nucleated Red Blood Cell % [facility] ([facility]) lymph # 1.8 10 1.5-5.0 Lymph # [facility] ([facility]) immature granulocyte % 0.3 % 0-3.0 Immature Gran ulocyte % [facility] ([facility]) baso # 0.1 10 0.0-0.2 Baso # [facility] ([facility]) mono # 0.7 10 0.0-0.8 [place] # [facility] ([facility]) eos # 0.2 10 0.0-0.5 Eos # [facility] ([facility]) ID Date Data Source [id number] 12/19/2020 09:01:00 AM EST [facility] ([facility]) Name Value Range Interpretation Code Description Data Sakshi rce(s) Supporting Document(s) total 25(oh) vitamin D 20.0 NG/mL 30.0-100.0 Below low normal T otal 25(Oh) Vitamin D [facility] ([facility]) ID Date Data Source [id number] 12/19/2020 09:01:00 AM EST [facility] ([facility]) Name Value Range Interpretation Code Description Data Sakshi rce(s) Supporting Document(s) thyroid stimulating hormone 1.830 uIU/mL 0.358-3.740 Thyroid Stimulating Hormone [facility] ([facility]) free T4 1.11 NG/dL 0.76-1.46 Free T4 [facility]) ID Date Data Source [id number] 12/19/2020 09:01:00 AM EST [facility] ([facility]) Name Value Range Interpretation Code Description Data Sakshi rce(s) Supporting Document(s) blood urea nitrogen 19 mg/dL 7-18 Above high normal Blood Ure a Nitrogen [facility] ([facility]) glomerular filtration rate > 60.0 >58 Glomerula r Filtration Rate [facility] ([facility]) creatinine for GFR 0.88 mg/dL 0.55-1.30 Creatinine for GF R [facility] ([facility]) glucose, fasting 85 mg/dL 70-100 Glucose, Fasting AT [facility]) chloride level 106 mEq/L 98-107 Chloride Level [facility] ([facility]) sodium level 138 mEq/L 136-145 Sodium Level [facility] ([facility]) potassium serum 4.2 mEq/L 3.5-5.1 Potassium Serum ATH NA ([facility]) carbon dioxide level 28 mEq/L 21-32 Carbon Dioxide Level [facility] ([facility]) anion gap 4 mEq/L 8-16 Below low normal Anion Gap [facility] ( [facility]) AST/SGOT 31 U/L 7-37 AST/SGOT [facility] ([facility]) ALT/SGPT 53 U/L 12-78 ALT/SGPT [facility] ([facility]) alkaline phosphatase 129 U/L 45-117 Above high normal Alkaline Phosphatase [facility] ([facility]) calcium level 8.8 mg/dL 8.5-10.1 Calcium Level [facility] ( [facility]) total protein 7.3 gm/dL 6.4-8.2 Total Protein [facility] ( [facility]) albumin/globulin ratio 1.2-2.2 Albumin/globu lizzie Ratio [facility] ([facility]) albumin 4.0 gm/dL 3.2-5.2 Albumin [facility] ([facility]) bilirubin,total 0.4 mg/dL 0.2-1.0 Bilirubin,total AT[facility] ([facility]) ID Date Data Source [id number] 12/19/2020 09:01:00 AM EST [facility] ([facility]) Name Value Range Interpretation Code Description Data Sakshi rce(s) Supporting Document(s) estimated average glucose 94 mg/dL 60-110 Estimated Average Glucose [facility] ([facility]) Hemoglobin A1c/Hemoglobin.total in Blood 4.9 % Hemoglobin a1C [facility] ([facility]) ID Date Data Source [id number] 12/19/2020 09:01:00 AM EST [facility] ([facility]) Name Value Range Interpretation Code Description Data Sakshi rce(s) Supporting Document(s) red blood count 5.41 10 4.00-5.40 Above high normal Red Blood Cou nt [facility] ([facility]) white blood count 9.7 10 4.0-10.0 White Blood Count [facility] ([facility]) hemoglobin 14.6 g/dL 12.0-15.5 Hemoglobin [facility] ([facility]) mean corpuscular hemoglobin 27.0 pg 27.0-33.0 Mean Cor puscular Hemoglobin [facility] ([facility]) hematocrit 45.6 % 36.0-47.0 Hematocrit [facility] ([facility]) mean corpuscular volume 84.3 fL 80.0-96.0 Mean Corpusc ular Volume [facility] ([facility]) red cell distribution width 14.6 % 11.5-14.5 Above high no rmal Red Cell Distribution Width [facility] ([facility]) platelet count, automated 261 10 150-450 Platelet C ount, Automated [facility] ([facility]) mean corpuscular HGB conc 32.0 g/dL 32.0-36.5 Mean Corpu scular HGB Conc [facility] ([facility]) eos % 2.2 % 0.0-3.0 Eos % [facility] ([facility]) lymph % 18.6 % 24.0-44.0 Below low normal Lymph % [facility] ( [facility]) neutrophils % 70.3 % 36.0-66.0 Above high normal Neutrophils % A THENA ([facility]) mono % 7.6 % 2.0-8.0 [place] % [facility] ([facility]) neutrophils # 6.8 10 1.5-8.5 Neutrophils # [facility] ( [facility]) baso % 1.0 % 0.0-1.0 Baso % [facility] ([facility]) nucleated red blood cell % 0.0 % 0-0 Nucleated Red Blood Cell % [facility] ([facility]) immature granulocyte % 0.3 % 0-3.0 Immature Gran ulocyte % [facility] ([facility]) lymph # 1.8 10 1.5-5.0 Lymph # [facility] ([facility]) mono # 0.7 10 0.0-0.8 [place] # [facility] ([facility]) eos # 0.2 10 0.0-0.5 Eos # [facility] ([facility]) baso # 0.1 10 0.0-0.2 Baso # [facility] ([facility]) ID Date Data Source [id number] 12/19/2020 09:01:00 AM EST [facility] ([facility]) Name Value Range Interpretation Code Description Data Sakshi rce(s) Supporting Document(s) total 25(oh) vitamin D 20.0 NG/mL 30.0-100.0 Below low normal T otal 25(Oh) Vitamin D [facility] ([facility]) ID Date Data Source [id number] 12/19/2020 09:01:00 AM EST [facility] ([facility]) Name Value Range Interpretation Code Description Data Sakshi rce(s) Supporting Document(s) thyroid stimulating hormone 1.830 uIU/mL 0.358-3.740 Thyroid Stimulating Hormone [facility] ([facility]) free T4 1.11 NG/dL 0.76-1.46 Free T4 TRILLA ([facility]) ID Date Data Source [id number] 12/19/2020 09:01:00 AM EST TRILLA ([facility]) Name Value Range Interpretation Code Description Data Sakshi rce(s) Supporting Document(s) glucose, fasting 85 mg/dL 70-100 Glucose, Fasting AT [facility]) blood urea nitrogen 19 mg/dL 7-18 Above high normal Blood Ure a Nitrogen SABINO ([facility]) creatinine for GFR 0.88 mg/dL 0.55-1.30 Creatinine for GF R SABINO ([facility]) sodium level 138 mEq/L 136-145 Sodium Level SABINO ([facility]) potassium serum 4.2 mEq/L 3.5-5.1 Potassium Serum ATHE NA ([facility]) glomerular filtration rate > 60.0 >58 Glomerula r Filtration Rate SABINO ([facility]) carbon dioxide level 28 mEq/L 21-32 Carbon Dioxide Level SABINO ([facility]) chloride level 106 mEq/L 98-107 Chloride Level TRILLA ([facility]) anion gap 4 mEq/L 8-16 Below low normal Anion Gap SABINO ( [facility]) AST/SGOT 31 U/L 7-37 AST/SGOT SABINO ([facility]) calcium level 8.8 mg/dL 8.5-10.1 Calcium Level TRILLA ( [facility]) ALT/SGPT 53 U/L 12-78 ALT/SGPT SABINO ([facility]) bilirubin,total 0.4 mg/dL 0.2-1.0 Bilirubin,total ATHE NA ([facility]) alkaline phosphatase 129 U/L 45-117 Above high normal Alkaline Phosphatase SABINO ([facility]) albumin/globulin ratio 1.2-2.2 Albumin/globu lizzie Ratio SABINO ([facility]) total protein 7.3 gm/dL 6.4-8.2 Total Protein SABINO ( [facility]) albumin 4.0 gm/dL 3.2-5.2 Albumin SABINO ([facility]) ID Date Data Source [id number] 12/19/2020 09:01:00 AM EST SABINO ([facility]) Name Value Range Interpretation Code Description Data Sakshi rce(s) Supporting Document(s) Hemoglobin A1c/Hemoglobin.total in Blood 4.9 % Hemoglobin a1C SABINO ([facility]) estimated average glucose 94 mg/dL 60-110 Estimated Average Glucose SABINO ([facility]) ID Date Data Source [id number] 12/19/2020 09:01:00 AM EST SABINO ([facility]) Name Value Range Interpretation Code Description Data Sakshi rce(s) Supporting Document(s) white blood count 9.7 10 4.0-10.0 White Blood Count SABINO ([facility]) hematocrit 45.6 % 36.0-47.0 Hematocrit SABINO ([facility]) red blood count 5.41 10 4.00-5.40 Above high normal Red Blood Cou nt SABINO ([facility]) hemoglobin 14.6 g/dL 12.0-15.5 Hemoglobin SABINO ([facility]) mean corpuscular HGB conc 32.0 g/dL 32.0-36.5 Mean Corpu scular HGB Conc SABINO ([facility]) mean corpuscular hemoglobin 27.0 pg 27.0-33.0 Mean Cor puscular Hemoglobin SABINO ([facility]) mean corpuscular volume 84.3 fL 80.0-96.0 Mean Corpusc ular Volume SABINO ([facility]) red cell distribution width 14.6 % 11.5-14.5 Above high no rmal Red Cell Distribution Width SABINO ([facility]) platelet count, automated 261 10 150-450 Platelet C ount, Automated SABINO ([facility]) mono % 7.6 % 2.0-8.0 [place] % SABINO ([facility]) neutrophils % 70.3 % 36.0-66.0 Above high normal Neutrophils % A THENA ([facility]) lymph % 18.6 % 24.0-44.0 Below low normal Lymph % SABINO ( [facility]) eos % 2.2 % 0.0-3.0 Eos % TRILLA ([facility]) immature granulocyte % 0.3 % 0-3.0 Immature Gran ulocyte % SABINO ([facility]) baso % 1.0 % 0.0-1.0 Baso % SABINO ([facility]) lymph # 1.8 10 1.5-5.0 Lymph # SABINO ([facility]) neutrophils # 6.8 10 1.5-8.5 Neutrophils # TRILLA ( [facility]) nucleated red blood cell % 0.0 % 0-0 Nucleated Red Blood Cell % SABINO ([facility]) baso # 0.1 10 0.0-0.2 Baso # SABINO ([facility]) eos # 0.2 10 0.0-0.5 Eos # SABINO ([facility]) mono # 0.7 10 0.0-0.8 [place] # SABINO ([facility]) ID Date Data Source [id number] 12/19/2020 09:01:00 AM EST SABINO ([facility]) Name Value Range Interpretation Code Description Data Sakshi rce(s) Supporting Document(s) total 25(oh) vitamin D 20.0 NG/mL 30.0-100.0 Below low normal T otal 25(Oh) Vitamin D SABINO ([facility]) ID Date Data Source [id number] 12/19/2020 09:01:00 AM EST SABINO ([facility]) Name Value Range Interpretation Code Description Data Sakshi rce(s) Supporting Document(s) thyroid stimulating hormone 1.830 uIU/mL 0.358-3.740 Thyroid Stimulating Hormone SABINO ([facility]) free T4 1.11 NG/dL 0.76-1.46 Free T4 TRILLA ([facility]) ID Date Data Source [id number] 12/19/2020 09:01:00 AM EST SABINO ([facility]) Name Value Range Interpretation Code Description Data Sakshi rce(s) Supporting Document(s) glucose, fasting 85 mg/dL 70-100 Glucose, Fasting AT [facility]) blood urea nitrogen 19 mg/dL 7-18 Above high normal Blood Ure a Nitrogen SABINO ([facility]) glomerular filtration rate > 60.0 >58 Glomerula r Filtration Rate SABINO ([facility]) creatinine for GFR 0.88 mg/dL 0.55-1.30 Creatinine for GF R SABINO ([facility]) sodium level 138 mEq/L 136-145 Sodium Level SABINO ([facility]) potassium serum 4.2 mEq/L 3.5-5.1 Potassium Serum ATHE NA ([facility]) chloride level 106 mEq/L 98-107 Chloride Level SABINO ([facility]) anion gap 4 mEq/L 8-16 Below low normal Anion Gap SABINO ( [facility]) carbon dioxide level 28 mEq/L 21-32 Carbon Dioxide Level SABINO ([facility]) AST/SGOT 31 U/L 7-37 AST/SGOT SABINO ([facility]) calcium level 8.8 mg/dL 8.5-10.1 Calcium Level SABINO ( [facility]) ALT/SGPT 53 U/L 12-78 ALT/SGPT SABINO ([facility]) alkaline phosphatase 129 U/L 45-117 Above high normal Alkaline Phosphatase SABINO ([facility]) bilirubin,total 0.4 mg/dL 0.2-1.0 Bilirubin,total ATHE NA ([facility]) total protein 7.3 gm/dL 6.4-8.2 Total Protein SABINO ( [facility]) albumin/globulin ratio 1.2-2.2 Albumin/globu lizzie Ratio SABINO ([facility]) albumin 4.0 gm/dL 3.2-5.2 Albumin SABINO ([facility]) ID Date Data Source [id number] 12/19/2020 09:01:00 AM EST SABINO ([facility]) Name Value Range Interpretation Code Description Data Sakshi rce(s) Supporting Document(s) Hemoglobin A1c/Hemoglobin.total in Blood 4.9 % Hemoglobin a1C SABINO ([facility]) estimated average glucose 94 mg/dL 60-110 Estimated Average Glucose SABINO ([facility]) ID Date Data Source [id number] 12/19/2020 09:01:00 AM EST SABINO ([facility]) Name Value Range Interpretation Code Description Data Sakshi rce(s) Supporting Document(s) white blood count 9.7 10 4.0-10.0 White Blood Count TRILLA ([facility]) red blood count 5.41 10 4.00-5.40 Above high normal Red Blood Cou nt SABINO ([facility]) hemoglobin 14.6 g/dL 12.0-15.5 Hemoglobin SABINO ([facility]) mean corpuscular hemoglobin 27.0 pg 27.0-33.0 Mean Cor puscular Hemoglobin SABINO ([facility]) mean corpuscular volume 84.3 fL 80.0-96.0 Mean Corpusc ular Volume SABINO ([facility]) hematocrit 45.6 % 36.0-47.0 Hematocrit SABINO ([facility]) mean corpuscular HGB conc 32.0 g/dL 32.0-36.5 Mean Corpu scular HGB Conc SABINO ([facility]) red cell distribution width 14.6 % 11.5-14.5 Above high no rmal Red Cell Distribution Width SABINO ([facility]) neutrophils % 70.3 % 36.0-66.0 Above high normal Neutrophils % A THENA ([facility]) platelet count, automated 261 10 150-450 Platelet C ount, Automated SABINO ([facility]) lymph % 18.6 % 24.0-44.0 Below low normal Lymph % SABINO ( [facility]) mono % 7.6 % 2.0-8.0 [place] % SABINO ([facility]) eos % 2.2 % 0.0-3.0 Eos % TRILLA ([facility]) nucleated red blood cell % 0.0 % 0-0 Nucleated Red Blood Cell % TRILLA ([facility]) immature granulocyte % 0.3 % 0-3.0 Immature Gran ulocyte % TRILLA ([facility]) baso % 1.0 % 0.0-1.0 Baso % TRILLA ([facility]) lymph # 1.8 10 1.5-5.0 Lymph # SABINO ([facility]) neutrophils # 6.8 10 1.5-8.5 Neutrophils # SABINO ( [facility]) mono # 0.7 10 0.0-0.8 [place] # SABINO ([facility]) eos # 0.2 10 0.0-0.5 Eos # SABINO ([facility]) baso # 0.1 10 0.0-0.2 Baso # SABINO ([facility]) ID Date Data Source [id number] 12/19/2020 09:01:00 AM EST TRILLA ([facility]) Name Value Range Interpretation Code Description Data Sakshi rce(s) Supporting Document(s) total 25(oh) vitamin D 20.0 NG/mL 30.0-100.0 Below low normal T otal 25(Oh) Vitamin D TRILLA ([facility]) ID Date Data Source [id number] 12/19/2020 09:01:00 AM EST SABINO ([facility]) Name Value Range Interpretation Code Description Data Sakshi rce(s) Supporting Document(s) thyroid stimulating hormone 1.830 uIU/mL 0.358-3.740 Thyroid Stimulating Hormone SABINO ([facility]) free T4 1.11 NG/dL 0.76-1.46 Free T4 TRILLA ([facility]) ID Date Data Source [id number] 12/19/2020 09:01:00 AM EST SABINO ([facility]) Name Value Range Interpretation Code Description Data Sakshi rce(s) Supporting Document(s) glucose, fasting 85 mg/dL 70-100 Glucose, Fasting AT [facility]) blood urea nitrogen 19 mg/dL 7-18 Above high normal Blood Ure a Nitrogen SABINO ([facility]) creatinine for GFR 0.88 mg/dL 0.55-1.30 Creatinine for GF R SABINO ([facility]) sodium level 138 mEq/L 136-145 Sodium Level SABINO ([facility]) glomerular filtration rate > 60.0 >58 Glomerula r Filtration Rate SABINO ([facility]) potassium serum 4.2 mEq/L 3.5-5.1 Potassium Serum ATHE ([facility]) chloride level 106 mEq/L 98-107 Chloride Level SABINO ([facility]) AST/SGOT 31 U/L 7-37 AST/SGOT SABINO ([facility]) carbon dioxide level 28 mEq/L 21-32 Carbon Dioxide Level SABINO ([facility]) calcium level 8.8 mg/dL 8.5-10.1 Calcium Level SABINO ( [facility]) anion gap 4 mEq/L 8-16 Below low normal Anion Gap SABINO ( [facility]) ALT/SGPT 53 U/L 12-78 ALT/SGPT SABINO ([facility]) alkaline phosphatase 129 U/L 45-117 Above high normal Alkaline Phosphatase SABINO ([facility]) bilirubin,total 0.4 mg/dL 0.2-1.0 Bilirubin,total ATHE NA ([facility]) total protein 7.3 gm/dL 6.4-8.2 Total Protein SABINO ( [facility]) albumin 4.0 gm/dL 3.2-5.2 Albumin SABINO ([facility]) albumin/globulin ratio 1.2-2.2 Albumin/globu lizzie Ratio SABINO ([facility]) ID Date Data Source [id number] 12/19/2020 09:01:00 AM EST SABINO ([facility]) Name Value Range Interpretation Code Description Data Sakshi rce(s) Supporting Document(s) Hemoglobin A1c/Hemoglobin.total in Blood 4.9 % Hemoglobin a1C SABINO ([facility]) estimated average glucose 94 mg/dL 60-110 Estimated Average Glucose SABINO ([facility]) ID Date Data Source [id number] 12/19/2020 09:01:00 AM EST SABINO ([facility]) Name Value Range Interpretation Code Description Data Sakshi rce(s) Supporting Document(s) red blood count 5.41 10 4.00-5.40 Above high normal Red Blood Cou nt SABINO ([facility]) hemoglobin 14.6 g/dL 12.0-15.5 Hemoglobin SABINO ([facility]) white blood count 9.7 10 4.0-10.0 White Blood Count SABINO ([facility]) mean corpuscular volume 84.3 fL 80.0-96.0 Mean Corpusc ular Volume SABINO ([facility]) hematocrit 45.6 % 36.0-47.0 Hematocrit SABINO ([facility]) mean corpuscular HGB conc 32.0 g/dL 32.0-36.5 Mean Corpu scular HGB Conc SABINO ([facility]) mean corpuscular hemoglobin 27.0 pg 27.0-33.0 Mean Cor puscular Hemoglobin SABINO ([facility]) red cell distribution width 14.6 % 11.5-14.5 Above high no rmal Red Cell Distribution Width SABINO ([facility]) lymph % 18.6 % 24.0-44.0 Below low normal Lymph % SABINO ( [facility]) neutrophils % 70.3 % 36.0-66.0 Above high normal Neutrophils % A THENA ([facility]) platelet count, automated 261 10 150-450 Platelet C ount, Automated SABINO ([facility]) eos % 2.2 % 0.0-3.0 Eos % SABINO ([facility]) baso % 1.0 % 0.0-1.0 Baso % SABINO ([facility]) immature granulocyte % 0.3 % 0-3.0 Immature Gran ulocyte % SABINO ([facility]) mono % 7.6 % 2.0-8.0 [place] % SABINO ([facility]) neutrophils # 6.8 10 1.5-8.5 Neutrophils # TRILLA ( [facility]) nucleated red blood cell % 0.0 % 0-0 Nucleated Red Blood Cell % SABINO ([facility]) lymph # 1.8 10 1.5-5.0 Lymph # SABINO ([facility]) mono # 0.7 10 0.0-0.8 [place] # SABINO ([facility]) eos # 0.2 10 0.0-0.5 Eos # SABINO ([facility]) baso # 0.1 10 0.0-0.2 Baso # SABINO ([facility]) ID Date Data Source [id number] 12/19/2020 09:01:00 AM EST SABINO ([facility]) Name Value Range Interpretation Code Description Data Sakshi rce(s) Supporting Document(s) total 25(oh) vitamin D 20.0 NG/mL 30.0-100.0 Below low normal T otal 25(Oh) Vitamin D SABINO ([facility]) ID Date Data Source [id number] 12/19/2020 09:01:00 AM EST SABINO ([facility]) Name Value Range Interpretation Code Description Data Sakshi rce(s) Supporting Document(s) thyroid stimulating hormone 1.830 uIU/mL 0.358-3.740 Thyroid Stimulating Hormone SABINO ([facility]) free T4 1.11 NG/dL 0.76-1.46 Free T4 TRILLA ([facility]) ID Date Data Source [id number] 12/19/2020 09:01:00 AM EST [facility]) Name Value Range Interpretation Code Description Data Sakshi rce(s) Supporting Document(s) creatinine for GFR 0.88 mg/dL 0.55-1.30 Creatinine for GF R TRILLA ([facility]) glucose, fasting 85 mg/dL 70-100 Glucose, Fasting AT [facility]) blood urea nitrogen 19 mg/dL 7-18 Above high normal Blood Ure a Nitrogen SABINO ([facility]) potassium serum 4.2 mEq/L 3.5-5.1 Potassium Serum [facility] chloride level 106 mEq/L 98-107 Chloride Level TRILLA ([facility]) glomerular filtration rate > 60.0 >58 Glomerula r Filtration Rate SABINO ([facility]) sodium level 138 mEq/L 136-145 Sodium Level SABINO ([facility]) anion gap 4 mEq/L 8-16 Below low normal Anion Gap SABINO ( [facility]) carbon dioxide level 28 mEq/L 21-32 Carbon Dioxide Level [facility]) calcium level 8.8 mg/dL 8.5-10.1 Calcium Level SABINO ( [facility]) alkaline phosphatase 129 U/L 45-117 Above high normal Alkaline Phosphatase SABINO ([facility]) ALT/SGPT 53 U/L 12-78 ALT/SGPT SABINO ([facility]) AST/SGOT 31 U/L 7-37 AST/SGOT SABINO ([facility]) albumin/globulin ratio 1.2-2.2 Albumin/globu lizzie Ratio SABINO ([facility]) bilirubin,total 0.4 mg/dL 0.2-1.0 Bil[facility] albumin 4.0 gm/dL 3.2-5.2 Albumin SBAINO ([facility]) total protein 7.3 gm/dL 6.4-8.2 Total Protein SABINO ( [facility]) ID Date Data Source [id number] 12/19/2020 09:01:00 AM EST TRILLA ([facility]) Name Value Range Interpretation Code Description Data Sakshi rce(s) Supporting Document(s) Hemoglobin A1c/Hemoglobin.total in Blood 4.9 % Hemoglobin a1C TRILLA ([facility]) estimated average glucose 94 mg/dL 60-110 Estimated Average Glucose TRILLA ([facility]) ID Date Data Source [id number] 12/19/2020 09:01:00 AM EST TRILLA ([facility]) Name Value Range Interpretation Code Description Data Sakshi rce(s) Supporting Document(s) white blood count 9.7 10 4.0-10.0 White Blood Count TRILLA ([facility]) red blood count 5.41 10 4.00-5.40 Above high normal Red Blood Cou nt TRILLA ([facility]) hematocrit 45.6 % 36.0-47.0 Hematocrit TRILLA ([facility]) hemoglobin 14.6 g/dL 12.0-15.5 Hemoglobin TRILLA ([facility]) mean corpuscular volume 84.3 fL 80.0-96.0 Mean Corpusc ular Volume SABINO ([facility]) mean corpuscular hemoglobin 27.0 pg 27.0-33.0 Mean Cor puscular Hemoglobin SABINO ([facility]) mean corpuscular HGB conc 32.0 g/dL 32.0-36.5 Mean Corpu scular HGB Conc SABINO ([facility]) red cell distribution width 14.6 % 11.5-14.5 Above high no rmal Red Cell Distribution Width SABINO ([facility]) neutrophils % 70.3 % 36.0-66.0 Above high normal Neutrophils % A THENA ([facility]) platelet count, automated 261 10 150-450 Platelet C ount, Automated SABINO ([facility]) eos % 2.2 % 0.0-3.0 Eos % SABINO ([facility]) lymph % 18.6 % 24.0-44.0 Below low normal Lymph % SABINO ( [facility]) mono % 7.6 % 2.0-8.0 [place] % SABINO ([facility]) immature granulocyte % 0.3 % 0-3.0 Immature Gran ulocyte % SABINO ([facility]) baso % 1.0 % 0.0-1.0 Baso % SABINO ([facility]) nucleated red blood cell % 0.0 % 0-0 Nucleated Red Blood Cell % SABINO ([facility]) lymph # 1.8 10 1.5-5.0 Lymph # SABINO ([facility]) mono # 0.7 10 0.0-0.8 [place] # TRILLA ([facility]) neutrophils # 6.8 10 1.5-8.5 Neutrophils # SABINO ( [facility]) baso # 0.1 10 0.0-0.2 Baso # SABINO ([facility]) eos # 0.2 10 0.0-0.5 Eos # SABINO ([facility]) ID Date Data Source [id number] 12/19/2020 09:01:00 AM EST SABINO ([facility]) Name Value Range Interpretation Code Description Data Sakshi rce(s) Supporting Document(s) total 25(oh) vitamin D 20.0 NG/mL 30.0-100.0 Below low normal T otal 25(Oh) Vitamin D SABINO ([facility]) ID Date Data Source [id number] 12/19/2020 09:01:00 AM EST SABINO ([facility]) Name Value Range Interpretation Code Description Data Sakshi rce(s) Supporting Document(s) thyroid stimulating hormone 1.830 uIU/mL 0.358-3.740 Thyroid Stimulating Hormone SABINO ([facility]) free T4 1.11 NG/dL 0.76-1.46 Free T4 SABINO ([facility]) ID Date Data Source [id number] 12/19/2020 09:01:00 AM EST SABINO ([facility]) Name Value Range Interpretation Code Description Data Sakshi rce(s) Supporting Document(s) glucose, fasting 85 mg/dL 70-100 Glucose, Fasting AT KERRI ([facility]) blood urea nitrogen 19 mg/dL 7-18 Above high normal Blood Ure a Nitrogen SABINO ([facility]) potassium serum 4.2 mEq/L 3.5-5.1 Potassium Serum ATHE ([facility]) sodium level 138 mEq/L 136-145 Sodium Level SABINO ([facility]) glomerular filtration rate > 60.0 >58 Glomerula r Filtration Rate SABINO ([facility]) creatinine for GFR 0.88 mg/dL 0.55-1.30 Creatinine for GF R SABINO ([facility]) chloride level 106 mEq/L 98-107 Chloride Level SABINO ([facility]) carbon dioxide level 28 mEq/L 21-32 Carbon Dioxide Level SABINO ([facility]) anion gap 4 mEq/L 8-16 Below low normal Anion Gap SABINO ( [facility]) ALT/SGPT 53 U/L 12-78 ALT/SGPT SABINO ([facility]) alkaline phosphatase 129 U/L 45-117 Above high normal Alkaline Phosphatase SABINO ([facility]) AST/SGOT 31 U/L 7-37 AST/SGOT SABINO ([facility]) calcium level 8.8 mg/dL 8.5-10.1 Calcium Level SABINO ( [facility]) bilirubin,total 0.4 mg/dL 0.2-1.0 Bilirubin,total ATHE ([facility]) total protein 7.3 gm/dL 6.4-8.2 Total Protein SABINO ( [facility]) albumin 4.0 gm/dL 3.2-5.2 Albumin SABINO ([facility]) albumin/globulin ratio 1.2-2.2 Albumin/globu lizzie Ratio SABINO ([facility]) ID Date Data Source [id number] 12/19/2020 09:01:00 AM EST SABINO ([facility]) Name Value Range Interpretation Code Description Data Sakshi rce(s) Supporting Document(s) estimated average glucose 94 mg/dL 60-110 Estimated Average Glucose TRILLA ([facility]) Hemoglobin A1c/Hemoglobin.total in Blood 4.9 % Hemoglobin a1C TRILLA ([facility]) ID Date Data Source [id number] 12/19/2020 09:01:00 AM EST SABINO ([facility]) Name Value Range Interpretation Code Description Data Sakshi rce(s) Supporting Document(s) white blood count 9.7 10 4.0-10.0 White Blood Count TRILLA ([facility]) hemoglobin 14.6 g/dL 12.0-15.5 Hemoglobin TRILLA ([facility]) red blood count 5.41 10 4.00-5.40 Above high normal Red Blood Cou nt TRILLA ([facility]) mean corpuscular hemoglobin 27.0 pg 27.0-33.0 Mean Cor puscular Hemoglobin TRILLA ([facility]) mean corpuscular volume 84.3 fL 80.0-96.0 Mean Corpusc ular Volume TRILLA ([facility]) hematocrit 45.6 % 36.0-47.0 Hematocrit TRILLA ([facility]) red cell distribution width 14.6 % 11.5-14.5 Above high no rmal Red Cell Distribution Width SABINO ([facility]) mean corpuscular HGB conc 32.0 g/dL 32.0-36.5 Mean Corpu scular HGB Conc TRILLA ([facility]) platelet count, automated 261 10 150-450 Platelet C ount, [facility]ated [facility] neutrophils % 70.3 % 36.0-66.0 Above high normal Neutrophils % A THENA ([facility]) lymph % 18.6 % 24.0-44.0 Below low normal Lymph % SABINO ( [facility]) eos % 2.2 % 0.0-3.0 Eos % SABINO ([facility]) mono % 7.6 % 2.0-8.0 [place] % SABINO ([facility]) immature granulocyte % 0.3 % 0-3.0 Immature Gran ulocyte % SABINO ([facility]) baso % 1.0 % 0.0-1.0 Baso % SABINO ([facility]) mono # 0.7 10 0.0-0.8 [place] # SABINO ([facility]) nucleated red blood cell % 0.0 % 0-0 Nucleated Red Blood Cell % SABINO ([facility]) lymph # 1.8 10 1.5-5.0 Lymph # SABINO ([facility]) neutrophils # 6.8 10 1.5-8.5 Neutrophils # SABINO ( [facility]) eos # 0.2 10 0.0-0.5 Eos # SABINO ([facility]) baso # 0.1 10 0.0-0.2 Baso # SABINO ([facility]) ID Date Data Source [id number] 12/19/2020 09:01:00 AM EST SABINO ([facility]) Name Value Range Interpretation Code Description Data Sakshi rce(s) Supporting Document(s) total 25(oh) vitamin D 20.0 NG/mL 30.0-100.0 Below low normal T otal 25(Oh) Vitamin D SABINO ([facility]) ID Date Data Source [id number] 12/19/2020 09:01:00 AM EST SABINO ([facility]) Name Value Range Interpretation Code Description Data Sakshi rce(s) Supporting Document(s) free T4 1.11 NG/dL 0.76-1.46 Free T4 SABINO ([facility]) thyroid stimulating hormone 1.830 uIU/mL 0.358-3.740 Thyroid Stimulating Hormone SABINO ([facility]) ID Date Data Source [id number] 12/19/2020 09:01:00 AM EST SABINO ([facility]) Name Value Range Interpretation Code Description Data Sakshi rce(s) Supporting Document(s) glucose, fasting 85 mg/dL 70-100 Glucose, Fasting AT KERRI ([facility]) sodium level 138 mEq/L 136-145 Sodium Level SABINO (No [facility]) blood urea nitrogen 19 mg/dL 7-18 Above high normal Blood Ure a Nitrogen SABINO ([facility]) glomerular filtration rate > 60.0 >58 Glomerula r Filtration Rate SABINO ([facility]) creatinine for GFR 0.88 mg/dL 0.55-1.30 Creatinine for GF R SABINO ([facility]) chloride level 106 mEq/L 98-107 Chloride Level SABINO ([facility]) potassium serum 4.2 mEq/L 3.5-5.1 Potassium Serum ATHE NA ([facility]) anion gap 4 mEq/L 8-16 Below low normal Anion Gap SABINO ( [facility]) carbon dioxide level 28 mEq/L 21-32 Carbon Dioxide Level SABINO ([facility]) ALT/SGPT 53 U/L 12-78 ALT/SGPT SABINO ([facility]) alkaline phosphatase 129 U/L 45-117 Above high normal Alkaline Phosphatase SABINO ([facility]) AST/SGOT 31 U/L 7-37 AST/SGOT SABINO ([facility]) calcium level 8.8 mg/dL 8.5-10.1 Calcium Level SABINO ( [facility]) total protein 7.3 gm/dL 6.4-8.2 Total Protein SABINO ( [facility]) bilirubin,total 0.4 mg/dL 0.2-1.0 Bilirubin,total ATHE NA ([facility]) albumin 4.0 gm/dL 3.2-5.2 Albumin SABINO ([facility]) albumin/globulin ratio 1.2-2.2 Albumin/globu lizzie Ratio SABINO ([facility]) ID Date Data Source [id number] 12/19/2020 09:01:00 AM EST SABINO ([facility]) Name Value Range Interpretation Code Description Data Sakshi rce(s) Supporting Document(s) Hemoglobin A1c/Hemoglobin.total in Blood 4.9 % Hemoglobin a1C TRILLA ([facility]) estimated average glucose 94 mg/dL 60-110 Estimated Average Glucose [facility]) ID Date Data Source [id number] 12/19/2020 09:01:00 AM EST SABINO ([facility]) Name Value Range Interpretation Code Description Data Sakshi rce(s) Supporting Document(s) white blood count 9.7 10 4.0-10.0 White Blood Count TRILLA ([facility]) red blood count 5.41 10 4.00-5.40 Above high normal Red Blood Cou nt TRILLA ([facility]) hematocrit 45.6 % 36.0-47.0 Hematocrit TRILLA ([facility]) hemoglobin 14.6 g/dL 12.0-15.5 Hemoglobin TRILLA ([facility]) mean corpuscular hemoglobin 27.0 pg 27.0-33.0 Mean Cor puscular Hemoglobin TRILLA ([facility]) red cell distribution width 14.6 % 11.5-14.5 Above high no rmal Red Cell Distribution Width TRILLA ([facility]) mean corpuscular HGB conc 32.0 g/dL 32.0-36.5 Mean Corpu scular HGB Conc SABINO ([facility]) mean corpuscular volume 84.3 fL 80.0-96.0 Mean Corpusc ular Volume TRILLA ([facility]) platelet count, automated 261 10 150-450 Platelet C ount, Automated SABINO ([facility]) lymph % 18.6 % 24.0-44.0 Below low normal Lymph % TRILLA ( [facility]) mono % 7.6 % 2.0-8.0 [place] % SABINO ([facility]) neutrophils % 70.3 % 36.0-66.0 Above high normal Neutrophils % A THENA ([facility]) eos % 2.2 % 0.0-3.0 Eos % SABINO ([facility]) nucleated red blood cell % 0.0 % 0-0 Nucleated Red Blood Cell % SABINO ([facility]) baso % 1.0 % 0.0-1.0 Baso % SABINO ([facility]) immature granulocyte % 0.3 % 0-3.0 Immature Gran ulocyte % SABINO ([facility]) neutrophils # 6.8 10 1.5-8.5 Neutrophils # SABINO ( [facility]) eos # 0.2 10 0.0-0.5 Eos # SABINO ([facility]) lymph # 1.8 10 1.5-5.0 Lymph # SABINO ([facility]) mono # 0.7 10 0.0-0.8 [place] # SABINO ([facility]) baso # 0.1 10 0.0-0.2 Baso # SABINO ([facility]) ID Date Data Source [id number] 08/25/2020 12:00:00 AM EST TRILLA ([facility]) Name Value Range Interpretation Code Description Data Sakshi rce(s) Supporting Document(s) SARS-CoV-2 (COVID-19) RNA [Presence] in Respiratory specimen by ETHEL with probe detection not detected not detected Sars Cov 2 RNA [facility]) ID Date Data Source [id number] 08/25/2020 12:00:00 AM EST TRILLA ([facility]) Name Value Range Interpretation Code Description Data Sakshi rce(s) Supporting Document(s) SARS-CoV-2 (COVID-19) RNA [Presence] in Respiratory specimen by ETHEL with probe detection not detected not detected Sars Cov 2 RNA TRILLA ([facility]) ID Date Data Source [id number] 08/25/2020 12:00:00 AM EST TRILLA ([facility]) Name Value Range Interpretation Code Description Data Sakshi rce(s) Supporting Document(s) SARS-CoV-2 (COVID-19) RNA [Presence] in Respiratory specimen by ETHEL with probe detection not detected not detected Sars Cov 2 RNA TRILLA ([facility]) ID Date Data Source [id number] 08/25/2020 12:00:00 AM EST TRILLA ([facility]) Name Value Range Interpretation Code Description Data Sakshi rce(s) Supporting Document(s) SARS-CoV-2 (COVID-19) RNA [Presence] in Respiratory specimen by ETHEL with probe detection not detected not detected Sars Cov 2 RNA [facility]) ID Date Data Source [id number] 08/25/2020 12:00:00 AM EST [facility]) Name Value Range Interpretation Code Description Data Sakshi rce(s) Supporting Document(s) SARS-CoV-2 (COVID-19) RNA [Presence] in Respiratory specimen by ETHEL with probe detection not detected not detected Sars Cov 2 RNA [facility]) ID Date Data Source [id number] 08/25/2020 12:00:00 AM EST [facility]) Name Value Range Interpretation Code Description Data Sakshi rce(s) Supporting Document(s) SARS-CoV-2 (COVID-19) RNA [Presence] in Respiratory specimen by ETHEL with probe detection not detected not detected Sars Cov 2 RNA [facility]) ID Date Data Source [id number] 08/25/2020 12:00:00 AM EST [facility]) Name Value Range Interpretation Code Description Data Sakshi rce(s) Supporting Document(s) SARS-CoV-2 (COVID-19) RNA [Presence] in Respiratory specimen by ETHEL with probe detection not detected not detected Sars Cov 2 RNA [facility]) ID Date Data Source [id number] 08/25/2020 12:00:00 AM EST SABINO ([facility]) Name Value Range Interpretation Code Description Data Sakshi rce(s) Supporting Document(s) SARS-CoV-2 (COVID-19) RNA [Presence] in Respiratory specimen by ETHEL with probe detection not detected not detected Sars Cov 2 RNA [facility]) ID Date Data Source [id number] 08/25/2020 12:00:00 AM [facility] Name Value Range Interpretation Code Description Data Sakshi rce(s) Supporting Document(s) SARS-CoV-2 (COVID-19) RNA [Presence] in Respiratory specimen by ETHEL with probe detection not detected not detected Sars Cov 2 RNA [facility]) ID Date Data Source [id number] 08/25/2020 12:00:00 AM EST [facility]) Name Value Range Interpretation Code Description Data Sakshi rce(s) Supporting Document(s) SARS-CoV-2 (COVID-19) RNA [Presence] in Respiratory specimen by ETHEL with probe detection not detected not detected Sars Cov 2 RNA [facility]) ID Date Data Source [id number] 08/25/2020 12:00:00 AM EST [facility]) Name Value Range Interpretation Code Description Data Sakshi rce(s) Supporting Document(s) SARS-CoV-2 (COVID-19) RNA [Presence] in Respiratory specimen by ETHEL with probe detection not detected not detected Sars Cov 2 RNA [facility]) ID Date Data Source [id number] 08/25/2020 12:00:00 AM EST [facility]) Name Value Range Interpretation Code Description Data Sakshi rce(s) Supporting Document(s) SARS coronavirus 2 RNA [Presence] in Res piratory specimen by ETHEL with probe detection not detected not detected Sars Cov 2 RNA [facility]) ID Date Data Source [id number] 07/17/2020 10:00:00 AM EDT [facility] Name Value Range Interpretation Code Description Data Sakshi rce(s) Supporting Document(s) URINECULTRTN SPECIMEN APPEARS CONTAMINATED N [facility] ID Date Data Source [id number] 07/17/2020 09:42:18 AM EDT [facility] Measurements & CalculationsHeight: 62.50 inches 158.75 cm [...] pH: 6.0 5.0-6.5 Blood: negative Negative Specific [place]: 1.020 1.020> =1.030 Ketone: negative Negative Bilirubin: [...] During the past year, has the pa tient received a transfusion of blood or blood [...] Syringe 0.5 MLMfr / Lot# / Exp.Date: [employer] / [id number] / 1Amt. Given / Route / Site: 0.5 mL / IM / Right DeltoidNDC / CVX: [id number] / 150Administered Date: 07/17/2020 10:22VFC Eligibility: Not [...] 17, 2020 9:45 AMPatient History Medical History:AsthmaDepressionSurgical History:Jempolqwlvpcrlnezdxxpdbmfdhuy-mwujnflzetbl-mwccelfnnMqnmak History:Diabetes (Father)Hypertension (Mother, Father)Social/Personal History: Chief Complaintfollow-up [...] during this visit, including review of any uxly-wjt-uuikmbz medications, herbal therapies, and/or supplements.Allergy ReviewAllergy List [...] explanation of examination or test findings (ICD-V65.8) (BVM15-E55.2) Assessment: Instructions: Labs reviewed in detail today.Unspecified Eustachian tube disorder, bilateral (WTB22-R64.93) Assessment: Instructions: Start cetirizine/Zyrtec daily as needed for fluid in the ears, likely due to seasonal change.Encounter for immunization (ICD-V05.9) (AJI84-K91) Assessment: Instructions: Flu vaccine today.Acute low back pain (ICD- 724.2) (ZWH01-D23.5) Assessment: Instructions: U/A in office essentially unremarkable. Urine was sent for culture today, we will call you if antibiotic needs to be started or changed based on culture. Stay well hydrated, empty bladder fully and frequently. Follow-up sooner for worsening symptoms, or ER for severe pain, back pain, fever, vomiting.Personal history of urinary calculi (ICD-V13.01) (EYY35-P22.442) Assessment: Instructions: Possible stone but urine not indicative. Increase hydration. ER for sudden severe change in symptoms. Consider ultrasound if pain persists.Assessed:Vitamin D deficiency, unspecified (TXY12-G83.9) Assessment: Instructions: Continue vitamin D3 2000 units daily, prescription sent.Pure hypercholesterolemia, unspecified (RLL78-I24.00) Assessment: Instructions: Improving with healthy lifestyle. No choleterol medication at this time. Continue with low fat diet, portion sizes, emphasis on increasing exercise and healthy weight loss. Repeat again in 6 months.MORBID OBESITY (ICD-278.01) (BJN68-M46.01) Assessment: Instructions: Down 5lbs since last visit. Keep up the great work!BMI 50.0-59.9 (ICD-V85.43) (YZY57-P53.43) Assessment: Instructions: As above.Mixed anxiety and depressive disorder (ICD-300.4) (UDJ65-W52.8) Assessment: Instructions: Continue current medications. Call with [...] ORAL TABLETMedication Changes:New Prescription:VITAMIN D3 50 MCG (2000 UT) ORAL CAPSULE-take 1 capsule po daily Qty: 90[Capsule] Refills: 3 Method: ElectronicAllergies:PENICILLIN (Critical )Orders:Urinalysis-automated [CPT-41576] FluLaval Quadrivalent, preservative free [CPT-87996] Urine Culture & Sensitivity [CPT-41218] Adult - Ofc Vst, EST, Level III [CPT-66536] Follow-Up Return to clinic: in 6 months for follow upAdditional Follow-Up: after fasting labsClinical Visit Summary Declined Name Value Range Interpretation Code Description Data Sakshi rce(s) Supporting Document(s) ID Date Data Source [id number] 07/17/2020 09:42:18 AM EDT [facility] Name Value Range Interpretation Code Description Data Sakshi rce(s) Supporting Document(s) APPEARANCE U clear [facility] BILIRUBIN UR negative [facility] BLOOD UR DIP negative [facility] GLUCOSE, URN negative [facility] KETONES URN negative [facility] NITRITE URN negative [facility] PH URINE 6.0 [facility] PROTEIN, URN negative [facility] MixRank SPEC GR URIN 1.020 [facility] UA COLOR yellow [facility] UROBILINOGEN 17 [facility] W[facility] D[facility]STK [facility] ID Date Data Source [id number] 07/10/2020 08:22:19 AM EDT [facility] Labs In-House Blood TestsDate/Time Colle cted: July 10, 2020 8:15 AMTest Result Reference Range Normal ValueComments: Labs drawn in office right AC. Tolerated wellTaylor Bigg ARROYO, July 10, 2020 8:23 AMAssessment & Plan Orders:[id number] Vst-Est Level I [CPT-59816] [id number] - Venipuncture [CPT-49904] Name Value Range Interpretation Code Description Data Sakshi rce(s) Supporting Document(s) ID Date Data Source [id number] 07/10/2020 08:15:00 AM EDT [facility] Name Value Range Interpretation Code Description Data Sakshi rce(s) Supporting Document(s) VIT D25 TOT 26.9 ng/mL 30.0-100.0 L [facility] BG FASTING 85 mg/dL 70-100 N [facility] Procedure Social History No Information Vital Signs ID Date Data Source UNK Name Value Range Interpretation Code Description Data Source(s) Body height 62.5 [in_i] 62.5 [in_i] SABINO ([facility]) Body height 62.5 [in_i] 62.5 [in_i] SABINO ([facility]) Body height 62.5 [in_i] 62.5 [in_i] SABINO ([facility]) Systolic blood pressure 130 mm[Hg] 130 mm[Hg] A [facility] ([facility]) Diastolic blood pressure 76 mm[Hg] 76 mm[Hg] SABINO ([facility]) Systolic blood pressure 138 mm[Hg] 138 mm[Hg] A [facility] ([facility]) Diastolic blood pressure 100 mm[Hg] 100 mm[Hg] SABINO ([facility]) Body height 62.5 [in_i] 62.5 [in_i] SABINO ([facility]) Systolic blood pressure 130 mm[Hg] 130 mm[Hg] A [facility] ([facility]) Diastolic blood pressure 76 mm[Hg] 76 mm[Hg] SABINO ([facility]) Systolic blood pressure 138 mm[Hg] 138 mm[Hg] [facility] Diastolic blood pressure 100 mm[Hg] 100 mm[Hg] SABINO ([facility]) Body height 62.5 [in_i] 62.5 [in_i] SABINO ([facility]) Diastolic blood pressure 76 mm[Hg] 76 mm[Hg] SABINO ([facility]) Diastolic blood pressure 100 mm[Hg] 100 mm[Hg] SABINO ([facility]) Body height 62.5 [in_i] 62.5 [in_i] SABINO ([facility]) Systolic blood pressure 130 mm[Hg] 130 mm[Hg] A THENA ([facility]) Systolic blood pressure 138 mm[Hg] 138 mm[Hg] [facility] Diastolic blood pressure 76 mm[Hg] 76 mm[Hg] SABINO ([facility]) Diastolic blood pressure 100 mm[Hg] 100 mm[Hg] SABINO ([facility]) Body height 62.5 [in_i] 62.5 [in_i] SABINO ([facility]) Systolic blood pressure 130 mm[Hg] 130 mm[Hg] A THENA ([facility]) Systolic blood pressure 138 mm[Hg] 138 mm[Hg] [facility] Diastolic blood pressure 84 mm[Hg] 84 mm[Hg] SABINO ([facility]) Body height 62.5 [in_i] 62.5 [in_i] SABINO ([facility]) Body mass index (BMI) [Ratio] 54.7 kg/m2 54.7 k g/m2 SABINO ([facility]) Systolic blood pressure 123 mm[Hg] 123 mm[Hg] A THENA ([facility]) Body weight 4864 [oz_av] 4864 [oz_av] SABINO ([facility]) Diastolic blood pressure 84 mm[Hg] 84 mm[Hg] SABINO ([facility]) Body height 62.5 [in_i] 62.5 [in_i] SABINO ([facility]) Body mass index (BMI) [Ratio] 54.7 kg/m2 54.7 k g/m2 SABINO ([facility]) Systolic blood pressure 123 mm[Hg] 123 mm[Hg] A THENA ([facility]) Body weight 4864 [oz_av] 4864 [oz_av] SABINO ([facility]) Diastolic blood pressure 84 mm[Hg] 84 mm[Hg] SABINO ([facility]) Body height 62.5 [in_i] 62.5 [in_i] SABINO ([facility]) Body mass index (BMI) [Ratio] 54.7 kg/m2 54.7 k g/m2 SABINO ([facility]) Systolic blood pressure 123 mm[Hg] 123 mm[Hg] [facility] Body weight 4864 [oz_av] 4864 [oz_av] SABINO ([facility]) Diastolic blood pressure 84 mm[Hg] 84 mm[Hg] SABINO ([facility]) Body height 62.5 [in_i] 62.5 [in_i] SABINO ([facility]) Body mass index (BMI) [Ratio] 54.7 kg/m2 54.7 k g/m2 SABINO ([facility]) Systolic blood pressure 123 mm[Hg] 123 mm[Hg] [facility] Body weight 4864 [oz_av] 4864 [oz_av] SABINO ([facility]) Systolic blood pressure 123 mm[Hg] 123 mm[Hg] [facility] Body weight 4864 [oz_av] 4864 [oz_av] SABINO ([facility]) Diastolic blood pressure 84 mm[Hg] 84 mm[Hg] SABINO ([facility]) Body height 62.5 [in_i] 62.5 [in_i] SABINO ([facility]) Body mass index (BMI) [Ratio] 54.7 kg/m2 54.7 k g/m2 SABINO ([facility]) Systolic blood pressure 166 mm[Hg] 166 mm[Hg] M EDGARY ([facility], ) Body weight 139.255 kg 139.255 kg MEDGARY ([facility], ) Body surface area Derived from formula 2.32 m2 2.32 m2 MEDGARY ([facility], ) Body height 63 [in_i] 63 [in_i] MEDGARY ([facility], ) 5'3" Body weight 307.00 [lb_av] 307.00 [lb_av] MEDEN T ([facility], ) Body mass index (BMI) [Ratio] 54.4 kg/m2 54.4 k g/m2 MEDGARY ([facility], ) [place] body weight 115 [lb_av] 115 [lb_av] MEDEN T ([facility]) Diastolic blood pressure 96 mm[Hg] 96 mm[Hg] MEDENT ([facility]) Diastolic blood pressure 83 mm[Hg] 83 mm[Hg] SABINO ([facility]) Body height 62.5 [in_i] 62.5 [in_i] SABINO ([facility]) Body mass index (BMI) [Ratio] 55.4 kg/m2 55.4 k g/m2 SABINO ([facility]) Systolic blood pressure 126 mm[Hg] 126 mm[Hg] A [facility] ([facility]) Body weight 4928 [oz_av] 4928 [oz_av] SABINO ([facility]) Body weight 4928 [oz_av] 4928 [oz_av] SABINO ([facility]) Systolic blood pressure 126 mm[Hg] 126 mm[Hg] A [facility] ([facility]) Body mass index (BMI) [Ratio] 55.4 kg/m2 55.4 k g/m2 SABINO ([facility]) Diastolic blood pressure 83 mm[Hg] 83 mm[Hg] SABINO ([facility]) Body height 62.5 [in_i] 62.5 [in_i] SABINO ([facility]) Body weight 4928 [oz_av] 4928 [oz_av] SABINO ([facility]) Diastolic blood pressure 83 mm[Hg] 83 mm[Hg] SABINO ([facility]) Body height 62.5 [in_i] 62.5 [in_i] SABINO ([facility]) Body mass index (BMI) [Ratio] 55.4 kg/m2 55.4 k g/m2 SABINO ([facility]) Systolic blood pressure 126 mm[Hg] 126 mm[Hg] [facility] Body height 62.5 [in_i] 62.5 [in_i] SABINO ([facility]) Body weight 4928 [oz_av] 4928 [oz_av] SABINO ([facility]) Body mass index (BMI) [Ratio] 55.4 kg/m2 55.4 k g/m2 SABINO ([facility]) Systolic blood pressure 126 mm[Hg] 126 mm[Hg] A THENA ([facility]) Diastolic blood pressure 83 mm[Hg] 83 mm[Hg] SABINO ([facility]) Diastolic blood pressure 83 mm[Hg] 83 mm[Hg] SABINO ([facility]) Body height 62.5 [in_i] 62.5 [in_i] SABINO ([facility]) Body mass index (BMI) [Ratio] 55.4 kg/m2 55.4 k g/m2 SABINO ([facility]) Systolic blood pressure 126 mm[Hg] 126 mm[Hg] A THENA ([facility]) Body weight 4928 [oz_av] 4928 [oz_av] SABINO ([facility]) Diastolic blood pressure 83 mm[Hg] 83 mm[Hg] SABINO ([facility]) Body height 62.5 [in_i] 62.5 [in_i] SABINO ([facility]) Body mass index (BMI) [Ratio] 55.4 kg/m2 55.4 k g/m2 SABINO ([facility]) Systolic blood pressure 126 mm[Hg] 126 mm[Hg] A THENA ([facility]) Body weight 4928 [oz_av] 4928 [oz_av] SABINO ([facility]) Body temperature 96.9 [degF] 96.9 [degF] MEDENT ([facility]) Body height 65 [in_i] 65 [in_i] MEDENT ([facility]) 5'5" Body weight 300.00 [lb_av] 300.00 [lb_av] MEDEN T ([facility]) Body mass index (BMI) [Ratio] 49.9 kg/m2 49.9 k g/m2 MEDENT ([facility]) Diastolic blood pressure 80 mm[Hg] 80 mm[Hg] SABINO ([facility]) Body height 62.5 [in_i] 62.5 [in_i] SABINO ([facility]) Body mass index (BMI) [Ratio] 55 kg/m2 55 kg/ m2 SABINO ([facility]) Systolic blood pressure 128 mm[Hg] 128 mm[Hg] A THENA ([facility]) Body weight 4892.8 [oz_av] 4892.8 [oz_av] ATHEN A ([facility]) Systolic blood pressure 128 mm[Hg] 128 mm[Hg] A THENA ([facility]) Body weight 4892.8 [oz_av] 4892.8 [oz_av] ATHEN A ([facility]) Diastolic blood pressure 80 mm[Hg] 80 mm[Hg] SABINO ([facility]) Body height 62.5 [in_i] 62.5 [in_i] SABINO ([facility]) Body mass index (BMI) [Ratio] 55 kg/m2 55 kg/ m2 SABNIO ([facility]) Diastolic blood pressure 80 mm[Hg] 80 mm[Hg] SABINO ([facility]) Body height 62.5 [in_i] 62.5 [in_i] SABINO ([facility]) Body mass index (BMI) [Ratio] 55 kg/m2 55 kg/ m2 SABINO ([facility]) Systolic blood pressure 128 mm[Hg] 128 mm[Hg] A THENA ([facility]) Body weight 4892.8 [oz_av] 4892.8 [oz_av] ATHEN A ([facility]) Diastolic blood pressure 80 mm[Hg] 80 mm[Hg] SABINO ([facility]) Body height 62.5 [in_i] 62.5 [in_i] SABINO ([facility]) Body mass index (BMI) [Ratio] 55 kg/m2 55 kg/ m2 SABINO ([facility]) Systolic blood pressure 128 mm[Hg] 128 mm[Hg] A THENA ([facility]) Body weight 4892.8 [oz_av] 4892.8 [oz_av] ATHEN A ([facility]) Diastolic blood pressure 80 mm[Hg] 80 mm[Hg] SABINO ([facility]) Body weight 4892.8 [oz_av] 4892.8 [oz_av] ATHEN A ([facility]) Body height 62.5 [in_i] 62.5 [in_i] SABINO ([facility]) Body mass index (BMI) [Ratio] 55 kg/m2 55 kg/ m2 SABINO ([facility]) Systolic blood pressure 128 mm[Hg] 128 mm[Hg] A THENA ([facility]) Diastolic blood pressure 80 mm[Hg] 80 mm[Hg] SABINO ([facility]) Body height 62.5 [in_i] 62.5 [in_i] SABINO ([facility]) Body mass index (BMI) [Ratio] 55 kg/m2 55 kg/ m2 SABINO ([facility]) Systolic blood pressure 128 mm[Hg] 128 mm[Hg] A THENA ([facility]) Body weight 4892.8 [oz_av] 4892.8 [oz_av] ATHEN A ([facility]) Diastolic blood pressure 80 mm[Hg] 80 mm[Hg] SABINO ([facility]) Body height 62.5 [in_i] 62.5 [in_i] SABINO ([facility]) Body mass index (BMI) [Ratio] 55 kg/m2 55 kg/ m2 SABINO ([facility]) Systolic blood pressure 128 mm[Hg] 128 mm[Hg] A THENA ([facility]) Body weight 4892.8 [oz_av] 4892.8 [oz_av] ATHEN A ([facility]) Body height 62.5 [in_i] 62.5 [in_i] SABINO ([facility]) Body height 62.5 [in_i] 62.5 [in_i] SABINO ([facility]) Body height 62.5 [in_i] 62.5 [in_i] SABINO ([facility]) Body height 62.5 [in_i] 62.5 [in_i] SABINO ([facility]) Body height 62.5 [in_i] 62.5 [in_i] SABINO ([facility]) Body height 62.5 [in_i] 62.5 [in_i] SABINO ([facility]) Body height 62.5 [in_i] 62.5 [in_i] SABINO ([facility]) Body height 62.5 [in_i] 62.5 [in_i] SABINO ([facility]) Diastolic blood pressure 78 mm[Hg] 78 mm[Hg] SABINO ([facility]) Body height 62.5 [in_i] 62.5 [in_i] SABINO ([facility]) Body mass index (BMI) [Ratio] 54.6 kg/m2 54.6 k g/m2 SABINO ([facility]) Systolic blood pressure 137 mm[Hg] 137 mm[Hg] A THENA ([facility]) Body weight 4854.4 [oz_av] 4854.4 [oz_av] ATHEN A ([facility]) Diastolic blood pressure 78 mm[Hg] 78 mm[Hg] SABINO ([facility]) Body height 62.5 [in_i] 62.5 [in_i] SABINO ([facility]) Body mass index (BMI) [Ratio] 54.6 kg/m2 54.6 k g/m2 SABINO ([facility]) Systolic blood pressure 137 mm[Hg] 137 mm[Hg] A THENA ([facility]) Body weight 4854.4 [oz_av] 4854.4 [oz_av] ATHEN A ([facility]) Diastolic blood pressure 78 mm[Hg] 78 mm[Hg] SABINO ([facility]) Body height 62.5 [in_i] 62.5 [in_i] SABINO ([facility]) Body mass index (BMI) [Ratio] 54.6 kg/m2 54.6 k g/m2 SABINO ([facility]) Systolic blood pressure 137 mm[Hg] 137 mm[Hg] A THENA ([facility]) Body weight 4854.4 [oz_av] 4854.4 [oz_av] ATHEN A ([facility]) Diastolic blood pressure 78 mm[Hg] 78 mm[Hg] SABINO ([facility]) Body height 62.5 [in_i] 62.5 [in_i] SABINO ([facility]) Body mass index (BMI) [Ratio] 54.6 kg/m2 54.6 k g/m2 SABINO ([facility]) Systolic blood pressure 137 mm[Hg] 137 mm[Hg] [facility] Body weight 4854.4 [oz_av] 4854.4 [oz_av] ATHEN A ([facility]) Diastolic blood pressure 78 mm[Hg] 78 mm[Hg] SABINO ([facility]) Body height 62.5 [in_i] 62.5 [in_i] SABINO ([facility]) Body mass index (BMI) [Ratio] 54.6 kg/m2 54.6 k g/m2 SABINO ([facility]) Systolic blood pressure 137 mm[Hg] 137 mm[Hg] [facility] Body weight 4854.4 [oz_av] 4854.4 [oz_av] ATHEN A ([facility]) Diastolic blood pressure 78 mm[Hg] 78 mm[Hg] SABINO ([facility]) Body height 62.5 [in_i] 62.5 [in_i] SABINO ([facility]) Body mass index (BMI) [Ratio] 54.6 kg/m2 54.6 k g/m2 SABINO ([facility]) Systolic blood pressure 137 mm[Hg] 137 mm[Hg] A THENA ([facility]) Body weight 4854.4 [oz_av] 4854.4 [oz_av] ATHEN A ([facility]) Diastolic blood pressure 78 mm[Hg] 78 mm[Hg] SABINO ([facility]) Body height 62.5 [in_i] 62.5 [in_i] SABINO ([facility]) Body mass index (BMI) [Ratio] 54.6 kg/m2 54.6 k g/m2 SABINO ([facility]) Systolic blood pressure 137 mm[Hg] 137 mm[Hg] A THENA ([facility]) Body weight 4854.4 [oz_av] 4854.4 [oz_av] ATHEN A ([facility]) Diastolic blood pressure 78 mm[Hg] 78 mm[Hg] SABINO ([facility]) Body height 62.5 [in_i] 62.5 [in_i] SABINO ([facility]) Body mass index (BMI) [Ratio] 54.6 kg/m2 54.6 k g/m2 SABINO ([facility]) Systolic blood pressure 137 mm[Hg] 137 mm[Hg] A THENA ([facility]) Body weight 4854.4 [oz_av] 4854.4 [oz_av] ATHEN A ([facility]) Diastolic blood pressure 78 mm[Hg] 78 mm[Hg] SABINO ([facility]) Body height 62.5 [in_i] 62.5 [in_i] SABINO ([facility]) Body mass index (BMI) [Ratio] 54.6 kg/m2 54.6 k g/m2 SABINO ([facility]) Systolic blood pressure 137 mm[Hg] 137 mm[Hg] A THENA ([facility]) Body weight 4854.4 [oz_av] 4854.4 [oz_av] ATHEN A ([facility]) Diastolic blood pressure 78 mm[Hg] 78 mm[Hg] SABINO ([facility]) Body height 62.5 [in_i] 62.5 [in_i] SABINO ([facility]) Body mass index (BMI) [Ratio] 54.6 kg/m2 54.6 k g/m2 SABINO ([facility]) Systolic blood pressure 137 mm[Hg] 137 mm[Hg] A THENA ([facility]) Body weight 4854.4 [oz_av] 4854.4 [oz_av] ATHEN A ([facility]) Diastolic blood pressure 85 mm[Hg] 85 mm[Hg] SABINO ([facility]) Body height 62.5 [in_i] 62.5 [in_i] SABINO ([facility]) Body mass index (BMI) [Ratio] 54.23 kg/m2 54.23 kg/m2 SABINO ([facility]) Systolic blood pressure 122 mm[Hg] 122 mm[Hg] [facility] Body weight 4803.2 [oz_av] 4803.2 [oz_av] ATHEN A ([facility]) Diastolic blood pressure 85 mm[Hg] 85 mm[Hg] SABINO ([facility]) Body height 62.5 [in_i] 62.5 [in_i] SABINO ([facility]) Body mass index (BMI) [Ratio] 54.23 kg/m2 54.23 kg/m2 SABINO ([facility]) Systolic blood pressure 122 mm[Hg] 122 mm[Hg] A THENA ([facility]) Body weight 4803.2 [oz_av] 4803.2 [oz_av] ATHEN A ([facility]) Diastolic blood pressure 85 mm[Hg] 85 mm[Hg] SABINO ([facility]) Body height 62.5 [in_i] 62.5 [in_i] SABINO ([facility]) Body mass index (BMI) [Ratio] 54.23 kg/m2 54.23 kg/m2 SABINO ([facility]) Systolic blood pressure 122 mm[Hg] 122 mm[Hg] A THENA ([facility]) Body weight 4803.2 [oz_av] 4803.2 [oz_av] ATHEN A ([facility]) Diastolic blood pressure 85 mm[Hg] 85 mm[Hg] SABINO ([facility]) Body height 62.5 [in_i] 62.5 [in_i] SABINO ([facility]) Body mass index (BMI) [Ratio] 54.23 kg/m2 54.23 kg/m2 SABINO ([facility]) Systolic blood pressure 122 mm[Hg] 122 mm[Hg] A THENA ([facility]) Body weight 4803.2 [oz_av] 4803.2 [oz_av] ATHEN A ([facility]) Diastolic blood pressure 85 mm[Hg] 85 mm[Hg] SABINO ([facility]) Body height 62.5 [in_i] 62.5 [in_i] SABINO ([facility]) Body mass index (BMI) [Ratio] 54.23 kg/m2 54.23 kg/m2 SABINO ([facility]) Systolic blood pressure 122 mm[Hg] 122 mm[Hg] A THENA ([facility]) Body weight 4803.2 [oz_av] 4803.2 [oz_av] ATHEN A ([facility]) Diastolic blood pressure 85 mm[Hg] 85 mm[Hg] SABINO ([facility]) Body height 62.5 [in_i] 62.5 [in_i] SABINO ([facility]) Body mass index (BMI) [Ratio] 54.23 kg/m2 54.23 kg/m2 SABINO ([facility]) Systolic blood pressure 122 mm[Hg] 122 mm[Hg] A THENA ([facility]) Body weight 4803.2 [oz_av] 4803.2 [oz_av] ATHEN A ([facility]) Diastolic blood pressure 85 mm[Hg] 85 mm[Hg] SABINO ([facility]) Body height 62.5 [in_i] 62.5 [in_i] SABINO ([facility]) Body mass index (BMI) [Ratio] 54.23 kg/m2 54.23 kg/m2 SABINO ([facility]) Systolic blood pressure 122 mm[Hg] 122 mm[Hg] A THENA ([facility]) Body weight 4803.2 [oz_av] 4803.2 [oz_av] ATHEN A ([facility]) Diastolic blood pressure 85 mm[Hg] 85 mm[Hg] SABINO ([facility]) Body height 62.5 [in_i] 62.5 [in_i] SABINO ([facility]) Body mass index (BMI) [Ratio] 54.23 kg/m2 54.23 kg/m2 SABINO ([facility]) Systolic blood pressure 122 mm[Hg] 122 mm[Hg] A THENA ([facility]) Body weight 4803.2 [oz_av] 4803.2 [oz_av] ATHEN A ([facility]) Diastolic blood pressure 85 mm[Hg] 85 mm[Hg] SABINO ([facility]) Body height 62.5 [in_i] 62.5 [in_i] SABINO ([facility]) Body mass index (BMI) [Ratio] 54.23 kg/m2 54.23 kg/m2 SABINO ([facility]) Systolic blood pressure 122 mm[Hg] 122 mm[Hg] A JAGUARA ([facility]) Body weight 4803.2 [oz_av] 4803.2 [oz_av] ATHEN A ([facility]) Diastolic blood pressure 85 mm[Hg] 85 mm[Hg] SABINO ([facility]) Body height 62.5 [in_i] 62.5 [in_i] SABINO ([facility]) Body mass index (BMI) [Ratio] 54.23 kg/m2 54.23 kg/m2 SABINO ([facility]) Systolic blood pressure 122 mm[Hg] 122 mm[Hg] A JAGUARA ([facility]) Body weight 4803.2 [oz_av] 4803.2 [oz_av] ATHEN A ([facility]) Diastolic blood pressure 85 mm[Hg] 85 mm[Hg] SABINO ([facility]) Body height 62.5 [in_i] 62.5 [in_i] SABINO ([facility]) Body mass index (BMI) [Ratio] 54.23 kg/m2 54.23 kg/m2 SABINO ([facility]) Systolic blood pressure 122 mm[Hg] 122 mm[Hg] A JAGUARA ([facility]) Body weight 4803.2 [oz_av] 4803.2 [oz_av] ATHEN A ([facility]) Patient Treatment Plan of Care Planned Activity Planned Date Details Description Data Source (s) tizanidine 2 MG Oral Tablet SABINO ([facility]) Sertraline 100 MG Oral Tablet SABINO ([facility]) Oseltamivir 75 MG Oral Capsule SABINO ([facility]) methylprednisolone 4 mg tablets in a dose pack SABINO ([facility]) Lactulose 667 MG/ML Oral Solution SABINO ([facility]) Ibuprofen 200 MG Oral Tablet SABINO ([facility]) Hydroxyzine Hydrochloride 50 MG Oral Tablet SABINO ([facility]) cefdinir 300 MG Oral Capsule SABINO ([facility]) tizanidine 2 MG Oral Tablet SABINO ([facility]) Sertraline 100 MG Oral Tablet SABINO ([facility]) Oseltamivir 75 MG Oral Capsule SABINO ([facility]) methylprednisolone 4 mg tablets in a dose pack SABINO ([facility]) Lactulose 667 MG/ML Oral Solution SABINO ([facility]) Ibuprofen 200 MG Oral Tablet SABINO ([facility]) Hydroxyzine Hydrochloride 50 MG Oral Tablet SABINO ([facility]) cefdinir 300 MG Oral Capsule SABINO ([facility]) tizanidine 2 MG Oral Tablet SABINO ([facility]) Oseltamivir 75 MG Oral Capsule SABINO ([facility]) methylprednisolone 4 mg tablets in a dose pack SABINO ([facility]) Lactulose 667 MG/ML Oral Solution SABINO ([facility]) Ibuprofen 200 MG Oral Tablet SABINO ([facility]) Hydroxyzine Hydrochloride 50 MG Oral Tablet SABINO ([facility]) cefdinir 300 MG Oral Capsule SABINO ([facility]) tizanidine 2 MG Oral Tablet SABINO ([facility]) Oseltamivir 75 MG Oral Capsule SABINO ([facility]) methylprednisolone 4 mg tablets in a dose pack SABINO ([facility]) Lactulose 667 MG/ML Oral Solution SABINO ([facility]) Ibuprofen 200 MG Oral Tablet SABINO ([facility]) Hydroxyzine Hydrochloride 50 MG Oral Tablet SABINO ([facility]) cefdinir 300 MG Oral Capsule SABINO ([facility]) Alprazolam 0.25 MG Oral Tablet SABINO ([facility]) tizanidine 2 MG Oral Tablet SABINO ([facility]) Oseltamivir 75 MG Oral Capsule SABINO ([facility]) methylprednisolone 4 mg tablets in a dose pack SABINO ([facility]) Lactulose 667 MG/ML Oral Solution SABINO ([facility]) Ibuprofen 200 MG Oral Tablet SABINO ([facility]) Hydroxyzine Hydrochloride 50 MG Oral Tablet SABINO ([facility]) cefdinir 300 MG Oral Capsule SABINO ([facility]) Alprazolam 0.25 MG Oral Tablet SABINO ([facility]) tizanidine 2 MG Oral Tablet SABINO ([facility]) Oseltamivir 75 MG Oral Capsule SABINO ([facility]) methylprednisolone 4 mg tablets in a dose pack SABINO ([facility]) Lactulose 667 MG/ML Oral Solution SABINO ([facility]) Ibuprofen 200 MG Oral Tablet SABINO ([facility]) Hydroxyzine Hydrochloride 50 MG Oral Tablet SABINO ([facility]) cefdinir 300 MG Oral Capsule SABINO ([facility]) Alprazolam 0.25 MG Oral Tablet SABINO ([facility]) Oseltamivir 75 MG Oral Capsule SABINO ([facility]) Lactulose 667 MG/ML Oral Solution SABINO ([facility]) Ibuprofen 200 MG Oral Tablet SABINO ([facility]) Hydroxyzine Hydrochloride 50 MG Oral Tablet SABINO ([facility]) cefdinir 300 MG Oral Capsule SABINO ([facility]) Alprazolam 0.25 MG Oral Tablet SABINO ([facility]) Oseltamivir 75 MG Oral Capsule SABINO ([facility]) Lactulose 667 MG/ML Oral Solution SABINO ([facility]) Hydroxyzine Hydrochloride 50 MG Oral Tablet SABINO ([facility]) cefdinir 300 MG Oral Capsule SABINO ([facility]) Oseltamivir 75 MG Oral Capsule SABINO ([facility]) Lactulose 667 MG/ML Oral Solution SABINO ([facility]) Hydroxyzine Hydrochloride 50 MG Oral Tablet SABINO ([facility]) cefdinir 300 MG Oral Capsule SABINO ([facility]) Oseltamivir 75 MG Oral Capsule SABINO ([facility]) Lactulose 667 MG/ML Oral Solution SABINO ([facility]) Hydroxyzine Hydrochloride 50 MG Oral Tablet SABINO ([facility]) cefdinir 300 MG Oral Capsule SABINO ([facility])
== END 2021-08-27 09:25 | disposition home or self-care (01) ==
LOC: M ED 08:03
DX: S16.1XXA Strain of muscle, fascia and tendon at neck level, initial encounter (principal); V43.52XA Car driver injured in collision with other type car in traffic accident, initial encounter; Y92.9 Unspecified place or not applicable; Y93.9 Activity, unspecified; Y99.9 Unspecified external cause status; E66.9 Obesity, unspecified; Z79.899 Other long term (current) drug therapy; Z88.0 Allergy status to penicillin
CPT/HCPCS: 70450; 72125; 99284; Q0162

== ENCOUNTER 2022-03-28 08:19 | Emergency (ER) | payer OTHER ==
[~2022-03-28] VITALS: Ht 165.1 cm; Wt 141.0 kg
[2022-03-28 08:19] VITALS: BP 148/103
[~2022-03-28 08:19] MED LIST changes: -FLUO10CA16 PO; +FLUO10CA18 PO
[2022-03-28] MEDS ORDERED: BUPR-71 (08:25)
[2022-03-28] MEDS ORDERED: ALPR0.25 (08:25)
[2022-03-28] MEDS ORDERED: NS 1,000 ML IV ONE (10:40)
[2022-03-28 11:08] LABS: BASO # 0.1 10^3/uL (0.0-0.2); BASO % 0.8 % (0.0-1.0); EOS # 0.3 10^3/uL (0.0-0.5); EOS % 2.6 % (0.0-3.0); HEMATOCRIT 45.1 % (36.0-47.0); HEMOGLOBIN 14.5 g/dl (12.0-15.5); LYMPH % 9.8 % (24.0-44.0); MEAN CORPUSCULAR HEMOGLOBIN 27.4 pg (27.0-33.0); MEAN CORPUSCULAR HGB CONC 32.2 g/dl (32.0-36.5); MEAN CORPUSCULAR VOLUME 85.1 fl (80.0-96.0); MONO # 1.3 10^3/uL (0.0-0.8); MONO % 12.4 % (2.0-8.0); NEUTROPHILS # 7.7 10^3/uL (1.5-8.5); NEUTROPHILS % 74.1 % (36.0-66.0); PLATELET COUNT, AUTOMATED 221 10^3/uL (150-450); WHITE BLOOD COUNT 10.4 10^3/uL (4.0-10.0)
[2022-03-28 11:32] LABS: ALBUMIN 3.9 GM/DL (3.2-5.2); ALT/SGPT 86 U/L (12-78); BILIRUBIN,DIRECT 0.3 MG/DL (0.0-0.2); BILIRUBIN,TOTAL 0.6 MG/DL (0.2-1.0); BLOOD UREA NITROGEN 11 MG/DL (7-18); CALCIUM LEVEL 9.2 MG/DL (8.5-10.1); CARBON DIOXIDE LEVEL 28 MEQ/L (21-32); CHLORIDE LEVEL 105 MEQ/L (98-107); CREATININE FOR GFR 0.87 MG/DL (0.55-1.30); GLOMERULAR FILTRATION RATE > 60.0 (>58); GLUCOSE, FASTING 97 MG/DL (70-100); LIPASE 65 U/L (73-393); SODIUM LEVEL 141 MEQ/L (136-145); TOTAL PROTEIN 7.6 GM/DL (6.4-8.2)
[2022-03-28] MEDS ORDERED: KETOROLAC 30 MG/ML 1ML VIAL IV ONE (11:40)
[2022-03-28] MEDS ORDERED: ONDANSETRON 4MG TAB PO ONE (11:40)
== END 2022-03-28 13:01 | disposition home or self-care (01) ==
LOC: M ED 08:19
DX: R10.9 Unspecified abdominal pain (principal); R11.0 Nausea; R94.5 Abnormal results of liver function studies; J45.909 Unspecified asthma, uncomplicated; K21.9 Gastro-esophageal reflux disease without esophagitis; Z87.442 Personal history of urinary calculi; N20.0 Calculus of kidney; Z88.0 Allergy status to penicillin
CPT/HCPCS: 74176; 80048; 80076; 81001; 83690; 84702; 85025; 96374; 99282; J1885

== ENCOUNTER 2022-03-29 19:36 | Emergency (ER) | payer OTHER, SELFPAY ==
[~2022-03-29] VITALS: Ht 165.1 cm; Wt 141.2 kg
[~2022-03-29 19:36] MED LIST changes: +ALPR0.25; +BUPR-71
[2022-03-29 20:47] LABS: HEMATOCRIT 44.6 % (36.0-47.0); MEAN CORPUSCULAR HEMOGLOBIN 26.7 pg (27.0-33.0); MEAN CORPUSCULAR HGB CONC 31.4 g/dl (32.0-36.5); PLATELET COUNT, AUTOMATED 206 10^3/uL (150-450); RED BLOOD COUNT 5.25 10^6/uL (4.00-5.40); WHITE BLOOD COUNT 9.6 10^3/uL (4.0-10.0)
[2022-03-29 21:13] LABS: CREATININE FOR GFR 1.11 MG/DL (0.55-1.30); GLOMERULAR FILTRATION RATE 56.8 (>58); POTASSIUM SERUM 4.1 MEQ/L (3.5-5.1)
[2022-03-30] MEDS ORDERED: METHOCARBAMOL 1,000 MG/10 ML VIAL (J2800) IV ONE (00:30)
[2022-03-30] MEDS ORDERED: KETOROLAC 30 MG/ML 1ML VIAL IV ONE (00:30)
[2022-03-30] MEDS ORDERED: ISOVUE-370 76% 100ML VIAL As Ordered ONE (00:47)
[2022-03-30] MEDS ORDERED: NAPR-837 PO (03:25)
[2022-03-30] MEDS ORDERED: METH-1165 PO (03:25)
[2022-03-30 03:34] VITALS: BP 128/78
== END 2022-03-30 03:42 | disposition home or self-care (01) ==
LOC: M ED 19:36
DX: M54.9 Dorsalgia, unspecified (principal); J45.909 Unspecified asthma, uncomplicated; Z87.442 Personal history of urinary calculi; Z79.899 Other long term (current) drug therapy; Z88.0 Allergy status to penicillin
CPT/HCPCS: 74174; 80048; 81001; 85027; 87086; 96374; 96375; 99283; J1885; J2800; Q9967

== ENCOUNTER → 2022-06-11 | Outpatient (CLI) | payer SELFPAY ==
[~2022-06-11] MED LIST changes: +METH-1165 PO; +NAPR-837 PO; -NORG1TAB4; +NORG1TAB40
== END ==
LOC: M WHC 08:25
PROVIDERS: ATTEND Physician Assistant
DX: Z12.31 Encounter for screening mammogram for malignant neoplasm of breast (principal); R92.2 Inconclusive mammogram

== ENCOUNTER → 2022-07-14 | Outpatient (CLI) | payer SELFPAY | LOC: M WHC 12:37 | PROVIDERS: ATTEND Physician Assistant | DX: R92.2 Inconclusive mammogram (principal); N60.01 Solitary cyst of right breast; N60.02 Solitary cyst of left breast | CPT/HCPCS: 76642; 77066; G0279 ==

== ENCOUNTER → 2022-09-15 | Outpatient (REF) | payer SELFPAY ==
[2022-09-15 16:35] LABS: ALBUMIN 3.7 G/DL (3.2-5.2); ALKALINE PHOSPHATASE 110 U/L (46-116); ALT/SGPT 52 U/L (7.0-40); AST/SGOT 34 U/L (<34); BILIRUBIN,DIRECT 0.2 MG/DL (<0.4); BILIRUBIN,TOTAL 0.5 MG/DL (0.3-1.2); TOTAL PROTEIN 7.1 G/DL (5.7-8.2)
[2022-09-15 16:57] LABS: HEPATITIS B SURFACE ANTIGEN NEGATIVE (NEGATIVE)
[2022-09-15 17:17] LABS: HEPATITIS B CORE ANTIBODY IGM NEGATIVE (NEGATIVE)
[2022-09-15 20:12] LABS: HEPATITIS C VIRUS ABY INDEX 0.2 INDEX (<0.8)
== END ==
LOC: M LAB REF 16:07
PROVIDERS: ATTEND Physician Assistant
DX: R74.01 Elevation of levels of liver transaminase levels (principal)

== ENCOUNTER → 2023-01-24 | Outpatient (REF) | payer BC ==
[2023-01-24 22:05] LABS: APPEARANCE, URINE HAZY (CLEAR); BACTERIA, URINE AUTO NEGATIVE (NEGATIVE); BILIRUBIN, URINE AUTO NEGATIVE (NEGATIVE); BLOOD, URINE BLOOD 1+ (NEGATIVE); COLOR, URINE YELLOW (YELLOW); GLUCOSE, URINE (UA) AUTO NEGATIVE (NEGATIVE); KETONE, URINE AUTO NEGATIVE (NEGATIVE); LEUKOCYTE ESTERASE, URINE AUTO TRACE (NEGATIVE); MUCUS, URINE SMALL (NEGATIVE); NITRITE, URINE AUTO NEGATIVE (NEGATIVE); PROTEIN, URINE AUTO NEGATIVE (NEGATIVE); RBC, URINE AUTO 1 /HPF (0-3); SPECIFIC GRAVITY URINE AUTO 1.024 (1.002-1.035); SQUAMOUS EPITHELIAL CELL UR AU 10 /HPF (0-6); WBC, URINE AUTO 5 /HPF (0-3)
== END ==
LOC: M LAB REF 21:46
PROVIDERS: ATTEND Physician Assistant Medical
DX: N39.0 Urinary tract infection, site not specified (principal)

== ENCOUNTER → 2023-02-15 | Outpatient (CLI) | payer BC | LOC: M WHC 07:41 | PROVIDERS: ATTEND Physician Assistant | DX: N60.02 Solitary cyst of left breast (principal) ==

== ENCOUNTER → 2023-06-30 | Outpatient (CLI) | payer BC ==
[2023-06-30 12:40] LABS: HEMATOCRIT 43.6 % (36.0-47.0); HEMOGLOBIN 13.7 g/dl (12.0-15.5); MEAN CORPUSCULAR HEMOGLOBIN 27.1 pg (27.0-33.0); MEAN CORPUSCULAR HGB CONC 31.4 g/dl (32.0-36.5); MEAN CORPUSCULAR VOLUME 86.2 fl (80.0-96.0); PLATELET COUNT, AUTOMATED 232 10^3/uL (150-450); RED BLOOD COUNT 5.06 10^6/uL (4.00-5.40); WHITE BLOOD COUNT 9.7 10^3/uL (4.0-10.0)
[2023-06-30 13:11] LABS: TOTAL 25(OH) VITAMIN D 14.6 NG/ML (20.0-100.0)
[2023-06-30 13:14] LABS: ALBUMIN 3.7 G/DL (3.2-5.2); ALKALINE PHOSPHATASE 110 U/L (46-116); ALT/SGPT 68 U/L (7.0-40); AST/SGOT 41 U/L (<34); BILIRUBIN,TOTAL 0.5 MG/DL (0.3-1.2); BLOOD UREA NITROGEN 13 MG/DL (9-23); CALCIUM LEVEL 8.6 MG/DL (8.5-10.1); CARBON DIOXIDE LEVEL 29 MMOL/L (20-31); CHLORIDE LEVEL 105 MMOL/L (98-107); CHOLESTEROL LEVEL 154 MG/DL (<200); CHOLESTEROL RISK RATIO 3.72 (<5); CREATININE FOR GFR 0.85 MG/DL (0.55-1.30); GLOMERULAR FILTRATION RATE > 60.0 (>58); GLUCOSE, FASTING 86 MG/DL (60-100); HDL CHOLESTEROL 41.3 MG/DL (>40); LDL CHOLESTEROL 96.5 MG/DL (<100); NON-HDL-C 112.7 MG/DL; POTASSIUM SERUM 4.3 MMOL/L (3.5-5.1); SODIUM LEVEL 140 MMOL/L (136-145); TOTAL PROTEIN 6.8 G/DL (5.7-8.2); TRIGLYCERIDES LEVEL 81 MG/DL (<150)
== END ==
LOC: M WUC 09:06
PROVIDERS: ATTEND Physician Assistant
DX: E78.00 Pure hypercholesterolemia, unspecified (principal); R74.01 Elevation of levels of liver transaminase levels; E55.9 Vitamin D deficiency, unspecified

== ENCOUNTER → 2023-08-04 | Outpatient (CLI) | payer BC | LOC: M WHC 12:44 | PROVIDERS: ATTEND Nurse Practitioner Family | DX: Z12.31 Encounter for screening mammogram for malignant neoplasm of breast (principal) ==

== ENCOUNTER → 2024-12-05 | Outpatient (REF) | payer BC ==
[~2024-12-05] MED LIST changes: -ALLE1TAB23 PO; +FEXO-63 PO; +FLUO-290 PO; +FLUO-365 PO; -FLUO10CA18 PO; -FLUO20CA22 PO; +OMEP-611 PO; -OMEP20TA2 PO
== END ==
LOC: M LAB REF 16:20
PROVIDERS: ATTEND Physician Assistant
DX: R30.0 Dysuria (principal)

== ENCOUNTER → 2024-12-06 | Outpatient (CLI) | payer BC | LOC: M WUC 08:06 | PROVIDERS: ATTEND Physician Assistant | DX: R11.2 Nausea with vomiting, unspecified (principal) ==

== ENCOUNTER → 2025-06-18 | Outpatient (CLI) | payer BC ==
[~2025-06-18] MED LIST changes: -IBUP-1022 PO; +IBUP600T42 PO
== END ==
LOC: M WHC 09:29
PROVIDERS: ATTEND Nurse Practitioner Family
DX: N64.4 Mastodynia (principal); R92.333 Mammographic heterogeneous density, bilateral breasts

== ENCOUNTER → 2025-06-28 | Outpatient (REF) | payer BC ==
[2025-06-28 16:51] LABS: APPEARANCE, URINE TURBID (CLEAR); BACTERIA, URINE AUTO 1+ (NEGATIVE); BILIRUBIN, URINE AUTO NEGATIVE (NEGATIVE); BLOOD, URINE BLOOD 2+ (NEGATIVE); GLUCOSE, URINE (UA) AUTO NEGATIVE (NEGATIVE); KETONE, URINE AUTO NEGATIVE (NEGATIVE); LEUKOCYTE ESTERASE, URINE AUTO 3+ (NEGATIVE); MUCUS, URINE MODERATE (NEGATIVE); NITRITE, URINE AUTO NEGATIVE (NEGATIVE); PROTEIN, URINE AUTO NEGATIVE (NEGATIVE); RBC, URINE AUTO 50 /HPF (0-3); SPECIFIC GRAVITY URINE AUTO 1.026 (1.002-1.035); SQUAMOUS EPITHELIAL CELL UR AU 11 /HPF (0-6); UROBILINOGEN, URINE AUTO 4.0 mg/dL (0.0-2.0); WBC, URINE AUTO 139 /HPF (0-3)
== END ==
LOC: M LAB REF 12:09
PROVIDERS: ATTEND Physician Assistant Medical
DX: N39.0 Urinary tract infection, site not specified (principal)

== ENCOUNTER 2025-07-24 09:49 | Day surgery (SDC) | payer BC ==
[~2025-07-24] VITALS: Ht 170.2 cm; Wt 140.5 kg
[~2025-07-24 09:49] MED LIST changes: +ALBU8.5H INH; +ALEV220T22 PO; -ALPR0.25; +ALPR0.25 PO; +CLAR10CA3 PO; +OMEP1CAP73 PO; +PROP10TA56 PO; +VENTAER INH
[2025-07-24] MEDS ORDERED: LIDOCAINE 2% 100 MG/5 ML SDV (FOR ANES.) As Ordered ONE (11:04)
[2025-07-24] MEDS ORDERED: dexmedeTOMIDine (4 MCG/ML) 200 MCG/50 ML BTL As Ordered ONE (11:26)
[2025-07-24 12:05] VITALS: BP 174/102; O2SAT 99
== END 2025-07-24 12:12 | disposition home or self-care (01) ==
LOC: M OPP 09:49
PROVIDERS: ATTEND Surgery
DX: Z12.11 Encounter for screening for malignant neoplasm of colon (principal); K64.8 Other hemorrhoids; Z88.0 Allergy status to penicillin; Z79.899 Other long term (current) drug therapy; J45.909 Unspecified asthma, uncomplicated